=== PATIENT | male | born 1940 | race Caucasian/White ===

== ENCOUNTER 2019-01-06 09:38 | Inpatient (IN) ==
[2019-01-06] MEDS ORDERED: ONDANSETRON INJ 2 MG/ML 2 ML VIAL IV STA (09:51)
[2019-01-06] MEDS ORDERED: ACETAMINOPHEN 1,000 MG/100 ML VIAL IV STA (09:51)
[2019-01-06] MEDS ORDERED: SODIUM CHLORIDE 0.9% 1000ML 1,000 ML IV SCH (10:00)
[2019-01-06 10:03] LABS: Basophils # (auto) 0.04 K/uL (0-0.2); Basophils % (auto) 0.4 %; Eosinophils # (auto) 0.05 K/uL (0-0.5); Eosinophils % (auto) 0.5 %; Hematocrit (blood only) 32.7 % (42-52); Hemoglobin 10.8 g/dL (14.0-18.0); Immature Granulocytes # (auto) 0.04 K/uL (0.00-0.02); Immature Granulocytes % (auto) 0.4 %; Lymphocytes # (auto) 0.82 K/uL (1.2-3.4); Lymphocytes % (auto) 7.6 %; Mean Corpuscular Hemoglobin 32.7 pg (25-34); Mean Corpuscular Volume 99.1 fL (80-100); Mean Platelet Volume 11.1 fL (7.4-10.4); Monocytes # (auto) 0.41 K/uL (0.11-0.59); Monocytes % (auto) 3.8 %; Neutrophils # (auto) 9.41 K/uL (1.4-6.5); Neutrophils % (auto) 87.3 %; Platelet Count 697 K/uL (130-400); RDW Coefficient of Variation 27.9 % (11.5-14.5); RDW Standard Deviation 94.7 fL (36.4-46.3); White Blood Count 10.77 K/uL (4.8-10.8)
[2019-01-06 10:09] LABS: Alanine Aminotransferase 39 U/L (12-78); Albumin Level 4.1 gm/dl (3.4-5.0); Aspartate Aminotransferase 40 U/L (15-37); BUN Creatinine Ratio 26.5 (10-20); Blood Urea Nitrogen 38 mg/dl (7-18); Calcium 9.5 mg/dl (8.5-10.1); Carbon Dioxide 23 mmol/L (21-32); Chloride 106 mmol/L (98-107); Creatinine Clr Calc Pharmacy 38.8 ml/min; Est GFR (African American) 53.7; Est GFR (Non-African American) 46.3; Glucose 151 mg/dl (70-99); Lipase 157 U/L (73-393); Magnesium 2.2 mg/dl (1.8-2.4); Potassium 4.7 mmol/L (3.5-5.1); Sodium 139 mmol/L (136-145)
[2019-01-06 10:14] LABS: Albumin Globulin Ratio 1.1 (0.9-2); Alkaline Phosphatase 51 U/L (45-117); Bilirubin,Total 0.8 mg/dl (0.2-1); Globulin 3.7 gm/dl (2.5-4.0); Total Protein 7.8 gm/dl (6.4-8.2); Troponin I < 0.015 ng/ml (0-0.045)
--- NOTE | 2019-01-06 10:16 | Emergency Department Note ---
Entered by Wendi Mcguire acting as a scribe for History of Present Illness General Chief complaint: Vomiting Stated complaint: weakness/vomit Time Seen by Provider: 01/06/19 09:44 Source: patient History of Present Illness Onset (ago): day(s) 1 Location: abdomen Pain Consistency: + other (multiple episodes) Quality: + other (nausea and vomiting ) Associated symptoms: + weakness and + other (+abdominal pain (subsided); +bloated; +loose stool; +hot and cold flashes; -urinary symptoms; -blood in vomit); no fever/chills The patient is an 78 year old male, with past medical history of colitis, who presents to the Emergency Room with complaints of multiple episodes of vomiting beginning yesterday--approximately at 1800. The patient reports he started experiencing abdominal pain prior to eating dinner [facility]. The pa lu states he still ended up having dinner at [employer], but the patient notes he started experiencing episodes of vomiting upon returning home. The patient notes that last night he was up every hour either to urinate or vomit. The patient states his abdominal pain has subsided currently, but the patient reports his stomach feels bloated still. He also notes that he has been experiencing loose stool with his bowel movements. The patient denies issues with urination, and he denies blood in his vomit. The patient reports that he started feeling symptoms before he ate at [employer]. The patient denies being around anyone who has been sick recently. The patient also reports to being weak currently, as he states he is not able to walk long distances. The patient denies a fever, but he notes he has had episodes of hot flashes and cold flashes throughout the night. He also notes he recently started taking Lisinopril for high blood pressure. Home Medications Home Medications Medication Instructions Recorded Confirmed Type aspirin [Aspir-81] 81 mg PO HS 12/21/17 01/06/19 History hydroxyurea 500 mg PO BID 12/21/17 01/06/19 History multivitamin 1 tab PO 1200 12/21/17 01/06/19 History psyllium husk [Metamucil] 1 dose PO 1200 12/21/17 01/06/19 History anagrelide 1 mg PO BID 11/16/18 01/06/19 History Lactobac comb [id number] 1 cap PO Q2D 01/06/19 01/06/19 History [Probiotic and Acidophilus] lisinopril 10 mg PO DAILY 01/06/19 01/06/19 History lutein 10 mg PO DAILY 01/06/19 01/06/19 History Allergies Allergy/AdvReac Type Severity Reaction Status Date / Time naproxen Allergy Intermediate ITCHY ALL Verified 01/06/19 10:19 OVER Past Med/Surg History Medical History (Updated 01/06/19 @ 12:19 by Danyel Freitas PA-C) Closed head injury (Inactive) Colitis Contusion of left little finger (Inactive) Essential thrombocythemia (Chronic) Face lacerations (Inactive) Fall (Inactive) Hypertension Melanoma (Chronic) Small bowel obstruction (Inactive) Surgical History History of tonsillectomy (Resolved) Family History Other Family history non-contributory Social History Preferred Language: Cymro Communication Ability: Effective Sales Representative Publications Required: No Beliefs That Will Affect Care: None marital status: Current Living Situation: Spouse current occupational status: retired Other Information That Helps Us Care for You: No Feels Safe at Home: Yes Safety Concerns: Feels Safe At This Time Smoking Status: Former smoker Tobacco Type: pipe ; Smoking End Date: January 2018 ; Second Hand Exposure: No ; Hx Alcohol Use: No Hx Substance Use: No Review of Systems See HPI for pertinent positives & negatives. and A total of 10 systems reviewed and were otherwise negative Physical Exam Vital Signs Vital Signs - 24 hr 01/06/19 09:34 01/06/19 09:38 01/06/19 09:40 Temperature 36.5 C Temperature Source Oral Pulse Rate 101 H 97 H 101 H Pulse Rate from SpO2 Sensor Respiratory Rate 32 H 20 29 H Respiratory Effort / Characteristics Non-Labored Spontaneous Respiratory Depth Normal Respiratory Pattern Regular Blood Pressure 165/76 H 165/76 H Blood Pressure Mean 126 105 Pulse Oximetry 90 Oxygen Delivery Method Room Air Sepsis Recent Fever Within 48 Hours No Sepsis Action Taken by Nursing No Action Required 01/06/19 09:42 01/06/19 10:00 01/06/19 10:30 Temperature Temperature Source Pulse Rate 103 H 97 H 98 H Pulse Rate from SpO2 Sensor 102 H 97 H 99 H Respiratory Rate 32 H 34 H 28 H Respiratory Effort / Characteristics Respiratory Depth Respiratory Pattern Blood Pressure 170/80 H 157/79 H Blood Pressure Mean 103 104 Pulse Oximetry 90 93 94 Oxygen Delivery Method Sepsis Recent Fever Within 48 Hours Sepsis Action Taken by Nursing 01/06/19 10:41 01/06/19 11:00 01/06/19 11:30 Temperature Temperature Source Pulse Rate 94 H 99 H 94 H Pulse Rate from SpO2 Sensor 95 H 98 H 96 H Respiratory Rate 25 H 20 28 H Respiratory Effort / Characteristics Respiratory Depth Respiratory Pattern Blood Pressure 154/81 H 162/86 H 154/65 H Blood Pressure Mean 109 108 86 Pulse Oximetry 92 93 96 Oxygen Delivery Method Sepsis Recent Fever Within 48 Hours Sepsis Action Taken by Nursing GENERAL: Patient is in no acute distress. HEENT: No acute trauma, normocephalic atraumatic, mucous membranes dry, no nasal congestion, no scleral icterus. NECK: No stridor, no adenopathy, no meningismus, trachea is midline. LUNGS: Clear to auscultation bilaterally, no wheeze, no rhonchi, breath sounds equal. HEART: Without murmurs gallops or rubs, regular rate and rhythm. ABDOMEN: Soft, nontender, bowel sounds positive, no hernias, no peritonitis. There is some abdomen distension and tympany with percussion. EXTREMITIES: No cyanosis or edema, full range of motion of all the joints without pain or difficulty, no signs for acute trauma. NEUROLOGIC: Oriented x 3, no acute motor or sensory deficits, no focal weakness. SKIN: No rash, no jaundice, no diaphoresis. Course Course 0947: Past medical records reviewed. The patient was evaluated in room B11B. A complete history and physical exam was performed. 1116: I reevaluated and updated the patient on his case. 1124: I reviewed the patient's case with Dr. Timmons-Niya Santos. Dr. Timmons will evaluate the patient for further management. Consultations Consultation #1: I reviewed the patient's case with Dr. Timmons-Niya Santos. Dr. Timmons will evaluate the patient for further management. Time: 11:24 Administered Medications Hydralazine HCl (Hydralazine Hcl) 5 mg IV Q8H PRN PRN Reason: Blood Pressure - High Stop: 02/05/19 12:45 Last Admin: 01/06/19 16:08 Dose: 5 mg Documented by: [id number] Lactated Ringer's (Lr) 1,000 mls @ 100 mls/hr IV .Q10H ROSETTE Stop: 01/06/19 22:59 Last Admin: 01/06/19 13:40 Dose: 100 mls/hr Documented by: [id number] Discontinued Medications Sodium Chloride (Nss 1000ml) 1,000 mls @ 999 mls/hr IV .Q1H1M ROSETTE Stop: 01/06/19 11:00 Last Infusion: 01/06/19 11:10 Dose: 0 mls/hr Documented by: [id number] Admin: 01/06/19 10:11 Dose: 999 mls/hr Documented by: [id number] Acetaminophen (Ofirmev) 1,000 mg in 100 mls @ 400 mls/hr IV NOW STA Stop: 01/06/19 10:05 Last Infusion: 01/06/19 11:10 Dose: 0 mls/hr Documented by: [id number] Admin: 01/06/19 10:11 Dose: 400 mls/hr Documented by: [id number] Sodium Chloride (Nss 1000ml) 500 mls @ 999 mls/hr IV .Q31M ONE Stop: 01/06/19 11:40 Last Admin: 01/06/19 13:26 Dose: Not Given Documented by: [id number] Ondansetron HCl (Zofran) 4 mg IV NOW STA Stop: 01/06/19 09:52 Last Admin: 01/06/19 10:11 Dose: 4 mg Documented by: [id number] Medical Decision Making Differential Diagnosis Differential diagnoses include dehydration, acute kidney injury, electrolyte imbalance, bowel obstruction, diverticulitis, viral or food borne illness, pneumonia, UTI, cardiac ischemia, amongst others that were considered. Medical Records Attestation: I reviewed the patient's medical records. Home Medications Current Medication List: was personally reviewed by me Laboratory Data Attestation: I reviewed the patient's lab results. Result diagrams: 01/06/19 09:45 01/06/19 09:45 Lab Results 01/06/19 01/06/19 01/06/19 Range/Units 09:45 09:45 11:11 WBC 10.77 (4.8-10.8) K/uL RBC 3.30 L (4.7-6.1) M/uL Hgb 10.8 L (14.0-18.0) g/dL Hct 32.7 L (42-52) % MCV 99.1 (80-100) fL MCH 32.7 (25-34) pg MCHC 33.0 (32-36) g/dL RDW Std Deviation 94.7 H (36.4-46.3) fL RDW Coeff of Echo 27.9 H (11.5-14.5) % Plt Count 697 H (130-400) K/uL MPV 11.1 H (7.4-10.4) fL Immature Gran % (Auto) 0.4 % Neut % (Auto) 87.3 % Lymph % (Auto) 7.6 % Walsh % (Auto) 3.8 % Eos % (Auto) 0.5 % Baso % (Auto) 0.4 % Immature Gran # (Auto) 0.04 H (0.00-0.02) K/uL Neut # (Auto) 9.41 H (1.4-6.5) K/uL Lymph # (Auto) 0.82 L (1.2-3.4) K/uL Walsh # (Auto) 0.41 (0.11-0.59) K/uL Eos # (Auto) 0.05 (0-0.5) K/uL Baso # (Auto) 0.04 (0-0.2) K/uL Ovalocytes 1+ Sodium 139 (136-145) mmol/L Potassium 4.7 (3.5-5.1) mmol/L Chloride 106 (98-107) mmol/L Carbon Dioxide 23 (21-32) mmol/L Anion Gap 9.0 (3-11) BUN 38 H (7-18) mg/dl Creatinine 1.42 H (0.6-1.4) mg/dl Est Cr Clr Drug Dosing 38.8 ml/min Est GFR ( Amer) 53.7 Est GFR (Non-Af Amer) 46.3 BUN/Creatinine Ratio 26.5 H (10-20) Glucose 151 H (70-99) mg/dl Calcium 9.5 (8.5-10.1) mg/dl Magnesium 2.2 (1.8-2.4) mg/dl Total Bilirubin 0.8 (0.2-1) mg/dl AST 40 H (15-37) U/L ALT 39 (12-78) U/L Alkaline Phosphatase 51 (45-117) U/L Troponin I < 0.015 (0-0.045) ng/ml Total Protein 7.8 (6.4-8.2) gm/dl Albumin 4.1 (3.4-5.0) gm/dl Globulin 3.7 (2.5-4.0) gm/dl Albumin/Globulin Ratio 1.1 (0.9-2) Lipase 157 (73-393) U/L Urine Color Dark Yellow Urine Appearance Clear (Clear) Urine pH 5.0 (4.5-7.5) Ur Specific [place] 1.024 (1.000-1.030) Urine Protein 1+ H (Negative) Urine Glucose (UA) Negative (Negative) Urine Ketones Negative (Negative) Urine Blood Negative (Negative) Urine Nitrite Negative (Negative) Urine Bilirubin Negative (Negative) Urine Urobilinogen Negative (Negative) Ur Leukocyte Esterase Negative (Negative) Urine WBC (Auto) 1-5 (0-5) /hpf Urine RBC (Auto) 5-10 H (0-4) /hpf U Hyaline Cast (Auto) 5-10 H (0-5) /lpf U Epithel Cells (Auto) 10-20 H (0-5) /lpf Urine Bacteria (Auto) Negative (Negative) Granular Casts 1-5 H (0) /lpf Urine Mucus Present A (None Prsent) Imaging Data Radiologist's Impression: Radiology results as stated below per my review and the radiologist's interpretation: CT abd pelvis wo con CT DOSE: 317.15 mGy.cm HISTORY: vomiting, bloated, pain, poss obstruc TECHNIQUE: Multiaxial CT images of the abdomen and pelvis were performed without contrast. A dose lowering technique was utilized adhering to the principles of ALARA. COMPARISON STUDY: 01/02/2018 FINDINGS: Lung bases are remarkable for nonspecific interstitial changes bilaterally. This is progressive from the prior study.. Liver spleen and pancreas appear unremarkable. Kidneys demonstrate several small parapelvic cysts unchanged from the prior study. Some progressive infiltrative change of the perinephric fat bilaterally. Bowel pattern suggests multiple fluid and air-filled loops of mid to distal small bowel. This extends to the terminal ileum. No well-defined obstructing lesion is not seen. There again is moderate fecal material throughout the colon. This potentially s uggest either partial small bowel obstruction versus reactive ileus. IMPRESSION: 1. Several distended loops of small bowel in the mid and distal aspect of the abdomen generally similar in configuration as compared to the prior study of 2018. 2. A Well-defined obstructing lesion is not appreciated, with this pattern extending to the region of the ileocecal valve. 3. Mild to moderate fecal material throughout the colon which would indicate the possibility of a generalized ileus, with the possibility of a small bowel obstructive pattern perhaps less likely. 4. slight increase in perinephric infiltrative change bilaterally raising the possibility of pyelonephritis. Urinalysis suggested for correlation. 5. Bibasilar parenchymal infiltrative changes of the lungs. The above report was generated using voice recognition software. It may contain grammatical, syntax or spelling errors. Electronically signed by: Ramirez Stoll M.D. 01/06/2019 10:36 AM XR chest 1V portable CLINICAL HISTORY: weakness, sob dyspnea COMPARISON STUDY: None FINDINGS: Atelectasis versus minimal basilar infiltrate on the left. Right base shows slight interstitial prominence. Lungs otherwise are generally clear. Mild emphysematous changes present. IMPRESSION: Mild left and to a lesser extent right basilar parenchymal infiltrate. Emphysematous change. Study is otherwise negative. The above report was generated using voice recognition software. It may contain grammatical, syntax or spelling errors. Electronically signed by: Ramirez Stoll M.D. 01/06/2019 10:38 AM ECG Data Attestation: I personally reviewed and interpreted this ECG as follows: Indication: + abdominal pain, + tachycardia and + weakness Rate (beats per minute): 102 Rhythm: + sinus tachycardia ECG ST segments: no ST elevation ECG Findings: + Other (potential old septal infarct; baseline artifact; QTC 484); no PVCs Blood Pressure Blood Pressure Findings: Elevated blood pressure Blood Pressure Disposition: further management by hospitalist [facility] Narrative There is no leukocytosis. The patient is anemic but this appears baseline looking back at recent testing. Platelet count slightly high at 697. There was some renal insufficiency/dehydration with a slight elevation to the creatinine. No concerning liver enzyme elevation. No evidence for pancreatitis. EKG showed a sinus tachycardia, no acute ischemia. Cardiac enzyme testing x1 was not consistent with acute cardiac injury. Chest film showed some atelectasis at both lung bases, no CHF. Abdominal and pelvis CT showed what may be a partial bowel obstruction versus ileus. Urinalysis did not show evidence for infection. The patient presents with weakness, vomiting and abdominal distention. He does feel dehydrated. The patient received IV saline, 1.5 L. He received IV Zofran for nausea, he was given IV Tylenol for pain. The patient does feel somewhat better. Given his work-up findings, given the concern for ileus versus partial small bowel obstruction, I do think a hospital stay is warranted. I did speak to the patient and case management. The on-call hospitalist was consulted. Impression & Plan Vomiting, Acute dehydration, Abdominal distension, Ileus Discharge Plan Visit Data *Final* Discharge Date/Time: 01/06/19 12:29 Chief Complaint: Vomiting Stated Complaint: weakness/vomit ED Provider: Danyel Johnston Discharge Problem: Vomiting, Acute dehydration, Abdominal distension, Ileus Patient Disposition: Admitted As Inpatient Discharge Instructions Interventions: ED Discharge Assessment Last Done: 01/06/19 12:29 Discharge Problem: Vomiting Qualifiers: Vomiting type: unspecified Vomiting Intractability: unspecified Nausea presence: unspecified Qualified Code(s): R11.10 - Vomiting, unspecified The scribe's documentation has been prepared under my direction and personally reviewed by me in its entirety. I confirm that the note above accurately reflects all work, treatment, procedures, and medical decision making performed by me.
[2019-01-06 10:24] LABS: Ovalocytes 1+
--- NOTE | 2019-01-06 10:37 | CT Scan Report ---
CT abd pelvis wo con CT DOSE: 317.15 mGy.cm HISTORY: vomiting, bloated, pain, poss obstruc TECHNIQUE: Multiaxial CT images of the abdomen and pelvis were performed without contrast. A dose lo wering technique was utilized adhering to the principles of ALARA. COMPARISON STUDY: 01/02/2018 FINDINGS: Lung bases are remarkable for nonspecific interstitial changes bilaterally. This is progres sive from the prior study.. Liver spleen and pancreas appear unremarkable. Kidneys demonstrate several small parapelvic cysts unchanged from the prior study. Some progressive infiltrative change of the perinephric fat bilaterally. Bowel pattern suggests multiple fluid and air-filled loops of mid to distal small bowel. This extends to the terminal ileum. No well-defined obstructing lesion is not seen. There again is moderate fecal material throughout the colon. This potentially suggest either partial small bowel obstruction versus reactive ileus. IMPRESSION: 1. Several distended loops of small bowel in the mid and distal aspect of the abdomen generally simil ar in configuration as compared to the prior study of 2018. 2. A Well-defined obstructing lesion is not appreciated, with this pattern extending to the region of the ileocecal valve. 3. Mild to moderate fecal material throughout the colon which would indicate the possibility of a gen eralized ileus, with the possibility of a small bowel obstructive pattern perhaps less likely. 4. slight increase in perinephric infiltrative change bilaterally raising the possibility of pyelonep hritis. Urinalysis suggested for correlation. 5. Bibasilar parenchymal infiltrative changes of the lungs. The above report was generated using voice recognition software. It may contain grammatical, syntax or spelling errors. Electronically signed by: Ramirez Stoll M.D. 01/06/2019 10:36 AM
--- NOTE | 2019-01-06 10:40 | XRay Report ---
XR chest 1V portable CLINICAL HISTORY: weakness, sob dyspnea COMPARISON STUDY: None FINDINGS: Atelectasis versus minimal basilar infiltrate on the left. Right base shows slight intersti tial prominence. Lungs otherwise are generally clear. Mild emphysematous changes present. IMPRESSION: Mild left and to a lesser extent right basilar parenchymal infiltrate. Emphysematous rigoberto nge. Study is otherwise negative. The above report was generated using voice recognition software. It may contain grammatical, syntax or spelling errors. Electronically signed by: Ramirez Stoll M.D. 01/06/2019 10:38 AM
[2019-01-06] MEDS ORDERED: SODIUM CHLORIDE 0.9% 1000ML 500 ML IV ONE (11:10)
[2019-01-06 11:20] LABS: Appearance Urine Clear (Clear); Bacteria Urine Automated Negative (Negative); Bilirubin Urine Negative (Negative); Blood Urine Negative (Negative); Color Urine Dark Yellow; Glucose Urine UA Negative (Negative); Ketones Urine Negative (Negative); Leukocyte Esterase Urine Negative (Negative); Nitrite Urine Negative (Negative); Protein Urine 1+ (Negative); Specific Gravity Urine 1.024 (1.000-1.030); Urobilinogen Urine Negative (Negative)
[2019-01-06 11:28] LABS: Mucus Urine Present (None Prsent)
[2019-01-06] MEDS ORDERED: ONDANSETRON INJ 2 MG/ML 2 ML VIAL IV PRN (11:30)
--- NOTE | 2019-01-06 12:18 | History & Physical Report ---
Date of Service January 06, 2019 Assessment & Plan (1) Ileus: Patient had previous small bowel obstruction approximate 1 year ago when he was transferred to [facility] there included NG tube which resolved the obstruction without surgical intervention Patient reports that he had some abdominal pain yesterday prior to eating dinner. He states that this was unrelated to any new or recent foods No recent illness We will admit the patient under observation status Continue n.p.o. status for the next 24 hours No indication for NG tube at this time. However, if patient has recurrent vomiting consider decompression with NG tube Monitor on [facility] (2) Acute dehydration: creatinine elevated 1.42 ( cr 01/2018 0.92) BUN is elevated-possible due to nausea /vomiting /diarrhea ( reports of 3 episodes of loose bowel movement last night -none this morning ) stool assay for C. difficile ordered hold lisinopril avoid NSAID's /Contrast study We will hydrate for the next 24 hours with lactated Ringer's Monitor ins and outs Repeat labs in the morning Follow expectantly (3) Essential thrombocythemia: Follows with Dr. Emiliano Sandoval from [facility] oncology and hematology on hydroxyurea and anagrelide-kept on hold for NPO/bowel illeus Serial labs No prior history of thrombotic disease Continue to monitor (4) Hypertension: Patient recently started on lisinopril kept on hold for LUCILA For now, will use hydralazine 10 mg IV every 8 hours as needed SBP greater than 160 (5) Abnormal chest x-ray: Chest x-ray shows parenchymal changes at the bases bilaterally No history of aspiration and patient denies aspiration with vomiting last night Repeat chest x-ray tomorrow No fever. WBC 10.77 Oxygenating well on room air No sputum production or significant cough. Doubt pneumonia but will follow. (6) DVT prophylaxis: No prior history of DVT or pulmonary embolus No chemical prophylaxis at this time in the event that the small bowel obstruction worsens and patient needs intervention We will order SCDs and JAME hose Ambulate as tolerated Please refer to Dr. Timmons's addendum for further recommendations. History of Present Illness Primary Care Provider: Ritesh Reyes MD Attending: Dr. 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 The patient presents today with abdominal pain and nausea. He reports that he had belly pain yesterday afternoon and then went to [facility] and had dinner. He thought the pain would resolve but overnight it worsened. And multiple episodes of vomiting overnight which had no blood in the vomit. He reports having sea hernandez at the restaurant but is adamant that pain occurred prior to eating. He reports he had no fever, chills, sweats, rigors but did have some hot flashes overnight. He does have abdominal distention which is unusual for him. Yesterday he had a usual bowel movement described as formed. The patient presented the emergency room today with concerns for recurrent bowel obstruction. WBC 10.77. Patient is afebrile. He is planning a cruise to [place] the first week of January and wanted to make sure that this was cleared up by then. The patient denies any prior abdominal surgery. He has no history of malignancy. He denies any history of atrial fibrillation or atrial flutter but does report that on occasion he has had a irregular heartbeats as described by his family doctor, Dr. Reyes. EKGs were reviewed in the [facility] system and showed no history of arrhythmia. He denies any history of thrombotic disease. No pulmonary or cardiac disease other than hypertension. Patient ambulates well with no history of falls or imbalance. Patient denies any history of aspiration. He has no cough associated with ingestion of food or thin liquids. He denies any aspiration while vomiting last evening. The patient has no other acute complaints. Allergies Allergy/AdvReac Type Severity Reaction Status Date / Time naproxen Allergy Intermediate ITCHY ALL Verified 01/06/19 10:19 OVER Home Medications Home Medications Medication Instructions Recorded Confirmed Type aspirin [Aspir-81] 81 mg PO HS 12/21/17 01/06/19 History hydroxyurea 500 mg PO BID 12/21/17 01/06/19 History multivitamin 1 tab PO 1200 12/21/17 01/06/19 History psyllium husk [Metamucil] 1 dose PO 1200 12/21/17 01/06/19 History anagrelide 1 mg PO BID 11/16/18 01/06/19 History Lactobac comb [id number] 1 cap PO Q2D 01/06/19 01/06/19 History [Probiotic and Acidophilus] lisinopril 10 mg PO DAILY 01/06/19 01/06/19 History lutein 10 mg PO DAILY 01/06/19 01/06/19 History Past Med/Surg History Medical History (Updated 01/06/19 @ 12:19 by Danyel Freitas PA-C) Closed head injury (Inactive) Colitis Contusion of left little finger (Inactive) Essential thrombocythemia (Chronic) Face lacerations (Inactive) Fall (Inactive) Hypertension Melanoma (Chronic) Small bowel obstruction (Inactive) Surgical History History of tonsillectomy (Resolved) Family History Other Family history non-contributory Social History Preferred Language: Upper Sorbian Communication Ability: Effective Still Operator Brandy Required: No Beliefs That Will Affect Care: None marital status: Current Living Situation: Spouse current occupational status: retired Other Information That Helps Us Care for You: No Feels Safe at Home: Yes Safety Concerns: Feels Safe At This Time Smoking Status: Former smoker Tobacco Type: pipe ; Smoking End Date: January 2018 ; Second Hand Exposure: No ; Hx Alcohol Use: No Hx Substance Use: No Review of Systems Review of Systems: All systems reviewed & are unremarkable except as noted in HPI & below Physical Exam Physical Exam: GENERAL : No acute distress. Pleasant. Jovial EYES: No icterus, gaze conjugate. Pupils equal round and reactive to light NOSE: No evidence of epistaxis. MOUTH: No lesions or candidiasis. Mucosa moist. NECK: Supple. No appreciation of carotid bruits LUNGS: CTA B/L, no wheezes, rales or rhonchi. Good inspirational effort HEART: Regular, rate in the 90s ABDOMEN: Soft, NT, BS Present. No guarding or rebound tenderness. Abdomen is distended but not rigid. EXTREMITIES: No LE edema, pedal pulses intact. NEURO: A&OX3. Pupils equal round and reactive to light. Deep tendon reflexes 2/4 to the bicep, brachioradialis, patellar tendons. Toes downgoing bilaterally. Bilateral extremities are equal in strength upper and lower. No pronator drift. Cerebellar function is intact with rapid alternating movements and [id number]. No facial droop. No deviation of the tongue. Results & Data Vital Signs (Past 12 Hours) Vital Signs Temp Pulse Resp BP Pulse Ox 01/06/19 11:00 99 H 20 162/86 H 93 01/06/19 10:41 94 H 25 H 154/81 H 92 01/06/19 10:30 98 H 28 H 94 01/06/19 10:00 97 H 34 H 157/79 H 93 01/06/19 09:42 103 H 32 H 170/80 H 90 01/06/19 09:40 101 H 29 H 01/06/19 09:38 36.5 C 97 H 20 165/76 H 90 01/06/19 09:34 101 H 32 H 165/76 H Laboratory Results 01/06/19 09:45 01/06/19 09:[address] abd pelvis wo con CT DOSE: 317.15 mGy.cm HISTORY: vomiting, bloated, pain, poss obstruc TECHNIQUE: Multiaxial CT images of the abdomen and pelvis were performed without contrast. A dose lowering technique was utilized adhering to the principles of ALARA. COMPARISON STUDY: 01/02/2018 FINDINGS: Lung bases are remarkable for nonspecific interstitial changes bilaterally. This is progressive from the prior study.. Liver spleen and pancreas appear unremarkable. Kidneys demonstrate several small parapelvic cysts unchanged from the prior s tudy. Some progressive infiltrative change of the perinephric fat bilaterally. Bowel pattern suggests multiple fluid and air-filled loops of mid to distal small bowel. This extends to the terminal ileum. No well-defined obstructing lesion is not seen. There again is moderate fecal material throughout the colon. This potentially suggest either partial small bowel obstruction versus reactive ileus. IMPRESSION: 1. Several distended loops of small bowel in the mid and distal aspect of the abdomen generally similar in configuration as compared to the prior study of 2018. 2. A Well-defined obstructing lesion is not appreciated, with this pattern extending to the region of the ileocecal valve. 3. Mild to moderate fecal material throughout the colon which would indicate the possibility of a generalized ileus, with the possibility of a small bowel obstructive pattern perhaps less likely. 4. slight increase in perinephric infiltrative change bilaterally raising the possibility of pyelonephritis. Urinalysis suggested for correlation. 5. Bibasilar parenchymal infiltrative changes of the lungs. Electronically signed by: Ramirez Stoll M.D. 01/06/2019 10:36 AM XR chest 1V portable CLINICAL HISTORY: weakness, sob dyspnea COMPARISON STUDY: None FINDINGS: Atelectasis versus minimal basilar infiltrate on the left. Right base shows slight interstitial prominence. Lungs otherwise are generally clear. Mild emphysematous changes present. IMPRESSION: Mild left and to a lesser extent right basilar parenchymal infiltrate. Emphysematous change. Study is otherwise negative. Electronically signed by: Ramirez Stoll M.D. 01/06/2019 10:38 AM Code Status & VTE Plan Code Status resuscitation VTE Prophylaxis Plan VTE Prophylaxis will be ordered: Yes Supervising Physician Co-Signing Physician Notes Attending addendum: Patient seen and examined, care coordinated Danyel Freitas PA-C This is a 78-year-old male with past medical history of essential thrombocytosis/hypertension, prior history of small bowel obstruction Patient came to ER with complaint of intractable abdominal pain since yesterday, worse after having dinner in a restaurant, multiple loose bowel movement overnight, nausea and vomiting CT abdomen pelvis: several distended loops of small bowel in the mid and distal aspect of the abdomen similar to prior configuration in 2018 Physical exam: GENERAL: No sign of distress, HEENT: Sclera nonicteric, pink-purple bilateral equal reactive to light extraocular muscle intact Normal oral mucosa, neck: No JVD, no thyromegaly, trachea midline Lungs: Clear to auscultate, no wheeze or rales Cardiovascular: Regular S1 and S2, no murmur or gallop, no JVD, no lower extremity edema Abdomen: Soft, Distended,Positive tenderness, no rebound, Diminished bowel sound Extremities: No rash or deformity, normal joint, Neuro: No focal neurological deficit, no dysarthria, no facial droop Psych: Alert awake oriented x3: Euthymic Skin: No rash LYMPH NODES: No cervical lymphadenopathy Assessment and plan: Abdominal pain, nausea vomiting/diarrhea:CT abdomen pelvis finding of ileus Patient reports of multiple loose bowel movement overnight, none this morning, Feels nauseous, no vomiting - Had similar presentation in December 2017, due to significant thrombocytosis ; platelet count was >[address] [facility] (patient would require plasmapheresis prior to anticipated surgery) -Patient was treated at [facility] conservatively, with NG suction decompression Did not require any surgical procedure -After discharge, had readmission at [facility] on January 2018 With abdominal pain, nausea vomiting, CT abdomen pelvis: Showed improvement of high-grade small bowel obstruction Was evaluated by surgical team Patient was treated conservatively admitted with abdominal pain /distention /CT finding as above NPO including ice chips and sips NG is not ordered as no active vomiting noted Xray of abdomen in AM consider Surgery consult of persisted Illeus vs progression to SBP noted Please refer to further documentation by Danyel Freitas PA-C for discussion of other chronic issues Elisabeth Timmons MD
[2019-01-06] MEDS ORDERED: HydrALAZINE HCL 20 MG/ML VIAL IV PRN (12:46)
[2019-01-06] MEDS ORDERED: PROMETHAZINE HCL 6.25 MG in SODIUM CHLORIDE 0.9% 50 ML IV PRN (12:46)
[2019-01-06] MEDS: LACTATED RINGER'S 1,000 ML IV SCH ×2 (13:40→23:07)
[2019-01-06] MEDS ORDERED: ACETAMINOPHEN 1,000 MG/100 ML VIAL IV PRN (16:37)
[2019-01-06] MEDS ORDERED: PIPERACILL/TAZOBAC CONSULT ACTIVE PRN (16:39)
[2019-01-06] MEDS ORDERED: PIPERACILLIN/TAZOBACTAM 2.25 GM in DEXTROSE 5% 100 ML IV SCH (16:45)
[2019-01-06] MEDS ORDERED: PIPERACILLIN/TAZOBACTAM 3.375 GM in DEXTROSE 5% 100 ML IV ONE (17:00)
[2019-01-06] MEDS ORDERED: HydrALAZINE HCL 20 MG/ML VIAL IV ONE (17:12)
--- NOTE | 2019-01-06 17:16 | Hospitalist Progress Note ---
Date of Service January 06, 2019 ATTENDING ADDENDUM: FEVER Updated by nursing on the floor, as patient started to spike temperature 37.6 Ordered for blood culture, stat lactic acid procalcitonin level Empiric antibiotic with IV Zosyn HYPERTENSIVE URGENCY: SBP 180 No report of pain or discomfort Home antihypertensives: Lisinopril kept on hold secondary to acute renal failure Ordered for IV hydralazine dose increased to 10 mg as needed Continue to monitor Elisabeth Timmons MD Results & Data Vital Signs (Past 12 Hours) Vital Signs Temp Pulse Pulse Resp BP BP Pulse Ox 01/06/19 17:02 176/76 H 01/06/19 16:02 37.6 C H 93 H 17 180/83 H 91 01/06/19 14:02 01/06/19 13:20 37.3 C 95 H 16 160/77 H 93 01/06/19 12:00 93 H 29 H 149/84 H 94 01/06/19 11:30 94 H 28 H 154/65 H 96 01/06/19 11:00 99 H 20 162/86 H 93 01/06/19 10:41 94 H 25 H 154/81 H 92 01/06/19 10:30 98 H 28 H 94 01/06/19 10:00 97 H 34 H 157/79 H 93 01/06/19 09:42 103 H 32 H 170/80 H 90 01/06/19 09:40 101 H 29 H 01/06/19 09:38 36.5 C 97 H 20 165/76 H 90 01/06/19 09:34 101 H 32 H 165/76 H Pulse Ox 01/06/19 17:02 01/06/19 16:02 01/06/19 14:02 93 01/06/19 13:20 01/06/19 12:00 01/06/19 11:30 01/06/19 11:00 01/06/19 10:41 01/06/19 10:30 01/06/19 10:00 01/06/19 09:42 01/06/19 09:40 01/06/19 09:38 01/06/19 09:34
--- NOTE | 2019-01-06 17:43 | Hospitalist Progress Note ---
Date of Service January 06, 2019 Subjective Attending addendum: Stat lactic acid elevated 2.6 Temperature spike noted earlier concern for Possible bowel ischemia in the setting of persistent ileus Increased IV fluids to 125 mL/h Continue IV Zosyn Patient is transferred to telemetry General surgery consulted Elisabeth Timmons MD Results & Data Vital Signs (Past 12 Hours) Vital Signs Temp Pulse Pulse Resp BP BP Pulse Ox 01/06/19 17:02 176/76 H 01/06/19 16:02 37.6 C H 93 H 17 180/83 H 91 01/06/19 14:02 01/06/19 13:20 37.3 C 95 H 16 160/77 H 93 01/06/19 12:00 93 H 29 H 149/84 H 94 01/06/19 11:30 94 H 28 H 154/65 H 96 01/06/19 11:00 99 H 20 162/86 H 93 01/06/19 10:41 94 H 25 H 154/81 H 92 01/06/19 10:30 98 H 28 H 94 01/06/19 10:00 97 H 34 H 157/79 H 93 01/06/19 09:42 103 H 32 H 170/80 H 90 01/06/19 09:40 101 H 29 H 01/06/19 09:38 36.5 C 97 H 20 165/76 H 90 01/06/19 09:34 101 H 32 H 165/76 H Pulse Ox 01/06/19 17:02 01/06/19 16:02 01/06/19 14:02 93 01/06/19 13:20 01/06/19 12:00 01/06/19 11:30 01/06/19 11:00 01/06/19 10:41 01/06/19 10:30 01/06/19 10:00 01/06/19 09:42 01/06/19 09:40 01/06/19 09:38 01/06/19 09:34
[2019-01-06] MEDS ORDERED: DiphenhydrAMINE HCL 50 MG/ML VIAL IV STA (19:47)
[2019-01-06] MEDS ORDERED: DiphenhydrAMINE HCL 50 MG/ML VIAL IV PRN (19:54)
[2019-01-06] MEDS ORDERED: DiphenhydrAMINE 2%/ZINC 0.1% CREAM 28GM TUBE EXT PRN ×2 (20:18→20:45)
--- NOTE | 2019-01-06 21:00 | Hospitalist Progress Note ---
Date of Service January 06, 2019 Subjective Attending addendum: Patient revisited at 8 PM in room 212 Abdomen remains distended, patient reports not able to pass gas since admission, Bowel sounds not audible Ordered for NG tube placement,-large amount of bilious gastric suction> 500 mL came out right away Continue NG tube with low intermittent suction Continue IV fluids, Levine catheter placed to assess for urine output Surgery consulted, case discussed with on-call surgery Dr. Gonzalez Commence continue current conservative management with IV fluids NG suction for decompression Patient will be seen by surgery team tomorrow morning Called patient , given update over phone Elisabeth Timmons MD Results & Data Vital Signs (Past 12 Hours) Vital Signs Temp Pulse Pulse Resp BP BP Pulse Ox 01/06/19 18:34 149/77 H 01/06/19 17:51 37.4 C 01/06/19 17:42 157/77 H 01/06/19 17:02 176/76 H 01/06/19 16:02 37.6 C H 93 H 17 180/83 H 91 01/06/19 14:02 01/06/19 13:20 37.3 C 95 H 16 160/77 H 93 01/06/19 12:00 93 H 29 H 149/84 H 94 01/06/19 11:30 94 H 28 H 154/65 H 96 01/06/19 11:00 99 H 20 162/86 H 93 01/06/19 10:41 94 H 25 H 154/81 H 92 01/06/19 10:30 98 H 28 H 94 01/06/19 10:00 97 H 34 H 157/79 H 93 01/06/19 09:42 103 H 32 H 170/80 H 90 01/06/19 09:40 101 H 29 H 01/06/19 09:38 36.5 C 97 H 20 165/76 H 90 01/06/19 09:34 101 H 32 H 165/76 H Pulse Ox 01/06/19 18:34 01/06/19 17:51 01/06/19 17:42 01/06/19 17:02 01/06/19 16:02 01/06/19 14:02 93 01/06/19 13:20 01/06/19 12:00 01/06/19 11:30 01/06/19 11:00 01/06/19 10:41 01/06/19 10:30 01/06/19 10:00 01/06/19 09:42 01/06/19 09:40 01/06/19 09:38 01/06/19 09:34
[2019-01-06] MEDS: metroNIDAZOLE 500 MG/100 ML BAG IV SCH (21:16)
--- NOTE | 2019-01-06 21:19 | XRay Report ---
XR chest 1V portable CLINICAL HISTORY: NG tube placement tube position COMPARISON STUDY: 01/06/2019 FINDINGS: Nasogastric tube placed in the gastric fundus. Basilar infiltrative change persists. IMPRESSION: Nasogastric tube placed in the gastric fundus. The above report was generated using voice recognition software. It may contain grammatical, syntax or spelling errors. Electronically signed by: Ramirez Stoll M.D. 01/06/2019 9:18 PM
--- NOTE | 2019-01-06 21:20 | XRay Report ---
XR KUB/Abdomen 1 view CLINICAL HISTORY: NG tube placement tube position COMPARISON STUDY: No previous studies for comparison. FINDINGS: Nasogastric tube within the gastric fundus. Moderate distention of several proximal loops o f small bowel are present. IMPRESSION: Nasogastric tube placed in the gastric fundus. The above report was generated using voice recognition software. It may contain grammatical, syntax or spelling errors. Electronically signed by: Ramirez Stoll M.D. 01/06/2019 9:19 PM
[2019-01-06] MEDS ORDERED: PIPERACILLIN/TAZOBACTAM 3.375 GM in DEXTROSE 5% 100 ML IV SCH (22:00)
[2019-01-06] MEDS: CIPROFLOXACIN 400 MG/200 ML BAG IV SCH (22:12)
[2019-01-06] MEDS: HydrALAZINE HCL 20 MG/ML VIAL IV PRN (23:59)
[2019-01-07 00:59] LABS: Calcium 8.6 mg/dl (8.5-10.1); Creatinine Clr Calc Pharmacy 33.4 ml/min; Est GFR (African American) 44.8; Est GFR (Non-African American) 38.6
[2019-01-07] MEDS ORDERED: SODIUM CHLORIDE 0.9% 500 ML IV ONE (01:50)
[2019-01-07] MEDS ORDERED: HydrALAZINE HCL 20 MG/ML VIAL IV STA (01:57)
[2019-01-07] MEDS ORDERED: HYDROmorphone INJ 0.5 MG/0.5 ML SYR IV PRN (01:59)
[2019-01-07] MEDS ORDERED: PROMETHAZINE HCL 12.5 MG in SODIUM CHLORIDE 0.9% 50 ML IV PRN (01:59)
[2019-01-07] MEDS: LACTATED RINGER'S 1,000 ML IV SCH ×4 (03:01→23:28)
[2019-01-07] MEDS: metroNIDAZOLE 500 MG/100 ML BAG IV SCH ×3 (04:20→19:17)
[2019-01-07] MEDS ORDERED: METOPROLOL TARTRATE 1 MG/ML VIAL IV STA (05:03)
[2019-01-07 05:48] LABS: Hematocrit (blood only) 27.4 % (42-52); Hemoglobin 9.2 g/dL (14.0-18.0); Mean Corpuscular Hgb Conc 33.6 g/dL (32-36); Mean Corpuscular Volume 98.2 fL (80-100); Mean Platelet Volume 10.8 fL (7.4-10.4); Platelet Count 568 K/uL (130-400); RDW Coefficient of Variation 27.8 % (11.5-14.5); RDW Standard Deviation 94.1 fL (36.4-46.3); Red Blood Count 2.79 M/uL (4.7-6.1); White Blood Count 12.79 K/uL (4.8-10.8)
[2019-01-07 06:20] LABS: Anisocytosis Present; Basophils # (auto) 0.01 K/uL (0-0.2); Basophils % (auto) 0.1 %; Dohle Bodies 1+; Eosinophils # (auto) 0.01 K/uL (0-0.5); Eosinophils % (auto) 0.1 %; Immature Granulocytes # (auto) 0.05 K/uL (0.00-0.02); Immature Granulocytes % (auto) 0.4 %; Lymphocytes # (auto) 0.85 K/uL (1.2-3.4); Lymphocytes % (auto) 6.6 %; Neutrophils # (auto) 10.97 K/uL (1.4-6.5); Neutrophils % (auto) 85.8 %; Ovalocytes 1+
[2019-01-07 06:21] LABS: BUN Creatinine Ratio 30.1 (10-20); Calcium 8.8 mg/dl (8.5-10.1); Creatinine Clr Calc Pharmacy 40.5 ml/min; Est GFR (African American) 56.6; Est GFR (Non-African American) 48.8; Magnesium 2.3 mg/dl (1.8-2.4)
[2019-01-07] MEDS: CIPROFLOXACIN 400 MG/200 ML BAG IV SCH ×2 (08:33→19:17)
--- NOTE | 2019-01-07 08:35 | CT Scan Report ---
CT abd pelvis wo con CLINICAL HISTORY: 78 years-old Male presenting with small bowel obstruction. TECHNIQUE: Multidetector CT of the abdomen and pelvis was performed without the use of intravenous co ntrast. IV contrast: None. One or more dose lowering techniques were used consistent with the princip les of ALA (as low as reasonably achievable), including automatic exposure control, mA or kV adjust ment to individual patient size, and/or use of iterative reconstruction. COMPARISON: 01/06/2019. CT DOSE (mGy.cm): The estimated cumulative dose is 303.01 mGy.cm. FINDINGS: [employer] Director topogram: Stacked appearance of distended small bowel loops. Lung bases: Multichamber enlargement of the heart. Coronary artery calcification. Trace pericardial a nd trace bilateral pleural effusions. Extensive bibasilar dependent consolidation, possibly atelectas is. Mild pulmonary vascular prominence. Liver: Normal morphology. Normal density. Scattered punctate parenchymal calcification suggest a hist ory of granulomatous disease. Biliary: No gross biliary ductal dilatation allowing for noncontrast technique. Gallbladder is disten ded with gallbladder wall thickening and trace pericholecystic infiltrative change. Gallbladder tensi on may be present. Pancreas: Normal noncontrast appearance. Spleen: Normal noncontrast appearance. Adrenal glands: Normal noncontrast appearance. Kidneys and ureters: Normal. No hydronephrosis. Bladder: Extensive bilateral perinephric fat infiltration, which is stable to worsened from prior. Mu ltiple bilateral parapelvic and parenchymal cysts suggested. No convincing evidence of hydronephrosis or nephrolithiasis. Ureters nondistended. Pelvic organs: Decompressed with a Levine catheter. Bowel: The terminal ileum is decompressed. There is small bowel distention to the level of the centra l abdomen (series 3 image 271). At this site there is a focal downstream transition point. The small bowel remains distended diffusely with smooth of stream tapering. No significant small bowel wall thi ckening. Trace perienteric fluid and mesenteric edema. Peritoneal cavity: Trace fluid. No free intraperitoneal gas. Lymph nodes: No gross lymphadenopathy allowing for noncontrast technique. Vasculature: Atherosclerosis of the normal caliber abdominal aorta. Abdominal wall: Gynecomastia. Musculoskeletal: Degenerative changes of the spine. IMPRESSION: 1. Findings highly suspicious for small bowel obstruction in the distal ileum with focal downstream transition point. This is most likely due to adhesions. 2. Interval increase in perinephric infiltrative changes. This could be due to venolymphatic congest ion or pyelonephritis. Correlate with urinalysis. 3. Distended gallbladder with wall thickening and trace pericholecystic infiltrative change. Attenti on may also be present. This raises concern for cholecystitis. If there are right upper quadrant symp toms or clinical ambiguity, consider HIDA scan as this could represent acute or chronic cholecystitis . 4. Extensive bibasilar consolidation most likely extensive atelectasis. Electronically signed by: Chong Tavarez M.D. 01/07/2019 8:33 AM
[2019-01-07] MEDS ORDERED: HydrALAZINE HCL 20 MG/ML VIAL IV ONE (09:15)
--- NOTE | 2019-01-07 12:32 | Hospitalist Progress Note ---
Date of Service January 07, 2019 Assessment & Plan (1) Ileus: Patient had previous small bowel obstruction approximate 1 year ago when he was transferred to [facility] there included NG tube which resolved the obstruction without surgical intervention Patient reports that he had some abdominal pain yesterday prior to eating dinner. He states that this was unrelated to any new or recent foods No recent illness Continue n.p.o. status, NG tube placed Surgery consulted, cont. to monitor at this time Pt had a large BM this AM, pain and nausea much improved Leukocytosis White blood cell count mildly elevated at 12.8K, despite IV hydration overnight -Patient remains afebrile -Patient is clinically improving, had bowel movement this morning, pain much improved -Expect WBC to decrease, will monitor There was concern for bowel ischemia yesterday, given persistent ileus, lactic acid elevated at 2.6, temperature spike 37.6 -At that time patient was started on IV antibiotics, for now we will continue -Continue IV fluids -Lactic acid this a.m., down to 1.6 -Procalcitonin remains elevated (2) Acute dehydration: creatinine elevated 1.42 ( cr 01/2018 0.92) - now only mildly improved to 1.36 BUN is elevated-possible due to nausea /vomiting /diarrhea ( reports of 3 episodes of loose bowel movement last night -none this morning ) stool assay for C. difficile ordered hold lisinopril avoid NSAID's /Contrast study We will hydrate for the next 24 hours with lactated Ringer's Monitor ins and outs Continue to monitor renal function (3) Essential thrombocythemia: Follows with Dr. Emiliano Sandoval from [facility] oncology and hematology on hydroxyurea and anagrelide-kept on hold for NPO/bowel illeus Serial labs No prior history of thrombotic disease Continue to monitor (4) Hypertension: Patient recently started on lisinopril kept on hold for LUCILA For now, will use hydralazine 10 mg IV every 8 hours as needed SBP greater than 160 (5) Abnormal chest x-ray: (6) DVT prophylaxis: SCDs Subjective Pt feels well this AM. NG tube placed, pt says that his abdomen does not hurt as much anymore. He is not passing any gas, or having BM. However, he says that he feels like he could go. Pt denies any fever, chills, chest pain, shortness of breath, nausea. Levine placed - red urine noted in the bag Update: soon after my exam, I was notified that pt had a large BM. Review of Systems Review of Systems: All systems reviewed & are unremarkable except as noted in HPI & below Constitutional: no fever, no chills and no fatigue Respiratory: no cough, no dyspnea and no pain on inspiration Cardiovascular: no chest pain, no radiating jaw, neck or arm pain, no dyspnea on exertion, no palpitations and no edema Gastrointestinal: + abdominal pain (much improved from yesterday) and + constipation Physical Exam Physical Exam: GENERAL: Elderly male lying in bed in no acute distress, NG tube placed HEENT: Normocephalic, atraumatic, PERRL, EOMI, sclera nonicteric Normal oral mucosa, neck: No JVD, no thyromegaly, trachea midline Lungs: Clear to auscultate, no wheezing or crackles Cardiovascular: Regular S1 and S2, no murmur or gallop, no JVD, no lower extremity edema Abdomen: Soft, mildly distended, some tenderness to palpation (improved), + bowel sound Extremities: No rash or deformity, normal joint, Neuro: No focal neurological deficit, no dysarthria, no facial droop Psych: Alert awake oriented x3: Euthymic Skin: No rash LYMPH NODES: No cervical lymphadenopathy Results & Data Vital Signs (Past 12 Hours) Vital Signs Temp Pulse Pulse Resp BP BP BP 01/07/19 10:50 36.5 C 95 H 18 157/80 H 01/07/19 10:31 97 H 01/07/19 09:01 176/110 H 01/07/19 07:01 36.5 C 97 H 18 183/100 H 01/07/19 05:44 96 H 188/90 H 01/07/19 05:17 107 H 189/94 H 01/07/19 04:26 36.6 C 105 H 18 184/89 H 01/07/19 03:00 36.7 C 106 H 18 185/85 H 01/07/19 00:58 187/86 H Pulse Ox 01/07/19 10:50 91 01/07/19 10:31 01/07/19 09:01 01/07/19 07:01 94 01/07/19 05:44 01/07/19 05:17 01/07/19 04:26 92 01/07/19 03:00 93 01/07/19 00:58 Laboratory Results 01/07/19 01/07/19 01/07/19 Range/Units 05:18 05:17 05:17 WBC 12.79 H (4.8-10.8) K/uL RBC 2.79 L (4.7-6.1) M/uL Hgb 9.2 L (14.0-18.0) g/dL Hct 27.4 L (42-52) % MCV 98.2 (80-100) fL MCH 33.0 (25-34) pg MCHC 33.6 (32-36) g/dL RDW Std Deviation 94.1 H (36.4-46.3) fL RDW Coeff of Echo 27.8 H (11.5-14.5) % Plt Count 568 H (130-400) K/uL MPV 10.8 H (7.4-10.4) fL Immature Gran % (Auto) 0.4 % Neut % (Auto) 85.8 % Lymph % (Auto) 6.6 % [place] % (Auto) 7.0 % Eos % (Auto) 0.1 % Baso % (Auto) 0.1 % Immature Gran # (Auto) 0.05 H (0.00-0.02) K/uL Neut # (Auto) 10.97 H (1.4-6.5) K/uL Lymph # (Auto) 0.85 L (1.2-3.4) K/uL [place] # (Auto) 0.90 H (0.11-0.59) K/uL Eos # (Auto) 0.01 (0-0.5) K/uL Baso # (Auto) 0.01 (0-0.2) K/uL Hypersegmented Neuts 1+ Dohle Bodies 1+ Anisocytosis Present Ovalocytes 1+ Sodium 141 (136-145) mmol/L Potassium 4.0 (3.5-5.1) mmol/L Chloride 109 H (98-107) mmol/L Carbon Dioxide 24 (21-32) mmol/L Anion Gap 9.0 (3-11) BUN 41 H (7-18) mg/dl Creatinine 1.36 (0.6-1.4) mg/dl Est Cr Clr Drug Dosing 40.5 ml/min Est GFR ( Amer) 56.6 Est GFR (Non-Af Amer) 48.8 BUN/Creatinine Ratio 30.1 H (10-20) Glucose 134 H (70-99) mg/dl Lactate 1.6 (0.4-2.0) mmol/L Calcium 8.8 (8.5-10.1) mg/dl Magnesium 2.3 (1.8-2.4) mg/dl Procalcitonin (0-0.5) ng/ml 01/07/19 01/07/19 01/07/19 Range/Units 00:16 00:16 00:16 WBC (4.8-10.8) K/uL RBC (4.7-6.1) M/uL Hgb (14.0-18.0) g/dL Hct (42-52) % MCV (80-100) fL MCH (25-34) pg MCHC (32-36) g/dL RDW Std Deviation (36.4-46.3) fL RDW Coeff of Echo (11.5-14.5) % Plt Count (130-400) K/uL MPV (7.4-10.4) fL Immature Gran % (Auto) % Neut % (Auto) % Lymph % (Auto) % [place] % (Auto) % Eos % (Auto) % Baso % (Auto) % Immature Gran # (Auto) (0.00-0.02) K/uL Neut # (Auto) (1.4-6.5) K/uL Lymph # (Auto) (1.2-3.4) K/uL [place] # (Auto) (0.11-0.59) K/uL Eos # (Auto) (0-0.5) K/uL Baso # (Auto) (0-0.2) K/uL Hypersegmented Neuts Dohle Bodies Anisocytosis Ovalocytes Sodium 139 (136-145) mmol/L Potassium (3.5-5.1) mmol/L Chloride 106 (98-107) mmol/L Carbon Dioxide 25 (21-32) mmol/L Anion Gap 8.0 (3-11) BUN 45 H (7-18) mg/dl Creatinine 1.65 H (0.6-1.4) mg/dl Est Cr Clr Drug Dosing 33.4 ml/min Est GFR ( Amer) 44.8 Est GFR (Non-Af Amer) 38.6 BUN/Creatinine Ratio 27.0 H (10-20) Glucose 154 H (70-99) mg/dl Lactate 2.4 H* (0.4-2.0) mmol/L Calcium 8.6 (8.5-10.1) mg/dl Magnesium (1.8-2.4) mg/dl Procalcitonin 6.31 H (0-0.5) ng/ml 01/06/19 01/06/19 01/06/19 Range/Units 20:53 16:58 16:58 WBC (4.8-10.8) K/uL RBC (4.7-6.1) M/uL Hgb (14.0-18.0) g/dL Hct (42-52) % MCV (80-100) fL MCH (25-34) pg MCHC (32-36) g/dL RDW Std Deviation (36.4-46.3) fL RDW Coeff of Echo (11.5-14.5) % Plt Count (130-400) K/uL MPV (7.4-10.4) fL Immature Gran % (Auto) % Neut % (Auto) % Lymph % (Auto) % [place] % (Auto) % Eos % (Auto) % Baso % (Auto) % Immature Gran # (Auto) (0.00-0.02) K/uL Neut # (Auto) (1.4-6.5) K/uL Lymph # (Auto) (1.2-3.4) K/uL [place] # (Auto) (0.11-0.59) K/uL Eos # (Auto) (0-0.5) K/uL Baso # (Auto) (0-0.2) K/uL Hypersegmented Neuts Dohle Bodies Anisocytosis Ovalocytes Sodium (136-145) mmol/L Potassium (3.5-5.1) mmol/L Chloride (98-107) mmol/L Carbon Dioxide (21-32) mmol/L Anion Gap (3-11) BUN (7-18) mg/dl Creatinine (0.6-1.4) mg/dl Est Cr Clr Drug Dosing ml/min Est GFR ( Amer) Est GFR (Non-Af Amer) BUN/Creatinine Ratio (10-20) Glucose (70-99) mg/dl Lactate 2.2 H* 2.6 H* (0.4-2.0) mmol/L Calcium (8.5-10.1) mg/dl Magnesium (1.8-2.4) mg/dl Procalcitonin 4.99 H (0-0.5) ng/ml Medications Administered Current Inpatient Medications Diphenhydramine HCl (Benadryl) 25 mg IV Q6H PRN PRN Reason: Itching Stop: 02/05/19 19:53 Hydralazine HCl (Hydralazine Hcl) 10 mg IV Q8H PRN PRN Reason: SBP> 160 Stop: 02/05/19 12:45 Last Admin: 01/06/19 23:59 Dose: 10 mg Documented by: Hydromorphone HCl (Dilaudid) 0.25 mg IV Q3H PRN PRN Reason: Pain Stop: 01/21/19 01:58 Promethazine HCl 6.25 mg/ (Sodium Chloride) 50.25 mls @ 201 mls/hr IV Q6H PRN PRN Reason: Nausea And Vomiting Stop: 02/05/19 12:45 Acetaminophen (Ofirmev) 1,000 mg in 100 mls @ 400 mls/hr IV Q8H PRN PRN Reason: pain/fever Stop: 01/09/19 16:36 Last Infusion: 01/06/19 17:42 Dose: Infused Documented by: Ciprofloxacin (Cipro) 400 mg in 200 mls @ 100 mls/hr IV Q12H ROSETTE; Protocol Stop: 01/16/19 19:59 Last Infusion: 01/07/19 10:37 Dose: Infused Documented by: Metronidazole (Flagyl) 500 mg in 100 mls @ 100 mls/hr IV Q8H ROSETTE; Protocol Stop: 01/16/19 19:59 Last Admin: 01/07/19 12:16 Dose: 100 mls/hr Documented by: Lactated Ringer's (Lr) 1,000 mls @ 100 mls/hr IV .Q10H ROSETTE Stop: 02/06/19 02:59 Last Admin: 01/07/19 10:50 Dose: 100 mls/hr Documented by: Promethazine HCl 12.5 mg/ (Sodium Chloride) 50.5 mls @ 202 mls/hr IV Q6H PRN PRN Reason: Nausea And Vomiting Stop: 02/06/19 01:58 Zinc Acetate/Diphenhydramine (Benadryl Extra Strength) 1 appln EXT Q6H PRN PRN Reason: Itching Stop: 02/05/19 20:17 Last Admin: 01/07/19 10:13 Dose: 1 appln Documented by:
--- NOTE | 2019-01-07 14:49 | Surgery Consultation ---
Date of Consultation January 07, 2019 Assessment & Plan (1) Abdominal distension: This patient has evidence of a small bowel obstruction. It was similar to a year ago that resolved spontaneously. He has not had a bowel movement but is still mildly distended but his pain and nausea have resolved. I would continue to leave the NG tube in for now. Will continue to follow. There is no evidence of peritonitis. There is no evidence for immediate surgical intervention at this time. History of Present Illness Reason for Consultation: Small bowel obstruction Requesting Physician: Yung Garvin MD Attending Physician: Yung Garvin MD History of Present Illness He has been asked by Dr. Garvin to see this 78-year-old male who presented to the emergency room with abdominal pain with nausea and vomiting. The patient states that he went out to dinner on Monday night and had a "bellyache." He was able to eat however through Monday night into Monday and then through Monday and Monday morning he had escalation of the severity of the discomfort. It became more sharp. It was throughout his abdomen with no particular area predominating. This was associated with nausea and had a few episodes of vomiting. He had no fever or chills with this. He had an episode similar to this about a year ago that resolved spontaneously after NG tube placement. He was transferred to [place] at that time. He has never had previous abdominal surgery. He underwent a CT scan of the abdomen and pelvis that showed evidence of a possible ileus but a repeat CT scan of the abdomen pelvis suggested a small bowel obstruction associated with the distal small bowel. At the present time he is feeling much better. His pain is resolved. He has had 1 formed bowel movement. He no longer has nausea. Allergies Allergy/AdvReac Type Severity Reaction Status Date / Time naproxen Allergy Intermediate ITCHY ALL Verified 01/06/19 10:19 OVER piperacillin [From Zosyn] Allergy Mild Hives Verified 01/06/19 19:51 tazobactam [From Zosyn] Allergy Mild Hives Verified 01/06/19 19:51 Home Medications Home Medications Medication Instructions Recorded Confirmed Type aspirin [Aspir-81] 81 mg PO HS 12/21/17 01/06/19 History hydroxyurea 500 mg PO BID 12/21/17 01/06/19 History multivitamin 1 tab PO 1200 12/21/17 01/06/19 History psyllium husk [Metamucil] 1 dose PO 1200 12/21/17 01/06/19 History anagrelide 1 mg PO BID 11/16/18 01/06/19 History Lactobac comb 1-YLF-[id number] 1 cap PO Q2D 01/06/19 01/06/19 History [Probiotic and Acidophilus] lisinopril 10 mg PO DAILY 01/06/19 01/06/19 History lutein 10 mg PO DAILY 01/06/19 01/06/19 History Patient History Medical History (Updated 01/07/19 @ 00:01 by Jon Viramontes) Closed head injury (Inactive) Colitis Contusion of left little finger (Inactive) Essential thrombocythemia (Chronic) Face lacerations (Inactive) Fall (Inactive) Hypertension Melanoma (Chronic) Small bowel obstruction (Inactive) Surgical History History of tonsillectomy (Resolved) Family History Other Family history non-contributory Social History Preferred Language: [place]ian Communication Ability: Effective Patient Access Associate Required: No Beliefs That Will Affect Care: None marital status: Current Living Situation: Spouse current occupational status: retired Other Information That Helps Us Care for You: No Feels Safe at Home: Yes Safety Concerns: Feels Safe At This Time Smoking Status: Former smoker Tobacco Type: pipe ; Smoking End Date: January 2018 ; Second Hand Exposure: No ; Hx Alcohol Use: No Hx Substance Use: No Physical Exam Constitutional: no acute distress Neck: trachea midline Respiratory: normal respiratory effort, lungs clear to auscultation Cardiovascular: Rate/Rhythm: regular rate and regular rhythm Gastrointestinal (Abdomen): normal bowel sounds, soft, nontender, no hepatosplenomegaly Inspection/Auscultation: + abdomen distended Percussion/Palpation: abdomen soft; abdomen nontender Results & Data Vital Signs (Past 12 Hours) Vital Signs Temp Pulse Pulse Resp BP BP BP 01/07/19 10:50 36.5 C 95 H 18 157/80 H 01/07/19 10:31 97 H 01/07/19 09:01 176/110 H 11/25/19 07:01 36.5 C 97 H 18 183/100 H 01/07/19 05:44 96 H 188/90 H 01/07/19 05:17 107 H 189/94 H 01/07/19 04:26 36.6 C 105 H 18 184/89 H 01/07/19 03:00 36.7 C 106 H 18 185/85 H Pulse Ox 01/07/19 10:50 91 01/07/19 10:31 01/07/19 09:01 01/07/19 07:01 94 01/07/19 05:44 01/07/19 05:17 01/07/19 04:26 92 01/07/19 03:00 93 Laboratory Results 01/07/19 01/07/19 01/07/19 Range/Units 05:18 05:17 05:17 WBC 12.79 H (4.8-10.8) K/uL RBC 2.79 L (4.7-6.1) M/uL Hgb 9.2 L (14.0-18.0) g/dL Hct 27.4 L (42-52) % MCV 98.2 (80-100) fL MCH 33.0 (25-34) pg MCHC 33.6 (32-36) g/dL RDW Std Deviation 94.1 H (36.4-46.3) fL RDW Coeff of Echo 27.8 H (11.5-14.5) % Plt Count 568 H (130-400) K/uL MPV 10.8 H (7.4-10.4) fL Immature Gran % (Auto) 0.4 % Neut % (Auto) 85.8 % Lymph % (Auto) 6.6 % [place] % (Auto) 7.0 % Eos % (Auto) 0.1 % Baso % (Auto) 0.1 % Immature Gran # (Auto) 0.05 H (0.00-0.02) K/uL Neut # (Auto) 10.97 H (1.4-6.5) K/uL Lymph # (Auto) 0.85 L (1.2-3.4) K/uL [place] # (Auto) 0.90 H (0.11-0.59) K/uL Eos # (Auto) 0.01 (0-0.5) K/uL Baso # (Auto) 0.01 (0-0.2) K/uL Hypersegmented Neuts 1+ Dohle Bodies 1+ Anisocytosis Present Ovalocytes 1+ Sodium 141 (136-145) mmol/L Potassium 4.0 (3.5-5.1) mmol/L Chloride 109 H (98-107) mmol/L Carbon Dioxide 24 (21-32) mmol/L Anion Gap 9.0 (3-11) BUN 41 H (7-18) mg/dl Creatinine 1.36 (0.6-1.4) mg/dl Est Cr Clr Drug Dosing 40.5 ml/min Est GFR ( Amer) 56.6 Est GFR (Non-Af Amer) 48.8 BUN/Creatinine Ratio 30.1 H (10-20) Glucose 134 H (70-99) mg/dl Lactate 1.6 (0.4-2.0) mmol/L Calcium 8.8 (8.5-10.1) mg/dl Magnesium 2.3 (1.8-2.4) mg/dl Procalcitonin (0-0.5) ng/ml 01/07/19 01/07/19 01/07/19 Range/Units 00:16 00:16 00:16 WBC (4.8-10.8) K/uL RBC (4.7-6.1) M/uL Hgb (14.0-18.0) g/dL Hct (42-52) % MCV (80-100) fL MCH (25-34) pg MCHC (32-36) g/dL RDW Std Deviation (36.4-46.3) fL RDW Coeff of Echo (11.5-14.5) % Plt Count (130-400) K/uL MPV (7.4-10.4) fL Immature Gran % (Auto) % Neut % (Auto) % Lymph % (Auto) % [place] % (Auto) % Eos % (Auto) % Baso % (Auto) % Immature Gran # (Auto) (0.00-0.02) K/uL Neut # (Auto) (1.4-6.5) K/uL Lymph # (Auto) (1.2-3.4) K/uL [place] # (Auto) (0.11-0.59) K/uL Eos # (Auto) (0-0.5) K/uL Baso # (Auto) (0-0.2) K/uL Hypersegmented Neuts Dohle Bodies Anisocytosis Ovalocytes Sodium 139 (136-145) mmol/L Potassium (3.5-5.1) mmol/L Chloride 106 (98-107) mmol/L Carbon Dioxide 25 (21-32) mmol/L Anion Gap 8.0 (3-11) BUN 45 H (7-18) mg/dl Creatinine 1.65 H (0.6-1.4) mg/dl Est Cr Clr Drug Dosing 33.4 ml/min Est GFR ( Amer) 44.8 Est GFR (Non-Af Amer) 38.6 BUN/Creatinine Ratio 27.0 H (10-20) Glucose 154 H (70-99) mg/dl Lactate 2.4 H* (0.4-2.0) mmol/L Calcium 8.6 (8.5-10.1) mg/dl Magnesium (1.8-2.4) mg/dl Procalcitonin 6.31 H (0-0.5) ng/ml 01/06/19 01/06/19 01/06/19 Range/Units 20:53 16:58 16:58 WBC (4.8-10.8) K/uL RBC (4.7-6.1) M/uL Hgb (14.0-18.0) g/dL Hct (42-52) % MCV (80-100) fL MCH (25-34) pg MCHC (32-36) g/dL RDW Std Deviation (36.4-46.3) fL RDW Coeff of Echo (11.5-14.5) % Plt Count (130-400) K/uL MPV (7.4-10.4) fL Immature Gran % (Auto) % Neut % (Auto) % Lymph % (Auto) % [place] % (Auto) % Eos % (Auto) % Baso % (Auto) % Immature Gran # (Auto) (0.00-0.02) K/uL Neut # (Auto) (1.4-6.5) K/uL Lymph # (Auto) (1.2-3.4) K/uL [place] # (Auto) (0.11-0.59) K/uL Eos # (Auto) (0-0.5) K/uL Baso # (Auto) (0-0.2) K/uL Hypersegmented Neuts Dohle Bodies Anisocytosis Ovalocytes Sodium (136-145) mmol/L Potassium (3.5-5.1) mmol/L Chloride (98-107) mmol/L Carbon Dioxide (21-32) mmol/L Anion Gap (3-11) BUN (7-18) mg/dl Creatinine (0.6-1.4) mg/dl Est Cr Clr Drug Dosing ml/min Est GFR ( Amer) Est GFR (Non-Af Amer) BUN/Creatinine Ratio (10-20) Glucose (70-99) mg/dl Lactate 2.2 H* 2.6 H* (0.4-2.0) mmol/L Calcium (8.5-10.1) mg/dl Magnesium (1.8-2.4) mg/dl Procalcitonin 4.99 H (0-0.5) ng/ml Diagnostic Findings CT abd pelvis wo con CLINICAL HISTORY: 78 years-old Male presenting with small bowel obstruction. TECHNIQUE: Multidetector CT of the abdomen and pelvis was performed without the use of intravenous contrast. IV contrast: None. One or more dose lowering techniques were used consistent with the principles of ALARA (as low as reasonably achievable), including automatic exposure control, mA or kV adjustment to individual patient size, and/or use of iterative reconstruction. COMPARISON: 01/06/2019. CT DOSE (mGy.cm): The estimated cumulative dose is 303.01 mGy.cm. FINDINGS: Weekend Anchor topogram: Stacked appearance of distended small bowel loops. Lung bases: Multichamber enlargement of the heart. Coronary artery calcification. Trace pericardial and trace bilateral pleural effusions. Extensive bibasilar dependent consolidation, possibly atelectasis. Mild pulmonary vascular prominence. Liver: Normal morphology. Normal density. Scattered punctate parenchymal calcification suggest a history of granulomatous disease. Biliary: No gross biliary ductal dilatation allowing for noncontrast technique. Gallbladder is distended with gallbladder wall thickening and trace pericholecystic infiltrative change. Gallbladder tension may be present. Pancreas: Normal noncontrast appearance. Spleen: Normal noncontrast appearance. Adrenal glands: Normal noncontrast appearance. Kidneys and ureters: Normal. No hydronephrosis. Bladder: Extensive bilateral perinephric fat infiltration, which is stable to worsened from prior. Multiple bilateral parapelvic and parenchymal cysts suggested. No convincing evidence of hydronephrosis or nephrolithiasis. Ureters nondistended. Pelvic organs: Decompressed with a Levine catheter. Bowel: The terminal ileum is decompressed. There is small bowel distention to the level of the central abdomen (series 3 image 271). At this site there is a focal downstream transition point. The small bowel remains distended diffusely with smooth of stream tapering. No significant small bowel wall thickening. Trace perienteric fluid and mesenteric edema. Peritoneal cavity: Trace fluid. No free intraperitoneal gas. Lymph nodes: No gross lymphadenopathy allowing for noncontrast technique. Vasculature: Atherosclerosis of the normal caliber abdominal aorta. Abdominal wall: Gynecomastia. Musculoskeletal: Degenerative changes of the spine. IMPRESSION: 1. Findings highly suspicious for small bowel obstruction in the distal ileum with focal downstream transition point. This is most likely due to adhesions. 2. Interval increase in perinephric infiltrative changes. This could be due to venolymphatic congestion or pyelonephritis. Correlate with urinalysis. 3. Distended gallbladder with wall thickening and trace pericholecystic infiltrative change. Attention may also be present. This raises concern for cholecystitis. If there are right upper quadrant symptoms or clinical ambiguity, consider HIDA scan as this could represent acute or chronic cholecystitis. 4. Extensive bibasilar consolidation most likely extensive atelectasis.
[2019-01-07 18:16] LABS: Hematocrit (blood only) 27.9 % (42-52); Hemoglobin 9.2 g/dL (14.0-18.0); Mean Corpuscular Hemoglobin 31.9 pg (25-34); Mean Corpuscular Volume 96.9 fL (80-100); Mean Platelet Volume 10.7 fL (7.4-10.4); Platelet Count 635 K/uL (130-400); RDW Coefficient of Variation 28.2 % (11.5-14.5); RDW Standard Deviation 92.1 fL (36.4-46.3); Red Blood Count 2.88 M/uL (4.7-6.1); White Blood Count 11.65 K/uL (4.8-10.8)
[2019-01-07 18:42] LABS: BUN Creatinine Ratio 28.6 (10-20); Calcium 8.4 mg/dl (8.5-10.1); Creatinine Clr Calc Pharmacy 41.7 ml/min; Est GFR (African American) 58.6; Est GFR (Non-African American) 50.6; Magnesium 2.3 mg/dl (1.8-2.4); Potassium 4.1 mmol/L (3.5-5.1)
[2019-01-07] MEDS: HydrALAZINE HCL 20 MG/ML VIAL IV PRN (19:15)
[2019-01-08] MEDS: HydrALAZINE HCL 20 MG/ML VIAL IV PRN ×2 (02:03→19:56)
[2019-01-08] MEDS: metroNIDAZOLE 500 MG/100 ML BAG IV SCH ×3 (04:41→19:57)
[2019-01-08 06:20] LABS: Hematocrit (blood only) 25.7 % (42-52); Hemoglobin 8.7 g/dL (14.0-18.0); Mean Corpuscular Hgb Conc 33.9 g/dL (32-36); Mean Corpuscular Volume 97.3 fL (80-100); Mean Platelet Volume 10.4 fL (7.4-10.4); Nucleated RBC # (auto) 0.03 K/uL (0-0); Nucleated RBC % (auto) 0.3 %; Platelet Count 612 K/uL (130-400); RDW Coefficient of Variation 28.6 % (11.5-14.5); RDW Standard Deviation 94.3 fL (36.4-46.3); Red Blood Count 2.64 M/uL (4.7-6.1)
[2019-01-08 06:42] LABS: Anisocytosis Present; Basophils # (auto) 0.02 K/uL (0-0.2); Basophils % (auto) 0.2 %; Eosinophils # (auto) 0.02 K/uL (0-0.5); Eosinophils % (auto) 0.2 %; Giant Platelets 1+; Immature Granulocytes # (auto) 0.11 K/uL (0.00-0.02); Immature Granulocytes % (auto) 0.9 %; Lymphocytes # (auto) 1.06 K/uL (1.2-3.4); Lymphocytes % (auto) 8.5 %; Monocytes # (auto) 1.13 K/uL (0.11-0.59); Neutrophils # (auto) 10.16 K/uL (1.4-6.5); Neutrophils % (auto) 81.2 %; Poikilocytosis Present
[2019-01-08 06:55] LABS: BUN Creatinine Ratio 31.5 (10-20); Calcium 8.1 mg/dl (8.5-10.1); Creatinine Clr Calc Pharmacy 46.3 ml/min; Est GFR (African American) 66.5; Est GFR (Non-African American) 57.3
[2019-01-08] MEDS: CIPROFLOXACIN 400 MG/200 ML BAG IV SCH ×2 (09:53→21:14)
[2019-01-08] MEDS: LACTATED RINGER'S 1,000 ML IV SCH (09:54)
[2019-01-08 13:10] LABS: Gastric Occult Blood Negative (Negative)
[2019-01-08 13:11] LABS: pH Gastric Fluid 1
--- NOTE | 2019-01-08 16:22 | Surgery Progress Note ---
Date of Service January 08, 2019 Assessment & Plan (1) Abdominal distension: Less distended today Passing flatus Hopefully evidence of small bowel obstruction is spontaneously resolving Would continue with NG for now along with conservative management. No evidence of peritonitis Subjective Denies pain Has passed flatus today No bowel movement today but had one yesterday Denies nausea Physical Exam Gastrointestinal (Abdomen): Inspection/Auscultation: + abdomen distended (But much less so today) Percussion/Palpation: abdomen soft; abdomen nontender Results & Data Vital Signs (Past 12 Hours) Vital Signs Temp Pulse Resp BP BP Pulse Ox 01/08/19 15:41 36.4 C L 103 H 18 178/90 H 91 01/08/19 11:12 36.8 C 110 H 18 165/80 H 170/83 H 93 01/08/19 07:43 36.9 C 112 H 18 169/81 H 90 Laboratory Results 01/08/19 01/08/19 01/08/19 Range/Units 12:35 06:09 06:09 WBC 12.50 H (4.8-10.8) K/uL RBC 2.64 L (4.7-6.1) M/uL Hgb 8.7 L (14.0-18.0) g/dL Hct 25.7 L (42-52) % MCV 97.3 (80-100) fL MCH 33.0 (25-34) pg MCHC 33.9 (32-36) g/dL RDW Std Deviation 94.3 H (36.4-46.3) fL RDW Coeff of Echo 28.6 H (11.5-14.5) % Plt Count 612 H (130-400) K/uL MPV 10.4 (7.4-10.4) fL Immature Gran % (Auto) 0.9 % Neut % (Auto) 81.2 % Lymph % (Auto) 8.5 % [place] % (Auto) 9.0 % Eos % (Auto) 0.2 % Baso % (Auto) 0.2 % Immature Gran # (Auto) 0.11 H (0.00-0.02) K/uL Neut # (Auto) 10.16 H (1.4-6.5) K/uL Lymph # (Auto) 1.06 L (1.2-3.4) K/uL [place] # (Auto) 1.13 H (0.11-0.59) K/uL Eos # (Auto) 0.02 (0-0.5) K/uL Baso # (Auto) 0.02 (0-0.2) K/uL Absolute Nucleated RBC 0.03 H (0-0) K/uL Nucleated RBC % (auto) 0.3 % Giant Platelets 1+ Poikilocytosis Present Anisocytosis Present Sodium 143 (136-145) mmol/L Potassium 4.0 (3.5-5.1) mmol/L Chloride 112 H (98-107) mmol/L Carbon Dioxide 24 (21-32) mmol/L Anion Gap 7.0 (3-11) BUN 38 H (7-18) mg/dl Creatinine 1.19 (0.6-1.4) mg/dl Est Cr Clr Drug Dosing 46.3 ml/min Est GFR ( Amer) 66.5 Est GFR (Non-Af Amer) 57.3 BUN/Creatinine Ratio 31.5 H (10-20) Glucose 123 H (70-99) mg/dl Calcium 8.1 L (8.5-10.1) mg/dl Magnesium (1.8-2.4) mg/dl Specimen Hemolysis Gastric Fluid pH 1 Gastric Occult Blood Negative (Negative) 01/07/19 01/07/19 Range/Units 18:04 18:04 WBC 11.65 H (4.8-10.8) K/uL RBC 2.88 L (4.7-6.1) M/uL Hgb 9.2 L (14.0-18.0) g/dL Hct 27.9 L (42-52) % MCV 96.9 (80-100) fL MCH 31.9 (25-34) pg MCHC 33.0 (32-36) g/dL RDW Std Deviation 92.1 H (36.4-46.3) fL RDW Coeff of Echo 28.2 H (11.5-14.5) % Plt Count 635 H (130-400) K/uL MPV 10.7 H (7.4-10.4) fL Immature Gran % (Auto) % Neut % (Auto) % Lymph % (Auto) % [place] % (Auto) % Eos % (Auto) % Baso % (Auto) % Immature Gran # (Auto) (0.00-0.02) K/uL Neut # (Auto) (1.4-6.5) K/uL Lymph # (Auto) (1.2-3.4) K/uL [place] # (Auto) (0.11-0.59) K/uL Eos # (Auto) (0-0.5) K/uL Baso # (Auto) (0-0.2) K/uL Absolute Nucleated RBC (0-0) K/uL Nucleated RBC % (auto) % Giant Platelets Poikilocytosis Anisocytosis Sodium 140 (136-145) mmol/L Potassium 4.1 (3.5-5.1) mmol/L Chloride 110 H (98-107) mmol/L Carbon Dioxide 23 (21-32) mmol/L Anion Gap 7.0 (3-11) BUN 38 H (7-18) mg/dl Creatinine 1.32 (0.6-1.4) mg/dl Est Cr Clr Drug Dosing 41.7 ml/min Est GFR ( Amer) 58.6 Est GFR (Non-Af Amer) 50.6 BUN/Creatinine Ratio 28.6 H (10-20) Glucose 120 H (70-99) mg/dl Calcium 8.4 L (8.5-10.1) mg/dl Magnesium 2.3 (1.8-2.4) mg/dl Specimen Hemolysis Gastric Fluid pH Gastric Occult Blood (Negative)
--- NOTE | 2019-01-08 23:44 | Hospitalist Progress Note ---
Date of Service January 08, 2019 Assessment & Plan (1) Ileus: Patient had previous small bowel obstruction approximate 1 year ago when he was transferred to [facility] there included NG tube which resolved the obstruction without surgical intervention Patient reports that he had some abdominal pain yesterday prior to eating dinner. He states that this was unrelated to any new or recent foods No recent illness Continue n.p.o. status, NG tube placed Surgery consulted, cont. to monitor at this time Pt had a large BM yesterday AM, pain and nausea much improved Leukocytosis White blood cell count continues to be mildly elevated at 12.5K -Patient remains afebrile -Patient is clinically improving, had bowel movement yesterday morning, pain and nausea much improved -Expect WBC to decrease, will monitor There was concern for bowel ischemia on admission, given persistent ileus, lactic acid elevated at 2.6, temperature spike 37.6 -At that time patient was started on IV antibiotics, for now we will continue -Continue IV fluids -Lactic acid down to 1.6 -Procalcitonin remains elevated (2) Acute dehydration: creatinine elevated 1.42 ( cr 01/2018 0.92) - now improved to 1.2 BUN is elevated-possible due to nausea /vomiting /diarrhea ( reports of 3 episodes of loose bowel movement prior to admission) stool assay for C. difficile ordered hold lisinopril avoid NSAID's /Contrast study We will hydrate with lactated Ringer's Monitor ins and outs Continue to monitor renal function (3) Essential thrombocythemia: Follows with Dr. Emiliano Sandoval from [facility] oncology and hematology on hydroxyurea and anagrelide-kept on hold for NPO/bowel illeus Serial labs No prior history of thrombotic disease Continue to monitor (4) Hypertension: Patient recently started on lisinopril kept on hold for LUCILA For now, will use hydralazine 10 mg IV every 8 hours as needed SBP greater than 160 (5) Abnormal chest x-ray: (6) DVT prophylaxis: SCDs Subjective Patient is lying in bed, comfortable, NG tube placed, Levine catheter placed. Patient denies any fevers, chills, chest pain, shortness of breath. He also says that his abdominal pain resolved and he has no nausea. Patient had bowel movement yesterday. But since then did not pass any flatus or any more BMs. He feels as he would want to try to go again. Abdomen soft and nontender to palpation. Urine drained by Levine, much clearer. We will remove Levine. NG tube output dark brown, tested Hemoccult negative. Review of Systems Review of Systems: All systems reviewed & are unremarkable except as noted in HPI & below Constitutional: no fever and no chills Respiratory: no cough, no dyspnea and no pain on inspiration Cardiovascular: no chest pain, no dyspnea on exertion, no palpitations and no edema Gastrointestinal: no abdominal pain, no nausea and no vomiting Physical Exam Physical Exam: GENERAL: Elderly male lying in bed in no acute distress, NG tube placed HEENT: Normocephalic, atraumatic, PERRL, EOMI, sclera nonicteric Normal oral mucosa, neck: No JVD, no thyromegaly, trachea midline Lungs: Clear to auscultate, no wheezing or crackles Cardiovascular: Regular S1 and S2, no murmur or gallop, no JVD, no lower extremity edema Abdomen: Soft, mildly distended, only mild tenderness to palpation (improved), + bowel sound Extremities: No rash or deformity, normal joint, Neuro: No focal neurological deficit, no dysarthria, no facial droop Psych: Alert awake oriented x3: Euthymic Skin: No rash : Levine drains yellow urine LYMPH NODES: No cervical lymphadenopathy Results & Data Vital Signs (Past 12 Hours) Vital Signs Temp Pulse Resp BP BP Pulse Ox 01/08/19 21:27 152/62 H 01/08/19 19:01 36.5 C 102 H 20 191/91 H 92 01/08/19 15:41 36.4 C L 103 H 18 178/90 H 91
[2019-01-09] MEDS: LACTATED RINGER'S 1,000 ML IV SCH ×2 (01:35→14:20)
[2019-01-09] MEDS: metroNIDAZOLE 500 MG/100 ML BAG IV SCH ×3 (04:37→20:40)
[2019-01-09] MEDS: HydrALAZINE HCL 20 MG/ML VIAL IV PRN (04:43)
--- NOTE | 2019-01-09 06:39 | Surgery Progress Note ---
Date of Service January 09, 2019 Assessment & Plan (1) Abdominal distension: Evidence of small bowel obstruction now seems to be resolving Patient is having bowel movements Will DC NG tube and start sips of clear liquids No evidence of peritonitis or evidence for need for surgical intervention at this time Subjective Denies abdominal pain Has not had nausea or vomiting Had a bowel movement yesterday and another one this morning Passing flatus with bowel movements Physical Exam Gastrointestinal (Abdomen): Inspection/Auscultation: + abdomen distended (Much less distended) and normal bowel sounds Percussion/Palpation: abdomen soft (Much softer than yesterday); abdomen nontender Results & Data Vital Signs (Past 12 Hours) Vital Signs Temp Pulse Pulse Resp BP BP Pulse Ox 01/09/19 03:00 36.7 C 95 H 18 182/89 H 188/95 H 94 01/08/19 23:45 107 H 01/08/19 23:35 37.2 C 105 H 20 157/69 H 94 01/08/19 21:27 152/62 H 01/08/19 19:01 36.5 C 102 H 20 191/91 H 92 Laboratory Results 01/08/19 01/08/19 01/08/19 Range/Units 12:35 06:09 06:09 Immature Gran % (Auto) 0.9 % Neut % (Auto) 81.2 % Lymph % (Auto) 8.5 % [place] % (Auto) 9.0 % Eos % (Auto) 0.2 % Baso % (Auto) 0.2 % Immature Gran # (Auto) 0.11 H (0.00-0.02) K/uL Neut # (Auto) 10.16 H (1.4-6.5) K/uL Lymph # (Auto) 1.06 L (1.2-3.4) K/uL [place] # (Auto) 1.13 H (0.11-0.59) K/uL Eos # (Auto) 0.02 (0-0.5) K/uL Baso # (Auto) 0.02 (0-0.2) K/uL Giant Platelets 1+ Poikilocytosis Present Anisocytosis Present Sodium 143 (136-145) mmol/L Potassium 4.0 (3.5-5.1) mmol/L Chloride 112 H (98-107) mmol/L Carbon Dioxide 24 (21-32) mmol/L Anion Gap 7.0 (3-11) BUN 38 H (7-18) mg/dl Creatinine 1.19 (0.6-1.4) mg/dl Est Cr Clr Drug Dosing 46.3 ml/min Est GFR ( Amer) 66.5 Est GFR (Non-Af Amer) 57.3 BUN/Creatinine Ratio 31.5 H (10-20) Glucose 123 H (70-99) mg/dl Calcium 8.1 L (8.5-10.1) mg/dl Gastric Fluid pH 1 Gastric Occult Blood Negative (Negative)
[2019-01-09 06:59] LABS: Basophils # (auto) 0.02 K/uL (0-0.2); Basophils % (auto) 0.1 %; Eosinophils # (auto) 0.05 K/uL (0-0.5); Eosinophils % (auto) 0.4 %; Hematocrit (blood only) 24.9 % (42-52); Hemoglobin 8.2 g/dL (14.0-18.0); Immature Granulocytes # (auto) 0.27 K/uL (0.00-0.02); Lymphocytes # (auto) 1.27 K/uL (1.2-3.4); Lymphocytes % (auto) 9.3 %; Mean Corpuscular Hemoglobin 32.7 pg (25-34); Mean Corpuscular Hgb Conc 32.9 g/dL (32-36); Mean Corpuscular Volume 99.2 fL (80-100); Mean Platelet Volume 10.3 fL (7.4-10.4); Monocytes # (auto) 1.21 K/uL (0.11-0.59); Monocytes % (auto) 8.9 %; Neutrophils # (auto) 10.79 K/uL (1.4-6.5); Neutrophils % (auto) 79.3 %; Nucleated RBC # (auto) 0.17 K/uL (0-0); Nucleated RBC % (auto) 1.2 %; Platelet Count 656 K/uL (130-400); RDW Coefficient of Variation 28.3 % (11.5-14.5); RDW Standard Deviation 95.7 fL (36.4-46.3); Red Blood Count 2.51 M/uL (4.7-6.1); White Blood Count 13.61 K/uL (4.8-10.8)
[2019-01-09 07:21] LABS: Anisocytosis Present; Ovalocytes 1+; Polychromasia 1+
[2019-01-09 07:39] LABS: Calcium 8.5 mg/dl (8.5-10.1); Creatinine Clr Calc Pharmacy 48.7 ml/min; Est GFR (African American) 70.8; Est GFR (Non-African American) 61.1; Magnesium 2.3 mg/dl (1.8-2.4); Potassium 3.7 mmol/L (3.5-5.1)
[2019-01-09] MEDS ORDERED: AMLODIPINE BESYLATE 5 MG TAB PO STA (08:56)
--- NOTE | 2019-01-09 08:59 | Hospitalist Progress Note ---
Date of Service January 09, 2019 Assessment & Plan (1) Ileus: History of small bowel obstruction approximate 1 year ago when he was transferred to [place] [facility] there included NG tube which resolved the obstruction without surgical intervention NG Tube removed this AM Tolerated clear liquid breakfast Will monitor po intake for the day and advance diet as tolerated. Surgery on board Will monitor BM. Reports 2 BM this AM Leukocytosis White blood cell count continues to go up Remains afebrile Clinically improving Still tachycardic Blood cultures still negative Will continue to monitor Continue cipro and flagyl for now Will check procalcitonin today to assess trend (2) Acute dehydration: creatinine elevated 1.42 on admission( cr 01/2018 0.92) Now improved to 1.13 BUN is elevated-possible due to nausea /vomiting /diarrhea ( reports of 3 episodes of loose bowel movement prior to admission) stool assay for C. difficile ordered Lisinopril still on hold Avoid nephrotoxins/NSAIDS/Contrast I/O yesterday was 2340/1151 (3) LUCILA (acute kidney injury): (4) Essential thrombocythemia: Follows with Dr. Emiliano Sandoval from [facility] oncology and hematology On hydroxyurea and anagrelide-kept on hold for NPO/bowel illeus Will resume po home meds now patient is tolerating po Serial labs No prior history of thrombotic disease Continue to monitor DVT ppx - hep sq (5) Hypertension: BP is poorly controlled Patient recently started on lisinopril kept on hold for LUCILA Will start amlodipine today Check EKG for tachycardia Will reassess later and monitor. Will likely need more than one antihypertensive agent (6) Abnormal chest x-ray: (7) DVT prophylaxis: Hep sq Subjective Patient seen and examined. Had NGT removed this morning. Denied any nausea or vomiting. Reports abdominal pain has resolved. Reports only bloated feeling. Tolerated clear liquid breakfast this morning. Had 2 bowel movement this morning. Passing flatus Review of Systems Review of Systems: All systems reviewed and unremarkable except for mentioned above. Constitutional: no fever, no chills, no sweats and no body aches Eyes: no problem reported Respiratory: no problem reported Cardiovascular: no problem reported Gastrointestinal: + bloating; no nausea, no vomiting, no dysphagia, no constipation and no diarrhea/loose stools Physical Exam Physical Exam: General: Well nourished, well hydrated ,No acute distress and not ill appearing Eyes: PERRL, conjunctivae normal, Mild pallor, anicteric sclerae, EOM intact bilaterally ENMT: External ear and nose normal, oropharynx normal Neck: Normal visual inspection, no tracheal deviation, no swelling noted Respiratory: Normal respiratory effort, no respiratory distress, lungs clear to auscultation, no crackles and no wheezes Cardiovascular: Pulse is 105, regular. Heart Sounds: normal S1 and normal S2; no murmurs. Vessels: normal peripheral pulses Extremities: no pedal edema Gastrointestinal (Abdomen): Abdomen is distended, soft, non-tender to palpation, no guarding, no palpable hepatosplenomegaly, normal bowel sounds Musculoskeletal: No cyanosis or clubbing, all extremities motor strength 5/5 Genitourinary: No CVA tenderness Skin: No rash noted on gross inspection, No ulcers noted, Hyperpigmented papule on right side of head (chronic) Neurologic: Alert and oriented x 3, No focal weakness, sensation grossly intact Psychiatric: Alert and oriented x 3, euthymic affect, no depressed affect Lymphatic: No cervical lymphadenopathy Results & Data Vital Signs (Past 12 Hours) Vital Signs Temp Pulse Pulse Resp BP BP Pulse Ox 01/09/19 07:55 36.3 C L 141 H 20 182/100 H 92 01/09/19 06:37 172/92 H 01/09/19 03:00 36.7 C 95 H 18 182/89 H 188/95 H 94 01/08/19 23:45 107 H 01/08/19 23:35 37.2 C 105 H 20 157/69 H 94 01/08/19 21:27 152/62 H Laboratory Results Laboratory Results - last 24 hr 01/08/19 01/09/19 01/09/19 12:35 06:45 06:45 WBC 13.61 H RBC 2.51 L Hgb 8.2 L Hct 24.9 L MCV 99.2 MCH 32.7 MCHC 32.9 RDW Std Deviation 95.7 H RDW Coeff of Echo 28.3 H Plt Count 656 H MPV 10.3 Immature Gran % (Auto) 2.0 Neut % (Auto) 79.3 Lymph % (Auto) 9.3 [place] % (Auto) 8.9 Eos % (Auto) 0.4 Baso % (Auto) 0.1 Immature Gran # (Auto) 0.27 H Neut # (Auto) 10.79 H Lymph # (Auto) 1.27 [place] # (Auto) 1.21 H Eos # (Auto) 0.05 Baso # (Auto) 0.02 Absolute Nucleated RBC 0.17 H Nucleated RBC % (auto) 1.2 Polychromasia 1+ Anisocytosis Present Ovalocytes 1+ Sodium 144 Potassium 3.7 Chloride 113 H Carbon Dioxide 25 Anion Gap 6.0 BUN 34 H Creatinine 1.13 Est Cr Clr Drug Dosing 48.7 Est GFR ( Amer) 70.8 Est GFR (Non-Af Amer) 61.1 BUN/Creatinine Ratio 30.0 H Glucose 118 H Calcium 8.5 Magnesium 2.3 Gastric Fluid pH 1 Gastric Occult Blood Negative
[2019-01-09] MEDS: CIPROFLOXACIN 400 MG/200 ML BAG IV SCH ×2 (09:42→20:39)
[2019-01-09] MEDS: HEPARIN SOD 5,000 UNIT/0.5 ML VIAL SQ SCH ×2 (14:22→20:46)
[2019-01-09] MEDS: carvediloL 6.25 MG TAB PO SCH (20:45)
[2019-01-10] MEDS: LACTATED RINGER'S 1,000 ML IV SCH ×2 (01:41→11:37)
[2019-01-10] MEDS: metroNIDAZOLE 500 MG/100 ML BAG IV SCH ×2 (03:18→12:42)
[2019-01-10] MEDS: HEPARIN SOD 5,000 UNIT/0.5 ML VIAL SQ SCH ×3 (05:19→21:29)
[2019-01-10 07:56] LABS: BUN Creatinine Ratio 27.5 (10-20); Calcium 8.3 mg/dl (8.5-10.1); Est GFR (African American) 80.1; Est GFR (Non-African American) 69.1; Potassium 3.8 mmol/L (3.5-5.1)
--- NOTE | 2019-01-10 09:03 | Surgery Progress Note ---
Date of Service January 10, 2019 Assessment & Plan (1) Ileus: improved, advancing diet consider outpatient GI eval for colonoscopy vs SBFT for recurrent obstructions, no prior surgery Subjective no nausea, "lots of gas" Physical Exam Gastrointestinal (Abdomen): Inspection/Auscultation: + abdomen distended (minimal) Percussion/Palpation: abdomen soft; abdomen nontender Results & Data Vital Signs (Past 12 Hours) Vital Signs Temp Pulse Pulse Resp BP Pulse Ox 01/10/19 08:00 80 01/10/19 07:11 36.6 C 91 H 20 174/92 H 92 01/10/19 04:30 36.8 C 90 19 173/86 H 91 01/10/19 00:33 83 01/09/19 23:08 36.6 C 92 H 19 166/80 H 91 PG Care Time/CCT Total # of Minutes Spent Total Time Spent with Patient: Total time spent is greater than 50% in coordination of care (as documented) at patient's floor/unit and/or counseling patient:
[2019-01-10] MEDS: CIPROFLOXACIN 400 MG/200 ML BAG IV SCH (09:47)
[2019-01-10] MEDS: AMLODIPINE BESYLATE 5 MG TAB PO SCH (09:50)
[2019-01-10] MEDS: carvediloL 6.25 MG TAB PO SCH ×2 (09:51→20:17)
--- NOTE | 2019-01-10 14:24 | Hospitalist Progress Note ---
Date of Service January 10, 2019 Assessment & Plan (1) Ileus: History of small bowel obstruction approximate 1 year ago when he was transferred to [place] [facility] there included NG tube which resolved the obstruction without surgical intervention NG Tube removed yesterday Tolerated clear liquid diet yesterday well Advanced diet to regular, easy to chew this AM. Tolerated well Will monitor Surg recommends outpt GI eval for colonoscopy vs endoscopic studies for recurrent bowel obstruction without any prior surg Leukocytosis. Over the past 3 days, WBC has been fluctuating from 11-13 Remains afebrile Clinically improving Tachycardia much improved Blood cultures still negative Procalcitonin reduced significantly from 6.31 to 1.6 Will discontinue antibiotics for now (2) LUCILA (acute kidney injury): (3) Acute dehydration: Creatinine elevated 1.42 on admission( cr 01/2018 0.92) Now improved to 1.02 Lisinopril still on hold Avoid nephrotoxins/NSAIDS/Contrast I/O yesterday was 3265/1375 IV fluids discontinued. Tolerating po well. (4) Essential thrombocythemia: Follows with Dr. Emiliano Sandoval from [facility] oncology and hematology Resume po anagrelide and hydroxyurea home meds Serial labs No prior history of thrombotic disease Continue to monitor DVT ppx - hep sq (5) Hypertension: BP has been poorly controlled Patient recently started on lisinopril outpatient but this was kept on hold for LUCILA Started on amlodipine and carvedilol yesterday Continue to monitor (6) DVT prophylaxis: Hep sq Subjective Patient reports that he tolerated his food well yesterday. Denied any nausea, vomiting, abdominal pain. Had 2 bowel movement yesterday Passing flatus. No new complaints Review of Systems Review of Systems: All systems reviewed and unremarkable except for mentioned above. Physical Exam Physical Exam: General: Well hydrated, No acute distress Eyes: PERRL, conjunctivae normal, Mild pallor, anicteric sclerae, EOM intact bilaterally ENMT: External ear and nose normal, oropharynx normal Neck: Normal visual inspection, no tracheal deviation, no swelling noted Respiratory: Normal respiratory effort, no respiratory distress, lungs clear to auscultation, no crackles and no wheezes Cardiovascular: Pulse is 105, regular. Heart Sounds: normal S1 and normal S2; no murmurs. Vessels: normal peripheral pulses Extremities: no pedal edema Gastrointestinal (Abdomen): Abdomen is distended, soft, non-tender to palpation, no guarding, no palpable hepatosplenomegaly, normal bowel sounds Musculoskeletal: No cyanosis or clubbing Neurologic: Alert and oriented x 3, No focal weakness, sensation grossly intact Psychiatric: Alert and oriented x 3, euthymic affect, no depressed affect Results & Data Vital Signs (Past 12 Hours) Vital Signs Temp Pulse Pulse Resp BP Pulse Ox 01/10/19 11:35 36.6 C 96 H 18 138/83 91 01/10/19 08:00 80 01/10/19 07:11 36.6 C 91 H 20 174/92 H 92 01/10/19 04:30 36.8 C 90 19 173/86 H 91 Laboratory Results Procalcitonin - 4.99-->6.31-->1.6
[2019-01-10 15:05] VITALS: O2SAT 90
[2019-01-11] MEDS: HEPARIN SOD 5,000 UNIT/0.5 ML VIAL SQ SCH ×2 (05:40→13:12)
[2019-01-11 06:56] LABS: Hematocrit (blood only) 24.9 % (42-52); Hemoglobin 8.3 g/dL (14.0-18.0); Mean Corpuscular Hemoglobin 32.5 pg (25-34); Mean Corpuscular Hgb Conc 33.3 g/dL (32-36); Mean Corpuscular Volume 97.6 fL (80-100); Mean Platelet Volume 10.4 fL (7.4-10.4); Nucleated RBC # (auto) 0.15 K/uL (0-0); Nucleated RBC % (auto) 1.1 %; Platelet Count 607 K/uL (130-400); RDW Coefficient of Variation 27.8 % (11.5-14.5); RDW Standard Deviation 92.6 fL (36.4-46.3); Red Blood Count 2.55 M/uL (4.7-6.1)
[2019-01-11 06:58] VITALS: TEMP 97.9
[2019-01-11 07:32] LABS: BUN Creatinine Ratio 24.4 (10-20); Calcium 8.1 mg/dl (8.5-10.1); Creatinine Clr Calc Pharmacy 56.2 ml/min; Est GFR (African American) 84.1; Est GFR (Non-African American) 72.5; Potassium 3.8 mmol/L (3.5-5.1)
[2019-01-11 07:37] LABS: Anisocytosis Present; Basophils # (auto) 0.07 K/uL (0-0.2); Basophils % (auto) 0.5 %; Eosinophils # (auto) 0.24 K/uL (0-0.5); Eosinophils % (auto) 1.7 %; Giant Platelets 1+; Immature Granulocytes # (auto) 0.77 K/uL (0.00-0.02); Immature Granulocytes % (auto) 5.6 %; Lymphocytes # (auto) 1.71 K/uL (1.2-3.4); Lymphocytes % (auto) 12.4 %; Monocytes # (auto) 1.29 K/uL (0.11-0.59); Monocytes % (auto) 9.3 %; Neutrophils # (auto) 9.72 K/uL (1.4-6.5); Neutrophils % (auto) 70.5 %; Ovalocytes 1+; Polychromasia 1+
[2019-01-11] MEDS: carvediloL 6.25 MG TAB PO SCH (08:32)
[2019-01-11] MEDS: AMLODIPINE BESYLATE 5 MG TAB PO SCH (08:32)
[2019-01-11] MEDS ORDERED: HYDROXYUREA 500 MG CAP PO SCH (09:00)
--- NOTE | 2019-01-11 09:59 | Surgery Progress Note ---
Date of Service January 11, 2019 Assessment & Plan (1) Ileus: tolerating diet OK for d/c from our standpoint should have outpatient GI w/u Subjective had regular breakfast, no BM yesterday but no nausea Physical Exam Gastrointestinal (Abdomen): Inspection/Auscultation: abdomen not distended Percussion/Palpation: abdomen soft; abdomen nontender Results & Data Vital Signs (Past 12 Hours) Vital Signs Temp Pulse Resp BP BP Pulse Ox 01/11/19 06:57 36.6 C 87 18 177/73 H 90 01/10/19 22:55 37.4 C 83 18 154/73 H 90 PG Care Time/CCT Total # of Minutes Spent Total Time Spent with Patient: Total time spent is greater than 50% in coordination of care (as documented) at patient's floor/unit and/or counseling patient:
[2019-01-11 12:23] VITALS: BP 148/87; PULSE 86
[2019-01-11] MEDS ORDERED: ACETAMINOPHEN 325 MG TAB PO ONE (13:00)
--- NOTE | 2019-01-11 17:43 | Discharge Summary ---
Date of Service January 11, 2019 Admission HPI Per Admitting Provider Attending: Dr. 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 The patient presents today with abdominal pain and nausea. He reports that he had belly pain yesterday afternoon and then went to [facility] and had dinner. He thought the pain would resolve but overnight it worsened. And multiple episodes of vomiting overnight which had no blood in the vomit. He reports having sea hernandez at the restaurant but is adamant that pain occurred prior to eating. He reports he had no fever, chills, sweats, rigors but did have some hot flashes overnight. He does have abdominal distention which is unusual for him. Yesterday he had a usual bowel movement described as formed. The patient presented the emergency room today with concerns for recurrent bowel obstruction. WBC 10.77. Patient is afebrile. He is planning a cruise to [place] the first week of January and wanted to make sure that this was cleared up by then. The patient denies any prior abdominal surgery. He has no history of malignancy. He denies any history of atrial fibrillation or atrial flutter but does report that on occasion he has had a irregular heartbeats as described by his family doctor, Dr. Reyes. EKGs were reviewed in the [facility] system and showed no history of arrhythmia. He denies any history of thrombotic disease. No pulmonary or cardiac disease other than hypertension. Patient ambulates well with no history of falls or imbalance. Patient denies any history of aspiration. He has no cough associated with ingestion of food or thin liquids. He denies any aspiration while vomiting last evening. The patient has no other acute complaints. Admission Exam Per Admitting Provider GENERAL : No acute distress. Pleasant. Jovial EYES: No icterus, gaze conjugate. Pupils equal round and reactive to light NOSE: No evidence of epistaxis. MOUTH: No lesions or candidiasis. Mucosa moist. NECK: Supple. No appreciation of carotid bruits LUNGS: CTA B/L, no wheezes, rales or rhonchi. Good inspirational effort HEART: Regular, rate in the 90s ABDOMEN: Soft, NT, BS Present. No guarding or rebound tenderness. Abdomen is distended but not rigid. EXTREMITIES: No LE edema, pedal pulses intact. NEURO: A&OX3. Pupils equal round and reactive to light. Deep tendon reflexes 2/4 to the bicep, brachioradialis, patellar tendons. Toes downgoing bilatera lly. Bilateral extremities are equal in strength upper and lower. No pronator drift. Cerebellar function is intact with rapid alternating movements and [id number]. No facial droop. No deviation of the tongue Principal Diagnosis Small bowel obstruction Acute kidney injury Hypertension Discharge Exam General: Well hydrated, No acute distress Eyes: PERRL, conjunctivae normal, Mild pallor, anicteric sclerae, EOM intact bilaterally ENMT: External ear and nose normal, oropharynx normal Neck: Normal visual inspection, no tracheal deviation, no swelling noted Respiratory: Normal respiratory effort, no respiratory distress, lungs clear to auscultation, no crackles and no wheezes Cardiovascular: Pulse is regular, S1 S2. no pedal edema Gastrointestinal (Abdomen): Abdomen is distended, soft, non-tender to palpation, no guarding, no palpable hepatosplenomegaly, normal bowel sounds Musculoskeletal: No cyanosis or clubbing Neurologic: Alert and oriented x 3, No focal weakness, sensation grossly intact Psychiatric: Alert and oriented x 3, euthymic affect, no depressed affect Discharge Data Allergies Allergy/AdvReac Type Severity Reaction Status Date / Time naproxen Allergy Intermediate ITCHY ALL Verified 01/06/19 10:19 OVER piperacillin [From Zosyn] Allergy Mild Hives Verified 01/06/19 19:51 tazobactam [From Zosyn] Allergy Mild Hives Verified 01/06/19 19:51 Consultations 01/06/19 11:26 ED Decision to Admit Stat 01/06/19 19:33 Consult General Surgery Routine Ordered Studies 01/06/19 09:51 CT abd pelvis wo con Stat 1. Several distended loops of small bowel in the mid and distal aspect of the abdomen generally similar in configuration as compared to the prior study of 2018. 2. A Well-defined obstructing lesion is not appreciated, with this pattern extending to the region of the ileocecal valve. 3. Mild to moderate fecal material throughout the colon which would indicate the possibility of a generalized ileus, with the possibility of a small bowel obstructive pattern perhaps less likely. 4. slight increase in perinephric infiltrative change bilaterally raising the possibility of pyelonephritis. Urinalysis suggested for correlation. 5. Bibasilar parenchymal infiltrative changes of the lungs. 01/07/19 08:00 CT abd pelvis wo con Routine 1. Findings highly suspicious for small bowel obstruction in the distal ileum with focal downstream transition point. This is most likely due to adhesions. 2. Interval increase in perinephric infiltrative changes. This could be due to venolymphatic congestion or pyelonephritis. Correlate with urinalysis. 3. Distended gallbladder with wall thickening and trace pericholecystic infiltrative change. Attention may also be present. This raises concern for cholecystitis. If there are right upper quadrant symptoms or clinical ambiguity, consider HIDA scan as this could represent acute or chronic cholecystitis. 4. Extensive bibasilar consolidation most likely extensive atelectasis. Hospital Course (1) Ileus: History of small bowel obstruction approximate 1 year ago when he was transferred to [facility] there included NG tube which resolved the obstruction without surgical intervention Patient was evaluated by surgery this admission Required NG Tube placement SBO resolved. Nausea, vomiting, abdominal pain and distention resolved. No surgical intervention Resume and advanced diet with good tolerance Had mild Leukocytosis. Over the past few days, WBC has been fluctuating from 11- 13 Remained afebrile Tachycardia present on admission resolved Blood cultures were negative Required antibiotics initially Procalcitonin reduced significantly from 6.31 to 1.6 Antibiotics were discontinued Patient needs GI follow up outpatient for further evaluation. May need endoscopic evaluation for recurrent SBO without any history of previous abdominal surgeries. (2) LUCILA (acute kidney injury): (3) Acute dehydration: Creatinine elevated 1.42 on admission( cr 01/2018 0.92) LUCILA resolved Lisinopril still on hold. Discharged without it Avoid nephrotoxins/NSAIDS/Contrast (4) Essential thrombocythemia: Follows with Dr. Emiliano Sandoval from [facility] oncology and hematology Resume po anagrelide and hydroxyurea home meds No prior history of thrombotic disease Continue to monitor (5) Hypertension: BP was significantly high running upto 180s/90s Patient reported he was recently started on lisinopril outpatient but this was kept on hold for LUCILA Started on amlodipine and carvedilol 2 days ago with significant improvement Discharged on amlodipine 10mg daily and carvedilol 6.25mg bid to help with sinus tachycardia as well Continue to monitor. He stated was getting him a BP machine. Advised to keep a BP log for his PCP Total Time Total Time Spent Total Time Spent (In Minutes): 30 Total Time Includes: Examination of the Patient, Discharge Planning and Medication Reconciliation Discharge Plan Discharge Items Patient Disposition: Home - Self-Care Reason For Visit: ABD PAIN,VOMITING Discharge Diagnosis: Small bowel obstruction Acute kidney injury Hypertension Condition on Discharge: Good Activity: Resume your previous activity Non-emergency contact: Primary Care Provider Call non-emergency contact if: you have any medication questions and your symptoms worsen Follow-up/Referrals: Ritesh Reyes MD [Primary Care Provider] - Diet: Heart Healthy Diet Texture: Dental soft (bite-sized) Addtl Attending Provider Instructions: Mr Sanchez. You came to the hospital for abdominal pain, nausea and vomiting. You were evaluated and found to have small bowel obstruction and acute kidney injury. Your bowel obstruction was managed conservatively with NG tube. You did not require any surgery. Your acute kidney injury was managed with iv fluids and this resolved. Your bowel obstruction resolved. During your stay, your blood pressure was noted to persistently elevated. You reported you were recently started on lisinopril by your Primary Doctor. This was discontinued during your admission due to the kidney injury. You were started on amlodipine and carvedilol to control your blood pressure and heart rate. Do not resume your lisinopril for now. Continue taking the amlodipine and carvedilol until you follow up with your primary doctor. You will need to follow up with [facility] for further evaluation since you have had 2 episodes of small bowel obstruction. Please follow up with your Primary Doctor. It was a pleasure taking care of you. Pending Studies at Discharge: No Stand-Alone Forms: [email or web address], Smoking Cessation Medications and DC Order Prescriptions: New amlodipine [Norvasc] 5 mg Tablet 10 mg PO QAM 30 Days Qty: 60 RF: 0 carvedilol 6.25 mg tablet 6.25 mg PO BID 30 Days Qty: 60 RF: 0 Continued multivitamin Tablet 1 tab PO 1200 RF: 0 hydroxyurea 500 mg Capsule 500 mg PO BID RF: 0 aspirin [Aspir-81] 81 mg Tablet,Delayed Release (Dr/Ec) 81 mg PO HS RF: 0 psyllium husk [Metamucil] 0.4 gram Capsule 1 dose PO 1200 RF: 0 lutein 10 mg Tablet 10 mg PO DAILY RF: 0 Probiotic and Acidophilus 300-250 million cell-mg Capsule 1 cap PO Q2D RF: 0 anagrelide 1 mg Capsule 1 mg PO BID RF: 0 Discontinued lisinopril 10 mg tablet 10 mg PO DAILY RF: 0 Discharge Orders: Discharge Order (Routine); Ordered 01/11/19 Ordered By: Shona Knutson Admission Data Admit Date/Time: 01/06/19 11:34 Attending Provider: Shona Knutson I. Admit Provider: Elisabeth Timmons Primary Care Provider: Ritesh Reyes Other Providers: Yung Garvin ; Elisabeth Timmons ; Ramirez Magana ; Shirin Stewart ; Leo Knowles ; Darcy Jeffries ; John Mackey ; Manolo Ansari ; An Alexander ; Aydin Knight ; Genoveva White ; Dillon Hill Jr ; Delmi Flores ; Kendy Mendoza Other Interventions: Discharge Summary Assessment (RN) Last Done: 01/11/19 14:29 DC Date/Time DO NOT enter until pt leaves facility: 01/11/19 15:00
== END 2019-01-11 15:00 | disposition home or self-care (01) | DRG 389 ==
LOC: ED 09:38 → SUATTDRO 11:34 → 3N 11:34 → 2E 19:31 → 3W 01-10 11:58

== ENCOUNTER 2021-05-15 13:22 | Inpatient (IN) ==
--- NOTE | 2021-05-15 13:46 | Emergency Department Note ---
Impression & Plan Anemia, Essential thrombocythemia, Acute dehydration, LUCILA (acute kidney injury), Transaminitis ED Provider Note NAME: ALIRIO TINSLEY AGE: 80 SEX: M : 1940 ARRIVES VIA: Walk-In INFORMANT: Patient, ED PROVIDER(S): Jose Tinsley MD Chief Complaint: Weakness, tiredness, outpatient referral for possible LUCILA HPI: Patient presents at the behest of his primary care physician as the patient had blood work completed this morning which showed that he was likely dehydrated. The patient does have some chronic CKD and has had elevated platelets as well as anemia ongoing for which she does receive anagrelide as well as EPO shots. Patient does believe that this may be secondary to radiation as the patient had worked in a lab in the past. Patient denies any fevers chills chest pains or shortness of breath. The patient has had some associated weakness and fatigue. Patient denies any dysuria or hematuria but he was told that he had some blood in the urine per a recent urinalysis. The patient does not take any blood thinners. The patient denies any bloody bowel movements or dark tarry stools. Patient denies any fevers or chills. The patient has any cough or nausea vomiting. ROS: See HPI for pertinent positives and negatives. A total of 10 systems were reviewed and otherwise negative. Past medical history: See below Surgical history: See below Social history: See below Physical Exam: GENERAL: NAD, wearing glasses, wearing a mask, non-toxic. EYE EXAM: Normal conjunctiva. PERRL, no anisocoria and EOM's grossly intact w/o pain. NECK: Supple, no nuchal rigidity, no adenopathy, non-tender. No signs of meningismus. LUNGS: Clear to auscultation. Normal chest wall mechanics. HEART: NSR, no MRG. ABDOMEN: Abdomen soft, non-tender, normo-active bowel sounds, no masses, no rebound or guarding. BACK: No CVA TTP. SKIN: No rashes and no bruising. Skin tenting noted UPPER EXTREMITIES: Upper extremities are grossly normal. LOWER EXTREMITIES: Grossly normal, no edema. NEURO EXAM: A&O x3, cranial nerves II-XII grossly intact, normal speech, moves all 4 extremities on command w/o issue. Differential diagnoses: Infection, dehydration, metabolic abnormality, hypo/hyperglycemia, electrolyte disturbance, anemia, hypoxia, cardiac sources, intracerebral event, toxicologic, neurologic, as well as other pathologies. Course: Patient was seen and evaluated the bedside. Full history physical exam was performed. EKG interpreted by me Normal sinus rhythm, rate 87, normal intervals, left axis deviation. Imaging Studies: See Below Cardiac monitoring: An order was placed for continuous cardiac monitoring. The monitor shows a rate of 88 with sinus rhythm. MDM: Patient was seen due to concern for weakness and outpatients LUCILA. Patient baseline creatinine from 1.1-1.4 and today was 2.5. Repeat blood work was obtained. He was ordered IV fluids. patient today had a white count of 14 with a hemoglobin of 6. Patient does have slightly low bicarb and elevated creatinine. Patient was ordered 1 L of IV fluids. Patient does have mild transaminitis with elevated AST 120 but this has been elevated in the past. Bilirubin of 2. Troponin is detectable but not elevated. Urinalysis does show leuks and whites but no nitrites or bacteria. Patient was consented for 2 units PRBCs. Patient later on during the stay had complained of right upper quadrant pain which is reproducible on exam. CT abdomen pelvis was ordered chest x-ray showed cardiomegaly. CT showed distended gallbladder with equivocal wall thickening. Chronic nonspecific perinephric stranding anemic to the pancreatic tail. Lipase is nonelevated. No bowel obstruction or bowel thickening. May be some mild pulmonary edema seen on the patient's chest film. The patient had already received the IV fluids secondary to the dehydration. The patient clinically looked dry and the patient was stating that he had not been eating or drinking as much and had dark or discolored urine. I did add a BNP. The patient does not complain of any chest pains or shortness of breath. I did speak with the on-call general surgeon Dr. Ansari who thinks that this may be more of a GI issue given the patient's transaminitis so right upper quadrant ultrasound was ordered. I subsequently did speak with the on-call gastroente rologist Dr. Jeffries states that the patient did have a recent EUS with a normal CBD the patient had had elevated liver enzymes at that time. MRCP ordered. He also suggested considering a bowel regimen as this may also be contributing to his right upper quadrant discomfort. He also stated that if the patient does have an element of heart failure this may also increase his liver enzymes. Patient had already been ordered Mefoxin and blood cultures. I did Siuta the on-call hospitalist Paulina Rosenthal PA-C and the patient was admitted by Dr. Bond. Additional imaging and BNP were pending at the time of admission. Critical Care: I have personally spent 47 minutes of critical care time in direct management of this patient. This includes bedside care, interpretation of diagnostic studies, and testing, discussion with consultants, patient, and family members, and other require inpatient management activities. This 47 minutes is in excess of all separately billable procedures. Past Med/Surg History Medical History Anemia CKD (chronic kidney disease), stage III Creatine baseline around 1.4 per records Essential thrombocythemia Platelet count around 1.6 million at time of dx in 2010 Hypertension Iron overload Recent- following with heme/onc- per 12/17/20 note- pt was on Jadenu- d/c'ed secondary to elevated LFTs CONNIE-2 gene mutation F/U 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 On Hydroxyurea Melanoma On anticoagulant therapy on anagrelide Small bowel obstruction 2018 Treated conservatively Surgical History H/O endoscopy (~11/2020) EUS History of adenoidectomy History of bilateral cataract extraction History of colonoscopy 2019 History of esophagogastroduodenoscopy (EGD) 2019 History of Mohs micrographic surgery for skin cancer x2 removed off face History of tonsillectomy Family History Other Family history unobtainable due to orphan status Social History Smoking Status: Former smoker Tobacco Type: Cigarettes Second Hand Exposure: No; Hx Alcohol Use: No Hx Substance Use: No Preferred Language: Kazakh Communication Ability: Effective [employer] Teacher Required: No Beliefs That Will Affect Care: None marital status: Current Living Situation: Spouse current occupational status: retired Feels Safe at Home: Yes Assistive Devices: Glasses Allergies Allergies Allergy/AdvReac Type Severity Reaction Status Date / Time naproxen Allergy Intermediate ITCHY ALL Verified 05/15/21 15:03 OVER piperacillin [From Zosyn] Allergy Mild Hives Verified 05/15/21 15:03 tazobactam [From Zosyn] Allergy Mild Hives Verified 05/15/21 15:03 Home Meds Home Medications Medication Instructions Recorded Confirmed multivitamin 1 tab PO QDL 12/21/17 05/15/21 anagrelide 1 mg capsule 1 mg PO QPM 11/16/18 05/15/21 amlodipine 10 mg tablet 5 mg PO QAM 02/25/19 05/15/21 vit C,Z-Vo-dtrrks-lutein-zeaxan 60 1 cap PO BID 02/25/19 05/15/21 mg-13.5 mg-15 mg-2 mg-6 mg capsule (Ocuvite Lutein and Zeaxanthin) aspirin 81 mg tablet,delayed 81 mg PO QDL 09/15/20 05/15/21 release (Aspirin Low Dose) carvedilol 12.5 mg tablet 12.5 mg PO BID 09/15/20 05/15/21 hydroxyzine HCl 10 mg tablet 10 mg PO DAILY PRN 09/15/20 05/15/21 hydroxyurea 500 mg capsule 500 mg PO QDL 09/30/20 05/15/21 epoetin mohamud 2,000 unit/mL 0 unit SUBCUT WK 05/15/21 05/15/21 injection solution Results & Data (ED) Vital Signs Vital Signs - 24 hr 05/15/21 13:26 05/15/21 14:12 05/15/21 14:20 Temperature 36.6 C Temperature Source Oral Pulse Rate 90 86 88 Pulse Rate from SpO2 Sensor 88 Pulse Rhythm Respiratory Rate 17 25 H 22 Respiratory Depth Normal Blood Pressure 126/64 Blood Pressure Mean 84 Blood Pressure Position Pulse Oximetry 98 96 Oxygen Delivery Method Room Air Sepsis Recent Fever Within 48 Hours No Sepsis New/Unexplained Change in Mental Status N/A Sepsis Action Taken by Nursing No Action Required 05/15/21 14:30 05/15/21 14:40 05/15/21 14:50 Temperature Temperature Source Pulse Rate 86 86 86 Pulse Rate from SpO2 Sensor 85 86 87 Pulse Rhythm Respiratory Rate 23 21 21 Respiratory Depth Blood Pressure Blood Pressure Mean Blood Pressure Position Pulse Oximetry 94 94 93 Oxygen Delivery Method Sepsis Recent Fever Within 48 Hours Sepsis New/Unexplained Change in Mental Status Sepsis Action Taken by Nursing 05/15/21 15:00 04/02/22 15:10 05/15/21 15:20 Temperature Temperature Source Pulse Rate 88 92 H 90 Pulse Rate from SpO2 Sensor 87 92 H 90 Pulse Rhythm Respiratory Rate 19 17 18 Respiratory Depth Blood Pressure Blood Pressure Mean Blood Pressure Position Pulse Oximetry 93 93 93 Oxygen Delivery Method Sepsis Recent Fever Within 48 Hours Sepsis New/Unexplained Change in Mental Status Sepsis Action Taken by Nursing 05/15/21 15:56 05/15/21 16:00 05/15/21 16:30 Temperature Temperature Source Pulse Rate 98 H 91 H 90 Pulse Rate from SpO2 Sensor 98 H 91 H 90 Pulse Rhythm Respiratory Rate 22 23 21 Respiratory Depth Blood Pressure 159/77 H 169/81 H 158/74 H Blood Pressure Mean 104 110 102 Blood Pressure Position Pulse Oximetry 95 97 93 Oxygen Delivery Method Sepsis Recent Fever Within 48 Hours Sepsis New/Unexplained Change in Mental Status Sepsis Action Taken by Nursing 05/15/21 16:42 05/15/21 16:43 05/15/21 16:50 Temperature 36.8 C Temperature Source Oral Pulse Rate 93 H 93 H Pulse Rate from SpO2 Sensor Pulse Rhythm Respiratory Rate 18 19 Respiratory Depth Blood Pressure 159/75 H 159/75 H Blood Pressure Mean 103 103 Blood Pressure Position Semi-fowlers Pulse Oximetry 94 Oxygen Delivery Method Sepsis Recent Fever Within 48 Hours Sepsis New/Unexplained Change in Mental Status Sepsis Action Taken by Nursing 05/15/21 16:54 05/15/21 16:58 05/15/21 17:00 Temperature 36.4 C Temperature Source Oral Pulse Rate 92 H 92 H Pulse Rate from SpO2 Sensor Pulse Rhythm Regular Respiratory Rate 23 16 Respiratory Depth Blood Pressure 161/75 H 164/74 H 164/74 H Blood Pressure Mean 103 104 104 Blood Pressure Position Semi-fowlers Pulse Oximetry 94 Oxygen Delivery Method Sepsis Recent Fever Within 48 Hours Sepsis New/Unexplained Change in Mental Status Sepsis Action Taken by Nursing 05/15/21 17:10 05/15/21 17:15 Temperature Temperature Source Pulse Rate 95 H 97 H Pulse Rate from SpO2 Sensor 96 H 97 H Pulse Rhythm Respiratory Rate 25 H 20 Respiratory Depth Blood Pressure 160/82 H Blood Pressure Mean 108 Blood Pressure Position Pulse Oximetry 93 93 Oxygen Delivery Method Sepsis Recent Fever Within 48 Hours Sepsis New/Unexplained Change in Mental Status Sepsis Action Taken by [facility] Medications Current Medication List: was personally reviewed by me Laboratory Data Attestation: I reviewed the patient's lab results. Result diagrams: 05/15/21 13:59 05/15/21 13:59 Lab Results 05/15/21 05/15/21 05/15/21 Range/Units 13:59 13:59 13:59 WBC 14.06 H (4.8-10.8) K/uL RBC 1.90 L (4.7-6.1) M/uL Hgb 6.0 L* (14.0-18.0) g/dL Hct 17.8 L* (42-52) % MCV 93.7 (80-100) fL MCH 31.6 (25-34) pg MCHC 33.7 (32-36) g/dL RDW Std Deviation 65.8 H (36.4-46.3) fL RDW Coeff of Echo 19.9 H (11.5-14.5) % Plt Count 820 H (130-400) K/uL MPV 10.3 (7.4-10.4) fL Immature Gran % (Auto) 1.4 % Neut % (Auto) 66.0 % Lymph % (Auto) 11.7 % [place] % (Auto) 20.1 % Eos % (Auto) 0.6 % Baso % (Auto) 0.2 % Neut # (Auto) 9.28 H (1.4-6.5) K/uL Lymph # (Auto) 1.65 (1.2-3.4) K/uL [place] # (Auto) 2.83 H (0.11-0.59) K/uL Eos # (Auto) 0.08 (0-0.5) K/uL Baso # (Auto) 0.03 (0-0.2) K/uL Immature Gran # (Auto) 0.19 H (0.00-0.02) K/uL Absolute Nucleated RBC 0.05 H (0-0) K/uL Nucleated RBC % (auto) 0.3 % Polychromasia 1+ Anisocytosis Present Sodium 136 (136-145) mmol/L Potassium 4.8 (3.5-5.1) mmol/L Chloride 107 (98-107) mmol/L Carbon Dioxide 19 L (21-32) mmol/L Anion Gap 10 (3-11) BUN 69 H (6-23) mg/dl Creatinine 2.76 H (0.6-1.4) mg/dl Est Cr Clr Drug Dosing 19.3 ml/min Est GFR ( Amer) 23.7 ml/min Est GFR (Non-Af Amer) 20.4 ml/min BUN/Creatinine Ratio 25.0 H (10-20) Glucose 123 H (70-99(Fasting)) mg/dl Calcium 8.5 (8.5-10.1) mg/dl Magnesium 2.4 (1.7-2.4) mg/dl Total Bilirubin 2.0 H (0.2-1.0) mg/dl AST 120 H (13-39) U/L ALT 41 (7-52) U/L Alkaline Phosphatase 37 (34-104) U/L Troponin I 0.03 (0-0.04) ng/ml Total Protein 6.7 (6.0-8.3) gm/dl Albumin 4.2 (3.4-5.0) gm/dl Globulin 2.5 (2.5-4.0) gm/dl Albumin/Globulin Ratio 1.7 (0.9-2) Lipase (11-82) U/L TSH 3.822 (0.300-4.500) uIu/ml Urine Color Urine Appearance (Clear) Urine pH (4.5-7.5) Ur Specific [place] (1.000-1.030) Urine Protein (Negative) Urine Glucose (UA) (Negative) Urine Ketones (Negative) Urine Blood (Negative) Urine Nitrite (Negative) Urine Bilirubin (Negative) Urine Urobilinogen (Negative) Ur Leukocyte Esterase (Negative) Urine WBC (Auto) (0-5) /hpf Urine RBC (Auto) (0-4) /hpf U Hyaline Cast (Auto) (0-5) /lpf U Epithel Cells (Auto) (0-5) /lpf Urine Bacteria (Auto) (Negative) Blood Type Antibody Screen Crossmatch 05/15/21 05/15/21 05/15/21 Range/Units 13:59 15:08 Unknown WBC (4.8-10.8) K/uL RBC (4.7-6.1) M/uL Hgb (14.0-18.0) g/dL Hct (42-52) % MCV (80-100) fL MCH (25-34) pg MCHC (32-36) g/dL RDW Std Deviation (36.4-46.3) fL RDW Coeff of Echo (11.5-14.5) % Plt Count (130-400) K/uL MPV (7.4-10.4) fL Immature Gran % (Auto) % Neut % (Auto) % Lymph % (Auto) % [place] % (Auto) % Eos % (Auto) % Baso % (Auto) % Neut # (Auto) (1.4-6.5) K/uL Lymph # (Auto) (1.2-3.4) K/uL [place] # (Auto) (0.11-0.59) K/uL Eos # (Auto) (0-0.5) K/uL Baso # (Auto) (0-0.2) K/uL Immature Gran # (Auto) (0.00-0.02) K/uL Absolute Nucleated RBC (0-0) K/uL Nucleated RBC % (auto) % Polychromasia Anisocytosis Sodium (136-145) mmol/L Potassium (3.5-5.1) mmol/L Chloride (98-107) mmol/L Carbon Dioxide (21-32) mmol/L Anion Gap (3-11) BUN (6-23) mg/dl Creatinine (0.6-1.4) mg/dl Est Cr Clr Drug Dosing ml/min Est GFR ( Amer) ml/min Est GFR (Non-Af Amer) ml/min BUN/Creatinine Ratio (10-20) Glucose (70-99(Fasting)) mg/dl Calcium (8.5-10.1) mg/dl Magnesium (1.7-2.4) mg/dl Total Bilirubin (0.2-1.0) mg/dl AST (13-39) U/L ALT (7-52) U/L Alkaline Phosphatase (34-104) U/L Troponin I (0-0.04) ng/ml Total Protein (6.0-8.3) gm/dl Albumin (3.4-5.0) gm/dl Globulin (2.5-4.0) gm/dl Albumin/Globulin Ratio (0.9-2) Lipase 35 (11-82) U/L TSH (0.300-4.500) uIu/ml Urine Color Dark Yellow Urine Appearance Cloudy A (Clear) Urine pH 5.0 (4.5-7.5) Ur Specific [place] 1.014 (1.000-1.030) Urine Protein 2+ H (Negative) Urine Glucose (UA) Negative (Negative) Urine Ketones Negative (Negative) Urine Blood 3+ H (Negative) Urine Nitrite Negative (Negative) Urine Bilirubin Negative (Negative) Urine Urobilinogen Negative (Negative) Ur Leukocyte Esterase Trace H (Negative) Urine WBC (Auto) 5-10 H (0-5) /hpf Urine RBC (Auto) >30 H (0-4) /hpf U Hyaline Cast (Auto) 1-5 (0-5) /lpf U Epithel Cells (Auto) 20-30 H (0-5) /lpf Urine Bacteria (Auto) Negative (Negative) Blood Type A Negative Antibody Screen NEGATIVE Crossmatch See Detail Administered Medications Discontinued Medications Acetaminophen (Acetaminophen 325 Mg Tab) 650 mg PO NOW STA Stop: 05/15/21 17:06 Last Admin: 05/15/21 17:15 Dose: 650 mg Documented by: [id number] Sodium Chloride (Nss 1000ml) 1,000 mls @ 999 mls/hr IV .Q1H1M ROSETTE Stop: 05/15/21 15:15 Last Infusion: 05/15/21 15:52 Dose: 0 mls/hr Documented by: [id number] Admin: 05/15/21 14:10 Dose: 999 mls/hr Documented by: [id number] Cefoxitin Sodium (Mefoxin) 2,000 mg in 60 mls @ 100 mls/hr IV NOW STA Stop: 05/15/21 16:44 Last Admin: 05/15/21 17:12 Dose: Not Given Documented by: [id number] Imaging Data Radiologist's Impression: Chest X-Ray 05/15/21 14:03 XR chest 1V portable HISTORY: 80 years-old Male weakness acute weakness COMPARISON: Chest radiograph 09/15/2020 TECHNIQUE: Portable AP view of the chest FINDINGS: The cardiac silhouette is enlarged. Calcified right paratracheal lymph nodes. Right IJ central venous catheter distal tip is noted within the region of the SVC brachiocephalic confluence. No pneumothorax, pleural effusion or overt pulmonary edema. Minimal bibasilar atelectasis. Bones appear grossly intact. Minimal right shoulder rotator cuff calcific tendinosis. IMPRESSION: Cardiomegaly without acute process. ACT 112: Negative or not required by law. The above report was generated using voice recognition software. It may contain grammatical, syntax or spelling errors. Electronically signed by: Palmer Treviño M.D. 05/15/2021 2:35 PM Abdomen/Pelvis CT 05/15/21 15:[address] WITHOUT CONTRAST CT DOSE: 323.84 mGy.cm HISTORY: Acute right upper quadrant abdominal pain RUQ pain TECHNIQUE: Multiaxial CT images of the abdomen and pelvis were performed without contrast. A dose lowering technique was utilized adhering to the principles of ALARA. COMPARISON STUDY: Chest radiograph 05/15/2021 FINDINGS: Cardiomegaly with trace pericardial effusion. Decreased attenuation of the cardiac blood pool suggestive of anemia. Arterial and papillary muscle calcifications of the left ventricle. Trace pleural effusions. Intralobular septal thickening with mild bibasilar atelectasis. No pneumatosis or pneumoperitoneum. The spleen measures within the upper limits of normal in size with scattered calcified granulomata. There is trace interstitial and peripancreatic edema involving the pancreatic tail. No pancreatic ductal dilation. Unremarkable adrenal glands. Distended gallbladder with equivocal wall thickening. No cholelithiasis or biliary ductal dilation identified. Unremarkable liver. Nonspecific perinephric stranding is noted bilaterally with renal sinus cysts. Exophytic 2.1 cm cortical cyst left kidney on image 183. No ureteral calculi or hydronephrosis. Mild prostamegaly. Urinary bladder wall thickening with partial distention. Pelvic basin phleboliths. Atherosclerosis of the aorta without aneurysm. There is no lymphadenopathy. Stool-filled loops of small bowel are noted within the abdomen and pelvis. No bowel obstruction or bowel wall thickening. Mild fecal retention. The appendix appears noninflamed on image 266. Unremarkable soft tissues. No acute fracture or destructive bone lesion. S1 vertebral body hemangioma. IMPRESSION: 1. Distended gallbladder with equivocal wall thickening. Correlate with right upper quadrant abdominal ultrasound if there is clinical concern for acute cholecystitis. 2. Chronic nonspecific perinephric stranding may account for the edema adjacent to the pancreatic tail. Correlate with lipase to exclude pancreatitis. 3. No bowel obstruction or bowel wall thickening. 4. Cardiomegaly with suggestion of mild pulmonary edema and trace pleural effusions. 5. Additional findings as above. ACT 112: Negative or not required by law. The above report was generated using voice recognition software. It may contain grammatical, syntax or spelling errors. Electronically signed by: Palmer Treviño M.D. 05/15/2021 4:04 PM Discharge Plan Visit Data Chief Complaint: Dehydration Stated Complaint: Dehydration, DR REF ED Provider: Jose Tinsley Discharge Problem: Anemia, Essential thrombocythemia, Acute dehydration, LUCILA (acute kidney injury), Transaminitis Patient Disposition: Admitted As Inpatient Forms Stand Alone Forms: [facility] Prescriptions Prescriptions: No Action multivitamin Tablet 1 tab PO QDL RF: 0 anagrelide 1 mg Capsule 1 mg PO QPM RF: 0 amlodipine 10 mg Tablet 5 mg PO QAM RF: 0 Ocuvite Lutein and Zeaxanthin 60 mg-13.5 mg- 15 mg-2 mg-6 mg Capsule 1 cap PO BID RF: 0 carvedilol 12.5 mg tablet 12.5 mg PO BID RF: 0 hydroxyzine HCl 10 mg tablet 10 mg PO DAILY PRN (Reason: Itching) RF: 0 aspirin [Aspirin Low Dose] 81 mg Tablet,Delayed Release (Dr/Ec) 81 mg PO QDL RF: 0 hydroxyurea 500 mg Capsule 500 mg PO QDL RF: 0 epoetin mohamud 2,000 unit/mL Solution 0 unit subcut WK RF: 0 Referrals Referrals: Ritesh Reyes MD [Primary Care Provider] -
[2021-05-15] MEDS ORDERED: SODIUM CHLORIDE 0.9% 1000ML 1,000 ML IV SCH (14:15)
[2021-05-15 14:26] LABS: Hematocrit (blood only) 17.8 % (42-52); Mean Corpuscular Hemoglobin 31.6 pg (25-34); Mean Corpuscular Hgb Conc 33.7 g/dL (32-36); Mean Corpuscular Volume 93.7 fL (80-100); Mean Platelet Volume 10.3 fL (7.4-10.4); Nucleated RBC # (auto) 0.05 K/uL (0-0); Nucleated RBC % (auto) 0.3 %; Platelet Count 820 K/uL (130-400); RDW Coefficient of Variation 19.9 % (11.5-14.5); RDW Standard Deviation 65.8 fL (36.4-46.3); White Blood Count 14.06 K/uL (4.8-10.8)
[2021-05-15] MEDS ORDERED: SODIUM CHLORIDE 0.9% 250 ML IV PRN ×4 (14:32→21:18)
--- NOTE | 2021-05-15 14:36 | XRay Report ---
XR chest 1V portable HISTORY: 80 years-old Male weakness acute weakness COMPARISON: Chest radiograph 09/15/2020 TECHNIQUE: Portable AP view of the chest FINDINGS: The cardiac silhouette is enlarged. Calcified right paratracheal lymph nodes. Right IJ central venous catheter distal tip is noted within the region of the SVC brachiocephalic confluence. No pneumothora x, pleural effusion or overt pulmonary edema. Minimal bibasilar atelectasis. Bones appear grossly int act. Minimal right shoulder rotator cuff calcific tendinosis. IMPRESSION: Cardiomegaly without acute process. ACT 112: Negative or not required by law. The above report was generated using voice recognition software. It may contain grammatical, syntax o r spelling errors. Electronically signed by: Palmer Treviño M.D. 05/15/2021 2:35 PM
[2021-05-15 14:53] LABS: Troponin I 0.03 ng/ml (0-0.04)
[2021-05-15 15:02] LABS: Potassium 4.8 mmol/L (3.5-5.1)
[2021-05-15 15:03] LABS: Albumin Globulin Ratio 1.7 (0.9-2); Albumin Level 4.2 gm/dl (3.4-5.0); Calcium 8.5 mg/dl (8.5-10.1); Creatinine Clr Calc Pharmacy 19.3 ml/min; Est GFR (African American) 23.7 ml/min; Est GFR (Non-African American) 20.4 ml/min; Globulin 2.5 gm/dl (2.5-4.0); Magnesium 2.4 mg/dl (1.7-2.4); Total Protein 6.7 gm/dl (6.0-8.3)
[2021-05-15 15:05] LABS: Anisocytosis Present; Basophils # (auto) 0.03 K/uL (0-0.2); Basophils % (auto) 0.2 %; Eosinophils # (auto) 0.08 K/uL (0-0.5); Eosinophils % (auto) 0.6 %; Immature Granulocytes # (auto) 0.19 K/uL (0.00-0.02); Immature Granulocytes % (auto) 1.4 %; Lymphocytes # (auto) 1.65 K/uL (1.2-3.4); Lymphocytes % (auto) 11.7 %; Monocytes # (auto) 2.83 K/uL (0.11-0.59); Monocytes % (auto) 20.1 %; Neutrophils # (auto) 9.28 K/uL (1.4-6.5); Polychromasia 1+
--- NOTE | 2021-05-15 16:07 | CT Scan Report ---
ABDOMEN AND PELVIS CT WITHOUT CONTRAST CT DOSE: 323.84 mGy.cm HISTORY: Acute right upper quadrant abdominal pain RUQ pain TECHNIQUE: Multiaxial CT images of the abdomen and pelvis were performed without contrast. A dose lo wering technique was utilized adhering to the principles of ALARA. COMPARISON STUDY: Chest radiograph 05/15/2021 FINDINGS: Cardiomegaly with trace pericardial effusion. Decreased attenuation of the cardiac blood pool suggest aline of anemia. Arterial and papillary muscle calcifications of the left ventricle. Trace pleural effu sions. Intralobular septal thickening with mild bibasilar atelectasis. No pneumatosis or pneumoperito neum. The spleen measures within the upper limits of normal in size with scattered calcified granulomata. T here is trace interstitial and peripancreatic edema involving the pancreatic tail. No pancreatic duct al dilation. Unremarkable adrenal glands. Distended gallbladder with equivocal wall thickening. No ch olelithiasis or biliary ductal dilation identified. Unremarkable liver. Nonspecific perinephric stranding is noted bilaterally with renal sinus cysts. Exophytic 2.1 cm corti heber cyst left kidney on image 183. No ureteral calculi or hydronephrosis. Mild prostamegaly. Urinary bladder wall thickening with partial distention. Pelvic basin phleboliths. Atherosclerosis of the aor ta without aneurysm. There is no lymphadenopathy. Stool-filled loops of small bowel are noted within the abdomen and pelvis. No bowel obstruction or billy wel wall thickening. Mild fecal retention. The appendix appears noninflamed on image 266. Unremarkabl e soft tissues. No acute fracture or destructive bone lesion. S1 vertebral body hemangioma. IMPRESSION: 1. Distended gallbladder with equivocal wall thickening. Correlate with right upper quadrant abdomina l ultrasound if there is clinical concern for acute cholecystitis. 2. Chronic nonspecific perinephric stranding may account for the edema adjacent to the pancreatic vivek l. Correlate with lipase to exclude pancreatitis. 3. No bowel obstruction or bowel wall thickening. 4. Cardiomegaly with suggestion of mild pulmonary edema and trace pleural effusions. 5. Additional findings as above. ACT 112: Negative or not required by law. The above report was generated using voice recognition software. It may contain grammatical, syntax o r spelling errors. Electronically signed by: Palmer Treviño M.D. 05/15/2021 4:04 PM
[2021-05-15] MEDS ORDERED: cefOXitin 2,000 MG/60 ML BAG IV STA (16:09)
[2021-05-15 16:11] LABS: Appearance Urine Cloudy (Clear); Bacteria Urine Automated Negative (Negative); Bilirubin Urine Negative (Negative); Blood Urine 3+ (Negative); Color Urine Dark Yellow; Epithelial Cell Urine Auto 20-30 /lpf (0-5); Glucose Urine UA Negative (Negative); Ketones Urine Negative (Negative); Leukocyte Esterase Urine Trace (Negative); Nitrite Urine Negative (Negative); Protein Urine 2+ (Negative); RBC Urine Automated >30 /hpf (0-4); Specific Gravity Urine 1.014 (1.000-1.030); Urobilinogen Urine Negative (Negative)
--- NOTE | 2021-05-15 16:28 | History & Physical Report ---
Date of Service May 15, 2021 Assessment & Plan (1) Anemia: Plan: - Admit to tele - hemoglobin noted to be 6.0 on admission, baseline of 7.5-8, transfusing 1 units , trend H&H, will order benadryl and tylenol now for premedication - Pt notes hx of hematuria, was following with urology and hematology as outpatient, monitor - Will check stool to r.u GI bleed with elevated BUN concerning for GI bleed, however CT of the abd shows large amount of stool retention which is unlikely with GIB. Will order miralax and colace scheduled (2) Elevated AST (SGOT): Plan: - Concern for possible gallbladder involvement with URQ pain, appears jaundiced, will order MRCP - Start IV Zosyn, discussion regarding history of hives listed on allergy list, patient cannot recall this happening in the past, agreeable to taking Benadryl prior to abx infusion, monitor - Consult GI and general surgery for possible gallbladder involvement- appreciate recs - Will start bowel regimen with CT showing large amount of stool in the colon and fecalization within the small intestine (3) LUCILA (acute kidney injury): Plan: - Cr. 2.8 today, baseline 1.4-1.5 - Will monitor, renally reduce medications and avoid nephrotoxins (4) CKD (chronic kidney disease), stage III: (5) Essential thrombocythemia: Plan: -Noted, chronic, baseline thrombocyte level of 720-830 as per outpatient record review (6) Hypertension: Plan: -Continue on amlodipine, carvedilol -Hemodynamically stable with BP of 160/82, slightly tachycardic with heart rate in the 90s DVT ppx: - teds, scds, hold on chemical anticoagulation in the setting of possible GI bleed CODE: Full code-discussed with the patient at bedside Dispo: From home, likely to remain in the hospital x 1-2 days History of Present Illness Primary Care Provider: Ritesh Reyes MD This is an 80-year-old male with PMHx of HTN, CKD stage III, essential thrombocytopenia, and anemia secondary to CKD, gross hematuria, who presents with acute onset of weakness and fatigue. He was seen as an outpatient by PCP office today for increased weakness and concerns of urine appearing cloudy within the past week. He was then further informed that he had blood in his urine. Due to being dehydrated and having an elevated creatinine he was sent to the ER. He was also informed his blood count was low compared to his baseline. He received an outpatient transfusion at [facility] approximately 2 weeks ago. Overall the patient does not have any complaints of abdominal issues, reports he has been moving his bowels without any changes, no blood, and eating and drinking normally. He did not notice any abdominal pain until when moving in bed he noticed some right upper quadrant pain when positioned on his right side per nursing. Pt denies any shortness of breath, chest pain, lightheadedness or dizziness. When asked about his complexion he feels like his skin is the same color it always is. Outpatient chemistry panel was conducted which indicated new LUCILA with a creatinine of 2.8, compared to his baseline of 1.4-1.5 therefore was sent to the ER. Will follow culture from the today. Here in the ER he was noted to have a WBC count of 14, and hemoglobin of 6.0. His baseline hemoglobin from outpatient record review is 7.5-8.0 at baseline. His platelet count is 820 which appears to be at his baseline. After obtaining LFTs, and noting AST elevation at 120, for right upper quadrant gallbladder involvement he was cultured and started on cefoxitin IV. General surgery has been called as well as GI by the ER. PRBC has been ordered. Allergies Allergy/AdvReac Type Severity Reaction Status Date / Time naproxen Allergy Intermediate ITCHY ALL Verified 05/15/21 15:03 OVER piperacillin [From Zosyn] Allergy Mild Hives Verified 05/15/21 15:03 tazobactam [From Zosyn] Allergy Mild Hives Verified 05/15/21 15:03 Home Medications Medication Instructions Recorded Confirmed Type multivitamin 1 tab PO QDL 12/21/17 05/15/21 History anagrelide 1 mg capsule 1 mg PO QPM 11/16/18 05/15/21 History amlodipine 10 mg tablet 5 mg PO QAM 02/25/19 05/15/21 History vit C,N-Gt-kxzfgo-lutein-zeaxan 60 1 cap PO BID 02/25/19 05/15/21 History mg-13.5 mg-15 mg-2 mg-6 mg capsule (Ocuvite Lutein and Zeaxanthin) aspirin 81 mg tablet,delayed 81 mg PO QDL 09/15/20 05/15/21 History release (Aspirin Low Dose) carvedilol 12.5 mg tablet 12.5 mg PO BID 09/15/20 05/15/21 History hydroxyzine HCl 10 mg tablet 10 mg PO DAILY PRN 09/15/20 05/15/21 History hydroxyurea 500 mg capsule 500 mg PO QDL 09/30/20 05/15/21 History epoetin mohamud 2,000 unit/mL 0 unit SUBCUT WK 05/15/21 05/15/21 History injection solution Past Med/Surg History Medical History Anemia CKD (chronic kidney disease), stage III Creatine baseline around 1.4 per records Essential thrombocythemia Platelet count around 1.6 million at time of dx in 2010 Hypertension Iron overload Recent- following with heme/onc- per 12/17/20 note- pt was on Jadenu- d/c'ed secondary to elevated LFTs CONNIE-2 gene mutation F/U 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 On Hydroxyurea Melanoma On anticoagulant therapy on anagrelide Small bowel obstruction 2018 Treated conservatively Surgical History H/O endoscopy (~11/2020) EUS History of adenoidectomy History of bilateral cataract extraction History of colonoscopy 2019 History of esophagogastroduodenoscopy (EGD) 2019 History of Mohs micrographic surgery for skin cancer x2 removed off face History of tonsillectomy Family History Other Family history unobtainable due to orphan status Social History Smoking Status: Former smoker Tobacco Type: Cigarettes Second Hand Exposure: No; Hx Alcohol Use: No Hx Substance Use: No Preferred Language: Wolof Communication Ability: Effective Investment [employer]ing Associate Required: No Beliefs That Will Affect Care: None marital status: Current Living Situation: Spouse current occupational status: retired Feels Safe at Home: Yes Assistive Devices: Glasses Review of Systems Review of Systems: Constitutional: No fever, sweats or chills, + generalized weakness and fatigue Eyes: No diplopia, no worsening or blurred vision ENT: normal hearing, no trouble swallowing Respiratory: No cough, sputum, dyspnea at rest or on exertion Cardiovascular: No chest pain, tightness or palpitations Abdomen: No pain, nausea, vomiting, diarrhea or constipation Musculoskeletal: No joint pain, calf pain, swelling Neurologic: No weakness, numbness/tingling, or balance problems Psychiatric: No anxiety or depression Skin: No rash or itch Physical Exam Physical Exam: General: awake, alert, no apparent distress, + appears jaundiced, actively getting blood transfusion Head: Normocephalic, atraumatic ENT: PERRL, EOMI, + icteric conjunctiva, no pharyngeal exudate, mucous membranes moist Chest: Clear to auscultation, on room air, no adventitious breath sounds Cardiac: Regular rhythm, tachycardic with heart rate in the 90s, no murmur, no JVD, normal peripheral pulses, good capillary refill Abdominal: NABS x 4 quadrants, soft, nondistended, nontender to palpation, no rebound or guarding Extremities: Normal inspection, no peripheral edema or erythema, calfs nontender to palpation Psych: Normal mood and affect Neuro: AAO x 3, strength intact bilaterally and rated 5/5, no motor deficits, speech is clear, no peripheral sensory deficits Results & Data Results & Data ([facility]) Vital Signs (Past 12 Hours) Vital Signs Temp Pulse Resp BP Pulse Ox 05/15/21 15:20 90 18 93 05/15/21 15:10 92 H 17 93 05/15/21 15:00 88 19 93 05/15/21 14:50 86 21 93 05/15/21 14:40 86 21 94 05/15/21 14:30 86 23 94 05/15/21 14:20 88 22 96 05/15/21 14:12 86 25 H 05/15/21 13:26 36.6 C 90 17 126/64 98 Laboratory Results 05/15/21 16:55 Aerobic Blood Culture - Pending Blood Anaerobic Blood Culture - Pending 05/15/21 16:50 Aerobic Blood Culture - Pending Blood Anaerobic Blood Culture - Pending 05/15/21 05/15/21 05/15/21 Unknown 15:08 13:59 WBC RBC Hgb Hct MCV MCH MCHC RDW Std Deviation RDW Coeff of Echo Plt Count MPV Immature Gran % (Auto) Neut % (Auto) Lymph % (Auto) [place] % (Auto) Eos % (Auto) Baso % (Auto) Neut # (Auto) Lymph # (Auto) [place] # (Auto) Eos # (Auto) Baso # (Auto) Immature Gran # (Auto) Absolute Nucleated RBC Nucleated RBC % (auto) Polychromasia Anisocytosis Sodium Potassium Chloride Carbon Dioxide Anion Gap BUN Creatinine Est Cr Clr Drug Dosing Est GFR ( Amer) Est GFR (Non-Af Amer) BUN/Creatinine Ratio Glucose Calcium Magnesium Total Bilirubin AST ALT Alkaline Phosphatase Troponin I Total Protein Albumin Globulin Albumin/Globulin Ratio TSH 3.822 Urine Color Dark Yellow Urine Appearance Cloudy A Urine pH 5.0 Ur Specific [place] 1.014 Urine Protein 2+ H Urine Glucose (UA) Negative Urine Ketones Negative Urine Blood 3+ H Urine Nitrite Negative Urine Bilirubin Negative Urine Urobilinogen Negative Ur Leukocyte Esterase Trace H Urine WBC (Auto) 5-10 H Urine RBC (Auto) >30 H U Hyaline Cast (Auto) 1-5 U Epithel Cells (Auto) 20-30 H Urine Bacteria (Auto) Negative Blood Type A Negative Antibody Screen NEGATIVE Crossmatch See Detail 05/15/21 05/15/21 13:59 13:59 WBC 14.06 H RBC 1.90 L Hgb 6.0 L* Hct 17.8 L* MCV 93.7 MCH 31.6 MCHC 33.7 RDW Std Deviation 65.8 H RDW Coeff of Echo 19.9 H Plt Count 820 H MPV 10.3 Immature Gran % (Auto) 1.4 Neut % (Auto) 66.0 Lymph % (Auto) 11.7 [place] % (Auto) 20.1 Eos % (Auto) 0.6 Baso % (Auto) 0.2 Neut # (Auto) 9.28 H Lymph # (Auto) 1.65 [place] # (Auto) 2.83 H Eos # (Auto) 0.08 Baso # (Auto) 0.03 Immature Gran # (Auto) 0.19 H Absolute Nucleated RBC 0.05 H Nucleated RBC % (auto) 0.3 Polychromasia 1+ Anisocytosis Present Sodium 136 Potassium 4.8 Chloride 107 Carbon Dioxide 19 L Anion Gap 10 BUN 69 H Creatinine 2.76 H Est Cr Clr Drug Dosing 19.3 Est GFR ( Amer) 23.7 Est GFR (Non-Af Amer) 20.4 BUN/Creatinine Ratio 25.0 H Glucose 123 H Calcium 8.5 Magnesium 2.4 Total Bilirubin 2.0 H AST 120 H ALT 41 Alkaline Phosphatase 37 Troponin I 0.03 Total Protein 6.7 Albumin 4.2 Globulin 2.5 Albumin/Globulin Ratio 1.7 TSH Urine Color Urine Appearance Urine pH Ur Specific [place] Urine Protein Urine Glucose (UA) Urine Ketones Urine Blood Urine Nitrite Urine Bilirubin Urine Urobilinogen Ur Leukocyte Esterase Urine WBC (Auto) Urine RBC (Auto) U Hyaline Cast (Auto) U Epithel Cells (Auto) Urine Bacteria (Auto) Blood Type Antibody Screen Crossmatch Diagnostic Findings Chest X-Ray 05/15/21 14:03 XR chest 1V portable HISTORY: 80 years-old Male weakness acute weakness COMPARISON: Chest radiograph 09/15/2020 TECHNIQUE: Portable AP view of the chest FINDINGS: The cardiac silhouette is enlarged. Calcified right paratracheal lymph nodes. Right IJ central venous catheter distal tip is noted within the region of the SVC brachiocephalic confluence. No pneumothorax, pleural effusion or overt pulmonary edema. Minimal bibasilar atelectasis. Bones appear grossly intact. Minimal right shoulder rotator cuff calcific tendinosis. IMPRESSION: Cardiomegaly without acute process. ACT 112: Negative or not required by law. The above report was generated using voice recognition software. It may contain grammatical, syntax or spelling errors. Electronically signed by: Palmer Treviño M.D. 05/15/2021 2:35 PM Abdomen/Pelvis CT 05/15/21 15:[address] WITHOUT CONTRAST CT DOSE: 323.84 mGy.cm HISTORY: Acute right upper quadrant abdominal pain RUQ pain TECHNIQUE: Multiaxial CT images of the abdomen and pelvis were performed without contrast. A dose lowering technique was utilized adhering to the principles of ALARA. COMPARISON STUDY: Chest radiograph 05/15/2021 FINDINGS: Cardiomegaly with trace pericardial effusion. Decreased attenuation of the cardiac blood pool suggestive of anemia. Arterial and papillary muscle calcifications of the left ventricle. Trace pleural effusions. Intralobular septal thickening with mild bibasilar atelectasis. No pneumatosis or pneumoperitoneum. The spleen measures within the upper limits of normal in size with scattered calcified granulomata. There is trace interstitial and peripancreatic edema involving the pancreatic tail. No pancreatic ductal dilation. Unremarkable adrenal glands. Distended gallbladder with equivocal wall thickening. No cholelithiasis or biliary ductal dilation identified. Unremarkable liver. Nonspecific perinephric stranding is noted bilaterally with renal sinus cysts. Exophytic 2.1 cm cortical cyst left kidney on image 183. No ureteral calculi or hydronephrosis. Mild prostamegaly. Urinary bladder wall thickening with partial distention. Pelvic basin phleboliths. Atherosclerosis of the aorta without aneurysm. There is no lymphadenopathy. Stool-filled loops of small bowel are noted within the abdomen and pelvis. No bowel obstruction or bowel wall thickening. Mild fecal retention. The appendix appears noninflamed on image 266. Unremarkable soft tissues. No acute fracture or destructive bone lesion. S1 vertebral body hemangioma. IMPRESSION: 1. Distended gallbladder with equivocal wall thickening. Correlate with right upper quadrant abdominal ultrasound if there is clinical concern for acute cholecystitis. 2. Chronic nonspecific perinephric stranding may account for the edema adjacent to the pancreatic tail. Correlate with lipase to exclude pancreatitis. 3. No bowel obstruction or bowel wall thickening. 4. Cardiomegaly with suggestion of mild pulmonary edema and trace pleural effusions. 5. Additional findings as above. ACT 112: Negative or not required by law. The above report was generated using voice recognition software. It may contain grammatical, syntax or spelling errors. Electronically signed by: Palmer Treviño M.D. 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 - Normal stomach. - Normal duodenal bulb and second portion of the duodenum. - No specimens collected. Colonoscopy 02/2019: - The perianal and digital rectal examinations were normal. - The terminal ileum appeared normal. - Non-bleeding internal hemorrhoids were found during retroflexion. The hemorrhoids were small. PE: NAD, well developed HEENT: Conjunctival icterus Cardiac: possible systolic murmur, normal S1/S2 Lungs: CTA, no wheezing or crackles Abd: ND, soft, NT Skin: jaundice MSK: trace pitting edema of the b/l LE Psych: Normal affect, AAOx3 A/P: Chronic Anemia with acute drop in hgb: -bl hgb: 7-8 -per pt he gets blood transfusion monthly: last transfusion 2 weeks ago -VSS -will transfuse 1 unit -will get FOBT -GI already on board Jaundice with elevated T bili and AST -pt does have chronic elevation of AST -CT abd showed distended gallbladder with wall thickening ---GI and Surgery consulted ---GI recommended MRCP -due to UTI with possible cholecystitis will start the pt on zosyn (pt denied any allergic reaction to abx) for now -trend LFTs LUCILA with UTI: -pt has hx of CKD III with bl cr of 1.5 -will continue the pt on zosyn -UCx pending -trend BMP Agree with A/P by Marybeth Rosenthal PA-C
[2021-05-15] MEDS ORDERED: PIPERACILL/TAZOBAC CONSULT ACTIVE PRN (17:05)
[2021-05-15] MEDS ORDERED: PIPERACILLIN/TAZOBACTAM 4.5 GM in DEXTROSE 5% 100 ML IV ONE (17:05)
[2021-05-15] MEDS ORDERED: PIPERACILLIN/TAZOBACTAM 3.375 GM in DEXTROSE 5% 100 ML IV SCH (17:05)
[2021-05-15] MEDS ORDERED: ACETAMINOPHEN 325 MG TAB PO STA (17:05)
[2021-05-15] MEDS ORDERED: diphenhydrAMINE Capsule 25 MG CAP PO ONE (17:13)
[2021-05-15] MEDS ORDERED: PIPERACILLIN/TAZOBACTAM 4.5 GM/120 ML BAG IV ONE (17:45)
--- NOTE | 2021-05-15 18:28 | Ultrasound Report ---
US gallbladder HISTORY: 80 years-old Male RUQ pain acute right upper quadrant abdominal pain COMPARISON: MRCP of same day, CT abdomen and pelvis of same day TECHNIQUE: Multiple real-time sonographic images of the abdominal right upper quadrant were obtained assessing grayscale appearance and color flow FINDINGS: The liver measures up to 14.67 m in length. No hepatic mass identified. The visualized pancreas appea rs normal. Distended gallbladder with the gallbladder wall measuring within the upper limits of thierry l at 3 mm. No shadowing cholelithiasis or pericholecystic fluid. Normal common bile duct, 5 mm. The imaged right kidney is unremarkable without hydronephrosis. Renal sinus cyst of the right kidney measure up to 1.5 cm. IMPRESSION: 1. Distended gallbladder with the wall measuring within the upper limits of normal. No shadowing chol elithiasis or pericholecystic fluid to suggest acute cholecystitis. 2. No biliary ductal dilation. ACT 112: Negative or not required by law. The above report was generated using voice recognition software. It may contain grammatical, syntax o r spelling errors. Electronically signed by: Palmer Treviño M.D. 05/15/2021 6:26 PM
--- NOTE | 2021-05-15 18:44 | Magnetic Resonance Report ---
MR MRCP HISTORY: 80 years-old Male vincent acute nausea with fatigue and gallbladder distention COMPARISON: Right upper quadrant abdominal ultrasound and CT abdomen and pelvis studies of same day TECHNIQUE: MRCP without the use of IV contrast was obtained according to institutional protocol. FINDINGS: Trace pleural and pericardial effusions with cardiomegaly. Mild bibasilar atelectasis. 4 mm T2 hyperi ntense focus of the spleen is too small to characterize, likely benign. The study is motion degraded. Mild edema adjacent to the pancreatic tail redemonstrated. Pancreatic atrophy without ductal dilatio n. Normal adrenal glands. Unremarkable liver. Distended gallbladder without definite gallbladder wall thickening, cholelithiasis or pericholecystic infiltration. The common bile duct is normal measuring 5 mm. No choledocholithiasis. Bilateral perinephric stranding. Renal sinus cysts. 2.1 cm exophytic cyst of the left kidney. Unremar kable abdominal aorta. No bowel obstruction or bowel wall thickening. Unremarkable soft tissues. IMPRESSION: 1. Distended gallbladder without cholelithiasis or evidence of acute cholecystitis. 2. No biliary ductal dilation or choledocholithiasis. 3. Mild edema adjacent to the pancreatic tail redemonstrated. Correlate with lipase level. 4. Additional findings as above. ACT 112: Negative or not required by law. The above report was generated using voice recognition software. It may contain grammatical, syntax o r spelling errors. Electronically signed by: Palmer Treviño M.D. 05/15/2021 6:42 PM
[2021-05-15] MEDS ORDERED: bisacodyL 10 MG SUPP PR PRN (20:11)
[2021-05-15] MEDS ORDERED: ACETAMINOPHEN 325 MG TAB PO PRN (20:11)
[2021-05-15] MEDS ORDERED: ONDANSETRON INJ 2 MG/ML 2 ML VIAL IV PRN (20:11)
[2021-05-15] MEDS ORDERED: hydrOXYzine HCl 10 MG TAB PO PRN (20:11)
[2021-05-15] MEDS ORDERED: POLYETHYLENE (MIRALAX) 17 GM PACK PO SCH (21:00)
[2021-05-15] MEDS ORDERED: [UNRECOGNIZED DRUG - OTHER] PO SCH (21:00)
[2021-05-15] MEDS ORDERED: VIT C E ZN COPPR LUTEIN ZEAXAN PO SCH (21:00)
[2021-05-15] MEDS: carvediloL 12.5 MG TAB PO SCH (21:16)
[2021-05-15] MEDS: DOCUSATE SODIUM 100 MG CAP PO SCH (21:17)
[2021-05-15] MEDS: POLYETHYLENE (MIRALAX) 17 GM PACK PO SCH (21:17)
[2021-05-16] MEDS: PIPERACILLIN/TAZOBACTAM 3.375 GM in DEXTROSE 5% 100 ML IV SCH ×2 (01:47→15:38)
[2021-05-16 06:19] LABS: Hematocrit (blood only) 20.9 % (42-52); Hemoglobin 7.2 g/dL (14.0-18.0); Mean Corpuscular Hemoglobin 30.9 pg (25-34); Mean Corpuscular Hgb Conc 34.4 g/dL (32-36); Mean Corpuscular Volume 89.7 fL (80-100); Mean Platelet Volume 10.3 fL (7.4-10.4); Platelet Count 535 K/uL (130-400); RDW Coefficient of Variation 18.3 % (11.5-14.5); RDW Standard Deviation 56.4 fL (36.4-46.3); Red Blood Count 2.33 M/uL (4.7-6.1); White Blood Count 9.08 K/uL (4.8-10.8)
[2021-05-16 06:20] LABS: Albumin Globulin Ratio 1.7 (0.9-2); Albumin Level 3.5 gm/dl (3.4-5.0); BUN Creatinine Ratio 24.5 (10-20); Bilirubin Direct 0.3 mg/dl (0-0.2); Bilirubin,Total 1.6 mg/dl (0.2-1.0); Calcium 7.7 mg/dl (8.5-10.1); Creatinine Clr Calc Pharmacy 18.4 ml/min; Est GFR (African American) 22.3 ml/min; Est GFR (Non-African American) 19.3 ml/min; Globulin 2.1 gm/dl (2.5-4.0); Magnesium 2.3 mg/dl (1.7-2.4); Phosphorus 5.3 mg/dl (2.5-4.9); Potassium 4.4 mmol/L (3.5-5.1); Total Protein 5.6 gm/dl (6.0-8.3)
[2021-05-16] MEDS: carvediloL 12.5 MG TAB PO SCH ×2 (08:32→21:05)
[2021-05-16] MEDS: HYDROXYUREA 500 MG CAP PO SCH (08:33)
[2021-05-16] MEDS: MULTIVITAMIN TAB PO SCH (08:33)
[2021-05-16] MEDS: POLYETHYLENE (MIRALAX) 17 GM PACK PO SCH (08:34)
[2021-05-16] MEDS: DOCUSATE SODIUM 100 MG CAP PO SCH ×2 (08:34→21:05)
[2021-05-16] MEDS: amLODIPine BESYLATE 5 MG TAB PO SCH (08:34)
--- NOTE | 2021-05-16 08:59 | Gastroenterology Progress Note ---
Date of Service May 16, 2021 Assessment & Plan Admission and Anticipated Discharge Date Admission Date: May 15, 2021 Subjective note started in error, please see GI consult from today. Physical Exam Skin: no rashes, warm and dry Results & Data ([facility]) Vital Signs (Past 12 Hours) Vital Signs Temp Pulse Pulse Resp BP BP Pulse Ox 05/16/21 07:39 36.8 C 77 18 163/71 H 92 05/16/21 03:04 36.9 C 71 18 133/71 91 05/16/21 01:42 36.5 C 73 20 130/72 93 05/16/21 00:50 36.4 C L 78 18 144/76 H 93 05/15/21 23:50 36.7 C 76 18 132/71 92 05/15/21 23:20 36.7 C 75 18 132/71 94 05/15/21 23:05 36.5 C 79 16 138/73 92 05/15/21 23:04 36.5 C 78 18 133/61 92 05/15/21 22:43 37.0 C 78 18 121/68 93 05/15/21 22:20 78 Laboratory Results Laboratory Results - last 24 hr 05/15/21 05/15/21 05/15/21 13:59 13:59 13:59 WBC 14.06 H RBC 1.90 L Hgb 6.0 L* Hct 17.8 L* MCV 93.7 MCH 31.6 MCHC 33.7 RDW Std Deviation 65.8 H RDW Coeff of Echo 19.9 H Plt Count 820 H MPV 10.3 Immature Gran % (Auto) 1.4 Neut % (Auto) 66.0 Lymph % (Auto) 11.7 [place] % (Auto) 20.1 Eos % (Auto) 0.6 Baso % (Auto) 0.2 Neut # (Auto) 9.28 H Lymph # (Auto) 1.65 [place] # (Auto) 2.83 H Eos # (Auto) 0.08 Baso # (Auto) 0.03 Immature Gran # (Auto) 0.19 H Absolute Nucleated RBC 0.05 H Nucleated RBC % (auto) 0.3 Polychromasia 1+ Anisocytosis Present Sodium 136 Potassium 4.8 Chloride 107 Carbon Dioxide 19 L Anion Gap 10 BUN 69 H Creatinine 2.76 H Est Cr Clr Drug Dosing 19.3 Est GFR ( Amer) 23.7 Est GFR (Non-Af Amer) 20.4 BUN/Creatinine Ratio 25.0 H Glucose 123 H Calcium 8.5 Phosphorus Magnesium 2.4 Total Bilirubin 2.0 H Direct Bilirubin AST 120 H ALT 41 Alkaline Phosphatase 37 Troponin I 0.03 B-Natriuretic Peptide Total Protein 6.7 Albumin 4.2 Globulin 2.5 Albumin/Globulin Ratio 1.7 Lipase TSH 3.822 Urine Color Urine Appearance Urine pH Ur Specific [place] Urine Protein Urine Glucose (UA) Urine Ketones Urine Blood Urine Nitrite Urine Bilirubin Urine Urobilinogen Ur Leukocyte Esterase Urine WBC (Auto) Urine RBC (Auto) U Hyaline Cast (Auto) U Epithel Cells (Auto) Urine Bacteria (Auto) SARS-CoV-2, RNA, NAAT Blood Type Antibody Screen Crossmatch 05/15/21 05/15/21 05/15/21 13:59 15:08 20:27 WBC RBC Hgb Hct MCV MCH MCHC RDW Std Deviation RDW Coeff of Echo Plt Count MPV Immature Gran % (Auto) Neut % (Auto) Lymph % (Auto) [place] % (Auto) Eos % (Auto) Baso % (Auto) Neut # (Auto) Lymph # (Auto) [place] # (Auto) Eos # (Auto) Baso # (Auto) Immature Gran # (Auto) Absolute Nucleated RBC Nucleated RBC % (auto) Polychromasia Anisocytosis Sodium Potassium Chloride Carbon Dioxide Anion Gap BUN Creatinine Est Cr Clr Drug Dosing Est GFR ( Amer) Est GFR (Non-Af Amer) BUN/Creatinine Ratio Glucose Calcium Phosphorus Magnesium Total Bilirubin Direct Bilirubin AST ALT Alkaline Phosphatase Troponin I B-Natriuretic Peptide 575 H Total Protein Albumin Globulin Albumin/Globulin Ratio Lipase 35 TSH Urine Color Urine Appearance Urine pH Ur Specific [place] Urine Protein Urine Glucose (UA) Urine Ketones Urine Blood Urine Nitrite Urine Bilirubin Urine Urobilinogen Ur Leukocyte Esterase Urine WBC (Auto) Urine RBC (Auto) U Hyaline Cast (Auto) U Epithel Cells (Auto) Urine Bacteria (Auto) SARS-CoV-2, RNA, NAAT Blood Type A Negative Antibody Screen NEGATIVE Crossmatch See Detail 05/15/21 05/15/21 05/15/21 20:27 Unknown Unknown WBC RBC Hgb 6.9 L* Hct MCV MCH MCHC RDW Std Deviation RDW Coeff of Echo Plt Count MPV Immature Gran % (Auto) Neut % (Auto) Lymph % (Auto) [place] % (Auto) Eos % (Auto) Baso % (Auto) Neut # (Auto) Lymph # (Auto) [place] # (Auto) Eos # (Auto) Baso # (Auto) Immature Gran # (Auto) Absolute Nucleated RBC Nucleated RBC % (auto) Polychromasia Anisocytosis Sodium Potassium Chloride Carbon Dioxide Anion Gap BUN Creatinine Est Cr Clr Drug Dosing Est GFR ( Amer) Est GFR (Non-Af Amer) BUN/Creatinine Ratio Glucose Calcium Phosphorus Magnesium Total Bilirubin Direct Bilirubin AST ALT Alkaline Phosphatase Troponin I B-Natriuretic Peptide Total Protein Albumin Globulin Albumin/Globulin Ratio Lipase TSH Urine Color Dark Yellow Urine Appearance Cloudy A Urine pH 5.0 Ur Specific [place] 1.014 Urine Protein 2+ H Urine Glucose (UA) Negative Urine Ketones Negative Urine Blood 3+ H Urine Nitrite Negative Urine Bilirubin Negative Urine Urobilinogen Negative Ur Leukocyte Esterase Trace H Urine WBC (Auto) 5-10 H Urine RBC (Auto) >30 H U Hyaline Cast (Auto) 1-5 U Epithel Cells (Auto) 20-30 H Urine Bacteria (Auto) Negative SARS-CoV-2, RNA, NAAT NEGATIVE Blood Type Antibody Screen Crossmatch 05/16/21 05/16/21 05:24 05:24 WBC 9.08 RBC 2.33 L Hgb 7.2 L Hct 20.9 L* MCV 89.7 MCH 30.9 MCHC 34.4 RDW Std Deviation 56.4 H RDW Coeff of Echo 18.3 H Plt Count 535 H MPV 10.3 Immature Gran % (Auto) Neut % (Auto) Lymph % (Auto) [place] % (Auto) Eos % (Auto) Baso % (Auto) Neut # (Auto) Lymph # (Auto) [place] # (Auto) Eos # (Auto) Baso # (Auto) Immature Gran # (Auto) Absolute Nucleated RBC Nucleated RBC % (auto) Polychromasia Anisocytosis Sodium 139 Potassium 4.4 Chloride 112 H Carbon Dioxide 18 L Anion Gap 9 BUN 71 H Creatinine 2.90 H Est Cr Clr Drug Dosing 18.4 Est GFR ( Amer) 22.3 Est GFR (Non-Af Amer) 19.3 BUN/Creatinine Ratio 24.5 H Glucose 103 H Calcium 7.7 L Phosphorus 5.3 H Magnesium 2.3 Total Bilirubin 1.6 H Direct Bilirubin 0.3 H AST 61 H ALT 31 Alkaline Phosphatase 33 L Troponin I B-Natriuretic Peptide Total Protein 5.6 L Albumin 3.5 Globulin 2.1 L Albumin/Globulin Ratio 1.7 Lipase TSH Urine Color Urine Appearance Urine pH Ur Specific [place] Urine Protein Urine Glucose (UA) Urine Ketones Urine Blood Urine Nitrite Urine Bilirubin Urine Urobilinogen Ur Leukocyte Esterase Urine WBC (Auto) Urine RBC (Auto) U Hyaline Cast (Auto) U Epithel Cells (Auto) Urine Bacteria (Auto) SARS-CoV-2, RNA, NAAT Blood Type Antibody Screen Crossmatch
--- NOTE | 2021-05-16 09:33 | Gastrointestinal Consultation ---
Date of Consultation May 16, 2021 Assessment & Plan (1) Anemia: (2) Transaminitis: The patient did have a slight elevation of his transaminases, these are much better than they had been on prior admissions and it does not appear that he has a biliary process based on his prior imaging studies. Perhaps the patient's elevation is related to hemolysis and would suggest a work-up for this and perhaps a hematology referral (3) Constipation: The patient CT does show evidence of constipation which could certainly cause his intermittent discomfort. Would recommend further treatment with MiraLAX twice daily in addition to Colace 200 mg/day. History of Present Illness Reason for Consultation: Elevated transaminases Attending Physician: Jose D Brooke MD History of Present Illness 80-year-old male with PMHx of HTN, CKD stage III, essential thrombocytopenia, and anemia secondary to CKD, gross hematuria, who presents with acute onset of weakness and fatigue. He was seen as an outpatient by PCP office today for increased weakness and concerns of urine appearing cloudy within the past week. He was then further informed that he had blood in his urine. Due to being dehydrated and having an elevated creatinine he was sent to the ER. He was also informed his blood count was low compared to his baseline. The patient does have a history of transfusion dependent anemia managed by Dr. Sandoval of hematology. He denies having dark stool, melena, hematemesis or bright red blood per rectum. The patient did have an upper endoscopy with endoscopic ultrasound performed by one of my partners several months ago due to a question of elevated liver enzymes. At that time his AST and ALT were significantly more elevated than on evaluation today. At that time he was noted to have a normal- appearing common bile duct and perhaps a small amount of sludge within his gallbladder. The patient does note having intermittent discomfort in the abdomen sometimes on the right side sometimes on the left side. This is associated with irregular bowel habits predominantly described as constipation. Allergies Allergy/AdvReac Type Severity Reaction Status Date / Time naproxen Allergy Intermediate ITCHY ALL Verified 05/15/21 15:03 OVER piperacillin [From Zosyn] Allergy Mild Hives Verified 05/15/21 15:03 tazobactam [From Zosyn] Allergy Mild Hives Verified 05/15/21 15:03 Home Medications Medication Instructions Recorded Confirmed Type multivitamin 1 tab PO QDL 12/21/17 05/15/21 History anagrelide 1 mg capsule 1 mg PO QPM 11/16/18 05/15/21 History amlodipine 10 mg tablet 5 mg PO QAM 02/25/19 05/15/21 History vit C,F-Kg-nmqxiq-lutein-zeaxan 60 1 cap PO BID 02/25/19 05/15/21 History mg-13.5 mg-15 mg-2 mg-6 mg capsule (Ocuvite Lutein and Zeaxanthin) aspirin 81 mg tablet,delayed 81 mg PO QDL 09/15/20 05/15/21 History release (Aspirin Low Dose) carvedilol 12.5 mg tablet 12.5 mg PO BID 09/15/20 05/15/21 History hydroxyzine HCl 10 mg tablet 10 mg PO DAILY PRN 09/15/20 05/15/21 History hydroxyurea 500 mg capsule 500 mg PO QDL 09/30/20 05/15/21 History epoetin mohamud 2,000 unit/mL 0 unit SUBCUT WK 05/15/21 05/15/21 History injection solution Patient History Medical History Anemia CKD (chronic kidney disease), stage III Creatine baseline around 1.4 per records Essential thrombocythemia Platelet count around 1.6 million at time of dx in 2010 Hypertension Iron overload Recent- following with heme/onc- per 12/17/20 note- pt was on Jadenu- d/c'ed secondary to elevated LFTs CONNIE-2 gene mutation F/U DR S[facility]AL[facility] On Hydroxyurea Melanoma On anticoagulant therapy on anagrelide Small bowel obstruction 2018 Treated conservatively Surgical History H/O endoscopy (~11/2020) EUS History of adenoidectomy History of bilateral cataract extraction History of colonoscopy 2019 History of esophagogastroduodenoscopy (EGD) 2019 History of Mohs micrographic surgery for skin cancer x2 removed off face History of tonsillectomy Family History Other Family history unobtainable due to orphan status Social History Smoking Status: Former smoker Tobacco Type: Cigarettes Smoking End Date: 2019; Second Hand Exposure: No; Hx Alcohol Use: No Hx Substance Use: No Preferred Language: Vietnamese Communication Ability: Effective Binding Dyer Required: No Beliefs That Will Affect Care: None marital status: Current Living Situation: Spouse Current Living Situation Comment: in a home with current occupational status: retired Other Information That Helps Us Care for You: No Feels Safe at Home: Yes Safety Concerns: Feels Safe At This Time Assistive Devices: None Review of Systems Constitutional: + malaise; no sweats and no weight loss Eyes: no diplopia Ear, Nose, Mouth, Throat: no ear trauma Respiratory: no cough, no change in sputum and no hemoptysis Cardiovascular: no chest pain with activity and no dyspnea at rest Gastrointestinal: no abdominal pain, no bloating, no early satiety, no nausea, no vomiting, no hematemesis, no cramping and no change in stools Genitourinary: no urinary frequency Musculoskeletal: no radicular pain Integumentary: no rash Neurologic: no falls and no paralysis Psychiatric: no hopelessness and no change in appetite Endocrine: no polydipsia Hematologic / Lymphatic: no coagulopathy and no unexplained weight loss Physical Exam Constitutional: WD/WN, vitals as above Eyes: PERRL, conjunctivae normal, anicteric sclerae Neck: normal visual inspection; no neck crepitus Respiratory: no retractions, no dullness to percussion and no cough Cardiovascular: Heart Sounds: + murmur Gastrointestinal (Abdomen): Percussion/Palpation: + abdomen tender and abdomen soft; no guarding and abdomen not rigid Skin: + pallor Results & Data ([facility]) Vital Signs (Past 12 Hours) Vital Signs Temp Pulse Pulse Resp BP BP Pulse Ox 05/16/21 07:39 36.8 C 77 18 163/71 H 92 05/16/21 03:04 36.9 C 71 18 133/71 91 05/16/21 01:42 36.5 C 73 20 130/72 93 05/16/21 00:50 36.4 C L 78 18 144/76 H 93 05/15/21 23:50 36.7 C 76 18 132/71 92 05/15/21 23:20 36.7 C 75 18 132/71 94 05/15/21 23:05 36.5 C 79 16 138/73 92 05/15/21 23:04 36.5 C 78 18 133/61 92 05/15/21 22:43 37.0 C 78 18 121/68 93 05/15/21 22:20 78 Laboratory Results Laboratory Results - last 24 hr 05/15/21 05/15/21 05/15/21 13:59 13:59 13:59 WBC 14.06 H RBC 1.90 L Hgb 6.0 L* Hct 17.8 L* MCV 93.7 MCH 31.6 MCHC 33.7 RDW Std Deviation 65.8 H RDW Coeff of Echo 19.9 H Plt Count 820 H MPV 10.3 Immature Gran % (Auto) 1.4 Neut % (Auto) 66.0 Lymph % (Auto) 11.7 [place] % (Auto) 20.1 Eos % (Auto) 0.6 Baso % (Auto) 0.2 Neut # (Auto) 9.28 H Lymph # (Auto) 1.65 [place] # (Auto) 2.83 H Eos # (Auto) 0.08 Baso # (Auto) 0.03 Immature Gran # (Auto) 0.19 H Absolute Nucleated RBC 0.05 H Nucleated RBC % (auto) 0.3 Polychromasia 1+ Anisocytosis Present Sodium 136 Potassium 4.8 Chloride 107 Carbon Dioxide 19 L Anion Gap 10 BUN 69 H Creatinine 2.76 H Est Cr Clr Drug Dosing 19.3 Est GFR ( Amer) 23.7 Est GFR (Non-Af Amer) 20.4 BUN/Creatinine Ratio 25.0 H Glucose 123 H Calcium 8.5 Phosphorus Magnesium 2.4 Total Bilirubin 2.0 H Direct Bilirubin AST 120 H ALT 41 Alkaline Phosphatase 37 Troponin I 0.03 B-Natriuretic Peptide Total Protein 6.7 Albumin 4.2 Globulin 2.5 Albumin/Globulin Ratio 1.7 Lipase TSH 3.822 Urine Color Urine Appearance Urine pH Ur Specific [place] Urine Protein Urine Glucose (UA) Urine Ketones Urine Blood Urine Nitrite Urine Bilirubin Urine Urobilinogen Ur Leukocyte Esterase Urine WBC (Auto) Urine RBC (Auto) U Hyaline Cast (Auto) U Epithel Cells (Auto) Urine Bacteria (Auto) SARS-CoV-2, RNA, NAAT Blood Type Antibody Screen Crossmatch 05/15/21 05/15/21 05/15/21 13:59 15:08 20:27 WBC RBC Hgb Hct MCV MCH MCHC RDW Std Deviation RDW Coeff of Echo Plt Count MPV Immature Gran % (Auto) Neut % (Auto) Lymph % (Auto) [place] % (Auto) Eos % (Auto) Baso % (Auto) Neut # (Auto) Lymph # (Auto) [place] # (Auto) Eos # (Auto) Baso # (Auto) Immature Gran # (Auto) Absolute Nucleated RBC Nucleated RBC % (auto) Polychromasia Anisocytosis Sodium Potassium Chloride Carbon Dioxide Anion Gap BUN Creatinine Est Cr Clr Drug Dosing Est GFR ( Amer) Est GFR (Non-Af Amer) BUN/Creatinine Ratio Glucose Calcium Phosphorus Magnesium Total Bilirubin Direct Bilirubin AST ALT Alkaline Phosphatase Troponin I B-Natriuretic Peptide 575 H Total Protein Albumin Globulin Albumin/Globulin Ratio Lipase 35 TSH Urine Color Urine Appearance Urine pH Ur Specific [place] Urine Protein Urine Glucose (UA) Urine Ketones Urine Blood Urine Nitrite Urine Bilirubin Urine Urobilinogen Ur Leukocyte Esterase Urine WBC (Auto) Urine RBC (Auto) U Hyaline Cast (Auto) U Epithel Cells (Auto) Urine Bacteria (Auto) SARS-CoV-2, RNA, NAAT Blood Type A Negative Antibody Screen NEGATIVE Crossmatch See Detail 05/15/21 05/15/21 05/15/21 20:27 Unknown Unknown WBC RBC Hgb 6.9 L* Hct MCV MCH MCHC RDW Std Deviation RDW Coeff of Echo Plt Count MPV Immature Gran % (Auto) Neut % (Auto) Lymph % (Auto) [place] % (Auto) Eos % (Auto) Baso % (Auto) Neut # (Auto) Lymph # (Auto) [place] # (Auto) Eos # (Auto) Baso # (Auto) Immature Gran # (Auto) Absolute Nucleated RBC Nucleated RBC % (auto) Polychromasia Anisocytosis Sodium Potassium Chloride Carbon Dioxide Anion Gap BUN Creatinine Est Cr Clr Drug Dosing Est GFR ( Amer) Est GFR (Non-Af Amer) BUN/Creatinine Ratio Glucose Calcium Phosphorus Magnesium Total Bilirubin Direct Bilirubin AST ALT Alkaline Phosphatase Troponin I B-Natriuretic Peptide Total Protein Albumin Globulin Albumin/Globulin Ratio Lipase TSH Urine Color Dark Yellow Urine Appearance Cloudy A Urine pH 5.0 Ur Specific [place] 1.014 Urine Protein 2+ H Urine Glucose (UA) Negative Urine Ketones Negative Urine Blood 3+ H Urine Nitrite Negative Urine Bilirubin Negative Urine Urobilinogen Negative Ur Leukocyte Esterase Trace H Urine WBC (Auto) 5-10 H Urine RBC (Auto) >30 H U Hyaline Cast (Auto) 1-5 U Epithel Cells (Auto) 20-30 H Urine Bacteria (Auto) Negative SARS-CoV-2, RNA, NAAT NEGATIVE Blood Type Antibody Screen Crossmatch 05/16/21 05/16/21 05:24 05:24 WBC 9.08 RBC 2.33 L Hgb 7.2 L Hct 20.9 L* MCV 89.7 MCH 30.9 MCHC 34.4 RDW Std Deviation 56.4 H RDW Coeff of Echo 18.3 H Plt Count 535 H MPV 10.3 Immature Gran % (Auto) Neut % (Auto) Lymph % (Auto) [place] % (Auto) Eos % (Auto) Baso % (Auto) Neut # (Auto) Lymph # (Auto) [place] # (Auto) Eos # (Auto) Baso # (Auto) Immature Gran # (Auto) Absolute Nucleated RBC Nucleated RBC % (auto) Polychromasia Anisocytosis Sodium 139 Potassium 4.4 Chloride 112 H Carbon Dioxide 18 L Anion Gap 9 BUN 71 H Creatinine 2.90 H Est Cr Clr Drug Dosing 18.4 Est GFR ( Amer) 22.3 Est GFR (Non-Af Amer) 19.3 BUN/Creatinine Ratio 24.5 H Glucose 103 H Calcium 7.7 L Phosphorus 5.3 H Magnesium 2.3 Total Bilirubin 1.6 H Direct Bilirubin 0.3 H AST 61 H ALT 31 Alkaline Phosphatase 33 L Troponin I B-Natriuretic Peptide Total Protein 5.6 L Albumin 3.5 Globulin 2.1 L Albumin/Globulin Ratio 1.7 Lipase TSH Urine Color Urine Appearance Urine pH Ur Specific [place] Urine Protein Urine Glucose (UA) Urine Ketones Urine Blood Urine Nitrite Urine Bilirubin Urine Urobilinogen Ur Leukocyte Esterase Urine WBC (Auto) Urine RBC (Auto) U Hyaline Cast (Auto) U Epithel Cells (Auto) Urine Bacteria (Auto) SARS-CoV-2, RNA, NAAT Blood Type Antibody Screen Crossmatch Diagnostic Findings MR MRCP HISTORY: 80 years-old Male vincent acute nausea with fatigue and gallbladder distention COMPARISON: Right upper quadrant abdominal ultrasound and CT abdomen and pelvis studies of same day TECHNIQUE: MRCP without the use of IV contrast was obtained according to institutional protocol. FINDINGS: Trace pleural and pericardial effusions with cardiomegaly. Mild bibasilar atelectasis. 4 mm T2 hyperintense focus of the spleen is too small to characterize, likely benign. The study is motion degraded. Mild edema adjacent to the pancreatic tail redemonstrated. Pancreatic atrophy without ductal dilation. Normal adrenal glands. Unremarkable liver. Distended gallbladder without definite gallbladder wall thickening, cholelithiasis or pericholecystic infiltration. The common bile duct is normal measuring 5 mm. No choledocholithiasis. Bilateral perinephric stranding. Renal sinus cysts. 2.1 cm exophytic cyst of the left kidney. Unremarkable abdominal aorta. No bowel obstruction or bowel wall thickening. Unremarkable soft tissues. IMPRESSION: 1. Distended gallbladder without cholelithiasis or evidence of acute cholecystitis. 2. No biliary ductal dilation or choledocholithiasis. 3. Mild edema adjacent to the pancreatic tail redemonstrated. Correlate with lipase level. 4. Additional findings as above. ABDOMEN AND PELVIS CT WITHOUT CONTRAST CT DOSE: 323.84 mGy.cm HISTORY: Acute right upper quadrant abdominal pain RUQ pain TECHNIQUE: Multiaxial CT images of the abdomen and pelvis were performed without contrast. A dose lowering technique was utilized adhering to the principles of ALARA. COMPARISON STUDY: Chest radiograph 05/15/2021 FINDINGS: Cardiomegaly with trace pericardial effusion. Decreased attenuation of the cardiac blood pool suggestive of anemia. Arterial and papillary muscle calcifications of the left ventricle. Trace pleural effusions. Intralobular septal thickening with mild bibasilar atelectasis. No pneumatosis or pneumoper itoneum. The spleen measures within the upper limits of normal in size with scattered calcified granulomata. There is trace interstitial and peripancreatic edema involving the pancreatic tail. No pancreatic ductal dilation. Unremarkable adrenal glands. Distended gallbladder with equivocal wall thickening. No cholelithiasis or biliary ductal dilation identified. Unremarkable liver. Nonspecific perinephric stranding is noted bilaterally with renal sinus cysts. Exophytic 2.1 cm cortical cyst left kidney on image 183. No ureteral calculi or hydronephrosis. Mild prostamegaly. Urinary bladder wall thickening with partial distention. Pelvic basin phleboliths. Atherosclerosis of the aorta without aneurysm. There is no lymphadenopathy. Stool-filled loops of small bowel are noted within the abdomen and pelvis. No bowel obstruction or bowel wall thickening. Mild fecal retention. The appendix appears noninflamed on image 266. Unremarkable soft tissues. No acute fracture or destructive bone lesion. S1 vertebral body hemangioma. IMPRESSION: 1. Distended gallbladder with equivocal wall thickening. Correlate with right upper quadrant abdominal ultrasound if there is clinical concern for acute cholecystitis. 2. Chronic nonspecific perinephric stranding may account for the edema adjacent to the pancreatic tail. Correlate with lipase to exclude pancreatitis. 3. No bowel obstruction or bowel wall thickening. 4. Cardiomegaly with suggestion of mild pulmonary edema and trace pleural effusions. 5. Additional findings as above. (1) Anemia Anemia type: unspecified type Qualified Code(s): D64.9 - Anemia, unspecified
--- NOTE | 2021-05-16 09:58 | Electrocardiogram Report ---
Test Reason : Blood Pressure : / mmHG Vent. Rate : 087 BPM Atrial Rate : 087 BPM P-R Int : 182 ms QRS Dur : 108 ms QT Int : 408 ms P-R-T Axes : 067 -41 052 degrees QTc Int : 490 ms Normal sinus rhythm Possible Left atrial enlargement Left axis deviation Left ventricular hypertrophy with QRS widening Prolonged QT Abnormal ECG When compared with ECG of 15-SEP-2020 15:18, Criteria for Septal infarct are no longer Present QT has lengthened Confirmed by Surya Forte ([id number]) on 05/16/2021 9:58:27 AM Referred By: REFERRED SELF Confirmed By:Surya Forte
--- NOTE | 2021-05-16 09:59 | Hospitalist Progress Note ---
Date of Service May 16, 2021 Assessment & Plan (1) Anemia: Plan: Possibly anemia of chronic disease versus hematological etiology. Obtain haptoglobin LDH and a regular anemia work-up. Monitor transfuse as needed. No indication for endoscopy currently. Discussed with gastroenterology (2) Elevated AST (SGOT): Plan: No clear evidence of acute cholecystitis. HIDA scan for the morning. General surgery following IV Zosyn Bowel regimen with CT showing large amount of stool in the colon and fecalization within the small intestine (3) LUCILA (acute kidney injury): Plan: - Cr. 2.8 today, baseline 1.4-1.5 - Will monitor, renally reduce medications and avoid nephrotoxinsnephrology evaluation Obtain urine studies (4) CKD (chronic kidney disease), stage III: (5) Essential thrombocythemia: Plan: -Noted, chronic, baseline thrombocyte level of 720-830 as per outpatient record review (6) Hypertension: Plan: -Continue on amlodipine, carvedilol DVT ppx: - teds, scds, hold on chemical anticoagulation in the setting of possible GI bleed CODE: Full code-discussed with the patient at bedside Dispo: From home, likely to remain in the hospital x 1-2 days Admission and Anticipated Discharge Date Admission Date: May 15, 2021 Subjective Patient presented to the hospital after hematuria noted to be anemic by the patient's primary physician sent for further work-up. Noted to have worsening CKD as well. Patient transfused 1 PRBC Patient denying active complaints. Denies any melena hematochezia. Denies any nausea vomiting denies any abdominal pain. Review of Systems Review of Systems: All systems reviewed and negative other than as described above in the history and physical Physical Exam Physical Exam: Constitutional:WD/WN, vitals as above Neck: trachea midline, no thyromegaly Respiratory: normal respiratory effort, lungs clear to auscultationAuscultation:no rhonchi and no wheezes Cardiovascular:RRR, no murmur, no edemaHeart Sounds:no murmur Gastrointestinal (Abdomen):normal bowel sounds, soft, nontender, no hepatosplenomegaly Musculoskeletal:no cyanosis or clubbing, extremities motor strength 5/5 Skin: no rashes, warm and dry Neurologic: AA+Ox3, euthymic affect Results & Data Results & Data ([facility]) Vital Signs (Past 12 Hours) Vital Signs Temp Pulse Pulse Resp BP BP Pulse Ox 05/16/21 07:39 36.8 C 77 18 163/71 H 92 05/16/21 03:04 36.9 C 71 18 133/71 91 05/16/21 01:42 36.5 C 73 20 130/72 93 05/16/21 00:50 36.4 C L 78 18 144/76 H 93 05/15/21 23:50 36.7 C 76 18 132/71 92 05/15/21 23:20 36.7 C 75 18 132/71 94 05/15/21 23:05 36.5 C 79 16 138/73 92 05/15/21 23:04 36.5 C 78 18 133/61 92 05/15/21 22:43 37.0 C 78 18 121/68 93 05/15/21 22:20 78 Laboratory Results Laboratory Results WBC 9.08 K/uL (4.8-10.8) 05/16/21 05:24 RBC 2.33 M/uL (4.7-6.1) L 05/16/21 05:24 Hgb 7.2 g/dL (14.0-18.0) L 05/16/21 05:24 Hct 20.9 % (42-52) L* 05/16/21 05:24 MCV 89.7 fL (80-100) 05/16/21 05:24 MCH 30.9 pg (25-34) 05/16/21 05:24 MCHC 34.4 g/dL (32-36) 05/16/21 05:24 RDW Std Deviation 56.4 fL (36.4-46.3) H 05/16/21 05:24 RDW Coeff of Echo 18.3 % (11.5-14.5) H 05/16/21 05:24 Plt Count 535 K/uL (130-400) H 05/16/21 05:24 MPV 10.3 fL (7.4-10.4) 05/16/21 05:24 Immature Gran % (Auto) 1.4 % 05/15/21 13:59 Neut % (Auto) 66.0 % 05/15/21 13:59 Lymph % (Auto) 11.7 % 05/15/21 13:59 Crenshaw % (Auto) 20.1 % 05/15/21 13:59 Eos % (Auto) 0.6 % 05/15/21 13:59 Baso % (Auto) 0.2 % 05/15/21 13:59 Neut # (Auto) 9.28 K/uL (1.4-6.5) H 05/15/21 13:59 Lymph # (Auto) 1.65 K/uL (1.2-3.4) 05/15/21 13:59 Crenshaw # (Auto) 2.83 K/uL (0.11-0.59) H 05/15/21 13:59 Eos # (Auto) 0.08 K/uL (0-0.5) 05/15/21 13:59 Baso # (Auto) 0.03 K/uL (0-0.2) 05/15/21 13:59 Immature Gran # (Auto) 0.19 K/uL (0.00-0.02) H 05/15/21 13:59 Absolute Nucleated RBC 0.05 K/uL (0-0) H 05/15/21 13:59 Nucleated RBC % (auto) 0.3 % 05/15/21 13:59 Polychromasia 1+ 05/15/21 13:59 Anisocytosis Present 05/15/21 13:59 Sodium 139 mmol/L (136-145) 05/16/21 05:24 Potassium 4.4 mmol/L (3.5-5.1) 05/16/21 05:24 Chloride 112 mmol/L (98-107) H 05/16/21 05:24 Carbon Dioxide 18 mmol/L (21-32) L 05/16/21 05:24 Anion Gap 9 (3-11) 05/16/21 05:24 BUN 71 mg/dl (6-23) H 05/16/21 05:24 Creatinine 2.90 mg/dl (0.6-1.4) H 05/16/21 05:24 Est Cr Clr Drug Dosing 18.4 ml/min 05/16/21 05:24 Est GFR ( Amer) 22.3 ml/min 05/16/21 05:24 Est GFR (Non-Af Amer) 19.3 ml/min 05/16/21 05:24 BUN/Creatinine Ratio 24.5 (10-20) H 05/16/21 05:24 Glucose 103 mg/dl (70-99(Fasting)) H 05/16/21 05:24 Calcium 7.7 mg/dl (8.5-10.1) L 05/16/21 05:24 Phosphorus 5.3 mg/dl (2.5-4.9) H 05/16/21 05:24 Magnesium 2.3 mg/dl (1.7-2.4) 05/16/21 05:24 Total Bilirubin 1.6 mg/dl (0.2-1.0) H 05/16/21 05:24 Direct Bilirubin 0.3 mg/dl (0-0.2) H 05/16/21 05:24 AST 61 U/L (13-39) H 05/16/21 05:24 ALT 31 U/L (7-52) 05/16/21 05:24 Alkaline Phosphatase 33 U/L (34-104) L 05/16/21 05:24 Troponin I 0.03 ng/ml (0-0.04) 05/15/21 13:59 B-Natriuretic Peptide 575 pg/ml (0-100) H 05/15/21 20:27 Total Protein 5.6 gm/dl (6.0-8.3) L 05/16/21 05:24 Albumin 3.5 gm/dl (3.4-5.0) 05/16/21 05:24 Globulin 2.1 gm/dl (2.5-4.0) L 05/16/21 05:24 Albumin/Globulin Ratio 1.7 (0.9-2) 05/16/21 05:24 Lipase 35 U/L (11-82) 05/15/21 13:59 TSH 3.822 uIu/ml (0.300-4.500) 05/15/21 13:59 Urine Color Dark Yellow 05/15/21 Unknown Urine Appearance Cloudy (Clear) A 05/15/21 Unknown Urine pH 5.0 (4.5-7.5) 05/15/21 Unknown Ur Specific Pe Ell 1.014 (1.000-1.030) 05/15/21 Unknown Urine Protein 2+ (Negative) H 05/15/21 Unknown Urine Glucose (UA) Negative (Negative) 05/15/21 Unknown Urine Ketones Negative (Negative) 05/15/21 Unknown Urine Blood 3+ (Negative) H 05/15/21 Unknown Urine Nitrite Negative (Negative) 05/15/21 Unknown Urine Bilirubin Negative (Negative) 05/15/21 Unknown Urine Urobilinogen Negative (Negative) 05/15/21 Unknown Ur Leukocyte Esterase Trace (Negative) H 05/15/21 Unknown Urine WBC (Auto) 5-10 /hpf (0-5) H 05/15/21 Unknown Urine RBC (Auto) >30 /hpf (0-4) H 05/15/21 Unknown U Hyaline Cast (Auto) 1-5 /lpf (0-5) 05/15/21 Unknown U Epithel Cells (Auto) 20-30 /lpf (0-5) H 05/15/21 Unknown Urine Bacteria (Auto) Negative (Negative) 05/15/21 Unknown SARS-CoV-2, RNA, NAAT NEGATIVE (NEGATIVE) 05/15/21 Unknown Blood Type A Negative 05/15/21 15:08 Antibody Screen NEGATIVE 05/15/21 15:08 Crossmatch See Detail 05/15/21 15:08 Impressions Chest X-Ray 05/15/21 14:03 XR chest 1V portable HISTORY: 80 years-old Male weakness acute weakness COMPARISON: Chest radiograph 09/15/2020 TECHNIQUE: Portable AP view of the chest FINDINGS: The cardiac silhouette is enlarged. Calcified right paratracheal lymph nodes. Right IJ central venous catheter distal tip is noted within the region of the SVC brachiocephalic confluence. No pneumothorax, pleural effusion or overt pulmonary edema. Minimal bibasilar atelectasis. Bones appear grossly intact. Minimal right shoulder rotator cuff calcific tendinosis. IMPRESSION: Cardiomegaly without acute process. ACT 112: Negative or not required by law. The above report was generated using voice recognition software. It may contain grammatical, syntax or spelling errors. Electronically signed by: Palmer Treviño M.D. 05/15/2021 2:35 PM Abdomen/Pelvis CT 05/15/21 15:[address] WITHOUT CONTRAST CT DOSE: 323.84 mGy.cm HISTORY: Acute right upper quadrant abdominal pain RUQ pain TECHNIQUE: Multiaxial CT images of the abdomen and pelvis were performed without contrast. A dose lowering technique was utilized adhering to the principles of ALARA. COMPARISON STUDY: Chest radiograph 05/15/2021 FINDINGS: Cardiomegaly with trace pericardial effusion. Decreased attenuation of the cardiac blood pool suggestive of anemia. Arterial and papillary muscle calcifications of the left ventricle. Trace pleural effusions. Intralobular septal thickening with mild bibasilar atelectasis. No pneumatosis or pneumoperitoneum. The spleen measures within the upper limits of normal in size with scattered calcified granulomata. There is trace interstitial and peripancreatic edema involving the pancreatic tail. No pancreatic ductal dilation. Unremarkable adrenal glands. Distended gallbladder with equivocal wall thickening. No cholelithiasis or biliary ductal dilation identified. Unremarkable liver. Nonspecific perinephric stranding is noted bilaterally with renal sinus cysts. Exophytic 2.1 cm cortical cyst left kidney on image 183. No ureteral calculi or hydronephrosis. Mild prostamegaly. Urinary bladder wall thickening with partial distention. Pelvic basin phleboliths. Atherosclerosis of the aorta without aneurysm. There is no lymphadenopathy. Stool-filled loops of small bowel are noted within the abdomen and pelvis. No bowel obstruction or bowel wall thickening. Mild fecal retention. The appendix appears noninflamed on image 266. Unremarkable soft tissues. No acute fracture or destructive bone lesion. S1 vertebral body hemangioma. IMPRESSION: 1. Distended gallbladder with equivocal wall thickening. Correlate with right upper quadrant abdominal ultrasound if there is clinical concern for acute cholecystitis. 2. Chronic nonspecific perinephric stranding may account for the edema adjacent to the pancreatic tail. Correlate with lipase to exclude pancreatitis. 3. No bowel obstruction or bowel wall thickening. 4. Cardiomegaly with suggestion of mild pulmonary edema and trace pleural effusions. 5. Additional findings as above. ACT 112: Negative or not required by law. The above report was generated using voice recognition software. It may contain grammatical, syntax or spelling errors. Electronically signed by: Palmer Treviño M.D. 05/15/2021 4:04 PM Gallbladder Ultrasound 05/15/21 16:11 US gallbladder HISTORY: 80 years-old Male RUQ pain acute right upper quadrant abdominal pain COMPARISON: MRCP of same day, CT abdomen and pelvis of same day TECHNIQUE: Multiple real-time sonographic images of the abdominal right upper quadrant were obtained assessing grayscale appearance and color flow FINDINGS: The liver measures up to 14.67 m in length. No hepatic mass identified. The visualized pancreas appears normal. Distended gallbladder with the gallbladder wall measuring within the upper limits of normal at 3 mm. No shadowing cholelithiasis or pericholecystic fluid. Normal common bile duct, 5 mm. The imaged right kidney is unremarkable without hydronephrosis. Renal sinus cyst of the right kidney measure up to 1.5 cm. IMPRESSION: 1. Distended gallbladder with the wall measuring within the upper limits of normal. No shadowing cholelithiasis or pericholecystic fluid to suggest acute cholecystitis. 2. No biliary ductal dilation. ACT 112: Negative or not required by law. The above report was generated using voice recognition software. It may contain grammatical, syntax or spelling errors. Electronically signed by: Palmer Treviño M.D. 05/15/2021 6:26 PM Cholangiopancreatography MRI 05/15/21 16:33 MR MRCP HISTORY: 80 years-old Male vincent acute nausea with fatigue and gallbladder distention COMPARISON: Right upper quadrant abdominal ultrasound and CT abdomen and pelvis studies of same day TECHNIQUE: MRCP without the use of IV contrast was obtained according to institutional protocol. FINDINGS: Trace pleural and pericardial effusions with cardiomegaly. Mild bibasilar atelectasis. 4 mm T2 hyperintense focus of the spleen is too small to characterize, likely benign. The study is motion degraded. Mild edema adjacent to the pancreatic tail redemonstrated. Pancreatic atrophy without ductal dilation. Normal adrenal glands. Unremarkable liver. Distended gallbladder without definite gallbladder wall thickening, cholelithiasis or pericholecystic infiltration. The common bile duct is normal measuring 5 mm. No choledocholithiasis. Bilateral perinephric stranding. Renal sinus cysts. 2.1 cm exophytic cyst of the left kidney. Unremarkable abdominal aorta. No bowel obstruction or bowel wall thickening. Unremarkable soft tissues. IMPRESSION: 1. Distended gallbladder without cholelithiasis or evidence of acute cholecystitis. 2. No biliary ductal dilation or choledocholithiasis. 3. Mild edema adjacent to the pancreatic tail redemonstrated. Correlate with lipase level. 4. Additional findings as above. ACT 112: Negative or not required by law. The above report was generated using voice recognition software. It may contain grammatical, syntax or spelling errors. Electronically signed by: Palmer Treviño M.D. 05/15/2021 6:42 PM (1) Anemia Anemia type: unspecified type Qualified Code(s): D64.9 - Anemia, unspecified
--- NOTE | 2021-05-16 10:17 | Surgery Consultation ---
Date of Consultation May 16, 2021 Assessment & Plan (1) Transaminitis: doubt pain related to gallbladder but HIDA scan will rule acalculous cholecystitis or biliary dyskinesia not acute calculous cholecystitis without stones elevated transaminases likely hemolytic per GI note OK to give diet today HIDA tomorrow History of Present Illness Attending Physician: Jose D Brooke MD History of Present Illness This is a 80-year-old male with PMHx of HTN, CKD stage III, essential thrombocytopenia, and anemia secondary to CKD, gross hematuria, who presents with acute onset of weakness and fatigue and intermittent right sided abdominal pain. 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 Sandoval of hematology. He also had an endoscopic ultrasound performed by due to a question of elevated liver enzymes that showed a normal-appearing common bile duct and perhaps a small amount of sludge within his gallbladder. He has had intermittent RUQ pain. A CT scan shows possible cholecystitis without stones and MRCP is clean. Allergies Allergy/AdvReac Type Severity Reaction Status Date / Time naproxen Allergy Intermediate ITCHY ALL Verified 05/15/21 15:03 OVER piperacillin [From Zosyn] Allergy Mild Hives Verified 05/15/21 15:03 tazobactam [From Zosyn] Allergy Mild Hives Verified 05/15/21 15:03 Home Medications Medication Instructions Recorded Confirmed Type multivitamin 1 tab PO QDL 12/21/17 05/15/21 History anagrelide 1 mg capsule 1 mg PO QPM 11/16/18 05/15/21 History amlodipine 10 mg tablet 5 mg PO QAM 02/25/19 05/15/21 History vit C,J-Vb-orfbab-lutein-zeaxan 60 1 cap PO BID 02/25/19 05/15/21 History mg-13.5 mg-15 mg-2 mg-6 mg capsule (Ocuvite Lutein and Zeaxanthin) aspirin 81 mg tablet,delayed 81 mg PO QDL 09/15/20 05/15/21 History release (Aspirin Low Dose) carvedilol 12.5 mg tablet 12.5 mg PO BID 09/15/20 05/15/21 History hydroxyzine HCl 10 mg tablet 10 mg PO DAILY PRN 09/15/20 05/15/21 History hydroxyurea 500 mg capsule 500 mg PO QDL 09/30/20 05/15/21 History epoetin mohamud 2,000 unit/mL 0 unit SUBCUT WK 05/15/21 05/15/21 History injection solution Patient History Medical History Anemia CKD (chronic kidney disease), stage III Creatine baseline around 1.4 per records Essential thrombocythemia Platelet count around 1.6 million at time of dx in 2010 Hypertension Iron overload Recent- following with heme/onc- per 12/17/20 note- pt was on Jadenu- d/c'ed secondary to elevated LFTs CONNIE-2 gene mutation F/U 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 On Hydroxyurea Melanoma On anticoagulant therapy on anagrelide Small bowel obstruction 2018 Treated conservatively Surgical History H/O endoscopy (~11/2020) EUS History of adenoidectomy History of bilateral cataract extraction History of colonoscopy 2019 History of esophagogastroduodenoscopy (EGD) 2019 History of Mohs micrographic surgery for skin cancer x2 removed off face History of tonsillectomy Family History Other Family history unobtainable due to orphan status Social History Smoking Status: Former smoker Tobacco Type: Cigarettes Smoking End Date: 2019; Second Hand Exposure: No; Hx Alcohol Use: No Hx Substance Use: No Preferred Language: Amharic Communication Ability: Effective Manager Of Marketing Required: No Beliefs That Will Affect Care: None marital status: Current Living Situation: Spouse Current Living Situation Comment: in a home with current occupational status: retired Other Information That Helps Us Care for You: No Feels Safe at Home: Yes Safety Concerns: Feels Safe At This Time Assistive Devices: None Review of Systems Constitutional: + fatigue and + weakness; no fever and no chills Eyes: no problem reported Ear, Nose, Mouth, Throat: no problem reported Respiratory: no cough and no dyspnea Cardiovascular: no chest pain Gastrointestinal: + abdominal pain (not currently); no nausea, no vomiting, no coffee ground emesis and no blood in stools Genitourinary: no dysuria Musculoskeletal: no problem reported Integumentary: no problem reported Neurologic: + generalized weakness; no localized weakness Psychiatric: no behavioral changes Endocrine: + fatigue; no polydipsia and no polyphagia Hematologic / Lymphatic: + easy bleeding and + easy bruising Physical Exam Constitutional: well developed and well nourished Eyes: PERRL, conjunctivae normal, anicteric sclerae ENMT: external ear and nose normal, oropharynx normal Neck: trachea midline Respiratory: normal respiratory effort, lungs clear to auscultation Cardiovascular: RRR, no murmur, no edema Gastrointestinal (Abdomen): Inspection/Auscultation: abdomen normal to inspection and normal bowel sounds; abdomen not distended Percuss ion/Palpation: abdomen soft; abdomen nontender, no guarding and abdomen not rigid Musculoskeletal: Head/Neck/Chest: normocephalic and head atraumatic Skin: no rashes, warm and dry Psychiatric: Orientation: alert and oriented x 3 Results & Data ([facility]) Vital Signs (Past 12 Hours) Vital Signs Temp Pulse Pulse Resp BP BP Pulse Ox 05/16/21 07:39 36.8 C 77 18 163/71 H 92 05/16/21 03:04 36.9 C 71 18 133/71 91 05/16/21 01:42 36.5 C 73 20 130/72 93 05/16/21 00:50 36.4 C L 78 18 144/76 H 93 05/15/21 23:50 36.7 C 76 18 132/71 92 05/15/21 23:20 36.7 C 75 18 132/71 94 05/15/21 23:05 36.5 C 79 16 138/73 92 05/15/21 23:04 36.5 C 78 18 133/61 92 05/15/21 22:43 37.0 C 78 18 121/68 93 05/15/21 22:20 78 Diagnostic Findings MR MRCP HISTORY: 80 years-old Male vincent acute nausea with fatigue and gallbladder distention COMPARISON: Right upper quadrant abdominal ultrasound and CT abdomen and pelvis studies of same day TECHNIQUE: MRCP without the use of IV contrast was obtained according to institutional protocol. FINDINGS: Trace pleural and pericardial effusions with cardiomegaly. Mild bibasilar atelectasis. 4 mm T2 hyperintense focus of the spleen is too small to characterize, likely benign. The study is motion degraded. Mild edema adjacent to the pancreatic tail redemonstrated. Pancreatic atrophy without ductal dilation. Normal adrenal glands. Unremarkable liver. Distended gallbladder without definite gallbladder wall thickening, cholelithiasis or pericholecystic infiltration. The common bile duct is normal measuring 5 mm. No choledocholithiasis. Bilateral perinephric stranding. Renal sinus cysts. 2.1 cm exophytic cyst of the left kidney. Unremarkable abdominal aorta. No bowel obstruction or bowel wall thickening. Unremarkable soft tissues. IMPRESSION: 1. Distended gallbladder without cholelithiasis or evidence of acute cholecystitis. 2. No biliary ductal dilation or choledocholithiasis. 3. Mild edema adjacent to the pancreatic tail redemonstrated. Correlate with lipase level. 4. Additional findings as above. US gallbladder HISTORY: 80 years-old Male RUQ pain acute right upper quadrant abdominal pain COMPARISON: MRCP of same day, CT abdomen and pelvis of same day TECHNIQUE: Multiple real-time sonographic images of the abdominal right upper quadrant were obtained assessing grayscale appearance and color flow FINDINGS: The liver measures up to 14.67 m in length. No hepatic mass identified. The visualized pancreas appears normal. Distended gallbladder with the gallbladder wall measuring within the upper limits of normal at 3 mm. No shadowing cholelithiasis or pericholecystic fluid. Normal common bile duct, 5 mm. The imaged right kidney is unremarkable without hydronephrosis. Renal sinus cyst of the right kidney measure up to 1.5 cm. IMPRESSION: 1. Distended gallbladder with the wall measuring within the upper limits of normal. No shadowing cholelithiasis or pericholecystic fluid to suggest acute cholecystitis. 2. No biliary ductal dilation.
[2021-05-16 10:39] LABS: Reticulocyte % 1.3 % (0.5-2.0); Reticulocytes # 0.03 10^6/uL (0.02-0.10)
[2021-05-16 10:57] LABS: Iron 101 mcg/dl (35-175); Total Iron Binding Cap Calc 198 mcg/dl (250-450); Transferrin (FE) Percent Satur 51 % (20-50); Unsaturated Iron Binding Cap 97 mcg/dl (155-355)
[2021-05-16] MEDS ORDERED: ASPIRIN 81 MG ECTAB PO SCH (11:30)
--- NOTE | 2021-05-16 12:08 | Nephrology Consultation ---
Date of Consultation May 16, 2021 Assessment & Plan (1) LUCILA (acute kidney injury): Patient with acute kidney injury likely due to ischemic ATN in setting of anemia. He has CKD stage III with baseline creatinine of 1.5. Creatinine is up to 2.9 today. He also has metabolic acidosis with bicarb of 18. CT abdomen showed cardiomegaly with pulmonary edema but no hydronephrosis. Patient has received blood transfusion and hemoglobin is fairly stable. His urine is no longer tea colored. No indication for dialysis -We will continue to monitor renal function with daily BMP -Continue to transfuse to keep hemoglobin above 7 -Avoid nephrotoxins (2) CKD (chronic kidney disease), stage III: Patient has CKD stage III with baseline creatinine of 1.5 as of December 2020. This degree of CKD is mild and most likely not the cause of his anemia. (3) Anemia: Anemia is likely due to hemolysis given history of frequent transfusions and clinical presentation including anemia, high LDH and Tea colored urine. Recommend hematology evaluation. 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 Patient's last blood transfusion outpatient was 2 weeks ago. He then developed itching on 05/14/2021 and became extremely weak which prompted the work-up. He was sent to the emergency room due to abnormal labs. He denies shortness of breath or leg swelling. He has received 2 units of blood transfusion. He reports tea colored urine since but his urine has cleared up this mor jose guadalupe. He denied NSAID use. Labs are showing very high LDH and total bilirubin. Haptoglobin is pending. Urinalysis shows over 30 RBCs per high-power field he has adequate iron stores. Allergies Allergy/AdvReac Type Severity Reaction Status Date / Time naproxen Allergy Intermediate ITCHY ALL Verified 05/15/21 15:03 OVER piperacillin [From Zosyn] Allergy Mild Hives Verified 05/15/21 15:03 tazobactam [From Zosyn] Allergy Mild Hives Verified 05/15/21 15:03 Home Medications Medication Instructions Recorded Confirmed Type multivitamin 1 tab PO QDL 12/21/17 05/15/21 History anagrelide 1 mg capsule 1 mg PO QPM 11/16/18 05/15/21 History amlodipine 10 mg tablet 5 mg PO QAM 02/25/19 05/15/21 History vit C,R-Hl-htuorr-lutein-zeaxan 60 1 cap PO BID 02/25/19 05/15/21 History mg-13.5 mg-15 mg-2 mg-6 mg capsule (Ocuvite Lutein and Zeaxanthin) aspirin 81 mg tablet,delayed 81 mg PO QDL 09/15/20 05/15/21 History release (Aspirin Low Dose) carvedilol 12.5 mg tablet 12.5 mg PO BID 09/15/20 05/15/21 History hydroxyzine HCl 10 mg tablet 10 mg PO DAILY PRN 09/15/20 05/15/21 History hydroxyurea 500 mg capsule 500 mg PO QDL 09/30/20 05/15/21 History epoetin mohamud 2,000 unit/mL 0 unit SUBCUT WK 05/15/21 05/15/21 History injection solution Patient History Medical History Anemia CKD (chronic kidney disease), stage III Creatine baseline around 1.4 per records Essential thrombocythemia Platelet count around 1.6 million at time of dx in 2010 Hypertension Iron overload Recent- following with heme/onc- per 12/17/20 note- pt was on Jadenu- d/c'ed secondary to elevated LFTs CONNIE-2 gene mutation F/U 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 On Hydroxyurea Melanoma On anticoagulant therapy on anagrelide Small bowel obstruction 2018 Treated conservatively Surgical History H/O endoscopy (~11/2020) EUS History of adenoidectomy History of bilateral cataract extraction History of colonoscopy 2019 History of esophagogastroduodenoscopy (EGD) 2019 History of Mohs micrographic surgery for skin cancer x2 removed off face History of tonsillectomy Family History Other Family history unobtainable due to orphan status Social History Smoking Status: Former smoker Tobacco Type: Cigarettes Smoking End Date: 2019; Second Hand Exposure: No; Hx Alcohol Use: No Hx Substance Use: No Preferred Language: Micronesian Communication Ability: Effective Licensed Insurance Sales Agent Required: No Beliefs That Will Affect Care: None marital status: Current Living Situation: Spouse Current Living Situation Comment: in a home with current occupational status: retired Other Information That Helps Us Care for You: No Feels Safe at Home: Yes Safety Concerns: Feels Safe At This Time Assistive Devices: None Review of Systems Review of Systems: All other systems were reviewed and negative except as noted in HPI Physical Exam Physical Exam: General exam: Appears comfortable, no acute distress HEENT: Pupils are equal and reactive to light Neck: No JVD, neck is supple trachea is midline Respiratory system: Clear breath sounds bilaterally. Gastrointestinal: Abdomen is soft, non distended, non tender, bowel sounds are present CVS: Regular rate and rhythm. No murmurs, rubs or gallops Musculoskeletal: No joint or muscle tenderness Extremities: Non tender, no edema, peripheral pulses are present Neuro: Oriented, no tremors, no focal neurological deficits Skin: No rashes Results & Data ([facility]) Vital Signs (Past 12 Hours) Vital Signs Temp Pulse Pulse Resp BP BP Pulse Ox 05/16/21 07:39 36.8 C 77 18 163/71 H 92 05/16/21 03:04 36.9 C 71 18 133/71 91 05/16/21 01:42 36.5 C 73 20 130/72 93 05/16/21 00:50 36.4 C L 78 18 144/76 H 93 Laboratory Results 05/16/21 05:24 05/15/21 05/15/21 05/16/21 13:59 13:59 05:24 WBC 14.06 H 9.08 RBC 1.90 L 2.33 L MCV 93.7 89.7 MCH 31.6 30.9 MCHC 33.7 34.4 RDW Std Deviation 65.8 H 56.4 H RDW Coeff of Echo 19.9 H 18.3 H Plt Count 820 H 535 H MPV 10.3 10.3 Phosphorus Albumin 4.2 05/16/21 05:24 WBC RBC MCV MCH MCHC RDW Std Deviation RDW Coeff of Echo Plt Count MPV Phosphorus 5.3 H Albumin 3.5 (1) Anemia Anemia type: unspecified type Qualified Code(s): D64.9 - Anemia, unspecified
[2021-05-16] MEDS: ANAGRELIDE 1 MG PO SCH (17:32)
[2021-05-16] MEDS ORDERED: ACETAMINOPHEN 500 MG TAB PO ONE (22:00)
[2021-05-17] MEDS: PIPERACILLIN/TAZOBACTAM 3.375 GM in DEXTROSE 5% 100 ML IV SCH ×2 (02:40→14:01)
[2021-05-17 06:43] LABS: Hematocrit (blood only) 21.4 % (42-52); Hemoglobin 7.4 g/dL (14.0-18.0); Mean Corpuscular Hgb Conc 34.6 g/dL (32-36); Mean Corpuscular Volume 89.5 fL (80-100); Mean Platelet Volume 10.3 fL (7.4-10.4); Nucleated RBC # (auto) 0.03 K/uL (0-0); Nucleated RBC % (auto) 0.3 %; Platelet Count 491 K/uL (130-400); RDW Coefficient of Variation 18.7 % (11.5-14.5); RDW Standard Deviation 58.7 fL (36.4-46.3); Red Blood Count 2.39 M/uL (4.7-6.1); White Blood Count 8.64 K/uL (4.8-10.8)
[2021-05-17 07:07] LABS: Albumin Globulin Ratio 1.5 (0.9-2); Albumin Level 3.5 gm/dl (3.4-5.0); BUN Creatinine Ratio 21.5 (10-20); Bilirubin,Total 1.1 mg/dl (0.2-1.0); Creatinine Clr Calc Pharmacy 16.8 ml/min; Est GFR (Non-African American) 17.3 ml/min; Globulin 2.3 gm/dl (2.5-4.0); Potassium 4.5 mmol/L (3.5-5.1); Total Protein 5.8 gm/dl (6.0-8.3)
--- NOTE | 2021-05-17 08:29 | Nephrology Progress Note ---
Date of Service May 17, 2021 Assessment & Plan Admission and Anticipated Discharge Date Admission Date: May 15, 2021 Subjective Assessment & Plan (1) LUCILA (acute kidney injury): Patient with acute kidney injury likely due to ischemic ATN in setting of Infection/anemia. He has CKD stage III with baseline creatinine of 1.5. Creatinine is up to 3+ today. CT abdomen showed cardiomegaly with ? Mild pulmonary edema but no hydronephrosis. Patient has received blood transfusion and hemoglobin is fairly stable. His urine is no longer tea colored. No indication for dialysis -We will continue to monitor renal function with daily BMP -Continue to transfuse to keep hemoglobin above 7 -Avoid nephrotoxins appears fairly euvolemic So no need of Iv fluids or diuretics. No Dialysis today but cannot rule out as creat still rising (2) CKD (chronic kidney disease), stage III: Patient has CKD stage III with baseline creatinine of 1.5 as of December 2020. Anemia is likely due to hemolysis/Bone marrow issues given history of frequent transfusions and clinical presentation including anemia, high LDH and Tea colored urine. Recommend hematology evaluation. S--Denies nay new issues. No SOB.Making urine ?? amount Review of Systems Review of Systems: All other systems were reviewed and negative except as noted in HPI Physical Exam Physical Exam: General exam: Appears comfortable, no acute distress HEENT: Pupils are equal and reactive to light Neck: No JVD, neck is supple trachea is midline Respiratory system: Clear breath sounds bilaterally. Gastrointestinal: Abdomen is soft, non distended, non tender, bowel sounds are present CVS: Regular rate and rhythm. No murmurs, rubs or gallops Musculoskeletal: No joint or muscle tenderness Extremities: Non tender, no edema, peripheral pulses are present Neuro: Oriented, no tremors, no focal neurological deficits Skin: No rashes Results & Data ([facility]) Vital Signs (Past 12 Hours) Vital Signs Temp Pulse Pulse Pulse Resp BP Pulse Ox 05/17/21 07:05 37.0 C 78 12 138/72 92 05/17/21 03:10 36.5 C 77 18 155/72 H 93 05/16/21 23:51 89 05/16/21 23:17 36.7 C 88 16 150/75 H 92
--- NOTE | 2021-05-17 09:57 | Gastroenterology Progress Note ---
Date of Service May 17, 2021 Assessment & Plan (1) Constipation: (2) Transaminitis: (3) Anemia: Plan: Pt is a 80 yo male followed for: 1. Anemia. Hx of hematuria; ? hemolysis. Blood ct stable now. No imani S/S of GI bleeding, FOBT negative. - Monitor H/H and transfuse prn - F/U hemolysis workup 2. Transaminitis. MRCP negative, less likely biliary source. LFTs normalizing - Trend LFTs - HIDA today per Surgery 3. Constipation, resolved - Continue Miralax 17g daily GI to sign off; pls recall prn Admission and Anticipated Discharge Date Admission Date: May 15, 2021 Supervising Physician Co-Signing Physician Notes I have personally seen and examined the patient with LORNE Leong. Her note reflects my exam and findings. I agree with her impression and plan. MRCP did not show any worrisome GI pathology. Tai Jason M.D. Subjective Pt denies abd pain, n/v. Is moving bowels well wo straining. Denies any rectal bleeding or dark tarry stools Review of Systems Review of Systems: All systems reviewed & are unremarkable except as noted in HPI & below Physical Exam Constitutional: WD/WN, vitals as above well groomed, cooperative and comfortable Eyes: PERRL, conjunctivae normal, anicteric sclerae ENMT: external ear and nose normal, oropharynx normal Respiratory: normal respiratory effort, lungs clear to auscultation Cardiovascular: RRR, no murmur, no edema Gastrointestinal (Abdomen): normal bowel sounds, soft, nontender, no hepatosplenomegaly Skin: no rashes, warm and dry no jaundice Psychiatric: A+Ox3, euthymic affect Lymphatic: no lymphedema Results & Data ([facility]) Vital Signs (Past 12 Hours) Vital Signs Temp Pulse Pulse Pulse Resp BP Pulse Ox 05/17/21 07:05 37.0 C 78 12 138/72 92 05/17/21 03:10 36.5 C 77 18 155/72 H 93 05/16/21 23:51 89 05/16/21 23:17 36.7 C 88 16 150/75 H 92 (1) Anemia Anemia type: unspecified type Qualified Code(s): D64.9 - Anemia, unspecified
[2021-05-17] MEDS ORDERED: SODIUM CHLORIDE 0.9% IV SCH (10:30)
[2021-05-17] MEDS ORDERED: SINCALIDE IV SCH (10:30)
[2021-05-17] MEDS: ANAGRELIDE 1 MG PO SCH ×3 (11:52→17:52)
[2021-05-17] MEDS: DOCUSATE SODIUM 100 MG CAP PO SCH ×2 (11:57→20:20)
[2021-05-17] MEDS: amLODIPine BESYLATE 5 MG TAB PO SCH (11:57)
[2021-05-17] MEDS: HYDROXYUREA 500 MG CAP PO SCH (11:57)
[2021-05-17] MEDS: carvediloL 12.5 MG TAB PO SCH ×2 (11:57→20:20)
[2021-05-17] MEDS: MULTIVITAMIN TAB PO SCH (11:57)
[2021-05-17] MEDS: POLYETHYLENE (MIRALAX) 17 GM PACK PO SCH (11:58)
--- NOTE | 2021-05-17 13:18 | Hospitalist Progress Note ---
Date of Service May 17, 2021 Assessment & Plan (1) Anemia: Plan: History of essential thrombocythemia with JAK2 mutation, MPL mutation, myelofibrosis, history of iron overload with monthly transfusions. On hydroxyurea and anagrelide also has been on deferasirox discontinued with history of elevated liver enzymes. Consulted patient's primary oncologist No indication for endoscopy currently. Discussed with gastroenterology (2) Elevated AST (SGOT): Plan: No clear evidence of acute cholecystitis. HIDA scan for the morning. General surgery following IV Zosyncultures have been negativeif no finding from a surgical standpoint. Can discontinue. Possibly secondary to history of deferasirox Bowel regimen with CT showing large amount of stool in the colon and fecalization within the small intestine (3) LUCILA (acute kidney injury): Plan: -Elevated today, baseline 1.4-1.5 - Will monitor, renally reduce medications and avoid nephrotoxinsnephrology evaluation (4) CKD (chronic kidney disease), stage III: (5) Essential thrombocythemia: Plan: -Noted, chronic, baseline thrombocyte level of 720-830 as per outpatient record review Is on hydroxyurea at home (6) Hypertension: Plan: -On carvedilol and amlodipine. Increase amlodipine. DVT ppx: -Hold for significant anemia. Patient is ambulatory. CODE: Full code-discussed with the patient at bedside Dispo: From home, likely to remain in the hospital x 1-2 days Admission and Anticipated Discharge Date Admission Date: May 15, 2021 Subjective Sent for abnormal creatinine hemoglobin. Complained also of lightheadedness with ambulation. No active complaints currently. States he has not noted further hematuria today No melena hematochezia. History of essential thrombocythemia on hydroxyurea. States he is on monthly blood transfusions. Dr. Sandoval is his oncologist. Await consult. Hemoglobin is currently stable. Denies active chest pain shortness of breath nausea vomiting Review of Systems Review of Systems: All systems reviewed and negative other than as described above in the history and physical Physical Exam Physical Exam: Constitutional:WD/WN, vitals as above Neck: trachea midline, no thyromegaly Respiratory: normal respiratory effort, lungs clear to auscultationAuscultation:no rhonchi and no wheezes Cardiovascular:RRR, no murmur, no edemaHeart Sounds:no murmur Gastrointestinal (Abdomen):normal bowel sounds, soft, nontender, no hepatosplenomegaly Musculoskeletal:no cyanosis or clubbing, extremities motor strength 5/5 Skin: no rashes, warm and dry Neurologic: AA+Ox3, euthymic affect Results & Data Results & Data ([facility]) Vital Signs (Past 12 Hours) Vital Signs Temp Pulse Pulse Resp BP Pulse Ox 05/17/21 12:00 36.9 C 87 14 176/80 H 95 05/17/21 07:05 37.0 C 78 12 138/72 92 05/17/21 03:10 36.5 C 77 18 155/72 H 93 (1) Anemia Anemia type: unspecified type Qualified Code(s): D64.9 - Anemia, unspecified
[2021-05-17] MEDS ORDERED: amLODIPine BESYLATE 5 MG TAB PO ONE (13:45)
--- NOTE | 2021-05-17 15:43 | Nuclear Medicine Report ---
NM hepatobiliary EF CLINICAL HISTORY: possible acalculous cholecystitis; RUQ pain TECHNIQUE: Following the intravenous injection of 5.1 mCi of Tc-99m labeled Technetium 99m mebrofeni n, multiple images of the upper abdomen were obtained in the anterior projection with uptake measurem ents of the gallbladder obtained. Once the gallbladder and small bowel were visualized, the patient w as intravenously infused over 30 minutes with 1.5 micrograms of Sincalide (CCK), and imaging and upta kes were again obtained. Comparison: None available at the time of this dictation. FINDINGS: Sequential images demonstrate normal uptake in the liver, common bile duct, gallbladder, an d small bowel. No defects in uptake are identified. Subsequent imaging after the administration of si ncalide demonstrates minimal gallbladder emptying. The calculated gallbladder ejection fraction based on uptake measurements is 9%. IMPRESSION: Normal uptake of contrast by the gallbladder without significant excretion following administration o f sincalide. Findings are compatible with chronic cholecystitis. ACT 112: Negative or not required by law. Electronically signed by: Miguel Cartwright M.D. 05/17/2021 3:41 PM
[2021-05-18 07:02] LABS: Hematocrit (blood only) 22.9 % (42-52); Hemoglobin 7.6 g/dL (14.0-18.0); Mean Corpuscular Hemoglobin 30.3 pg (25-34); Mean Corpuscular Hgb Conc 33.2 g/dL (32-36); Mean Corpuscular Volume 91.2 fL (80-100); Mean Platelet Volume 10.6 fL (7.4-10.4); Nucleated RBC # (auto) 0.02 K/uL (0-0); Nucleated RBC % (auto) 0.2 %; Platelet Count 548 K/uL (130-400); RDW Coefficient of Variation 18.3 % (11.5-14.5); RDW Standard Deviation 59.2 fL (36.4-46.3); Red Blood Count 2.51 M/uL (4.7-6.1); White Blood Count 9.72 K/uL (4.8-10.8)
[2021-05-18 07:31] LABS: Albumin Globulin Ratio 1.8 (0.9-2); Albumin Level 3.7 gm/dl (3.4-5.0); BUN Creatinine Ratio 21.1 (10-20); Bilirubin,Total 0.9 mg/dl (0.2-1.0); Creatinine Clr Calc Pharmacy 18.7 ml/min; Est GFR (African American) 22.8 ml/min; Est GFR (Non-African American) 19.7 ml/min; Globulin 2.1 gm/dl (2.5-4.0); Potassium 4.5 mmol/L (3.5-5.1); Total Protein 5.8 gm/dl (6.0-8.3)
[2021-05-18] MEDS: carvediloL 12.5 MG TAB PO SCH ×2 (07:49→20:57)
[2021-05-18] MEDS: amLODIPine BESYLATE 5 MG TAB PO SCH (07:50)
[2021-05-18] MEDS: POLYETHYLENE (MIRALAX) 17 GM PACK PO SCH (07:51)
[2021-05-18] MEDS: DOCUSATE SODIUM 100 MG CAP PO SCH ×2 (07:51→20:34)
--- NOTE | 2021-05-18 10:05 | Nephrology Progress Note ---
Date of Service May 18, 2021 Assessment & Plan Admission and Anticipated Discharge Date Admission Date: May 15, 2021 Subjective Assessment & Plan (1) LUCILA (acute kidney injury): Patient with acute kidney injury likely due to ischemic ATN in setting of Infection/anemia. He has CKD stage III with baseline creatinine of 1.5. Creatinine is up to 3+ today. CT abdomen showed cardiomegaly with ? Mild pulmonary edema but no hydronephrosis. Patient has received blood transfusion and hemoglobin is fairly stable. We will continue to monitor renal function with daily BMP -Continue to transfuse to keep hemoglobin above 7 -Avoid nephrotoxins appears fairly euvolemic So no need of Iv fluids or diuretics. No Dialysis today and hopefully wont need it as creat did come down today (2) CKD (chronic kidney disease), stage III: Patient has CKD stage III with baseline creatinine of 1.5 as of December 2020. Anemia is likely due to hemolysis/Bone marrow issues given history of frequent transfusions and clinical presentation including anemia, high LDH and Tea colored urine. S--Denies nay new issues. No SOB.Making urine ?? amount. Labs better Review of Systems Review of Systems: All other systems were reviewed and negative except as noted in HPI Physical Exam Physical Exam: General exam: Appears comfortable, no acute distress HEENT: Pupils are equal and reactive to light Neck: No JVD, neck is supple trachea is midline Respiratory system: Clear breath sounds bilaterally. Gastrointestinal: Abdomen is soft, non distended, non tender, bowel sounds are present CVS: Regular rate and rhythm. No murmurs, rubs or gallops Musculoskeletal: No joint or muscle tenderness Extremities: Non tender, no edema, peripheral pulses are present Neuro: Oriented, no tremors, no focal neurological deficits Skin: No rashes Results & Data ([facility]) Vital Signs (Past 12 Hours) Vital Signs Temp Pulse Pulse Resp BP Pulse Ox 05/18/21 06:44 36.9 C 88 18 173/73 H 93 05/18/21 03:47 36.7 C 90 18 152/80 H 94 05/17/21 23:31 94 H 05/17/21 22:56 36.8 C 89 18 150/81 H 92
--- NOTE | 2021-05-18 11:20 | Surgery Progress Note ---
Date of Service May 18, 2021 Assessment & Plan (1) Transaminitis: Plan: HIDA scan showing no signs of acute cholecystitis, gallbladder obstruction or biliary obstructions. HIDA showing chronic cholecystitis. LFTS and T.bili wnl no leukocytosis abdominal pain resolved and no pain postprandial with diet advancement after HIDA Plan: Given patients comorbidities, resolution of abdominal pain, benign exam, no leukocytosis, and HIDA scan showing no evidence of acute cholecystitis, no plans for cholecystectomy at this time. Our services signing off, please call with questions/concerns. Discussed with Dr. Valles who agrees with above. Admission and Anticipated Discharge Date Admission Date: May 15, 2021 Subjective Patient feeling good today denies of any abdominal pain Tolerated diet without postprandial abdominal pain No nausea no vomiting Physical Exam Constitutional: WD/WN, vitals as above Neck: normal visual inspection and trachea midline Respiratory: normal respiratory effort; no respiratory distress, no labored breathing and no retractions Gastrointestinal (Abdomen): Inspection/Auscultation: abdomen normal to inspection; abdomen not distended Percussion/Palpation: abdomen soft; abdomen nontender, no guarding and abdomen not rigid Skin: no rashes, warm and dry Psychiatric: A+Ox3, euthymic affect Results & Data ([facility]) Vital Signs (Past 12 Hours) Vital Signs Temp Pulse Pulse Resp BP Pulse Ox 05/18/21 11:14 37.0 C 74 18 176/74 H 94 05/18/21 06:44 36.9 C 88 18 173/73 H 93 05/18/21 03:47 36.7 C 90 18 152/80 H 94 05/17/21 23:31 94 H Laboratory Results 05/18/21 05/18/21 05/16/21 Range/Units 06:40 06:40 10:20 WBC 9.72 (4.8-10.8) K/uL RBC 2.51 L (4.7-6.1) M/uL Hgb 7.6 L (14.0-18.0) g/dL Hct 22.9 L (42-52) % MCV 91.2 (80-100) fL MCH 30.3 (25-34) pg MCHC 33.2 (32-36) g/dL RDW Std Deviation 59.2 H (36.4-46.3) fL RDW Coeff of Echo 18.3 H (11.5-14.5) % Plt Count 548 H (130-400) K/uL MPV 10.6 H (7.4-10.4) fL Absolute Nucleated RBC 0.02 H (0-0) K/uL Nucleated RBC % (auto) 0.2 % Haptoglobin <8 L (43-212) mg/dL Sodium 141 (136-145) mmol/L Potassium 4.5 (3.5-5.1) mmol/L Chloride 116 H (98-107) mmol/L Carbon Dioxide 18 L (21-32) mmol/L Anion Gap 7 (3-11) BUN 60 H (6-23) mg/dl Creatinine 2.85 H D (0.6-1.4) mg/dl Est Cr Clr Drug Dosing 18.7 ml/min Est GFR ( Amer) 22.8 ml/min Est GFR (Non-Af Amer) 19.7 ml/min BUN/Creatinine Ratio 21.1 H (10-20) Glucose 97 (70-99(Fasting)) mg/dl Calcium 8.0 L (8.5-10.1) mg/dl Total Bilirubin 0.9 (0.2-1.0) mg/dl AST 31 (13-39) U/L ALT 25 (7-52) U/L Alkaline Phosphatase 39 (34-104) U/L Total Protein 5.8 L (6.0-8.3) gm/dl Albumin 3.7 (3.4-5.0) gm/dl Globulin 2.1 L (2.5-4.0) gm/dl Albumin/Globulin Ratio 1.8 (0.9-2) Diagnostic Findings NM hepatobiliary EF CLINICAL HISTORY: possible acalculous cholecystitis; RUQ pain TECHNIQUE: Following the intravenous injection of 5.1 mCi of Tc-99m labeled Technetium 99m mebrofenin, multiple images of the upper abdomen were obtained in the anterior projection with uptake measurements of the gallbladder obtained. Once the gallbladder and small bowel were visualized, the patient was intravenously infused over 30 minutes with 1.5 micrograms of Sincalide (CCK), and imaging and uptakes were again obtained. Comparison: None available at the time of this dictation. FINDINGS: Sequential images demonstrate normal uptake in the liver, common bile duct, gallbladder, and small bowel. No defects in uptake are identified. Subsequent imaging after the administration of sincalide demonstrates minimal gallbladder emptying. The calculated gallbladder ejection fraction based on uptake measurements is 9%. IMPRESSION: Normal uptake of contrast by the gallbladder without significant excretion following administration of sincalide. Findings are compatible with chronic cholecystitis.
[2021-05-18] MEDS: MULTIVITAMIN TAB PO SCH (12:07)
[2021-05-18] MEDS: HYDROXYUREA 500 MG CAP PO SCH (12:07)
--- NOTE | 2021-05-18 15:25 | Hospitalist Progress Note ---
Date of Service May 18, 2021 Assessment & Plan (1) Anemia: Plan: History of essential thrombocythemia with JAK2 mutation, MPL mutation, myelofibrosis, history of iron overload, started on Deferasirox Dec 2020 but this caused elevated LFTs so was stopped as a result. He continues on anagralide and hydroxyurea and baby aspirin. Hb on admission was 6 and he was lightheaded. Possibly as a result of the hypovolemia, he developed LUCILA and ad some worsening abdominal discomfort. He received 2 units of blood on 05/15 and H/H is stable. He reports feeling well today and is ready to go home. Plt level is 550. Per Dr. Jaime posadas to cont EPO--will inject today. (2) Elevated AST (SGOT): Plan: No clear evidence of acute cholecystitis. HIDA scan reveals chronic cholecystis. General surgery with no plans for surgery. IV Zosyn discontinued with negative cultures Etiology Possibly secondary to history of deferasirox, resolved to baseline. (3) LUCILA (acute kidney injury): Plan: -Elevated today to 2.8 but improved from 3.2 yesterday. Nephrology following, baseline 1.4-1.5 - Will monitor, renally reduce medications and avoid nephrotoxinsnephrology evaluation -Currently euvolemic. No need for IVF or diuretics at this time. -Encouraged PO hydration. -Trend BMP in am. (4) CKD (chronic kidney disease), stage III: Plan: as above. (5) Essential thrombocythemia: Plan: chronic, stable. Cont hydroxyurea per home regimen. (6) Hypertension: Plan: Uncontrolled, cont coreg and amlodipine which was increased to 10mg. Gave hydralazine IV tonight. BP lashonda again to 180. ACEI/ARB contraindicated in LUCILA. Diuretic contraindicated in LUCILA. Will give trial of nitropaste and continue to monitor closely overnight. DVT ppx: -Hold for significant anemia. Patient is ambulatory. CODE: Full code Dispo: From home, likely to remain in the hospital x 1-2 days until creatinine is at baseline Constance Parada DO [facility] Hospitalist Admission and Anticipated Discharge Date Admission Date: May 15, 2021 Subjective 80 yo M presented with anemia, admitted for abdominal pain which is now resolved. Workup reveals chronic cholecystitis. No planned surgery at this time. LUCILA with improved creatinine after some volume resuscitation with 2 units of blood. Discussed plan and results with and patient Checked with Dr. Sandoval regarding his EPO due today, and he is fine with giving this. Review of Systems Review of Systems: All systems were reviewed and negative except as indicated above. Physical Exam Physical Exam: CONSTITUTIONAL: WNWD, vitals as above, generally well- appearing, NAD EYES: normal conjunctivae, no scleral icterus ENT: external ear and nose normal,MMM NECK: trachea midline, RESPIRATORY: clear to auscultation bilaterally, no crackles, rales or wheezes, normal respiratory effort CARDIOVASCULAR: regular rate and rhythm, S1 and 2 heard without murmurs, gallops or rubs, no JVD, no peripheral edema CHEST: inspection of chest was normal GASTROINTESTINAL: soft, nontender, ND, no guarding MUSCULOSKELETAL: strength 5/5 throughout, head is normocephalic and atraumatic, SKIN: warm and dry, NEUROLOGIC: CN 2-12 grossly intact, no sensory deficit, normal cognition, normal speech, no tremor PSYCHIATRIC: alert cooperative and oriented to person, place and time. Results & Data Results & Data ([facility]) Vital Signs (Past 12 Hours) Vital Signs Temp Pulse Pulse Resp BP Pulse Ox 05/18/21 11:14 37.0 C 74 18 176/74 H 94 05/18/21 07:00 89 05/18/21 06:44 36.9 C 88 18 173/73 H 93 05/18/21 03:47 36.7 C 90 18 152/80 H 94 Laboratory Results Short CBC 05/15/21 05/16/21 05/17/21 Range/Units 13:59 05:24 06:26 WBC (4.8-10.8) K/uL Hgb (14.0-18.0) g/dL Hct (42-52) % Plt Count (130-400) K/uL Creatinine 2.76 H 2.90 H 3.17 H (0.6-1.4) mg/dl 05/18/21 05/18/21 Range/Units 06:40 06:40 WBC 9.72 (4.8-10.8) K/uL Hgb 7.6 L (14.0-18.0) g/dL Hct 22.9 L (42-52) % Plt Count 548 H (130-400) K/uL Creatinine 2.85 H D (0.6-1.4) mg/dl BMP 05/18/21 06:40 Sodium 141 Potassium 4.5 Chloride 116 H Carbon Dioxide 18 L BUN 60 H Creatinine 2.85 H D Glucose 97 Calcium 8.0 L Liver Function 05/18/21 Range/Units 06:40 Total Bilirubin 0.9 (0.2-1.0) mg/dl AST 31 (13-39) U/L ALT 25 (7-52) U/L Alkaline Phosphatase 39 (34-104) U/L Albumin 3.7 (3.4-5.0) gm/dl Medications Administered Current Inpatient Medications Acetaminophen (Acetaminophen 325 Mg Tab) 650 mg PO Q4H PRN PRN Reason: Moderate Pain Stop: 06/14/21 20:10 Last Admin: 05/15/21 22:51 Dose: 650 mg Documented by: Amlodipine Besylate (Amlodipine Besylate 5 Mg Tab) 10 mg PO QAM [facility] Stop: 06/17/21 08:59 Last Admin: 05/18/21 07:50 Dose: 10 mg Documented by: Bisacodyl (Bisacodyl 10 Mg Supp) 10 mg AK DAILY PRN PRN Reason: Constipation Stop: 06/14/21 20:10 Carvedilol (Carvedilol 12.5 Mg Tab) 12.5 mg PO BID [facility] Stop: 06/14/21 20:59 Last Admin: 05/18/21 07:49 Dose: 12.5 mg Documented by: Docusate Sodium (Docusate Sodium 100 Mg Cap) 100 mg PO BID [facility] Stop: 06/14/21 20:59 Last Admin: 05/18/21 07:51 Dose: Not Given Documented by: Heparin Sodium (Beef Lung) (Heparin 10 Unit/Ml 5 Ml Flush) 5 ml FLUSH PRN PRN PRN Reason: Flush Stop: 06/14/21 20:40 Last Admin: 05/18/21 06:47 Dose: 5 ml Documented by: Hydroxyurea (Hydroxyurea 500 Mg Cap) 500 mg PO QDL [facility] Stop: 06/15/21 11:29 Last Admin: 05/18/21 12:07 Dose: 500 mg Documented by: Hydroxyzine HCl (Hydroxyzine Hcl 10 Mg Tab) 10 mg PO DAILY PRN PRN Reason: Itching Stop: 06/14/21 20:10 Sodium Chloride (Nss) 250 mls @ 15 mls/hr IV .[id number] PRN PRN Reason: For Transfusion Stop: 06/14/21 20:10 Multivitamins (Multivitamin Tab) 1 tab PO QDL [facility] Stop: 06/15/21 11:29 Last Admin: 05/18/21 12:07 Dose: 1 tab Documented by: Anagrelide 1 Mg Capsule - Non- Formulary Patient's Own Med 1 ea PO DAILY@1800 [facility] Stop: 06/15/21 17:59 Last Admin: 05/17/21 17:52 Dose: 1 cap Documented by: Anagrelide 1 Mg Capsule - Non- Formulary Patient's Own Med 1 ea PO MoWeFr@0900 [facility] Stop: 06/16/21 08:59 Last Admin: 05/17/21 12:01 Dose: 1 cap Documented by: Ondansetron HCl (Ondansetron Inj 2 Mg/Ml 2 Ml Vial) 4 mg IV Q4H PRN PRN Reason: Nausea And Vomiting Stop: 06/14/21 20:10 Polyethylene Glycol (Polyethylene (Miralax) 17 Gm Pack) 17 gm PO DAILY [facility] Stop: 06/14/21 20:10 Last Admin: 05/18/21 07:51 Dose: Not Given Documented by: (1) Anemia Anemia type: unspecified type Qualified Code(s): D64.9 - Anemia, unspecified
[2021-05-18] MEDS ORDERED: hydrALAZINE HCL 20 MG/ML VIAL IV STA (16:20)
[2021-05-18] MEDS: ANAGRELIDE 1 MG PO SCH (17:22)
[2021-05-18] MEDS ORDERED: EPOETIN ALFA 10,000 UNITS/ML VIAL SQ SCH (19:00)
[2021-05-18] MEDS: NITROGLYCERIN 2% OINTMENT 30GM TUBE EXT SCH ×2 (19:27→23:47)
[2021-05-19] MEDS: NITROGLYCERIN 2% OINTMENT 30GM TUBE EXT SCH ×2 (06:02→12:42)
[2021-05-19 06:07] LABS: Hematocrit (blood only) 22.3 % (42-52); Hemoglobin 7.5 g/dL (14.0-18.0); Mean Corpuscular Hemoglobin 30.6 pg (25-34); Mean Corpuscular Hgb Conc 33.6 g/dL (32-36); Mean Platelet Volume 10.4 fL (7.4-10.4); Platelet Count 520 K/uL (130-400); RDW Coefficient of Variation 18.3 % (11.5-14.5); RDW Standard Deviation 59.1 fL (36.4-46.3); Red Blood Count 2.45 M/uL (4.7-6.1); White Blood Count 8.82 K/uL (4.8-10.8)
[2021-05-19 06:25] LABS: BUN Creatinine Ratio 21.6 (10-20); Creatinine Clr Calc Pharmacy 21.3 ml/min; Est GFR (African American) 26.7 ml/min; Potassium 4.6 mmol/L (3.5-5.1)
[2021-05-19] MEDS: amLODIPine BESYLATE 5 MG TAB PO SCH (08:33)
[2021-05-19] MEDS: DOCUSATE SODIUM 100 MG CAP PO SCH (08:34)
[2021-05-19] MEDS: carvediloL 12.5 MG TAB PO SCH (08:34)
[2021-05-19] MEDS: ANAGRELIDE 1 MG PO SCH (08:34)
[2021-05-19] MEDS: POLYETHYLENE (MIRALAX) 17 GM PACK PO SCH (08:38)
--- NOTE | 2021-05-19 10:29 | Nephrology Progress Note ---
Date of Service May 19, 2021 Assessment & Plan Admission and Anticipated Discharge Date Admission Date: May 15, 2021 Subjective Subjective Assessment & Plan (1) LUCILA (acute kidney injury): Patient with acute kidney injury likely due to ischemic ATN in setting of Infection/anemia. He has CKD stage III with baseline creatinine of 1.5. Creatinine is up to 3+ today. CT abdomen showed cardiomegaly with ? Mild pulmonary edema but no hydronephrosis. Patient has received blood transfusion and hemoglobin is fairly stable. We will continue to monitor renal function with daily BMP -Continue to transfuse to keep hemoglobin above 7 -Avoid nephrotoxins appears fairly euvolemic So no need of Iv fluids or diuretics. No Dialysis today and hopefully wont need it as creat did come down today from yesterday. Creat still not down to baseline but expected to get better in coming days nephrology f/u within 1 week after discharge. S--Denies nay new issues. No SOB.Making urine ?? amount. Labs better Review of Systems Review of Systems: All other systems were reviewed and negative except as noted in HPI Physical Exam Physical Exam: General exam: Appears comfortable, no acute distress HEENT: Pupils are equal and reactive to light Neck: No JVD, neck is supple trachea is midline Respiratory system: Clear breath sounds bilaterally. Gastrointestinal: Abdomen is soft, non distended, non tender, bowel sounds are present CVS: Regular rate and rhythm. No murmurs, rubs or gallops Musculoskeletal: No joint or muscle tenderness Extremities: Non tender, no edema, peripheral pulses are present Neuro: Oriented, no tremors, no focal neurological deficits Skin: No rashes Results & Data ([facility]) Vital Signs (Past 12 Hours) Vital Signs Temp Pulse Pulse Resp BP Pulse Ox 05/19/21 07:52 36.5 C 95 H 20 170/68 H 93 05/19/21 07:32 86 05/19/21 04:17 36.5 C 82 18 162/78 H 95 05/19/21 01:13 88 05/18/21 23:06 36.4 C 86 18 155/70 H 92
[2021-05-19] MEDS: MULTIVITAMIN TAB PO SCH (11:42)
[2021-05-19] MEDS: HYDROXYUREA 500 MG CAP PO SCH (11:42)
--- NOTE | 2021-05-19 12:48 | Discharge Summary ---
Date of Service May 19, 2021 Admission HPI Per Admitting Provider This is an 80-year-old male with PMHx of HTN, CKD stage III, essential thrombocytopenia, and anemia secondary to CKD, gross hematuria, who presents with acute onset of weakness and fatigue. He was seen as an outpatient by PCP office today for increased weakness and concerns of urine appearing cloudy within the past week. He was then further informed that he had blood in his urine. Due to being dehydrated and having an elevated creatinine he was sent to the ER. He was also informed his blood count was low compared to his baseline. He received an outpatient transfusion at [facility] approximately 2 weeks ago. Overall the patient does not have any complaints of abdominal issues, reports he has been moving his bowels without any changes, no blood, and eating and drinking normally. He did not notice any abdominal pain until when moving in bed he noticed some right upper quadrant pain when positioned on his right side per nursing. Pt denies any shortness of breath, chest pain, lightheadedness or dizziness. When asked about his complexion he feels like his skin is the same color it always is. Outpatient chemistry panel was conducted which indicated new LUCILA with a creatinine of 2.8, compared to his baseline of 1.4-1.5 therefore was sent to the ER. Will follow culture from the today. Here in the ER he was noted to have a WBC count of 14, and hemoglobin of 6.0. His baseline hemoglobin from outpatient record review is 7.5-8.0 at baseline. His platelet count is 820 which appears to be at his baseline. After obtaining LFTs, and noting AST elevation at 120, for right upper quadrant gallbladder involvement he was cultured and started on cefoxitin IV. General surgery has been called as well as GI by the ER. PRBC has been ordered. Admission Exam Per Admitting Provider General: awake, alert, no apparent distress, + appears jaundiced, actively getting blood transfusion Head: Normocephalic, atraumatic ENT: PERRL, EOMI, + icteric conjunctiva, no pharyngeal exudate, mucous membranes moist Chest: Clear to auscultation, on room air, no adventitious breath sounds Cardiac: Regular rhythm, tachycardic with heart rate in the 90s, no murmur, no JVD, normal peripheral pulses, good capillary refill Abdominal: NABS x 4 quadrants, soft, nondistended, nontender to palpation, no rebound or guarding Extremities: Normal inspection, no peripheral edema or erythema, calfs nontender to palpation Psych: Normal mood and affect Neuro: AAO x 3, strength intact bilaterally and rated 5/5, no motor deficits, speech is clear, no peripheral sensory deficits Principal Diagnosis Anemia Chronic cholecystitis LUCILA over CKD III Discharge Exam GENERAL: Alert and oriented x3. NAD, on RA. HEENT: No pallor, no icterus. Pupils equal, round and reactive to light. Oral mucosa moist. NECK: No JVD, no neck masses. HEART: S1 and S2 heard. Regular rate and rhythm. No murmur, no gallop. RESPIRATORY SYSTEM: Normal AP diameter. No accessory muscle use. No wheezing, no crackles. ABDOMEN: Soft, bowel sounds present, nontender, no distention. CENTRAL NERVOUS SYSTEM: No facial droop. Speech is clear. Obeys simple commands. Moves extremities. EXTREMITIES: No edema, no erythema seen. Rt chest port noted, no S/S of infeciton. Discharge Data Allergies Allergy/AdvReac Type Severity Reaction Status Date / Time naproxen Allergy Intermediate ITCHY ALL Verified 05/15/21 15:03 OVER piperacillin [From Zosyn] Allergy Mild Hives Verified 05/15/21 15:03 tazobactam [From Zosyn] Allergy Mild Hives Verified 05/15/21 15:03 Consultations 05/15/21 16:50 Consult Gastroenterology Routine 05/15/21 17:03 ED Decision to Admit Stat 05/15/21 20:11 Consult General Surgery Routine 05/16/21 10:17 Consult Nephrology Routine Ordered Studies 05/15/21 15:05 CT abd pelvis wo con Stat 05/15/21 16:11 US gallbladder Stat 05/15/21 16:33 MR MRCP Stat Hospital Course (1) Anemia: 80 yo M was managed for the following: (1) Anemia: Plan: History of essential thrombocythemia with JAK2 mutation, MPL mutation, myelofibrosis, history of iron overload, started on Deferasirox Dec 2020 but this caused elevated LFTs so was stopped as a result. He continues on anagralide and hydroxyurea and baby aspirin. Hb on admission was 6 and he was lightheaded. Possibly as a result of the hypovolemia, he developed LUCILA and ad some worsening abdominal discomfort. s/p 2 Units PRBC, Hb has been stable since then around 7.5. S/p EPO injection 4/5. Reports feeling well, no dizziness/headache/weakness/palpitations; wants to go home. Pt to f/u with Hematology and PCP in a week time upon DC, and get CBC done in a week time, pt aware. (2) Elevated AST (SGOT): Plan: No clear evidence of acute cholecystitis. HIDA scan reveals chronic cholecystis. General surgery with no plans for surgery. IV Zosyn discontinued with negative cultures Etiology Possibly secondary to history of deferasirox, resolved to baseline. (3) LUCILA (acute kidney injury)/CKD III Plan: -Elevated today to 2.8 but improved from 3.2 yesterday. Nephrology following, baseline 1.4-1.5 - Will monitor, renally reduce medications and avoid nephrotoxinsnephrology evaluation -Currently euvolemic. No need for IVF or diuretics at this time. -Encouraged PO hydration. -d/w Nephrology, ok w/ DC, BMP in a week time, f/u w/ nephro in 1 week. Pt made aware. (5) Essential thrombocythemia: Plan: chronic, stable. Cont hydroxyurea per home regimen. (6) Hypertension: Plan: Uncontrolled, cont coreg and amlodipine which was increased to 10mg. Gave hydralazine IV tonight. BP lashonda again to 180. ACEI/ARB contraindicated in LUCILA. Diuretic contraindicated in LUCILA. Will give trial of nitropaste and con tinue to monitor closely overnight. DVT ppx: -Hold for significant anemia. Patient is ambulatory. CODE: Full code Patient being discharged home with following instruction at the point of discharge: Follow-up with your PCP within a week time. Follow-up with your hematology doctor as an outpatient. Follow-up with your kidney doctor in 1 to 2 weeks time. Get your blood work CBC and CMP done in a week time upon discharge. Have the results forwarded to your PCP. Take medications as prescribed. Total Time Total Time Spent Total Time Spent (In Minutes): 35 Discharge Plan Discharge Items Patient Disposition: Home - Self-Care Reason For Visit: ANEMIA Discharge Diagnosis: Anemia Chronic cholecystitis LUCILA over CKD III Activity: Resume your previous activity Non-emergency contact: Primary Care Provider Call non-emergency contact if: you have any medication questions, your symptoms worsen and your temperature is above 101 Follow-up/Referrals: Ritesh Reyes MD [Primary Care Provider] - Diet: Heart Healthy Addtl Attending Provider Instructions: Follow-up with your PCP within a week time. Follow-up with your hematology doctor as an outpatient. Follow-up with your kidney doctor in 1 to 2 weeks time. Get your blood work CBC and CMP done in a week time upon discharge. Have the results forwarded to your PCP. Take medications as prescribed. Pending Studies at Discharge: Yes (Admitting blood culture final results.) Stand-Alone Forms: My [facility] [place], Smoking Cessation Medications and DC Order Prescriptions: New amlodipine [Norvasc] 5 mg Tablet 10 mg PO QAM Qty: 60 RF: 0 Continued multivitamin Tablet 1 tab PO QDL RF: 0 anagrelide 1 mg Capsule 1 mg PO QPM RF: 0 Ocuvite Lutein and Zeaxanthin 60 mg-13.5 mg- 15 mg-2 mg-6 mg Capsule 1 cap PO BID RF: 0 carvedilol 12.5 mg tablet 12.5 mg PO BID RF: 0 hydroxyzine HCl 10 mg tablet 10 mg PO DAILY PRN (Reason: Itching) RF: 0 aspirin [Aspirin Low Dose] 81 mg Tablet,Delayed Release (Dr/Ec) 81 mg PO QDL RF: 0 hydroxyurea 500 mg Capsule 500 mg PO QDL RF: 0 epoetin mohamud 2,000 unit/mL Solution 0 unit subcut WK RF: 0 Discontinued amlodipine 10 mg Tablet 5 mg PO QAM RF: 0 Discharge Orders: Discharge Order (Routine); Ordered 05/19/21 Ordered By: Eulogio Mercedes Admission Data Admit Date/Time: 05/15/21 16:50 Attending Provider: Eulogio Mercedes Admit Provider: Jeffery Monreal Primary Care Provider: Ritesh Reyes Other Providers: Earnestine Jeffries ; Jeffery Monreal ; Manolo Ansari ; Tania Bee
[2021-05-19] MEDS ORDERED: HEPARIN 100 UNIT/ML 5ML FLUSH ONE (13:05)
== END 2021-05-19 15:10 | disposition home or self-care (01) | DRG 683 ==
LOC: ED 13:22 → SUATTDRO 16:50 → 2N 16:50
DX: Z88.1 Allergy status to other antibiotic agents; Z79.01 Long term (current) use of anticoagulants; K59.00 Constipation, unspecified; R74.01 Elevation of levels of liver transaminase levels; Z79.82 Long term (current) use of aspirin; Z88.7 Allergy status to serum and vaccine; R17 Unspecified jaundice; Z15.89 Genetic susceptibility to other disease; D47.3 Essential (hemorrhagic) thrombocythemia; I12.9 Hypertensive chronic kidney disease with stage 1 through stage 4 chronic kidney disease, or unspecified chronic kidney disease; N18.30 Chronic kidney disease, stage 3 unspecified; Z87.891 Personal history of nicotine dependence; D59.9 Acquired hemolytic anemia, unspecified; E87.2 Acidosis; K81.1 Chronic cholecystitis; E86.0 Dehydration; N17.0 Acute kidney failure with tubular necrosis

== ENCOUNTER 2022-10-20 14:43 | Inpatient (IN) ==
--- NOTE | 2022-10-20 15:17 | Emergency Department Note ---
Impression & Plan SBO (small bowel obstruction), Incarcerated hernia ED Provider Note NAME: ALIRIO OVERTON AGE: 82 SEX: M : 1940 ARRIVES VIA: Walk-In INFORMANT: Patient, ED PROVIDER(S): Glen Sandoval MD CHIEF COMPLAINT: Abdominal pain, constipation HPI: This is an 82-year-old male with history of CKD, colitis, previous SBO, presenting for abdominal pain and distention. For the past 1 day patient noted nausea and vomiting. He has noticed diarrhea yesterday with constipation today. He states he has to have a bowel move but cannot. States he feels exactly like his previous SBO. He has mild 6/10 pain. Currently not nauseous. ROS: See above HPI for pertinent positives & negatives. A total of 10 systems reviewed and were otherwise negative. PAST MEDICAL HISTORY: See Below PAST SURGICAL HISTORY: See Below FAMILY HISTORY: See Below SOCIAL HISTORY: See Below HOME MEDICATIONS: See Below ALLERGIES: See Below VITALS: See Below PHYSICAL EXAMINATION: General: resting comfortably in no acute distress Head: Normocephalic and atraumatic Eyes: Normal inspection, extraocular muscles intact, no conjunctival pallor Ear, nose, throat: Normal external exam Neck: Normal range of motion Respiratory: Patient is in no respiratory distress, lungs clear to auscultation bilaterally Cardiovascular: RRR without murmur appreciated GI: Distended, minimally tender without mass Extremities: pulses intact with good cap refills, no LE pitting edema or calf tenderness Neuro: The patient awake and alert, appropriately conversive,no focal decifits Skin: Warm, dry, and intact. MEDICAL DECISION MAKING: This is a 82-year-old male presenting for abdominal pain/distention. Concern for SBO, pancreatitis, appendicitis, diverticulitis. Ordered basic blood work, CT scan, fluid resuscitation and nausea medicine. Patient's lab work largely unrevealing, slight anemia otherwise no significant electrolyte disturbances. Creatinine 1.53, similar to baseline. Slight transaminitis. No UTI on urinalysis. Patient CT does reveal a small obstruction secondary to a inguinal hernia with concern for possible incarceration. Immediately consulted surgery, Dr. Sin assessed patient at bedside after the patient to the OR. Patient admitted under Dr. Sin's service with medical consult. Medicine team made aware. EKG ordered a at the request of Dr. Sin. Triage Nursing notes reviewed. Prior medical records reviewed Vital Signs: reviewed and remarkable for no significant abnormalities Differential diagnosis: SBO, fractures, appendicitis, diverticulitis ER treatment provided: See below Diagnostics interpreted by me: ECG: Reviewed by me showing normal sinus rhythm, ventricular 96, IN 196, QRS 104, QTc 462, left axis deviation, no ST segment elevation consistent with STEMI. Cardiac Monitoring: An order was placed for continuous cardiac monitoring. The monitor shows a rate of normal sinus rhythm with 93 rhythm. Laboratory studies: As stated above and show below. Imaging studies: See below. Consultation(s): General surgery, Dr. Sin Past Med/Surg History Medical History Anemia CKD (chronic kidney disease), stage III Creatine baseline around 1.4 per records Essential thrombocythemia Platelet count around 1.6 million at time of dx in 2010 Hypertension Iron overload Recent- following with heme/onc- per 12/17/20 note- pt was on Jadenu- d/c'ed secondary to elevated LFTs CONNIE-2 gene mutation F/U 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 On Hydroxyurea Melanoma On anticoagulant therapy on anagrelide Small bowel obstruction 2018 Treated conservatively Surgical History H/O endoscopy (~11/2020) EUS History of adenoidectomy History of bilateral cataract extraction History of colonoscopy 2019 History of esophagogastroduodenoscopy (EGD) 2019 History of Mohs micrographic surgery for skin cancer x2 removed off face History of tonsillectomy Family History Other Family history unobtainable due to orphan status Social History Smoking Status: Former smoker Tobacco Type: Cigarettes Second Hand Exposure: No; Do You Dip or Chew Tobacco: No; Hx Alcohol Use: No Hx Substance Use: No Preferred Language: Chinese Communication Ability: Effective Machine Scallop Cutter Required: No Beliefs That Will Affect Care: None marital status: Current Living Situation: Spouse Current Living Situation Comment: in a home with current occupational status: retired Other Information That Helps Us Care for You: No Feels Safe at Home: Yes Safety Concerns: Feels Safe At This Time Assistive Devices: Glasses Allergies Allergies Allergy/AdvReac Type Severity Reaction Status Date / Time naproxen Allergy Intermediate ITCHY ALL Verified 10/20/22 18:21 OVER piperacillin [From Zosyn] Allergy Mild Hives Verified 10/20/22 18:21 tazobactam [From Zosyn] Allergy Mild Hives Verified 10/20/22 18:21 Home Meds Home Medications Medication Instructions Recorded Confirmed multivitamin 1 tab PO QDL 12/21/17 10/20/22 anagrelide 1 mg capsule 1 mg PO QPM 11/16/18 10/20/22 vit C,I-Yf-jqfqjd-lutein-zeaxan 60 1 cap PO BID 02/25/19 10/20/22 mg-13.5 mg-15 mg-2 mg-6 mg capsule (Ocuvite Lutein and Zeaxanthin) aspirin 81 mg tablet,delayed 81 mg PO QDL 09/15/20 10/20/22 release (Aashish Low Dose Aspirin) carvedilol 12.5 mg tablet 12.5 mg PO BID 09/15/20 10/20/22 hydroxyzine HCl 10 mg tablet 10 mg PO DAILY PRN Itching 09/15/20 10/20/22 hydroxyurea 500 mg capsule 500 mg PO QDL 09/30/20 10/20/22 tamsulosin 0.4 mg capsule 0.4 mg PO HS 01/12/22 10/20/22 Previous Rx's Medication Instructions Recorded amlodipine 5 mg tablet (Norvasc) 10 mg PO QAM #60 tabs 05/19/21 Results & Data (ED) Vital Signs Vital Signs - 24 hr 10/20/22 14:53 10/20/22 15:45 10/20/22 15:45 Temperature 36.4 C L Temperature Source Temporal Artery Scan Pulse Rate 97 H 88 68 Pulse Rate [Apical] Pulse Rate from SpO2 Sensor Pulse Rhythm Regular Pulse Rhythm [Apical] Pulse Strength [Apical] Respiratory Rate 20 18 Respiratory Effort / Characteristics Non-Labored Spontaneous Respiratory Depth Normal Blood Pressure 119/75 Blood Pressure [Left Arm] Blood Pressure Mean 89 Blood Pressure Mean [Left Arm] Blood Pressure Position [Left Arm] Pulse Oximetry 98 96 Oxygen Delivery Method Room Air Sepsis Recent Fever Within 48 Hours No Sepsis New/Unexplained Change in Mental Status No Sepsis Action Taken by Nursing No Action Required 10/20/22 15:44 10/20/22 15:50 10/20/22 16:00 Temperature Temperature Source Pulse Rate 82 87 77 Pulse Rate [Apical] Pulse Rate from SpO2 Sensor 82 87 80 Pulse Rhythm Pulse Rhythm [Apical] Pulse Strength [Apical] Respiratory Rate 19 12 19 Respiratory Effort / Characteristics Respiratory Depth Blood Pressure 176/79 H Blood Pressure [Left Arm] Blood Pressure Mean 111 Blood Pressure Mean [Left Arm] Blood Pressure Position [Left Arm] Pulse Oximetry 96 96 96 Oxygen Delivery Method Sepsis Recent Fever Within 48 Hours Sepsis New/Unexplained Change in Mental Status Sepsis Action Taken by Nursing 10/20/22 18:40 10/20/22 19:00 Temperature 37.5 C Temperature Source Oral Pulse Rate Pulse Rate [Apical] 98 H 111 H Pulse Rate from SpO2 Sensor Pulse Rhythm Pulse Rhythm [Apical] Regular Pulse Strength [Apical] Normal Respiratory Rate 20 18 Respiratory Effort / Characteristics Non-Labored Spontaneous Respiratory Depth Normal Blood Pressure Blood Pressure [Left Arm] 162/77 H 158/95 H Blood Pressure Mean Blood Pressure Mean [Left Arm] 105 116 Blood Pressure Position [Left Arm] Lying Pulse Oximetry 93 92 Oxygen Delivery Method Room Air Room Air Sepsis Recent Fever Within 48 Hours Sepsis New/Unexplained Change in Mental Status Sepsis Action Taken by Nursing Laboratory Data 10/20/22 15:27 10/20/22 15:27 Lab Results 10/20/22 10/20/22 10/20/22 Range/Units 15:27 15:27 15:27 WBC 7.76 (4.8-10.8) K/ul RBC 3.05 L (4.70-6.10) M/uL Hgb 9.3 L (14.0-18.0) g/dl Hct 26.9 L (42.0-52.0) % MCV 88.2 (80.0-100.0) fL MCH 30.5 (25.0-34.0) pg MCHC 34.6 (32.0-36.0) g/dL RDW Std Deviation 50.3 H (36.4-46.3) fL RDW Coeff of Echo 19.2 H (11.5-14.5) % Plt Count 379 (130-400) K/uL MPV 10.6 (9.4-12.4) fL Immature Gran % (Auto) 4.5 % Neut % (Auto) 63.1 % Lymph % (Auto) 14.0 % Caroline % (Auto) 15.2 % Eos % (Auto) 2.2 % Baso % (Auto) 1.0 % Neut # (Auto) 4.89 (1.40-6.50) K/uL Lymph # (Auto) 1.09 L (1.20-3.40) K/uL Caroline # (Auto) 1.18 H (0.11-0.59) K/uL Eos # (Auto) 0.17 (0.00-0.50) K/uL Baso # (Auto) 0.08 (0.00-0.20) K/uL Immature Gran # (Auto) 0.35 H (0.01-0.20) K/uL Absolute Nucleated RBC 0.02 (0.00-0.12) K/uL Nucleated RBC % (auto) 0.3 % Sodium 141 (136-145) mmol/L Potassium 4.8 (3.5-5.1) mmol/L Chloride 107 (98-107) mmol/L Carbon Dioxide 27 (21-32) mmol/L Anion Gap 7 (3-11) BUN 41 H (6-23) mg/dl Creatinine 1.53 H (0.6-1.4) mg/dl Est Cr Clr Drug Dosing 33.6 ml/min Est GFR ( Amer) 47.7 ml/min Est GFR (Non-Af Amer) 41.1 ml/min BUN/Creatinine Ratio 26.8 H (10-20) Glucose 114 H (70-99(Fasting)) mg/dl Lactate 1.3 (0.4-2.0) mmol/L Calcium 9.4 (8.6-10.3) mg/dl Magnesium 2.2 (1.7-2.4) mg/dl Total Bilirubin 0.8 (0.2-1.0) mg/dl AST 57 H (13-39) U/L ALT 65 H (7-52) U/L Alkaline Phosphatase 49 (34-104) U/L Total Protein 7.2 (6.0-8.3) gm/dl Albumin 4.6 (3.4-5.0) gm/dl Globulin 2.6 (2.5-4.0) gm/dl Albumin/Globulin Ratio 1.8 (0.9-2) Lipase 18 (11-82) U/L Urine Color Urine Appearance (Clear) Urine pH (4.5-7.5) Ur Specific [place] (1.000-1.030) Urine Protein (Negative) Urine Glucose (UA) (Negative) Urine Ketones (Negative) Urine Blood (Negative) Urine Nitrite (Negative) Urine Bilirubin (Negative) Urine Urobilinogen (Negative) Ur Leukocyte Esterase (Negative) Urine WBC (Auto) (0-5) /hpf Urine RBC (Auto) (0-4) /hpf U Hyaline Cast (Auto) (0-5) /lpf U Epithel Cells (Auto) (0-5) /lpf Urine Bacteria (Auto) (Negative) 10/20/22 Range/Units 16:37 WBC (4.8-10.8) K/ul RBC (4.70-6.10) M/uL Hgb (14.0-18.0) g/dl Hct (42.0-52.0) % MCV (80.0-100.0) fL MCH (25.0-34.0) pg MCHC (32.0-36.0) g/dL RDW Std Deviation (36.4-46.3) fL RDW Coeff of Echo (11.5-14.5) % Plt Count (130-400) K/uL MPV (9.4-12.4) fL Immature Gran % (Auto) % Neut % (Auto) % Lymph % (Auto) % Caroline % (Auto) % Eos % (Auto) % Baso % (Auto) % Neut # (Auto) (1.40-6.50) K/uL Lymph # (Auto) (1.20-3.40) K/uL Caroline # (Auto) (0.11-0.59) K/uL Eos # (Auto) (0.00-0.50) K/uL Baso # (Auto) (0.00-0.20) K/uL Immature Gran # (Auto) (0.01-0.20) K/uL Absolute Nucleated RBC (0.00-0.12) K/uL Nucleated RBC % (auto) % Sodium (136-145) mmol/L Potassium (3.5-5.1) mmol/L Chloride (98-107) mmol/L Carbon Dioxide (21-32) mmol/L Anion Gap (3-11) BUN (6-23) mg/dl Creatinine (0.6-1.4) mg/dl Est Cr Clr Drug Dosing ml/min Est GFR ( Amer) ml/min Est GFR (Non-Af Amer) ml/min BUN/Creatinine Ratio (10-20) Glucose (70-99(Fasting)) mg/dl Lactate (0.4-2.0) mmol/L Calcium (8.6-10.3) mg/dl Magnesium (1.7-2.4) mg/dl Total Bilirubin (0.2-1.0) mg/dl AST (13-39) U/L ALT (7-52) U/L Alkaline Phosphatase (34-104) U/L Total Protein (6.0-8.3) gm/dl Albumin (3.4-5.0) gm/dl Globulin (2.5-4.0) gm/dl Albumin/Globulin Ratio (0.9-2) Lipase (11-82) U/L Urine Color Yellow Urine Appearance Clear (Clear) Urine pH 8.0 H (4.5-7.5) Ur Specific [place] 1.015 (1.000-1.030) Urine Protein Trace H (Negative) Urine Glucose (UA) Negative (Negative) Urine Ketones Negative (Negative) Urine Blood Negative (Negative) Urine Nitrite Negative (Negative) Urine Bilirubin Negative (Negative) Urine Urobilinogen Negative (Negative) Ur Leukocyte Esterase Negative (Negative) Urine WBC (Auto) 1-5 (0-5) /hpf Urine RBC (Auto) 5-10 H (0-4) /hpf U Hyaline Cast (Auto) 1-5 (0-5) /lpf U Epithel Cells (Auto) 0-5 (0-5) /lpf Urine Bacteria (Auto) Negative (Negative) Administered Medications Carvedilol (Carvedilol 12.5 Mg Tab) 12.5 mg PO BID ROSETTE Stop: 11/19/22 21:29 Last Admin: 10/20/22 22:20 Dose: 12.5 mg Documented By: MARIETTA Clindamycin Phosphate (Cleocin/D5w) 900 mg in 50 mls @ 100 mls/hr IV PREOP ROSETTE Stop: 10/20/22 23:00 Last Admin: 10/20/22 22:10 Dose: Not Given Documented By: MARIETTA Ciprofloxacin (Cipro / D5w) 400 mg in 200 mls @ 100 mls/hr IV Q12H [facility] Stop: 10/27/22 21:59 Last Admin: 10/20/22 22:20 Dose: 100 mls/hr Documented By: MARIETTA Sodium Chloride (Nss) 500 mls @ 50 mls/hr IV .Q10H [facility] Stop: 10/21/22 06:00 Last Admin: 10/20/22 21:32 Dose: 50 mls/hr Documented By: MARIETTA Magnesium Hydroxide (Magnesium Hydroxide Susp 30 Ml Udc) 30 ml PO BID ROSETTE Stop: 11/19/22 21:20 Last Admin: 10/20/22 22:20 Dose: 30 ml Documented By: MARIETTA Senna/Docusate Sodium (Docusate Sodium/Senna 50/8.6mg Tab) 1 tab PO BID ROSETTE Stop: 11/19/22 21:20 Last Admin: 10/20/22 22:20 Dose: 1 tab Documented By: MARIETTA Discontinued Medications Bupivacaine HCl (Bupivacaine 0.5 % 5 Mg/1 Ml Mpf 30ml Vial) Confirm Administered Dose 30 ml .ROUTE .STK-MED ONE Stop: 10/20/22 19:05 Last Admin: 10/20/22 20:06 Dose: 15 ml Documented By: DARRIAN Bupivacaine HCl/Epinephrine Bitart (Bupivacaine/Epinephrine 0.5% Mpf 1:200,000 30 Ml Vial) Confirm Administered Dose 30 ml .ROUTE .STK-MED ONE Stop: 10/20/22 18:35 Last Admin: 10/20/22 22:09 Dose: Not Given Documented By: MARIETTA Cefazolin Sodium (Cefazolin 330 Mg/Ml 1 Gm Vial) Confirm Administered Dose 990 mg .ROUTE .STK-MED ONE Stop: 10/20/22 18:35 Last Admin: 10/20/22 19:15 Dose: 990 mg Documented By: [id number] Sodium Chloride (Nss) 1,000 mls @ 999 mls/hr IV .Q1H1M STA Stop: 10/20/22 16:18 Last Infusion: 10/20/22 16:49 Dose: 0 mls/hr Documented By: Admin: 10/20/22 15:33 Dose: 999 mls/hr Documented By: SEVERINO Acetaminophen (Ofirmev) 1,000 mg in 100 mls @ 400 mls/hr IV ONE ONE Stop: 10/20/22 20:28 Last Admin: 10/20/22 22:19 Dose: 400 mls/hr Documented By: MARIETTA Ioversol (Optiray 320 100ml) 89 ml IV ONCE ONE Stop: 10/20/22 16:28 Last Admin: 10/20/22 16:27 Dose: 89 ml Documented By: BRII Ondansetron HCl (Ondansetron Inj 2 Mg/Ml 2 Ml Vial) 4 mg IV NOW STA Stop: 10/20/22 15:19 Last Admin: 10/20/22 15:33 Dose: 4 mg Documented By: SEVERINO Imaging Data Radiologist's Impression: Abdomen/Pelvis CT 10/20/22 15:35 CT abd pelvis IV con only CLINICAL HISTORY: abd pain, distention, hx of obstruction TECHNIQUE: Helical axial images of the abdomen and pelvis were obtained and displayed. Automated dose lowering techniques and/or adjustment according to patient size were utilized for this exam. This exam was performed with intravenous contrast. CT DOSE: 1117.00 mGy.cm COMPARISON: Comparison is made to CT abdomen pelvis 05/15/2021 FINDINGS: Lower chest: Bibasilar atelectasis versus scarring is seen. Liver: Unremarkable. No focal lesions are seen. Gallbladder and biliary tree: No calcified gallstones. Normal caliber wall. No intra- or extrahepatic biliary ductal dilation. Pancreas: Unremarkable, no focal lesions. Spleen: Calcifications are noted in the spleen compatible with prior granulomato us disease. Spleen is enlarged measuring 13.6 cm in craniocaudal dimension. Adrenals: Unremarkable. Kidneys and ureters: Renal cysts are seen. Bladder: Unremarkable. Reproductive organs: Prostatic calcifications are seen which may represent prior hemorrhage or granulomatous disease. Bowel: Multiple loops of small bowel are noted to be dilated with a transition point as it enters the left inguinal hernia. Subsequent loops of ileum are prominent but not definitely dilated. Lymph nodes Retroperitoneal: Subcentimeter lymph nodes are noted. Pelvic: Unremarkable. Mesenteric: Unremarkable. Peritoneum: Normal. Vessels: Atherosclerotic calcifications are seen. Abdominal wall: A left inguinal hernia contains a loop of small bowel with small amount of free fluid. Bones: Degenerative changes in the visualized spine. IMPRESSION: 1. Small bowel obstruction with a transition point in a left inguinal hernia concerning for incarcerated loop of bowel. No evidence of bowel ischemia is seen. 2. Additional findings as above. ACT 112: Negative or not required by law. Electronically signed by: Miguel Cartwright M.D. 10/20/2022 5:07 PM Discharge Plan Visit Data Chief Complaint: Abdominal Pain Stated Complaint: ABD PAIN, VOMITING ED Provider: Glen Sandoval Discharge Problem: SBO (small bowel obstruction), Incarcerated hernia Patient Disposition: Admitted As Inpatient Discharge Instructions Interventions: ED Discharge Assessment Last Done: 10/20/22 18:42
[2022-10-20] MEDS ORDERED: SODIUM CHLORIDE 0.9% 1,000 ML IV STA (15:18)
[2022-10-20] MEDS ORDERED: ONDANSETRON INJ 2 MG/ML 2 ML VIAL IV STA (15:18)
[2022-10-20 15:48] LABS: Basophils # (auto) 0.08 K/uL (0.00-0.20); Eosinophils # (auto) 0.17 K/uL (0.00-0.50); Eosinophils % (auto) 2.2 %; Hematocrit (blood only) 26.9 % (42.0-52.0); Hemoglobin 9.3 g/dl (14.0-18.0); Immature Granulocytes # (auto) 0.35 K/uL (0.01-0.20); Immature Granulocytes % (auto) 4.5 %; Lymphocytes # (auto) 1.09 K/uL (1.20-3.40); Mean Corpuscular Hemoglobin 30.5 pg (25.0-34.0); Mean Corpuscular Hgb Conc 34.6 g/dL (32.0-36.0); Mean Corpuscular Volume 88.2 fL (80.0-100.0); Mean Platelet Volume 10.6 fL (9.4-12.4); Monocytes # (auto) 1.18 K/uL (0.11-0.59); Monocytes % (auto) 15.2 %; Neutrophils # (auto) 4.89 K/uL (1.40-6.50); Neutrophils % (auto) 63.1 %; Nucleated RBC # (auto) 0.02 K/uL (0.00-0.12); Nucleated RBC % (auto) 0.3 %; Platelet Count 379 K/uL (130-400); RDW Coefficient of Variation 19.2 % (11.5-14.5); RDW Standard Deviation 50.3 fL (36.4-46.3); Red Blood Count 3.05 M/uL (4.70-6.10); White Blood Count 7.76 K/ul (4.8-10.8)
[2022-10-20 15:59] LABS: Albumin Globulin Ratio 1.8 (0.9-2); Albumin Level 4.6 gm/dl (3.4-5.0); BUN Creatinine Ratio 26.8 (10-20); Bilirubin,Total 0.8 mg/dl (0.2-1.0); Calcium 9.4 mg/dl (8.6-10.3); Creatinine Clr Calc Pharmacy 33.6 ml/min; Est GFR (African American) 47.7 ml/min; Est GFR (Non-African American) 41.1 ml/min; Globulin 2.6 gm/dl (2.5-4.0); Potassium 4.8 mmol/L (3.5-5.1); Total Protein 7.2 gm/dl (6.0-8.3)
[2022-10-20] MEDS ORDERED: OPTIRAY 320 100ml IV ONE (16:27)
[2022-10-20 16:30] LABS: Influenza A virus by PCR Negative (Neg); Influenza B virus by PCR Negative (Neg); RSV by PCR Negative (Neg); SARS CoV2 RNA(COVID-19) Ceph NEGATIVE (Negative)
[2022-10-20 16:54] LABS: Appearance Urine Clear (Clear); Bacteria Urine Automated Negative (Negative); Bilirubin Urine Negative (Negative); Blood Urine Negative (Negative); Color Urine Yellow; Epithelial Cell Urine Auto 0-5 /lpf (0-5); Glucose Urine UA Negative (Negative); Ketones Urine Negative (Negative); Leukocyte Esterase Urine Negative (Negative); Nitrite Urine Negative (Negative); Specific Gravity Urine 1.015 (1.000-1.030); Urobilinogen Urine Negative (Negative)
[2022-10-20 16:59] LABS: Protein Urine Trace (Negative)
--- NOTE | 2022-10-20 17:08 | CT Scan Report ---
CT abd pelvis IV con only CLINICAL HISTORY: abd pain, distention, hx of obstruction TECHNIQUE: Helical axial images of the abdomen and pelvis were obtained and displayed. Automated dose lowering techniques and/or adjustment according to patient size were utilized for this exam. This e xam was performed with intravenous contrast. CT DOSE: 1117.00 mGy.cm COMPARISON: Comparison is made to CT abdomen pelvis 05/15/2021 FINDINGS: Lower chest: Bibasilar atelectasis versus scarring is seen. Liver: Unremarkable. No focal lesions are seen. Gallbladder and biliary tree: No calcified gallstones. Normal caliber wall. No intra- or extrahepatic biliary ductal dilation. Pancreas: Unremarkable, no focal lesions. Spleen: Calcifications are noted in the spleen compatible with prior granulomatous disease. Spleen is enlarged measuring 13.6 cm in craniocaudal dimension. Adrenals: Unremarkable. Kidneys and ureters: Renal cysts are seen. Bladder: Unremarkable. Reproductive organs: Prostatic calcifications are seen which may represent prior hemorrhage or granul omatous disease. Bowel: Multiple loops of small bowel are noted to be dilated with a transition point as it enters the left inguinal hernia. Subsequent loops of ileum are prominent but not definitely dilated. Lymph nodes Retroperitoneal: Subcentimeter lymph nodes are noted. Pelvic: Unremarkable. Mesenteric: Unremarkable. Peritoneum: Normal. Vessels: Atherosclerotic calcifications are seen. Abdominal wall: A left inguinal hernia contains a loop of small bowel with small amount of free fluid . Bones: Degenerative changes in the visualized spine. IMPRESSION: 1. Small bowel obstruction with a transition point in a left inguinal hernia concerning for incarcer ated loop of bowel. No evidence of bowel ischemia is seen. 2. Additional findings as above. ACT 112: Negative or not required by law. Electronically signed by: Miguel Cartwright M.D. 10/20/2022 5:07 PM
[2022-10-20] MEDS ORDERED: ceFAZolin 330 MG/ML 1 GM VIAL ONE (18:34)
[2022-10-20] MEDS ORDERED: BUPIVACAINE/EPINEPHRINE 0.5% MPF 1:200,000 30 ML VIAL ONE (18:34)
--- NOTE | 2022-10-20 18:36 | Anesthesiology Consultation ---
Date of Service October 20, 2022 Assessment & Plan (1) Encounter for pre-operative examination: Chart Review Chart Review: Acceptable Risk for Surgery (urgent procedure) History Surgery Operation Date: 10/20/22 18:25 Proposed Procedures p Inguinal Hernia Repair - Dillon Sin MD, FACS Height/Weight Height: 5 ft 7 in Weight: 72 kg Allergies Allergy/AdvReac Type Severity Reaction Status Date / Time naproxen Allergy Intermediate ITCHY ALL Verified 10/20/22 18:21 OVER piperacillin [From Zosyn] Allergy Mild Hives Verified 10/20/22 18:21 tazobactam [From Zosyn] Allergy Mild Hives Verified 10/20/22 18:21 Medications Home Medications Medication Instructions Recorded Confirmed Last Taken multivitamin 1 tab PO QDL 12/21/17 10/20/22 10/19/22 anagrelide 1 mg capsule 1 mg PO QPM 11/16/18 10/20/22 10/19/22 vit C,C-Ya-humboh-lutein-zeaxan 60 1 cap PO BID 02/25/19 10/20/22 10/20/22 mg-13.5 mg-15 mg-2 mg-6 mg capsule (Ocuvite Lutein and Zeaxanthin) aspirin 81 mg tablet,delayed 81 mg PO QDL 09/15/20 10/20/22 10/19/22 release (Aashish Low Dose Aspirin) carvedilol 12.5 mg tablet 12.5 mg PO BID 09/15/20 10/20/22 10/20/22 hydroxyzine HCl 10 mg tablet 10 mg PO DAILY PRN Itching 09/15/20 10/20/22 10/19/22 hydroxyurea 500 mg capsule 500 mg PO QDL 09/30/20 10/20/22 10/19/22 amlodipine 5 mg tablet (Norvasc) 10 mg PO QAM #60 tabs 05/19/21 10/20/22 10/20/22 tamsulosin 0.4 mg capsule 0.4 mg PO HS 01/12/22 10/20/22 10/19/22 Past Medical History Medical History Anemia CKD (chronic kidney disease), stage III Creatine baseline around 1.4 per records Essential thrombocythemia Platelet count around 1.6 million at time of dx in 2010 Hypertension Iron overload Recent- following with heme/onc- per 12/17/20 note- pt was on Jadenu- d/c'ed secondary to elevated LFTs CONNIE-2 gene mutation F/U DR BOOKER HALLMAN On Hydroxyurea Melanoma On anticoagulant therapy on anagrelide Small bowel obstruction 2018 Treated conservatively Past Family History Family History Other Family history unobtainable due to orphan status Past Surgical History Surgical History H/O endoscopy (~11/2020) EUS History of adenoidectomy History of bilateral cataract extraction History of colonoscopy 2019 History of esophagogastroduodenoscopy (EGD) 2019 History of Mohs micrographic surgery for skin cancer x2 removed off face History of tonsillectomy Social History Smoking Status: Former smoker tobacco type: pipe Do You Dip or Chew Tobacco: No Hx Alcohol Use: No Alcohol type: beer alcohol intake frequency: a few times a week Hx Substance Use: No substance use type: does not use Physical Exam Vital Signs Last Vital Signs Temp 36.4 C L 10/20/22 14:53 Pulse 77 10/20/22 16:00 Resp 19 10/20/22 16:00 BP 176/79 H 10/20/22 16:00 Pulse Ox 96 10/20/22 16:00 O2 Del Method Room Air 10/20/22 15:45 Testing Laboratory Results 10/20/22 15:27 10/20/22 15:27 Urine Color Yellow 10/20/22 16:37 Urine Appearance Clear (Clear) 10/20/22 16:37 Urine pH 8.0 (4.5-7.5) H 10/20/22 16:37 Ur Specific [place] 1.015 (1.000-1.030) 10/20/22 16:37 Urine Protein Trace (Negative) H 10/20/22 16:37 Urine Glucose (UA) Negative (Negative) 10/20/22 16:37 Urine Ketones Negative (Negative) 10/20/22 16:37 Urine Nitrite Negative (Negative) 10/20/22 16:37 Ur Leukocyte Esterase Negative (Negative) 10/20/22 16:37 Urine WBC (Auto) 1-5 /hpf (0-5) 10/20/22 16:37 Urine RBC (Auto) 5-10 /hpf (0-4) H 10/20/22 16:37 U Hyaline Cast (Auto) 1-5 /lpf (0-5) 10/20/22 16:37 U Epithel Cells (Auto) 0-5 /lpf (0-5) 10/20/22 16:37 Urine Bacteria (Auto) Negative (Negative) 10/20/22 16:37 Electrocardiogram Date: 06/04/21 Findings: + NSR @ (67) widened QRS
[2022-10-20] MEDS ORDERED: CLINDAMYCIN/D5W 900 MG/50 ML BAG IV SCH (18:45)
--- NOTE | 2022-10-20 18:47 | History & Physical Report ---
Date of Service October 20, 2022 Assessment & Plan (1) Incarcerated inguinal hernia: Plan: Patient has incarcerated left inguinal hernia This is causing a small bowel obstruction Patient needs urgent intervention to avoid ischemia and infarction We will proceed with open left inguinal hernia repair as soon as possible History of Present Illness Primary Care Provider: Ritesh Reyes MD 82-year-old male who has had abdominal pain nausea and vomiting today presenting the emergency room with change in bowel habits He was found on CAT scan to have evidence of a small bowel obstruction from an incarcerated left inguinal hernia He has a history of chronic kidney disease and hypertension Allergies Allergy/AdvReac Type Severity Reaction Status Date / Time naproxen Allergy Intermediate ITCHY ALL Verified 10/20/22 18:21 OVER piperacillin [From Zosyn] Allergy Mild Hives Verified 10/20/22 18:21 tazobactam [From Zosyn] Allergy Mild Hives Verified 10/20/22 18:21 Home Medications Medication Instructions Recorded Confirmed Type multivitamin 1 tab PO QDL 12/21/17 10/20/22 History anagrelide 1 mg capsule 1 mg PO QPM 11/16/18 10/20/22 History vit C,C-Vv-fcehsa-lutein-zeaxan 60 1 cap PO BID 02/25/19 10/20/22 History mg-13.5 mg-15 mg-2 mg-6 mg capsule (Ocuvite Lutein and Zeaxanthin) aspirin 81 mg tablet,delayed 81 mg PO QDL 09/15/20 10/20/22 History release (Aashish Low Dose Aspirin) carvedilol 12.5 mg tablet 12.5 mg PO BID 09/15/20 10/20/22 History hydroxyzine HCl 10 mg tablet 10 mg PO DAILY PRN Itching 09/15/20 10/20/22 History hydroxyurea 500 mg capsule 500 mg PO QDL 09/30/20 10/20/22 History amlodipine 5 mg tablet (Norvasc) 10 mg PO QAM #60 tabs 05/19/21 10/20/22 Rx tamsulosin 0.4 mg capsule 0.4 mg PO HS 01/12/22 10/20/22 History Past Med/Surg History Medical History Anemia CKD (chronic kidney disease), stage III Creatine baseline around 1.4 per records Essential thrombocythemia Platelet count around 1.6 million at time of dx in 2010 Hypertension Iron overload Recent- following with heme/onc- per 12/17/20 note- pt was on Jadenu- d/c'ed secondary to elevated LFTs CONNIE-2 gene mutation F/U 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 [facility] On Hydroxyurea Melanoma On anticoagulant therapy on anagrelide Small bowel obstruction 2018 Treated conservatively Surgical History H/O endoscopy (~11/2020) EUS History of adenoidectomy History of bilateral cataract extraction History of colonoscopy 2019 History of esophagogastroduodenoscopy (EGD) 2019 History of Mohs micrographic surgery for skin cancer x2 removed off face History of tonsillectomy Family History Other Family history unobtainable due to orphan status Social History Smoking Status: Former smoker Tobacco Type: Cigarettes Second Hand Exposure: No; Do You Dip or Chew Tobacco: No; Hx Alcohol Use: No Hx Substance Use: No Preferred Language: Amharic Communication Ability: Effective Plant Operations Vice President Required: No Beliefs That Will Affect Care: None marital status: Current Living Situation: Spouse Current Living Situation Comment: in a home with current occupational status: retired Feels Safe at Home: Yes Assistive Devices: Glasses Review of Systems All systems reviewed & are unremarkable except as noted in HPI & below Physical Exam Physical Exam: Patient is awake and alert in no distress He does have a palpable fullness in the left inguinal area with minimal tenderness Constitutional: well developed and well nourished; no acute distress Eyes: + anicteric sclerae Respiratory: normal respiratory effort; no respiratory distress Cardiovascular: Rate/Rhythm: regular rhythm Gastrointestinal (Abdomen): Inspection/Auscultation: + abdomen distended No tenderness Musculoskeletal: Head/Neck/Chest: head atraumatic Skin: no rashes, warm and dry Neurologic: awake Psychiatric: Orientation: alert Results & Data Vital Signs (Past 12 Hours) Vital Signs Temp Pulse Pulse Resp BP BP Pulse Ox 10/20/22 18:40 98 H 20 162/77 H 93 10/20/22 16:00 77 19 176/79 H 96 10/20/22 15:50 87 12 96 10/20/22 15:44 82 19 96 10/20/22 15:45 68 10/20/22 15:45 88 18 96 10/20/22 14:53 36.4 C L 97 H 20 119/75 98 O2 Del Method 10/20/22 18:40 Room Air 10/20/22 16:00 10/20/22 15:50 10/20/22 15:44 10/20/22 15:45 10/20/22 15:45 Room Air 10/20/22 14:53 Diagnostic Findings I did review his CAT scan and report
[2022-10-20] MEDS ORDERED: BUPIVACAINE 0.5 % 5 MG/1 ML MPF 30ML VIAL ONE (19:04)
--- NOTE | 2022-10-20 19:07 | Consultation ---
Date of Consultation October 20, 2022 Assessment & Plan (1) Incarcerated inguinal hernia: (2) Anemia: (3) CKD (chronic kidney disease), stage III: (4) Essential thrombocythemia: (5) Hypertension: Plan This is an 82 yr old M who has a significant PMH of HTN, CKD-3, anemia of c hronic disease, essential thrombocythemia and hx of SBO who presented to ED 2/2 abdominal pain x 1 day. --CT a/p:Small bowel obstruction with a transition point in a left inguinal hernia concerning for incarcerated loop of bowel. No evidence of bowel ischemia is seen. SBO 2/2 L inguinal hernia s/p Left Inguinal Hernia Repair, Excision of lipoma of cord, POD #0 EBL 10ml pain/wound management per surgery diet, activity per general surgery HTN Continue Coreg and amlodipine postoperatively as blood pressure permits chronic, stable CKD-3 baseline cr 1.5 chronic, stable avoid nephrotoxic agents pt did receive IV contrast, recommend IVF overnight with close monitoring of renal function Anemia of renal disease follows Dr. Sandoval received 1 unit PRBC on 10/18 pt has transfusion approx every 3 weeks erythropoietin ineffective will need close monitoring of hgb Essential Thrombocythemia Jak2 mutation positive follows Dr. Sandoval had 1.[address] in 2010 continue hydroxyurea, plt stable DVT ppx: SCDs, and per surgery Dispo: per surgery DNR/DNI discussed with pt at bedside PCP: Dr. Reyes Please refer to Dr. Gaitan addendum for further physical exam, assessment and tx findings. Thank you for this consultation. We will follow the patient with you during their hospital stay. You can reach a member of the [facility] Hospitalist Team 05/09 via hospitalist role on tiger text. Supervising Physician Co-Signing Physician Notes IM ATTENDING : Patient seen and examined. History obtained from patient and records. Preceding documentation by Ms. Isabel Wise PA-C reviewed. Patient seen at bedside postop. Patient currently denies chest pain, SOB. Abdominal discomfort tolerable. Final Assessment and Recommendations as follows : Incarcerated left inguinal hernia status post surgery Patient currently comfortable Hypertension, elevated CRI, creatinine close to baseline Chronic anemia (baseline hemoglobin of 7), hemoglobin better than baseline likely secondary to hemoconcentration Essential thrombocythemia on aspirin, anagrelide, and Hydrea home regimen Transaminitis, has been a problem in the past secondary to previous Jadenu medication as per outpatient GI note 2020; patient current anagrelide and Hydrea medications as potential causative agents. BPH stable on Flomax Past tobacco abuse Agree with medical telemetry monitoring given elevated BP Facilitate home BP meds Resume home aspirin and anagrelide in a.m. for patient's thrombocythemia if no postop bleeding concerns from General Surgery standpoint Follow LFTs, recommend GI consult if with further elevation. DVT prophylaxis. SCDs as per postop orders Recommend pharmacologic anticoagulation with heparin 5000 units subcutaneous every 8 hours once bleeding risk is deemed to be minimal/negligible pending General Surgery postop eval. DNR directives as per discussion with advanced practitioner. Thank you very much for this consultation. Dr. Mercedes will follow patient's progress. Text document was generated using [employer] voice recognition software. It may contain grammatical or spelling errors. Kindly contact undersigned for clarification of any documentation item in question. History of Present Illness Requesting Physician: Post op medical management Reason for Consultation: Dr. Sin Attending Physician: Dillon Sin MD, [facility] History of Present Illness This is an 82 yr old M who has a significant PMH of HTN, CKD-3, anemia of chronic disease, essential thrombocythemia and hx of SBO who presented to ED 2/2 abdominal pain x 1 day. He also elicits nausea and vomiting. He has had a change in bowel habits with diarrhea yesterday and constipation today. Pt has prior hx of SBO. Currently pain is diffuse and rated 6/10. In ED patient underwent CT scan of abdomen pelvis which revealed small bowel obstruction with transition point in left inguinal hernia concerning for incarcerated loop of bowel. No ischemia was noted. He was seen and evaluated by general surgery who recommended urgent left inguinal hernia repair to prevent bowel infarction. Lab work further notable for elevated BUN and creatinine of 41 and 1.53, glucose 114, AST 57 and ALT 65. He has a chronic anemia with an H&H of 9.3 and 26.9. His platelet count is stable at 379. Pt was seen postoperatively. He is feeling much better and denies abd pain. He is comfortable. He denies f/c/s, chest pain, sob, n/v. Lives with significant other and ambulates w/o assist device. Denies smoking or alcohol use. He still drives. Allergies Allergy/AdvReac Type Severity Reaction Status Date / Time naproxen Allergy Intermediate ITCHY ALL Verified 10/20/22 18:21 OVER piperacillin [From Zosyn] Allergy Mild Hives Verified 10/20/22 18:21 tazobactam [From Zosyn] Allergy Mild Hives Verified 10/20/22 18:21 Home Medications Medication Instructions Recorded Confirmed Type multivitamin 1 tab PO QDL 12/21/17 10/20/22 History anagrelide 1 mg capsule 1 mg PO QPM 11/16/18 10/20/22 History vit C,W-Iv-ieccvp-lutein-zeaxan 60 1 cap PO BID 02/25/19 10/20/22 History mg-13.5 mg-15 mg-2 mg-6 mg capsule (Ocuvite Lutein and Zeaxanthin) aspirin 81 mg tablet,delayed 81 mg PO QDL 09/15/20 10/20/22 History release (Aashish Low Dose Aspirin) carvedilol 12.5 mg tablet 12.5 mg PO BID 09/15/20 10/20/22 History hydroxyzine HCl 10 mg tablet 10 mg PO DAILY PRN Itching 09/15/20 10/20/22 History hydroxyurea 500 mg capsule 500 mg PO QDL 09/30/20 10/20/22 History amlodipine 5 mg tablet (Norvasc) 10 mg PO QAM #60 tabs 05/19/21 10/20/22 Rx tamsulosin 0.4 mg capsule 0.4 mg PO HS 01/12/22 10/20/22 History Patient History Medical History Anemia CKD (chronic kidney disease), stage III Creatine baseline around 1.4 per records Essential thrombocythemia Platelet count around 1.6 million at time of dx in 2010 Hypertension Iron overload Recent- following with heme/onc- per 12/17/20 note- pt was on Jadenu- d/c'ed secondary to elevated LFTs CONNIE-2 gene mutation F/U 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 [facility] On Hydroxyurea Melanoma On anticoagulant therapy on anagrelide Small bowel obstruction 2018 Treated conservatively Surgical History H/O endoscopy (~11/2020) EUS History of adenoidectomy History of bilateral cataract extraction History of colonoscopy 2019 History of esophagogastroduodenoscopy (EGD) 2019 History of Mohs micrographic surgery for skin cancer x2 removed off face History of tonsillectomy Family History Other Family history unobtainable due to orphan status Social History Smoking Status: Former smoker Tobacco Type: Cigarettes Second Hand Exposure: No; Do You Dip or Chew Tobacco: No; Hx Alcohol Use: No Hx Substance Use: No Preferred Language: Lithuanian Communication Ability: Effective Operators Teacher Required: No Beliefs That Will Affect Care: None marital status: Current Living Situation: Spouse Current Living Situation Comment: in a home with current occupational status: retired Other Information That Helps Us Care for You: No Feels Safe at Home: Yes Safety Concerns: Feels Safe At This Time Assistive Devices: Glasses Review of Systems Review of Systems: All systems reviewed & are unremarkable except as noted in HPI & below Physical Exam Physical Exam: Constitutional: WD/WN, elderly, male vitals as above, NAD, sitting up in bed, pleasant, conversing easily Head: Normocephalic, Atraumatic, seborrheic keratoses on right temporal region Eyes: PERRL, conjunctivae normal, anicteric sclerae ENMT: external ear and nose normal, oropharynx normal Neck: trachea midline, no thyromegaly normal visual inspection Respiratory: normal respiratory effort, decreased breath sounds at bases due to decreased right upper lungs clear to auscultation, no wheeze, rales, rhonchi. Normal insp/exp effort, no accessory muscle use Cardiovascular: RRR, no murmur, no edema Vessels: no JVD or carotid bruit Chest: normal inspection of chest Abdomen: Soft, flat, +bs Musculoskeletal: no cyanosis or clubbing, active range of motion x4, bilateral SCDs Skin: no rashes, warm and dry normal turgor Neurologic: PERRL, EOMI, accommodation nl, no face palsy, no dysarthria CN's II-XI intact bilaterally and moves all extremities Psychiatric: A+Ox3, euthymic affect Lymphatic: no cervical or axillary lymphadenopathy : deferred Results & Data Vital Signs (Past 12 Hours) Vital Signs Temp Pulse Pulse Resp BP BP Pulse Ox 10/20/22 19:00 37.5 C 111 H 18 158/95 H 92 10/20/22 18:40 98 H 20 162/77 H 93 10/20/22 16:00 77 19 176/79 H 96 10/20/22 15:50 87 12 96 10/20/22 15:44 82 19 96 10/20/22 15:45 68 10/20/22 15:45 88 18 96 10/20/22 14:53 36.4 C L 97 H 20 119/75 98 O2 Del Method 10/20/22 19:00 Room Air 10/20/22 18:40 Room Air 10/20/22 16:00 10/20/22 15:50 10/20/22 15:44 10/20/22 15:45 10/20/22 15:45 Room Air 10/20/22 14:53 Laboratory Results Short CBC 10/20/22 Range/Units 15:27 WBC 7.76 (4.8-10.8) K/ul Hgb 9.3 L (14.0-18.0) g/dl Hct 26.9 L (42.0-52.0) % Plt Count 379 (130-400) K/uL BMP 10/20/22 15:27 Sodium 141 Potassium 4.8 Chloride 107 Carbon Dioxide 27 BUN 41 H Creatinine 1.53 H Glucose 114 H Calcium 9.4 Liver Function 10/20/22 Range/Units 15:27 Total Bilirubin 0.8 (0.2-1.0) mg/dl AST 57 H (13-39) U/L ALT 65 H (7-52) U/L Alkaline Phosphatase 49 (34-104) U/L Albumin 4.6 (3.4-5.0) gm/dl Urine 10/20/22 Range/Units 16:37 Urine Color Yellow Urine Appearance Clear (Clear) Urine pH 8.0 H (4.5-7.5) Ur Specific [place] 1.015 (1.000-1.030) Urine Protein Trace H (Negative) Urine Glucose (UA) Negative (Negative) Diagnostic Findings Abdomen/Pelvis CT 10/20/22 15:35 CT abd pelvis IV con only CLINICAL HISTORY: abd pain, distention, hx of obstruction TECHNIQUE: Helical axial images of the abdomen and pelvis were obtained and displayed. Automated dose lowering techniques and/or adjustment according to patient size were utilized for this exam. This exam was performed with intravenous contrast. CT DOSE: 1117.00 mGy.cm COMPARISON: Comparison is made to CT abdomen pelvis 05/15/2021 FINDINGS: Lower chest: Bibasilar atelectasis versus scarring is seen. Liver: Unremarkable. No focal lesions are seen. Gallbladder and biliary tree: No calcified gallstones. Normal caliber wall. No intra- or extrahepatic biliary ductal dilation. Pancreas: Unremarkable, no focal lesions. Spleen: Calcifications are noted in the spleen compatible with prior granulomatous disease. Spleen is enlarged measuring 13.6 cm in craniocaudal dimension. Adrenals: Unremarkable. Kidneys and ureters: Renal cysts are seen. Bladder: Unremarkable. Reproductive organs: Prostatic calcifications are seen which may represent prior hemorrhage or granulomatous disease. Bowel: Multiple loops of small bowel are noted to be dilated with a transition point as it enters the left inguinal hernia. Subsequent loops of ileum are prominent but not definitely dilated. Lymph nodes Retroperitoneal: Subcentimeter lymph nodes are noted. Pelvic: Unremarkable. Mesenteric: Unremarkable. Peritoneum: Normal. Vessels: Atherosclerotic calcifications are seen. Abdominal wall: A left inguinal hernia contains a loop of small bowel with small amount of free fluid. Bones: Degenerative changes in the visualized spine. IMPRESSION: 1. Small bowel obstruction with a transition point in a left inguinal hernia concerning for incarcerated loop of bowel. No evidence of bowel ischemia is seen. 2. Additional findings as above. ACT 112: Negative or not required by law. Electronically signed by: Miguel Cartwright M.D. 10/20/2022 5:07 PM Medications Administered Medication List Discontinued Medications Sodium Chloride (Nss) 1,000 mls @ 999 mls/hr IV .Q1H1M STA Stop: 10/20/22 16:18 Last Infusion: 10/20/22 16:49 Dose: 0 mls/hr Documented By: Admin: 10/20/22 15:33 Dose: 999 mls/hr Documented By: SEVERINO Ioversol (Optiray 320 100ml) 89 ml IV ONCE ONE Stop: 10/20/22 16:28 Last Admin: 10/20/22 16:27 Dose: 89 ml Documented By: BRII Ondansetron HCl (Ondansetron Inj 2 Mg/Ml 2 Ml Vial) 4 mg IV NOW STA Stop: 10/20/22 15:19 Last Admin: 10/20/22 15:33 Dose: 4 mg Documented By: MMG ECG Rate (beats per minute): 96 Rhythm: normal sinus (2) Anemia Anemia type: unspecified type Qualified Code(s): D64.9 - Anemia, unspecified
[2022-10-20] MEDS ORDERED: fentaNYL citrate PF 100 MCG/2 ML VIAL ONE (19:08)
[2022-10-20] MEDS ORDERED: PROPOFOL IV EMULSION 10 MG/ML 20 ML VIAL IV ONE (19:08)
[2022-10-20] MEDS ORDERED: ROCURONIUM BROMIDE 10 MG/ML 5 ML VIAL IV ONE (19:09)
[2022-10-20] MEDS ORDERED: SUCCINYLCHOLINE CHLORIDE 20 MG/ML 10 ML VIAL IV ONE (19:09)
[2022-10-20] MEDS ORDERED: ONDANSETRON INJ 2 MG/ML 2 ML VIAL ONE (19:09)
[2022-10-20] MEDS ORDERED: LIDOCAINE 2% 2 ML VIAL/AMP(20MG/ML) INFIL ONE (19:09)
[2022-10-20] MEDS ORDERED: DEXAMETHASONE SOD INJ 4 MG/ML VIAL ONE (19:09)
--- NOTE | 2022-10-20 20:13 | Post Operative Brief Note ---
PG Immediate Post Op with CF Date of Surgery October 20, 2022 Pre & Post Diagnosis Operation Date: 10/20/22 18:25 <No data on this case meets the specified criteria> Incarcerated left inguinal hernia I identified the patient and participated in the time-out.: Yes Procedure Operation Date: 10/20/22 18:25 <No data on this case meets the specified criteria> Open repair of incarcerated left inguinal hernia Surgeon Dillon Sin MD, FACS Supervisor Covering And Lining nathan montero Estimated Blood Loss 10 Findings Consistent with Post-Op Diagnosis Indirect sac with lipoma, bowel reduced with anesthesia no evidence of ischemia or infarction Specimens Specimen Description: A. lipoma of cord B. hernia sac
[2022-10-20] MEDS ORDERED: ACETAMINOPHEN 1,000 MG/100 ML VIAL IV ONE (20:14)
--- NOTE | 2022-10-20 20:29 | Operative Report ---
PG Post Operative Report Pre & Post Diagnosis Operation Date: 10/20/22 18:25 Pre-Op Diagnosis: Left inguinal hernia with incarcerated bowel Post-Op Diagnosis: Left inguinal hernia with incarcerated bowel I identified the patient and participated in the time-out.: Yes Procedure Operation Date: 10/20/22 18:25 Actual Procedures p Left Inguinal Hernia Repair, Excision of lipoma of cord(Left) - Dillon Sin MD, FACS Surgeon Dillon Sin MD, FACS Wig Stylist nathan montero Estimated Blood Loss 10 Findings Consistent with Post-Op Diagnosis Patient's bowel reduced with anesthesia, had an indirect hernia sac with lipoma, no evidence of ischemia or infarction Specimens Lipoma and hernia sac Description of Procedure Patient brought in the operating room placed operating table supine position His lower abdomen was prepped and draped in usual fashion, left side was approached skin and subcutaneous tissue were anesthetized using half percent plain Marcaine Incision made parallel to the inguinal ligament carried dissection down identifying the external bleak fibers These were incised along their length to the external ring mobilized the cord structures Patient had a large lipoma which was excised and ligated using 2-0 silk suture He had a second lipoma which was dissected free and reduced He had an indirect hernia sac which was partially excised and then closed using 0 silk suture Relaxing incision was made above through the fascia Internal ring then reinforced using interrupted 0 silk suture and 2-0 Ethibond suture External bleak fibers closed around the cord structures using 2-0 Ethibond suture Site was anesthetized using half percent plain Marcaine Subcutaneous tissue reapproximated with 2-0 plain suture Skin reapproximated using 4-0 nylon suture and Steri-Strips There is no evidence of bowel ischemia or infarction however I was concerned because of the edema of the risk of infection of mesh therefore no mesh was used My boiler assistant operator help with prepping draping repair of the hernia and closure of the wound Patient transferred recovery room in stable condition I attest to the content of the Intraoperative Record and any orders documented therein. Any exceptions are noted below.
[2022-10-20 20:48] LABS: Magnesium 2.2 mg/dl (1.7-2.4)
--- NOTE | 2022-10-20 20:55 | Anesthesiology Progress Note ---
Date of Service October 20, 2022 Anesthesia Post Procedure Vital Signs Vital Signs: Temp Pulse Pulse Resp BP BP Pulse Ox 10/20/22 20:45 88 23 138/98 95 10/20/22 20:35 86 19 144/76 H 97 10/20/22 20:26 36.5 C 87 20 131/82 97 10/20/22 19:00 37.5 C 111 H 18 158/95 H 92 10/20/22 18:40 98 H 20 162/77 H 93 10/20/22 16:00 77 19 176/79 H 96 10/20/22 15:50 87 12 96 10/20/22 15:44 82 19 96 10/20/22 15:45 68 10/20/22 15:45 88 18 96 10/20/22 14:53 36.4 C L 97 H 20 119/75 98 O2 Del Method O2 Flow Rate 10/20/22 20:45 Oxymask 3 10/20/22 20:35 Oxymask 7 10/20/22 20:26 Oxymask 7 10/20/22 19:00 Room Air 10/20/22 18:40 Room Air 10/20/22 16:00 10/20/22 15:50 10/20/22 15:44 10/20/22 15:45 10/20/22 15:45 Room Air 10/20/22 14:53 Pain Intensity Lower Abdomen: Pain Intensity: 3 Transfer of Care Handoff Completed per policy Notes Mental Status: alert / awake / arousable Patient Amnestic to Procedure: Yes Nausea / Vomiting: adequately controlled Pain: adequately controlled Airway Patency, RR, SpO2: stable & adequate BP & HR: stable & adequate Hydration State: stable & adequate Anesthetic Complications: no major complications apparent
[2022-10-20] MEDS ORDERED: ACETAMINOPHEN 325 MG TAB PO PRN (21:21)
[2022-10-20] MEDS ORDERED: SODIUM CHLORIDE 0.9% 500 ML IV SCH (21:21)
[2022-10-20] MEDS ORDERED: MoRPHine SULFATE 2 MG/ML CARP IV PRN (21:21)
[2022-10-20] MEDS ORDERED: ONDANSETRON INJ 2 MG/ML 2 ML VIAL IV PRN (21:21)
[2022-10-20] MEDS ORDERED: oxyCODONE HCL IR 5 MG TAB (IMMEDIATE RELEASE) PO PRN (21:21)
[2022-10-20] MEDS: DOCUSATE SODIUM/SENNA 50/8.6MG TAB PO SCH (22:20)
[2022-10-20] MEDS: carvediloL 12.5 MG TAB PO SCH (22:20)
[2022-10-20] MEDS: MAGNESIUM HYDROXIDE SUSP 30 ML UDC PO SCH (22:20)
[2022-10-20] MEDS: CIPROFLOXACIN / D5W 400 MG/200 ML BAG IV SCH (22:20)
[2022-10-21] MEDS ORDERED: SODIUM CHLORIDE 0.9% 1,000 ML IV SCH (06:00)
[2022-10-21] MEDS ORDERED: SODIUM CHLORIDE 0.9% 500 ML IV SCH (06:00)
[2022-10-21] MEDS ORDERED: LORATADINE 10 MG TAB PO ONE (06:02)
[2022-10-21] MEDS ORDERED: ACETAMINOPHEN 500 MG TAB PO PRN (06:02)
[2022-10-21 07:02] LABS: Basophils # (auto) 0.05 K/uL (0.00-0.20); Basophils % (auto) 0.3 %; Eosinophils # (auto) 0.03 K/uL (0.00-0.50); Eosinophils % (auto) 0.2 %; Hematocrit (blood only) 24.4 % (42.0-52.0); Hemoglobin 8.1 g/dl (14.0-18.0); Immature Granulocytes # (auto) 0.25 K/uL (0.01-0.20); Immature Granulocytes % (auto) 1.7 %; Lymphocytes # (auto) 0.78 K/uL (1.20-3.40); Lymphocytes % (auto) 5.2 %; Mean Corpuscular Hemoglobin 29.3 pg (25.0-34.0); Mean Corpuscular Hgb Conc 33.2 g/dL (32.0-36.0); Mean Corpuscular Volume 88.4 fL (80.0-100.0); Mean Platelet Volume 10.8 fL (9.4-12.4); Monocytes # (auto) 1.72 K/uL (0.11-0.59); Monocytes % (auto) 11.6 %; Neutrophils # (auto) 12.03 K/uL (1.40-6.50); Platelet Count 357 K/uL (130-400); RDW Coefficient of Variation 18.6 % (11.5-14.5); RDW Standard Deviation 50.6 fL (36.4-46.3); Red Blood Count 2.76 M/uL (4.70-6.10); White Blood Count 14.86 K/ul (4.8-10.8)
[2022-10-21 07:13] LABS: Albumin Globulin Ratio 1.7 (0.9-2); Albumin Level 3.9 gm/dl (3.4-5.0); BUN Creatinine Ratio 28.5 (10-20); Bilirubin,Total 1.3 mg/dl (0.2-1.0); Calcium 8.1 mg/dl (8.6-10.3); Creatinine Clr Calc Pharmacy 41.8 ml/min; Est GFR (African American) 62.1 ml/min; Est GFR (Non-African American) 53.6 ml/min; Globulin 2.3 gm/dl (2.5-4.0); Potassium 4.9 mmol/L (3.5-5.1); Total Protein 6.2 gm/dl (6.0-8.3)
--- NOTE | 2022-10-21 07:32 | XRay Report ---
XR chest 1V portable CLINICAL HISTORY: low o2 TECHNIQUE: Single frontal radiograph of the chest was obtained. Comparison: Comparison is made to chest radiograph 05/15/2021 FINDINGS: A port catheter is seen. Mild cardiomegaly is seen. The lungs are clear. No evidence of pleural effus ion or pneumothorax. IMPRESSION: No acute abnormalities and in particular no radiographic evidence of pneumonia. ACT 112: Negative or not required by law. Electronically signed by: Miguel Cartwright M.D. 10/21/2022 7:30 AM
--- NOTE | 2022-10-21 07:36 | Surgery Progress Note ---
Date of Service October 21, 2022 Assessment & Plan (1) Status post left inguinal hernia repair: Plan: Patient with incarcerated small bowel which reduced with anesthesia Hernia repair without mesh Continue antibiotics for now Advance diet-assess tolerance and also activity level Possible DC later today but more likely tomorrow Dr. Florse covering over the weekend Admission and Anticipated Discharge Date Admission Date: October 20, 2022 Results & Data Vital Signs (Past 12 Hours) Vital Signs Temp Pulse Pulse Pulse Resp BP Pulse Ox 10/21/22 07:05 10/21/22 06:00 88 10/21/22 02:42 37.0 C 84 18 167/76 H 94 10/21/22 00:17 94 H 10/21/22 00:00 37.2 C 87 17 145/68 H 96 10/20/22 23:00 37.1 C 82 17 152/78 H 95 10/20/22 22:57 91 H 10/20/22 22:00 37.2 C 93 H 18 160/65 H 95 10/20/22 21:33 36.6 C 90 18 150/64 H 95 10/20/22 21:05 86 17 156/63 H 94 10/20/22 20:55 36.6 C 85 21 147/66 H 93 10/20/22 20:45 88 23 138/98 95 10/20/22 20:35 86 19 144/76 H 97 10/20/22 20:26 36.5 C 87 20 131/82 97 O2 Del Method O2 Flow Rate 10/21/22 07:05 Room Air 10/21/22 06:00 10/21/22 02:42 Nasal Cannula 1 10/21/22 00:17 10/21/22 00:00 Nasal Cannula 2 10/20/22 23:00 Nasal Cannula 2 10/20/22 22:57 10/20/22 22:00 Nasal Cannula 2 10/20/22 21:33 Nasal Cannula 2 10/20/22 21:05 Nasal Cannula 2 10/20/22 20:55 Nasal Cannula 2 10/20/22 20:45 Oxymask 3 10/20/22 20:35 Oxymask 7 10/20/22 20:26 Oxymask 7 PG Care Time/CCT Total # of Minutes Spent Total Time Spent with Patient: Total time spent is greater than 50% in coordination of care (as documented) at patient's floor/unit and/or counseling patient: Coding Level of Care Code 76195 Post Operative Follow-Up Diagnoses Status post left inguinal hernia repair Z98.890; Z87.19
[2022-10-21] MEDS: carvediloL 12.5 MG TAB PO SCH ×2 (08:10→18:14)
[2022-10-21] MEDS: DOCUSATE SODIUM/SENNA 50/8.6MG TAB PO SCH ×2 (08:10→20:17)
[2022-10-21] MEDS: MAGNESIUM HYDROXIDE SUSP 30 ML UDC PO SCH ×2 (08:10→20:17)
[2022-10-21] MEDS: amLODIPine BESYLATE 5 MG TAB PO SCH (08:11)
[2022-10-21] MEDS ORDERED: VIT C E ZN COPPR LUTEIN ZEAXAN PO SCH (09:00)
[2022-10-21] MEDS ORDERED: [UNRECOGNIZED DRUG - OTHER] PO SCH (09:00)
[2022-10-21] MEDS: CIPROFLOXACIN / D5W 400 MG/200 ML BAG IV SCH ×2 (09:01→20:18)
[2022-10-21] MEDS: HEPARIN SOD 5,000 UNIT/0.5 ML VIAL SQ SCH ×2 (09:37→20:17)
[2022-10-21] MEDS: HYDROXYUREA 500 MG CAP PO SCH (12:46)
[2022-10-21] MEDS: CEROVITE ADV FORMULA TAB PO SCH (12:46)
--- NOTE | 2022-10-21 13:47 | Hospitalist Progress Note ---
Date of Service October 21, 2022 Assessment & Plan (1) Incarcerated inguinal hernia: (2) Anemia: (3) CKD (chronic kidney disease), stage III: (4) Essential thrombocythemia: (5) Hypertension: Plan 82 yr old M who has a significant PMH of HTN, CKD-3, anemia of chronic disease, essential thrombocythemia and hx of SBO who presented to ED 2/2 abdominal pain x 1 day. --CT a/p:Small bowel obstruction with a transition point in a left inguinal hernia concerning for incarcerated loop of bowel. No evidence of bowel ischemia is seen. SBO 2/2 L inguinal hernia s/p Left Inguinal Hernia Repair, Excision of lipoma of cord, POD #1 EBL 10ml pain/wound management per surgery diet, activity per general surgery HTN Continue Coreg and amlodipine postoperatively as blood pressure permits chronic, stable CKD-3 baseline cr 1.5 chronic, stable avoid nephrotoxic agents pt did receive IV contrast, recommend IVF overnight with close monitoring of renal function Anemia of renal disease follows Dr. 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 c/w anagrelide DVT ppx: SCDs, and per surgery Dispo: per surgery DNR/DNI PCP: Dr. Reyes Thank you for this consultation. We will follow the patient with you during their hospital stay. You can reach a member of the [facility] Hospitalist Team 05/09 via hospitalist role on tiger text. Admission and Anticipated Discharge Date Admission Date: October 20, 2022 Subjective Patient seen and examined at bedside as a follow-up of medical management for status post left inguinal hernia repair. Patient was lying in bed, on room air, comfortable, not in any acute distress. Patient moving around okay. Patient tolerating diet okay. Patient has been moving gas but has not moved bowel. Denies any fever or chills or headache. Denies any sore throat or cough or chest pain. Physical Exam Physical Exam: GENERAL: Alert and oriented x3. NAD, on RA. HEENT: No pallor, no icterus. Pupils equal, round and reactive to light. Oral mucosa moist. NECK: No JVD, no neck masses. HEART: S1 and S2 heard. Regular rate and rhythm. No murmur, no gallop. RESPIRATORY SYSTEM: Normal AP diameter. No accessory muscle use. No wheezing, no crackles. ABDOMEN: Soft, bowel sounds present, lower abd dressing c/d/i, no distention. CENTRAL NERVOUS SYSTEM: No facial droop. Speech is clear. Obeys simple commands. Moves extremities. EXTREMITIES: No edema, no erythema seen. Results & Data Results & Data Vital Signs (Past 12 Hours) Vital Signs Temp Pulse Pulse Pulse Resp BP Pulse Ox 10/21/22 11:21 36.3 C L 68 16 161/69 H 92 10/21/22 07:49 36.6 C 75 16 162/76 H 91 10/21/22 07:05 10/21/22 06:00 88 10/21/22 02:42 37.0 C 84 18 167/76 H 94 O2 Del Method O2 Flow Rate 10/21/22 11:21 Room Air 10/21/22 07:49 Room Air 10/21/22 07:05 Room Air 10/21/22 06:00 10/21/22 02:42 Nasal Cannula 1 (2) Anemia Anemia type: unspecified type Qualified Code(s): D64.9 - Anemia, unspecified
--- NOTE | 2022-10-21 17:50 | Electrocardiogram Report ---
Test Reason : Blood Pressure : / mmHG Vent. Rate : 096 BPM Atrial Rate : 096 BPM P-R Int : 196 ms QRS Dur : 104 ms QT Int : 366 ms P-R-T Axes : 061 -49 070 degrees QTc Int : 462 ms Normal sinus rhythm Possible Left atrial enlargement Left axis deviation Minimal voltage criteria for LVH, may be normal variant Abnormal ECG When compared with ECG of 15-MAY-2021 14:14, No significant change was found Confirmed by Shadi Martinez ([id number]) on 10/21/2022 5:49:51 PM Referred By: REFERRED SELF Confirmed By:Uri Martinez
[2022-10-21] MEDS: TAMSULOSIN HCL 0.4 MG CAP PO SCH (20:17)
[2022-10-22 07:39] LABS: Hematocrit (blood only) 21.9 % (42.0-52.0); Hemoglobin 7.3 g/dl (14.0-18.0); Mean Corpuscular Hemoglobin 29.7 pg (25.0-34.0); Mean Corpuscular Hgb Conc 33.3 g/dL (32.0-36.0); Mean Platelet Volume 10.6 fL (9.4-12.4); Nucleated RBC # (auto) 0.05 K/uL (0.00-0.12); Nucleated RBC % (auto) 0.5 %; Platelet Count 337 K/uL (130-400); RDW Coefficient of Variation 17.2 % (11.5-14.5); RDW Standard Deviation 50.1 fL (36.4-46.3); Red Blood Count 2.46 M/uL (4.70-6.10); White Blood Count 10.61 K/ul (4.8-10.8)
[2022-10-22 08:01] LABS: Albumin Level 3.5 gm/dl (3.4-5.0); BUN Creatinine Ratio 24.4 (10-20); Bilirubin Direct 0.1 mg/dl (0-0.2); Bilirubin,Total 1.2 mg/dl (0.2-1.0); Calcium 8.1 mg/dl (8.6-10.3); Creatinine Clr Calc Pharmacy 29.2 ml/min; Est GFR (African American) 40.3 ml/min; Est GFR (Non-African American) 34.7 ml/min; Magnesium 2.5 mg/dl (1.7-2.4); Phosphorus 3.3 mg/dl (2.5-4.9); Potassium 4.2 mmol/L (3.5-5.1); Total Protein 5.8 gm/dl (6.0-8.3)
[2022-10-22] MEDS: HEPARIN SOD 5,000 UNIT/0.5 ML VIAL SQ SCH ×2 (08:09→20:58)
[2022-10-22] MEDS: DOCUSATE SODIUM/SENNA 50/8.6MG TAB PO SCH ×2 (08:10→20:57)
[2022-10-22] MEDS: MAGNESIUM HYDROXIDE SUSP 30 ML UDC PO SCH ×2 (08:10→20:57)
[2022-10-22] MEDS: carvediloL 12.5 MG TAB PO SCH ×2 (08:10→20:58)
[2022-10-22] MEDS: amLODIPine BESYLATE 5 MG TAB PO SCH (08:10)
[2022-10-22] MEDS: CIPROFLOXACIN / D5W 400 MG/200 ML BAG IV SCH ×2 (09:59→20:59)
[2022-10-22] MEDS: CEROVITE ADV FORMULA TAB PO SCH (11:47)
[2022-10-22] MEDS: HYDROXYUREA 500 MG CAP PO SCH (11:47)
[2022-10-22 13:14] LABS: Hematocrit (blood only) 23.1 % (42.0-52.0); Hemoglobin 7.6 g/dl (14.0-18.0)
--- NOTE | 2022-10-22 16:14 | Surgery Progress Note ---
Date of Service October 22, 2022 Assessment & Plan (1) Status post left inguinal hernia repair: Plan: F/U S/P repair left inguinal hernia, POD 2 doing fine, O2 sat 91 % on 1 l/min o2, plan, pt wants to go home tomorrow, do lung excise. Discharge home tomorrow, Admission and Anticipated Discharge Date Admission Date: October 20, 2022 Supervising Physician Co-Signing Physician Notes IM ATTENDING : Patient seen and examined. History obtained from patient and records. Preceding documentation by Ms. Isabel Wise PA-C reviewed. Patient seen at bedside postop. Patient currently denies chest pain, SOB. Abdominal discomfort tolerable. Final Assessment and Recommendations as follows : Incarcerated left inguinal hernia status post surgery Patient currently comfortable Hypertension, elevated CRI, creatinine close to baseline Chronic anemia (baseline hemoglobin of 7), hemoglobin better than baseline likely secondary to hemoconcentration Essential thrombocythemia on aspirin, anagrelide, and Hydrea home regimen Transaminitis, has been a problem in the past secondary to previous Jadenu medication as per outpatient GI note 2020; patient current anagrelide and Hydrea medications as potential causative agents. BPH stable on Flomax Past tobacco abuse Agree with medical telemetry monitoring given elevated BP Facilitate home BP meds Resume home aspirin and anagrelide in a.m. for patient's thrombocythemia if no postop bleeding concerns from General Surgery standpoint Follow LFTs, recommend GI consult if with further elevation. DVT prophylaxis. SCDs as per postop orders Recommend pharmacologic anticoagulation with heparin 5000 units subcutaneous every 8 hours once bleeding risk is deemed to be minimal/negligible pending General Surgery postop eval. DNR directives as per discussion with advanced practitioner. Thank you very much for this consultation. Dr. Mercedes will follow patient's progress. Text document was generated using [employer] voice recognition software. It may contain grammatical or spelling errors. Kindly contact undersigned for clarification of any documentation item in question. Subjective Patient seen and examined at bedside as a follow-up of medical management for status post left inguinal hernia repair. Patient was lying in bed, on room air, comfortable, not in any acute distress. Patient moving around okay. Patient tolerating diet okay. Patient has been moving gas but has not moved bowel. Denies any fever or chills or headache. Denies any sore throat or cough or chest pain. 10/22/2022 4:[address] Flores F/U repair left inguinal hernia, POD 2, pt is doing fine, no significant incision pain, tolertaed diet, no nausea, no vomiting, no fever, O 2 sat 91 % on 1 l/min NC. pt denies SOB Physical Exam Constitutional: WD/WN, vitals as above Eyes: PERRL, conjunctivae normal, anicteric sclerae Neck: trachea midline, no thyromegaly Respiratory: normal respiratory effort, lungs clear to auscultation Cardiovascular: RRR, no murmur, no edema Gastrointestinal (Abdomen): soft, incision intcat, no redness. BS + Neurologic: patellar DTR's 2+ bilat, sensation intact Psychiatric: A+Ox3, euthymic affect Results & Data Vital Signs (Past 12 Hours) Vital Signs Temp Pulse Pulse Resp BP BP Pulse Ox 10/22/22 15:57 91 H 10/22/22 15:24 36.7 C 80 18 147/63 H 91 10/22/22 12:29 36.5 C 75 18 149/69 H 93 10/22/22 07:30 36.7 C 80 15 153/69 H 90 10/22/22 07:14 84 O2 Del Method O2 Flow Rate 10/22/22 15:57 10/22/22 15:24 Nasal Cannula 1 10/22/22 12:29 Nasal Cannula 1 10/22/22 07:30 Room Air 10/22/22 07:14 Laboratory Results Lab Results 10/20/22 10/20/22 10/20/22 Range/Units 15:27 15:27 15:27 WBC 7.76 (4.8-10.8) K/ul RBC 3.05 L (4.70-6.10) M/uL Hgb 9.3 L (14.0-18.0) g/dl Hct 26.9 L (42.0-52.0) % MCV 88.2 (80.0-100.0) fL MCH 30.5 (25.0-34.0) pg MCHC 34.6 (32.0-36.0) g/dL RDW Std Deviation 50.3 H (36.4-46.3) fL RDW Coeff of Echo 19.2 H (11.5-14.5) % Plt Count 379 (130-400) K/uL MPV 10.6 (9.4-12.4) fL Immature Gran % (Auto) 4.5 % Neut % (Auto) 63.1 % Lymph % (Auto) 14.0 % [place] % (Auto) 15.2 % Eos % (Auto) 2.2 % Baso % (Auto) 1.0 % Neut # (Auto) 4.89 (1.40-6.50) K/uL Lymph # (Auto) 1.09 L (1.20-3.40) K/uL [place] # (Auto) 1.18 H (0.11-0.59) K/uL Eos # (Auto) 0.17 (0.00-0.50) K/uL Baso # (Auto) 0.08 (0.00-0.20) K/uL Immature Gran # (Auto) 0.35 H (0.01-0.20) K/uL Absolute Nucleated RBC 0.02 (0.00-0.12) K/uL Nucleated RBC % (auto) 0.3 % Sodium 141 (136-145) mmol/L Potassium 4.8 (3.5-5.1) mmol/L Chloride 107 (98-107) mmol/L Carbon Dioxide 27 (21-32) mmol/L Anion Gap 7 (3-11) BUN 41 H (6-23) mg/dl Creatinine 1.53 H (0.6-1.4) mg/dl Est Cr Clr Drug Dosing 33.6 ml/min Est GFR ( Amer) 47.7 ml/min Est GFR (Non-Af Amer) 41.1 ml/min BUN/Creatinine Ratio 26.8 H (10-20) Glucose 114 H (70-99(Fasting)) mg/dl Lactate 1.3 (0.4-2.0) mmol/L Calcium 9.4 (8.6-10.3) mg/dl Phosphorus (2.5-4.9) mg/dl Magnesium 2.2 (1.7-2.4) mg/dl Total Bilirubin 0.8 (0.2-1.0) mg/dl Direct Bilirubin (0-0.2) mg/dl AST 57 H (13-39) U/L ALT 65 H (7-52) U/L Alkaline Phosphatase 49 (34-104) U/L Total Protein 7.2 (6.0-8.3) gm/dl Albumin 4.6 (3.4-5.0) gm/dl Globulin 2.6 (2.5-4.0) gm/dl Albumin/Globulin Ratio 1.8 (0.9-2) Lipase 18 (11-82) U/L Urine Color Urine Appearance (Clear) Urine pH (4.5-7.5) Ur Specific [place] (1.000-1.030) Urine Protein (Negative) Urine Glucose (UA) (Negative) Urine Ketones (Negative) Urine Blood (Negative) Urine Nitrite (Negative) Urine Bilirubin (Negative) Urine Urobilinogen (Negative) Ur Leukocyte Esterase (Negative) Urine WBC (Auto) (0-5) /hpf Urine RBC (Auto) (0-4) /hpf U Hyaline Cast (Auto) (0-5) /lpf U Epithel Cells (Auto) (0-5) /lpf Urine Bacteria (Auto) (Negative) SARS-CoV-2 (PCR) (Negative) Influenza Type A (PCR) (Neg) Influenza Type B (PCR) (Neg) RSV (RT-PCR) (Neg) 10/20/22 10/20/22 10/21/22 Range/Units 16:37 Unknown 06:31 WBC 14.86 H (4.8-10.8) K/ul RBC 2.76 L (4.70-6.10) M/uL Hgb 8.1 L (14.0-18.0) g/dl Hct 24.4 L (42.0-52.0) % MCV 88.4 (80.0-100.0) fL MCH 29.3 (25.0-34.0) pg MCHC 33.2 (32.0-36.0) g/dL RDW Std Deviation 50.6 H (36.4-46.3) fL RDW Coeff of Echo 18.6 H (11.5-14.5) % Plt Count 357 (130-400) K/uL MPV 10.8 (9.4-12.4) fL Immature Gran % (Auto) 1.7 % Neut % (Auto) 81.0 % Lymph % (Auto) 5.2 % [place] % (Auto) 11.6 % Eos % (Auto) 0.2 % Baso % (Auto) 0.3 % Neut # (Auto) 12.03 H (1.40-6.50) K/uL Lymph # (Auto) 0.78 L (1.20-3.40) K/uL [place] # (Auto) 1.72 H (0.11-0.59) K/uL Eos # (Auto) 0.03 (0.00-0.50) K/uL Baso # (Auto) 0.05 (0.00-0.20) K/uL Immature Gran # (Auto) 0.25 H (0.01-0.20) K/uL Absolute Nucleated RBC (0.00-0.12) K/uL Nucleated RBC % (auto) % Sodium (136-145) mmol/L Potassium (3.5-5.1) mmol/L Chloride (98-107) mmol/L Carbon Dioxide (21-32) mmol/L Anion Gap (3-11) BUN (6-23) mg/dl Creatinine (0.6-1.4) mg/dl Est Cr Clr Drug Dosing ml/min Est GFR ( Amer) ml/min Est GFR (Non-Af Amer) ml/min BUN/Creatinine Ratio (10-20) Glucose (70-99(Fasting)) mg/dl Lactate (0.4-2.0) mmol/L Calcium (8.6-10.3) mg/dl Phosphorus (2.5-4.9) mg/dl Magnesium (1.7-2.4) mg/dl Total Bilirubin (0.2-1.0) mg/dl Direct Bilirubin (0-0.2) mg/dl AST (13-39) U/L ALT (7-52) U/L Alkaline Phosphatase (34-104) U/L Total Protein (6.0-8.3) gm/dl Albumin (3.4-5.0) gm/dl Globulin (2.5-4.0) gm/dl Albumin/Globulin Ratio (0.9-2) Lipase (11-82) U/L Urine Color Yellow Urine Appearance Clear (Clear) Urine pH 8.0 H (4.5-7.5) Ur Specific [place] 1.015 (1.000-1.030) Urine Protein Trace H (Negative) Urine Glucose (UA) Negative (Negative) Urine Ketones Negative (Negative) Urine Blood Negative (Negative) Urine Nitrite Negative (Negative) Urine Bilirubin Negative (Negative) Urine Urobilinogen Negative (Negative) Ur Leukocyte Esterase Negative (Negative) Urine WBC (Auto) 1-5 (0-5) /hpf Urine RBC (Auto) 5-10 H (0-4) /hpf U Hyaline Cast (Auto) 1-5 (0-5) /lpf U Epithel Cells (Auto) 0-5 (0-5) /lpf Urine Bacteria (Auto) Negative (Negative) SARS-CoV-2 (PCR) NEGATIVE (Negative) Influenza Type A (PCR) Negative (Neg) Influenza Type B (PCR) Negative (Neg) RSV (RT-PCR) Negative (Neg) 10/21/22 10/21/22 10/22/22 Range/Units 06:31 06:31 07:21 WBC 10.61 (4.8-10.8) K/ul RBC 2.46 L (4.70-6.10) M/uL Hgb 7.3 L (14.0-18.0) g/dl Hct 21.9 L (42.0-52.0) % MCV 89.0 (80.0-100.0) fL MCH 29.7 (25.0-34.0) pg MCHC 33.3 (32.0-36.0) g/dL RDW Std Deviation 50.1 H (36.4-46.3) fL RDW Coeff of Echo 17.2 H (11.5-14.5) % Plt Count 337 (130-400) K/uL MPV 10.6 (9.4-12.4) fL Immature Gran % (Auto) % Neut % (Auto) % Lymph % (Auto) % [place] % (Auto) % Eos % (Auto) % Baso % (Auto) % Neut # (Auto) (1.40-6.50) K/uL Lymph # (Auto) (1.20-3.40) K/uL [place] # (Auto) (0.11-0.59) K/uL Eos # (Auto) (0.00-0.50) K/uL Baso # (Auto) (0.00-0.20) K/uL Immature Gran # (Auto) (0.01-0.20) K/uL Absolute Nucleated RBC 0.05 (0.00-0.12) K/uL Nucleated RBC % (auto) 0.5 % Sodium 138 (136-145) mmol/L Potassium 4.9 (3.5-5.1) mmol/L Chloride 110 H (98-107) mmol/L Carbon Dioxide 22 (21-32) mmol/L Anion Gap 6 (3-11) BUN 35 H (6-23) mg/dl Creatinine 1.23 D (0.6-1.4) mg/dl Est Cr Clr Drug Dosing 41.8 ml/min Est GFR ( Amer) 62.1 ml/min Est GFR (Non-Af Amer) 53.6 ml/min BUN/Creatinine Ratio 28.5 H (10-20) Glucose 137 H (70-99(Fasting)) mg/dl Lactate (0.4-2.0) mmol/L Calcium 8.1 L (8.6-10.3) mg/dl Phosphorus (2.5-4.9) mg/dl Magnesium 2.2 (1.7-2.4) mg/dl Total Bilirubin 1.3 H D (0.2-1.0) mg/dl Direct Bilirubin (0-0.2) mg/dl AST 69 H (13-39) U/L ALT 59 H (7-52) U/L Alkaline Phosphatase 43 (34-104) U/L Total Protein 6.2 (6.0-8.3) gm/dl Albumin 3.9 (3.4-5.0) gm/dl Globulin 2.3 L (2.5-4.0) gm/dl Albumin/Globulin Ratio 1.7 (0.9-2) Lipase (11-82) U/L Urine Color Urine Appearance (Clear) Urine pH (4.5-7.5) Ur Specific [place] (1.000-1.030) Urine Protein (Negative) Urine Glucose (UA) (Negative) Urine Ketones (Negative) Urine Blood (Negative) Urine Nitrite (Negative) Urine Bilirubin (Negative) Urine Urobilinogen (Negative) Ur Leukocyte Esterase (Negative) Urine WBC (Auto) (0-5) /hpf Urine RBC (Auto) (0-4) /hpf U Hyaline Cast (Auto) (0-5) /lpf U Epithel Cells (Auto) (0-5) /lpf Urine Bacteria (Auto) (Negative) SARS-CoV-2 (PCR) (Negative) Influenza Type A (PCR) (Neg) Influenza Type B (PCR) (Neg) RSV (RT-PCR) (Neg) 10/22/22 10/22/22 Range/Units 07:21 12:53 WBC (4.8-10.8) K/ul RBC (4.70-6.10) M/uL Hgb 7.6 L (14.0-18.0) g/dl Hct 23.1 L (42.0-52.0) % MCV (80.0-100.0) fL MCH (25.0-34.0) pg MCHC (32.0-36.0) g/dL RDW Std Deviation (36.4-46.3) fL RDW Coeff of Echo (11.5-14.5) % Plt Count (130-400) K/uL MPV (9.4-12.4) fL Immature Gran % (Auto) % Neut % (Auto) % Lymph % (Auto) % [place] % (Auto) % Eos % (Auto) % Baso % (Auto) % Neut # (Auto) (1.40-6.50) K/uL Lymph # (Auto) (1.20-3.40) K/uL [place] # (Auto) (0.11-0.59) K/uL Eos # (Auto) (0.00-0.50) K/uL Baso # (Auto) (0.00-0.20) K/uL Immature Gran # (Auto) (0.01-0.20) K/uL Absolute Nucleated RBC (0.00-0.12) K/uL Nucleated RBC % (auto) % Sodium 139 (136-145) mmol/L Potassium 4.2 (3.5-5.1) mmol/L Chloride 110 H (98-107) mmol/L Carbon Dioxide 24 (21-32) mmol/L Anion Gap 5 (3-11) BUN 43 H (6-23) mg/dl Creatinine 1.76 H D (0.6-1.4) mg/dl Est Cr Clr Drug Dosing 29.2 ml/min Est GFR ( Amer) 40.3 ml/min Est GFR (Non-Af Amer) 34.7 ml/min BUN/Creatinine Ratio 24.4 H (10-20) Glucose 113 H (70-99(Fasting)) mg/dl Lactate (0.4-2.0) mmol/L Calcium 8.1 L (8.6-10.3) mg/dl Phosphorus 3.3 (2.5-4.9) mg/dl Magnesium 2.5 H (1.7-2.4) mg/dl Total Bilirubin 1.2 H (0.2-1.0) mg/dl Direct Bilirubin 0.1 (0-0.2) mg/dl AST 85 H (13-39) U/L ALT 54 H (7-52) U/L Alkaline Phosphatase 38 (34-104) U/L Total Protein 5.8 L (6.0-8.3) gm/dl Albumin 3.5 (3.4-5.0) gm/dl Globulin (2.5-4.0) gm/dl Albumin/Globulin Ratio (0.9-2) Lipase (11-82) U/L Urine Color Urine Appearance (Clear) Urine pH (4.5-7.5) Ur Specific [place] (1.000-1.030) Urine Protein (Negative) Urine Glucose (UA) (Negative) Urine Ketones (Negative) Urine Blood (Negative) Urine Nitrite (Negative) Urine Bilirubin (Negative) Urine Urobilinogen (Negative) Ur Leukocyte Esterase (Negative) Urine WBC (Auto) (0-5) /hpf Urine RBC (Auto) (0-4) /hpf U Hyaline Cast (Auto) (0-5) /lpf U Epithel Cells (Auto) (0-5) /lpf Urine Bacteria (Auto) (Negative) SARS-CoV-2 (PCR) (Negative) Influenza Type A (PCR) (Neg) Influenza Type B (PCR) (Neg) RSV (RT-PCR) (Neg)
--- NOTE | 2022-10-22 17:09 | Hospitalist Progress Note ---
Date of Service October 22, 2022 Assessment & Plan (1) Incarcerated inguinal hernia: (2) Anemia: (3) CKD (chronic kidney disease), stage III: (4) Essential thrombocythemia: (5) Hypertension: Plan 82 yr old M who has a significant PMH of HTN, CKD-3, anemia of chronic disease, essential thrombocythemia and hx of SBO who presented to ED 2/2 abdominal pain x 1 day. --CT a/p:Small bowel obstruction with a transition point in a left inguinal hernia concerning for incarcerated loop of bowel. No evidence of bowel ischemia is seen. SBO 2/2 L inguinal hernia s/p Left Inguinal Hernia Repair, Excision of lipoma of cord, POD #2 EBL 10ml pain/wound management per surgery diet, activity per general surgery On antibiotics per surgery. HTN Continue Coreg and amlodipine postoperatively as blood pressure permits chronic, stable CKD-3 baseline cr 1.5 chronic, stable avoid nephrotoxic agents Creatinine slightly up today, we will use gentle IV fluids. BMP in AM. Unction Anemia of renal disease follows Dr. 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 c/w anagrelide DVT ppx: SCDs, and per surgery Dispo: per surgery DNR/DNI PCP: Dr. Reyes Thank you for this consultation. We will follow the patient with you during their hospital stay. You can reach a member of the [facility] Hospitalist Team 05/09 via hospitalist role on tiger text. Admission and Anticipated Discharge Date Admission Date: October 20, 2022 Subjective Patient seen and examined at bedside as a follow-up of medical management for status post left inguinal hernia repair. Patient was lying in bed, on room air, comfortable, not in any acute distress. Patient moving around okay. Patient tolerating diet okay. Patient moving bowel. Patient's at bedside, updated. Denies any fever or chills or headache. Denies any sore throat or cough or chest pain. Physical Exam Physical Exam: GENERAL: Alert and oriented x3. NAD, on RA. HEENT: No pallor, no icterus. Pupils equal, round and reactive to light. Oral mucosa moist. NECK: No JVD, no neck masses. HEART: S1 and S2 heard. Regular rate and rhythm. No murmur, no gallop. RESPIRATORY SYSTEM: Normal AP diameter. No accessory muscle use. No wheezing, no crackles. ABDOMEN: Soft, bowel sounds present, lower abd dressing c/d/i, no distention. CENTRAL NERVOUS SYSTEM: No facial droop. Speech is clear. Obeys simple commands. Moves extremities. EXTREMITIES: No edema, no erythema seen. Results & Data Results & Data Vital Signs (Past 12 Hours) Vital Signs Temp Pulse Pulse Resp BP BP Pulse Ox 10/22/22 15:57 91 H 10/22/22 15:24 36.7 C 80 18 147/63 H 91 10/22/22 12:29 36.5 C 75 18 149/69 H 93 10/22/22 07:30 36.7 C 80 15 153/69 H 90 10/22/22 07:14 84 O2 Del Method O2 Flow Rate 10/22/22 15:57 10/22/22 15:24 Nasal Cannula 1 10/22/22 12:29 Nasal Cannula 1 10/22/22 07:30 Room Air 10/22/22 07:14 (2) Anemia Anemia type: unspecified type Qualified Code(s): D64.9 - Anemia, unspecified
[2022-10-22] MEDS ORDERED: SODIUM CHLORIDE 0.45 % 1,000 ML IV SCH (17:15)
[2022-10-22] MEDS: TAMSULOSIN HCL 0.4 MG CAP PO SCH (20:58)
[2022-10-23 06:44] LABS: Hematocrit (blood only) 21.3 % (42.0-52.0); Mean Corpuscular Hgb Conc 32.9 g/dL (32.0-36.0); Mean Corpuscular Volume 88.4 fL (80.0-100.0); Mean Platelet Volume 10.6 fL (9.4-12.4); Nucleated RBC # (auto) 0.02 K/uL (0.00-0.12); Nucleated RBC % (auto) 0.2 %; Platelet Count 365 K/uL (130-400); RDW Coefficient of Variation 16.7 % (11.5-14.5); RDW Standard Deviation 49.9 fL (36.4-46.3); Red Blood Count 2.41 M/uL (4.70-6.10); White Blood Count 9.18 K/ul (4.8-10.8)
[2022-10-23 07:05] LABS: BUN Creatinine Ratio 25.2 (10-20); Calcium 7.8 mg/dl (8.6-10.3); Est GFR (African American) 50.1 ml/min; Est GFR (Non-African American) 43.2 ml/min; Magnesium 2.3 mg/dl (1.7-2.4)
[2022-10-23] MEDS: carvediloL 12.5 MG TAB PO SCH ×2 (08:52→20:08)
[2022-10-23] MEDS: amLODIPine BESYLATE 5 MG TAB PO SCH (08:52)
[2022-10-23] MEDS: HEPARIN SOD 5,000 UNIT/0.5 ML VIAL SQ SCH ×2 (08:53→20:08)
[2022-10-23] MEDS: MAGNESIUM HYDROXIDE SUSP 30 ML UDC PO SCH ×2 (08:53→20:09)
[2022-10-23] MEDS: DOCUSATE SODIUM/SENNA 50/8.6MG TAB PO SCH ×2 (09:00→20:08)
[2022-10-23] MEDS ORDERED: SODIUM CHLORIDE 0.9% 250 ML IV PRN (09:21)
[2022-10-23] MEDS ORDERED: FUROSEMIDE INJ 20 MG/2 ML VIAL IV ONE (09:23)
[2022-10-23] MEDS: CIPROFLOXACIN / D5W 400 MG/200 ML BAG IV SCH ×2 (09:50→21:56)
[2022-10-23] MEDS: HYDROXYUREA 500 MG CAP PO SCH (10:58)
[2022-10-23] MEDS: CEROVITE ADV FORMULA TAB PO SCH (10:58)
[2022-10-23] MEDS ORDERED: diphenhydrAMINE Capsule 25 MG CAP PO ONE (11:29)
--- NOTE | 2022-10-23 13:21 | Surgery Progress Note ---
Date of Service October 23, 2022 Assessment & Plan (1) Status post left inguinal hernia repair: Plan: F/U S/P repair left inguinal hernia, POD 2 doing fine, O2 sat 91 % on 1 l/min o2, plan, pt wants to go home tomorrow, do lung excise. Discharge home tomorrow, 10/23/2022 1: 26 PM F/U S/P repair left inguinal hernia, POD 3 doing fine, O2 sat 96 % on 1 l/min o2, plan, continue treatment, Discharge home tomorrow, if pt is stable. Admission and Anticipated Discharge Date Admission Date: October 20, 2022 Supervising Physician Co-Signing Physician Notes IM ATTENDING : Patient seen and examined. History obtained from patient and records. Preceding documentation by Ms. Isabel Wise PA-C reviewed. Patient seen at bedside postop. Patient currently denies chest pain, SOB. Abdominal discomfort tolerable. Final Assessment and Recommendations as follows : Incarcerated left inguinal hernia status post surgery Patient currently comfortable Hypertension, elevated CRI, creatinine close to baseline Chronic anemia (baseline hemoglobin of 7), hemoglobin better than baseline likely secondary to hemoconcentration Essential thrombocythemia on aspirin, anagrelide, and Hydrea home regimen Transaminitis, has been a problem in the past secondary to previous Jadenu medication as per outpatient GI note 2020; patient current anagrelide and Hydrea medications as potential causative agents. BPH stable on Flomax Past tobacco abuse Agree with medical telemetry monitoring given elevated BP Facilitate home BP meds Resume home aspirin and anagrelide in a.m. for patient's thrombocythemia if no postop bleeding concerns from General Surgery standpoint Follow LFTs, recommend GI consult if with further elevation. DVT prophylaxis. SCDs as per postop orders Recommend pharmacologic anticoagulation with heparin 5000 units subcutaneous every 8 hours once bleeding risk is deemed to be minimal/negligible pending General Surgery postop eval. DNR directives as per discussion with advanced practitioner. Thank you very much for this consultation. Dr. Mercedes will follow patient's progress. Text document was generated using [employer] voice recognition software. It may contain grammatical or spelling errors. Kindly contact undersigned for clarification of any documentation item in question. Subjective Patient seen and examined at bedside as a follow-up of medical management for status post left inguinal hernia repair. Patient was lying in bed, on room air, comfortable, not in any acute distress. Patient moving around okay. Patient tolerating diet okay. Patient moving bowel. Patient's at bedside, updated. Denies any fever or chills or headache. Denies any sore throat or cough or chest pain. 10/23/2022 1:[address] Flores F/u S/P open repair left inguinal hernia, POD 3 H/H 09/02.3, pt denies dizziness, no chest pain, pt is on RBC transfusion now. pt is doing fine, no incision pain. O2 sat 96 % on nasal cannula. Physical Exam Constitutional: WD/WN, vitals as above Eyes: PERRL, conjunctivae normal, anicteric sclerae Neck: trachea midline, no thyromegaly Respiratory: normal respiratory effort, lungs clear to auscultation Cardiovascular: RRR, no murmur, no edema Gastrointestinal (Abdomen): soft, NT, Nd, incision intact, no redness or mass. Neurologic: patellar DTR's 2+ bilat, sensation intact Psychiatric: A+Ox3, euthymic affect Results & Data Vital Signs (Past 12 Hours) Vital Signs Temp Pulse Pulse Resp BP BP BP 10/23/22 12:29 36.7 C 75 16 131/78 10/23/22 12:22 36.6 C 84 18 157/77 H 10/23/22 12:15 36.3 C L 81 17 131/78 10/23/22 11:49 36.7 C 84 18 137/72 10/23/22 08:07 36.7 C 95 H 18 171/75 H 10/23/22 07:19 10/23/22 07:02 86 10/23/22 03:39 37.0 C 87 20 151/71 H Pulse Ox O2 Del Method O2 Flow Rate 10/23/22 12:29 96 2 10/23/22 12:22 94 Nasal Cannula 1 10/23/22 12:15 95 2 10/23/22 11:49 95 2 10/23/22 08:07 94 Nasal Cannula 1 10/23/22 07:19 Nasal Cannula 1 10/23/22 07:02 10/23/22 03:39 94 Nasal Cannula 1 Laboratory Results Abnormal lab results 10/23/22 10/23/22 10/23/22 Range/Units 06:23 06:23 09:25 RBC 2.41 L (4.70-6.10) M/uL Hgb 7.0 L (14.0-18.0) g/dl Hct 21.3 L (42.0-52.0) % RDW Std Deviation 49.9 H (36.4-46.3) fL RDW Coeff of Echo 16.7 H (11.5-14.5) % Chloride 110 H (98-107) mmol/L BUN 37 H (6-23) mg/dl Creatinine 1.47 H (0.6-1.4) mg/dl BUN/Creatinine Ratio 25.2 H (10-20) Glucose 105 H (70-99(Fasting)) mg/dl Calcium 7.8 L (8.6-10.3) mg/dl Antibody Screen POSITIVE A Crossmatch See Detail
--- NOTE | 2022-10-23 14:38 | Hospitalist Progress Note ---
Date of Service October 23, 2022 Assessment & Plan (1) Incarcerated inguinal hernia: (2) Anemia: (3) CKD (chronic kidney disease), stage III: (4) Essential thrombocythemia: (5) Hypertension: Plan 82 yr old M who has a significant PMH of HTN, CKD-3, anemia of chronic disease, essential thrombocythemia and hx of SBO who presented to ED 2/2 abdominal pain x 1 day. --CT a/p:Small bowel obstruction with a transition point in a left inguinal hernia concerning for incarcerated loop of bowel. No evidence of bowel ischemia is seen. SBO 2/2 L inguinal hernia s/p Left Inguinal Hernia Repair, Excision of lipoma of cord, POD #3 EBL 10ml pain/wound management per surgery diet, activity per general surgery On antibiotics per surgery. HTN Continue Coreg and amlodipine postoperatively as blood pressure permits chronic, stable CKD-3 baseline cr 1.5 chronic, stable avoid nephrotoxic agents Creatinine slightly up today, we will use gentle IV fluids. BMP in AM. Unction Anemia of renal disease follows Dr. 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 c/w anagrelide DVT ppx: SCDs, and per surgery Dispo: per surgery DNR/DNI PCP: Dr. Reyes Thank you for this consultation. We will follow the patient with you during their hospital stay. You can reach a member of the [facility] Hospitalist Team 05/09 via hospitalist role on tiger text. Admission and Anticipated Discharge Date Admission Date: October 20, 2022 Subjective Patient seen and examined at bedside as a follow-up of medical management for status post left inguinal hernia repair. Patient was lying in bed, on room air, comfortable, not in any acute distress. Patient moving around okay. Patient tolerating diet okay. Patient moving bowels OK. Denies any fever or chills or headache. Denies any sore throat or cough or chest pain. Reports feeling better. Patient's hemoglobin slowly dropping, 7.0 today, patient regularly needs blood transfusion, will administer 1 unit PRBC today, patient has been informed and is agreeable. Physical Exam Physical Exam: GENERAL: Alert and oriented x3. NAD, on RA. HEENT: No pallor, no icterus. Pupils equal, round and reactive to light. Oral mucosa moist. NECK: No JVD, no neck masses. HEART: S1 and S2 heard. Regular rate and rhythm. No murmur, no gallop. RESPIRATORY SYSTEM: Normal AP diameter. No accessory muscle use. No wheezing, no crackles. ABDOMEN: Soft, bowel sounds present, lower abd dressing c/d/i, no distention. CENTRAL NERVOUS SYSTEM: No facial droop. Speech is clear. Obeys simple commands. Moves extremities. EXTREMITIES: No edema, no erythema seen. Results & Data Results & Data Vital Signs (Past 12 Hours) Vital Signs Temp Pulse Pulse Resp BP BP BP 10/23/22 12:59 36.3 C L 81 17 149/68 H 10/23/22 12:29 36.7 C 75 16 131/78 10/23/22 12:22 36.6 C 84 18 157/77 H 10/23/22 12:15 36.3 C L 81 17 131/78 10/23/22 11:49 36.7 C 84 18 137/72 10/23/22 08:07 36.7 C 95 H 18 171/75 H 10/23/22 07:19 10/23/22 07:02 86 10/23/22 03:39 37.0 C 87 20 151/71 H Pulse Ox O2 Del Method O2 Flow Rate 10/23/22 12:59 96 1 10/23/22 12:29 96 2 10/23/22 12:22 94 Nasal Cannula 1 10/23/22 12:15 95 2 10/23/22 11:49 95 2 10/23/22 08:07 94 Nasal Cannula 1 10/23/22 07:19 Nasal Cannula 1 10/23/22 07:02 10/23/22 03:39 94 Nasal Cannula 1 (2) Anemia Anemia type: unspecified type Qualified Code(s): D64.9 - Anemia, unspecified
[2022-10-23] MEDS ORDERED: HEPARIN 100 UNIT/ML 5ML FLUSH FLUSH STA (14:53)
[2022-10-23] MEDS: TAMSULOSIN HCL 0.4 MG CAP PO SCH (20:09)
--- NOTE | 2022-10-24 06:40 | Surgery Progress Note ---
Date of Service October 24, 2022 Assessment & Plan (1) S/P left inguinal hernia repair: Plan: Patient is stable from repair of his left inguinal hernia Tolerating diet Apparently up and around by himself per the nurse and very stable Discharge home today when okay with the medical team Follow-up in the office later this week for some suture removal Discharge information done Admission and Anticipated Discharge Date Admission Date: October 20, 2022 Results & Data Vital Signs (Past 12 Hours) Vital Signs Temp Pulse Resp BP Pulse Ox O2 Del Method O2 Flow Rate 10/24/22 03:02 36.6 C 77 18 157/66 H 91 Room Air 10/23/22 20:53 36.4 C L 79 18 151/73 H 96 Room Air 10/23/22 20:45 Nasal Cannula 1 PG Care Time/CCT Total # of Minutes Spent Total Time Spent with Patient: Total time spent is greater than 50% in coordination of care (as documented) at patient's floor/unit and/or counseling patient: Coding Level of Care Code 52837 Post Operative Follow-Up Diagnoses S/P left inguinal hernia repair Z98.890; Z87.19
[2022-10-24] MEDS: carvediloL 12.5 MG TAB PO SCH (08:23)
[2022-10-24] MEDS: MAGNESIUM HYDROXIDE SUSP 30 ML UDC PO SCH (08:23)
[2022-10-24] MEDS: amLODIPine BESYLATE 5 MG TAB PO SCH (08:23)
[2022-10-24] MEDS: HEPARIN SOD 5,000 UNIT/0.5 ML VIAL SQ SCH (08:23)
[2022-10-24 08:44] LABS: Hematocrit (blood only) 22.9 % (42.0-52.0); Hemoglobin 7.5 g/dl (14.0-18.0); Mean Corpuscular Hemoglobin 29.1 pg (25.0-34.0); Mean Corpuscular Hgb Conc 32.8 g/dL (32.0-36.0); Mean Corpuscular Volume 88.8 fL (80.0-100.0); Mean Platelet Volume 10.6 fL (9.4-12.4); Nucleated RBC # (auto) 0.03 K/uL (0.00-0.12); Nucleated RBC % (auto) 0.4 %; Platelet Count 361 K/uL (130-400); RDW Coefficient of Variation 16.4 % (11.5-14.5); RDW Standard Deviation 49.7 fL (36.4-46.3); Red Blood Count 2.58 M/uL (4.70-6.10); White Blood Count 8.15 K/ul (4.8-10.8)
[2022-10-24] MEDS: DOCUSATE SODIUM/SENNA 50/8.6MG TAB PO SCH (08:56)
[2022-10-24 09:01] LABS: BUN Creatinine Ratio 22.5 (10-20); Calcium 7.8 mg/dl (8.6-10.3); Creatinine Clr Calc Pharmacy 36.2 ml/min; Est GFR (African American) 52.2 ml/min; Magnesium 2.1 mg/dl (1.7-2.4); Potassium 4.1 mmol/L (3.5-5.1)
[2022-10-24] MEDS: CIPROFLOXACIN / D5W 400 MG/200 ML BAG IV SCH (09:27)
--- NOTE | 2022-10-24 11:41 | Hospitalist Progress Note ---
Date of Service October 24, 2022 Assessment & Plan (1) Incarcerated inguinal hernia: (2) Anemia: (3) CKD (chronic kidney disease), stage III: (4) Essential thrombocythemia: (5) Hypertension: Plan 82 yr old M who has a significant PMH of HTN, CKD-3, anemia of chronic disease, essential thrombocythemia and hx of SBO who presented to ED 2/2 abdominal pain x 1 day. --CT a/p:Small bowel obstruction with a transition point in a left inguinal hernia concerning for incarcerated loop of bowel. No evidence of bowel ischemia is seen. SBO 2/2 L inguinal hernia s/p Left Inguinal Hernia Repair, Excision of lipoma of cord, POD #4 EBL 10ml pain/wound management per surgery Mx per Sx. HTN Continue Coreg and amlodipine postoperatively as blood pressure permits chronic, stable CKD-3 baseline cr 1.5 chronic, stable avoid nephrotoxic agents Creatinine went up transiently, back to baseline now. Anemia of renal disease follows Dr. Sandoval received 1 unit PRBC on 10/18, and 1 unit on 10/23 pt has transfusion approx every 3 weeks erythropoietin ineffective will need close monitoring of hgb, pt to f/u w/ PCP within a week time and get labs. Essential Thrombocythemia Jak2 mutation positive follows Dr. Sandoval had 1.[address] in 2010 continue hydroxyurea, plt stable resume home aspirin when bleeding risk deemed minimal per Sx. c/w anagrelide DVT ppx: SCDs, and per surgery Dispo: per surgery DNR/DNI PCP: Dr. Reyes Dispo: pt stable hemodynamically and feels much better, medically clear for DC. Pt to f/u w/ PCP and Sx upon DC. PCP w/ in a week, Sx per Sx instruction. Thank you for this consultation. We will follow the patient with you during their hospital stay. You can reach a member of the [facility] Hospitalist Team 05/09 via hospitalist role on tiger text. Admission and Anticipated Discharge Date Admission Date: October 20, 2022 Subjective Patient seen and examined at bedside as a follow-up of medical management for status post left inguinal hernia repair. Patient was lying in bed, on room air, comfortable, not in any acute distress. Patient moving around okay. Patient tolerating diet okay. Patient moving bowels OK. Denies any fever or chills or headache. Denies any sore throat or cough or chest pain. Reports feeling better. S/p 1 unit prbc yesterday. Physical Exam Physical Exam: GENERAL: Alert and oriented x3. NAD, on RA. HEENT: No pallor, no icterus. Pupils equal, round and reactive to light. Oral mucosa moist. NECK: No JVD, no neck masses. HEART: S1 and S2 heard. Regular rate and rhythm. No murmur, no gallop. RESPIRATORY SYSTEM: Normal AP diameter. No accessory muscle use. No wheezing, no crackles. ABDOMEN: Soft, bowel sounds present, lower abd dressing c/d/i, no distention. CENTRAL NERVOUS SYSTEM: No facial droop. Speech is clear. Obeys simple commands. Moves extremities. EXTREMITIES: No edema, no erythema seen. Results & Data Results & Data Vital Signs (Past 12 Hours) Vital Signs Temp Pulse Pulse Resp BP BP Pulse Ox 10/24/22 09:40 36.3 C L 72 19 157/77 H 163/68 H 92 10/24/22 08:24 36.3 C L 72 19 163/68 H 92 10/24/22 06:56 75 10/24/22 03:02 36.6 C 77 18 157/66 H 91 O2 Del Method 10/24/22 09:40 10/24/22 08:24 Room Air 10/24/22 06:56 10/24/22 03:02 Room Air (2) Anemia Anemia type: unspecified type Qualified Code(s): D64.9 - Anemia, unspecified
[2022-10-24] MEDS: CEROVITE ADV FORMULA TAB PO SCH (11:44)
[2022-10-24] MEDS: HYDROXYUREA 500 MG CAP PO SCH (11:44)
--- NOTE | 2022-10-26 08:25 | Discharge Summary ---
Date of Service October 26, 2022 Admission HPI Per Admitting Provider 82-year-old male who has had abdominal pain nausea and vomiting today presenting the emergency room with change in bowel habits He was found on CAT scan to have evidence of a small bowel obstruction from an incarcerated left inguinal hernia He has a history of chronic kidney disease and hypertension Principal Diagnosis Incarcerated left inguinal hernia Status post open left inguinal hernia repair Discharge Exam Constitutional well developed; no acute distress Eyes + anicteric sclerae Respiratory normal respiratory effort; no respiratory distress Cardiovascular Rate/Rhythm: regular rate Gastrointestinal (Abdomen) Inspection/Auscultation: abdomen not distended Left inguinal area healing well with no evidence of hematoma Musculoskeletal Head/Neck/Chest: head atraumatic Skin no rashes, warm and dry Neurologic awake Psychiatric Orientation: alert Discharge Data Allergies Allergy/AdvReac Type Severity Reaction Status Date / Time naproxen Allergy Intermediate ITCHY ALL Verified 10/20/22 18:21 OVER piperacillin [From Zosyn] Allergy Mild Hives Verified 10/20/22 18:21 tazobactam [From Zosyn] Allergy Mild Hives Verified 10/20/22 18:21 Consultations 10/20/22 18:37 ED Decision to Admit Stat 10/20/22 21:21 Consult Hospitalist Routine Procedures Performed Operation Date: 10/20/22 18:25 Actual Procedures p Left Inguinal Hernia Repair, Excision of lipoma of cord(Left) - Dillon Sin MD, FACS Ordered Studies 10/20/22 15:35 CT abd pelvis IV con only Stat Hospital Course (1) S/P left inguinal hernia repair: Plan Patient brought in the hospital on 10/20/2022 and taken to the operating room He underwent open left inguinal hernia repair-he did not require any bowel resection Postoperatively he did well from the operation however did have some mild hypoxia requiring oxygen He did gradually progress and was felt stable for discharge on 10/24/2022 He was to be seen in the surgical clinic within 1 to 2 weeks Total Time Total Time Spent Total Time Spent (In Minutes): 20 minutes Discharge Plan Discharge Items Patient Disposition: Home - Home Health Services Reason For Visit: INCARCERATED HERNIA Discharge Diagnosis: Incarcerated left inguinal hernia Activity: As commented below Activity Comment: Light activity for 4 weeks Lifting: No more than 10 pounds Bathing Comment: May shower Exercise Comment: Wait 4 weeks Driving/Machine Use: 1 week Non-emergency contact: Primary Care Provider and Surgeon Call non-emergency contact if: you have any medication questions, your pain is not controlled, your temperature is above 101 and your wound has increased drainage Follow-up/Referrals: Ritesh Reyes MD [Primary Care Provider] - (Date & Time 10/31/2022 11:00 AM Provider Ritesh Reyes III, MD Department [facility] ) Diet: Regular Addtl Attending Provider Instructions: SPECIAL CARE INSTRUCTIONS: * Cover incisions and change daily for comfort/drainage. *Leave Steri-Strips in place Avoid constipation- * May Use Senokot S and Milk of Magnesium twice daily as directed on the package * May use ibuprofen for pain as tolerated. * Expect some swelling and bruising. Call your doctor if: * Temperature above 101 degrees * Pain not relieved by pain medicine ordered * There is increased drainage or redness from any incision * You have any unanswered questions or concerns [phone]. FOLLOW UP VISIT: If not already scheduled, please call the office for a follow-up visit. For or Monday this week some suture removal OFFICE PHONE NUMBER: Dr. Sin Office Pending Studies at Discharge: No Stand-Alone Forms: My [facility] [employer], Smoking Cessation Medications and DC Order Prescriptions: New hydrocodone-acetaminophen 5-325 mg tablet 1 tab PO Q4H PRN (Reason: pain) Qty: 20 0RF Rx Instructions: For severe pain you may take 2 tablets but not more than 6 tablets in a single day Patient had surgery by me on 10/20/2022 He will be seen in our clinic next week Continued multivitamin Tablet 1 tab PO QDL anagrelide 1 mg Capsule 1 mg PO QPM Rx Instructions: 1 CAPSULE DAILY AT SUPPER + 1 CAPSULE DAILY MON/WED/FRI WITH BREAKFAST Ocuvite Lutein and Zeaxanthin 60 mg-13.5 mg- 15 mg-2 mg-6 mg Capsule 1 cap PO BID carvedilol 12.5 mg tablet 12.5 mg PO BID hydroxyzine HCl 10 mg tablet 10 mg PO DAILY PRN (Reason: Itching) aspirin [Aashish Low Dose Aspirin] 81 mg Tablet,Delayed Release (Dr/Ec) 81 mg PO QDL Rx Instructions: PER PT "TOLD TO STOP TODAY, 05/15/21". tamsulosin 0.4 mg Capsule 0.4 mg PO HS hydroxyurea 500 mg Capsule 500 mg PO QDL amlodipine [Norvasc] 5 mg Tablet 10 mg PO QAM Qty: 60 0RF Discharge Orders: Discharge Order (Routine); Ordered 10/24/22 Ordered By: Dillon Sin Admission Data Admit Date/Time: 10/20/22 20:21 Attending Provider: Dillon Sin Admit Provider: Dillon Sin Primary Care Provider: Ritesh Reyes Other Providers: Dillon Sin ; Marybeth Rosenthal ; Karla Garduno I. ; Raul Christensen ; Marek Luna ; Nicolette Akbar ; Chela Shaffer ; Urvashi Gardner ; Benitez Gaitan ; Esequiel Riojas ; Manuelito Park ; Constance Parada ; Abebe Mejia ; Evelyne Ocasio ; Nasima Wise ; Sonya Moreno ; Jermaine Schofield ; Karen Simmons ; Phuong Smith ; Natacha Jaffe ; Shona Knutson I. ; Yung Garvin ; Jeffery Monreal ; Eulogio Mercedes ; Rosalio Shafer ; Levi Godinez ; Jose Naylor ; Ralph Jean ; Kylie Huang ; Katherine Humphrey Other Interventions: Discharge Summary Assessment (RN) Last Done: 10/24/22 09:40 Coding Level of Care Code 08031 IN/OBS DISCH 30 MIN/LESS Diagnoses S/P left inguinal hernia repair Z98.890; Z87.19
== END 2022-10-24 11:53 | disposition home or self-care (01) | DRG 352 ==
LOC: ED 14:43 → OR 18:55 → 2N 20:21

== ENCOUNTER 2023-01-17 10:36 | Inpatient (IN) ==
[2023-01-17] MEDS ORDERED: SODIUM CHLORIDE 0.9% 500 ML IV STA (11:03)
--- NOTE | 2023-01-17 11:09 | Emergency Department Note ---
Impression & Plan Symptomatic anemia, WILLIAM (dyspnea on exertion) ED Provider Note NAME: ALIRIO OVERTON AGE: 82 SEX: M : 1940 ARRIVES VIA: Walk-In INFORMANT: Patient, ED PROVIDER(S): Rod Alvarez DO CHIEF COMPLAINT: Weakness HPI: The patient is an 82-year-old male who has a history of chronic anemia who receives blood transfusions cyclically who presented to the emergency department for generalized weakness. The patient apparently has had problems with weakness especially over the last few days. The patient had laboratory studies done through the [facility] system. He was diagnosed with severe anemia. He had a significant drop. He has noticed some dark stool as well as generalized weakness. He denies having any chest pain or difficulty breathing. He denies having any fever. ROS: See above HPI for pertinent positives & negatives. A total of 10 systems reviewed and were otherwise negative. PAST MEDICAL HISTORY: See Below PAST SURGICAL HISTORY: See Below FAMILY HISTORY: See Below SOCIAL HISTORY: See Below HOME MEDICATIONS: See Below ALLERGIES: See Below VITALS: See Below PHYSICAL EXAMINATION: GENERAL: The patient is awake and alert. He does not appear to be anxious. EYES: The conjunctivae are pale. The pupils are round and reactive. EARS, NOSE, MOUTH AND THROAT: The nose is without any evidence of any deformity. NECK: The neck is nontender and supple. RESPIRATORY: Normal respiratory effort is noted there is no evidence of wheezing rhonchi or rales CARDIOVASCULAR: Regular rate and rhythm noted there no murmurs rubs or gallops normal S1 normal S2. GASTROINTESTINAL: The abdomen was soft and nondistended. Rectal exam revealed brown stool which was heme-negative. MUSCULOSKELETAL/EXTREMITIES: There is no evidence of gross deformity full range of motion is noted in the hips and shoulders. SKIN: Pedal edema was noted bilaterally. Skin was warm and dry. NEUROLOGIC: Patient is awake alert and oriented x3 MEDICAL DECISION MAKING: The patient is an 82-year-old male who presented to the emergency department for an evaluation of hemoglobin that was low. The patient has been noticing weakness as well as shortness of breath with exertion. The patient has a history of similar episodes in the past. He was seen at his outpatient providers and had an outpatient CBC. This was consistent with severe anemia. The patient was sent to the emergency department for further evaluation. He did complain of dark stools but his stool was heme-negative. The patient was treated with a small fluid bolus. I did consent the patient for blood transfusion. The patient agreed to this. I discussed his condition with the on-call [facility] hospitalist group. Triage Nursing notes reviewed. Prior medical records reviewed Vital Signs: reviewed and remarkable for no significant abnormalities Differential diagnosis: Infection, dehydration, metabolic abnormality, hypo/hyperglycemia, electrolyte disturbance, anemia, hypoxia, cardiac sources, intracerebral event, toxicologic, neurologic, as well as other pathologies. ER treatment provided: See below Diagnostics interpreted by me: ECG: EKG was obtained in the emergency department. My interpretation is normal sinus rhythm at 76 bpm. There is no ectopy. Inferior and low lateral ST depressions were noted. Poor R wave progression was noted. This was compared to a tracing from October 20, 2022. No significant changes were noted. Cardiac Monitoring: An order was placed for continuous cardiac monitoring. The monitor shows a rate of 82 bpm with sinus rhythm. Laboratory studies: As stated above and show below. Imaging studies: See below. Radiographic imaging was reviewed by myself Consultation(s): I discussed this case with Urvashi who is on-call for the [facility] hospitalist group. ED COURSE: Procedures: none Critical Care: I have personally spent greater than 40 minutes of critical care time in the direct management of this patient. This includes bedside care, interpretation of diagnostic studies, and testing, discussion with consultants, patient, and family members, and other required patient management activities. This 40 minutes is in excess of all separately billable procedures. 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 Anemia of chronic disease Iron overload Recent- following with heme/onc- per 12/17/20 note- pt was on Jadenu- d/c'ed secondary to elevated LFTs CKD (chronic kidney disease), stage III Creatine baseline around 1.4 per records CONNIE-2 gene mutation F/U DR BOOKER HALLMAN On Hydroxyurea On anticoagulant therapy on anagrelide Anemia Hypertension Essential thrombocythemia Platelet count around 1.6 million at time of dx in 2010 Small bowel obstruction 2018 Treated conservatively Melanoma Surgical History S/P left inguinal hernia repair (10/20/22) Left Inguinal Hernia Repair, Excision of lipoma of cord(Left) - Dillon Sin MD, FACS H/O endoscopy (~11/2020) EUS History of adenoidectomy History of colonoscopy 2019 History of esophagogastroduodenoscopy (EGD) 2019 History of Mohs micrographic surgery for skin cancer x2 removed off face History of bilateral cataract extraction History of tonsillectomy Family History Other Family history unobtainable due to orphan status Social History Smoking Status: Never smoker Tobacco Type: Cigarettes Second Hand Exposure: No; Do You Dip or Chew Tobacco: No; Hx Alcohol Use: No Hx Substance Use: No Preferred Language: Uzbek Communication Ability: Effective Plan Examiner Required: No Beliefs That Will Affect Care: None marital status: Current Living Situation: Spouse Current Living Situation Comment: in a home with current occupational status: retired Feels Safe at Home: Yes Assistive Devices: None Allergies Allergies Allergy/AdvReac Type Severity Reaction Status Date / Time naproxen Allergy Intermediate ITCHY ALL Verified 01/17/23 13:02 OVER piperacillin [From Zosyn] Allergy Mild Hives Verified 01/17/23 13:02 tazobactam [From Zosyn] Allergy Mild Hives Verified 01/17/23 13:02 Home Meds Home Medications Medication Instructions Recorded Confirmed multivitamin 1 tab PO QDL 12/21/17 01/17/23 anagrelide 1 mg capsule 1 mg PO QPM 11/16/18 01/17/23 vit C,W-Bz-sjkhjs-lutein-zeaxan 60 1 cap PO BID 02/25/19 01/17/23 mg-13.5 mg-15 mg-2 mg-6 mg capsule (Ocuvite Lutein and Zeaxanthin) carvedilol 12.5 mg tablet 12.5 mg PO BID 09/15/20 01/17/23 hydroxyzine HCl 10 mg tablet 10 mg PO DAILY PRN Itching 09/15/20 01/17/23 hydroxyurea 500 mg capsule 500 mg PO QDL 09/30/20 01/17/23 tamsulosin 0.4 mg capsule 0.4 mg PO HS 01/12/22 01/17/23 Previous Rx's Medication Instructions Recorded amlodipine 5 mg tablet (Norvasc) 10 mg (2 x 5 mg) PO QAM #60 tabs 05/19/21 Results & Data (ED) Vital Signs Vital Signs - 24 hr 01/17/23 10:46 01/17/23 11:03 01/17/23 12:27 Temperature 36.5 C Temperature Source Temporal Artery Scan Pulse Rate 79 79 Respiratory Rate 18 Respiratory Depth Normal Blood Pressure 105/43 L Blood Pressure Mean 63 Pulse Oximetry 94 Oxygen Delivery Method Room Air Room Air Sepsis Recent Fever Within 48 Hours No Sepsis New/Unexplained Change in Mental Status No Sepsis Action Taken by Nursing No Action Required Home Medications Current Medication List: was personally reviewed by me Laboratory Data Attestation: I reviewed the patient's lab results. 01/17/23 11:32 01/17/23 11:32 Lab Results 01/17/23 01/17/23 01/17/23 Range/Units 11:32 11:32 11:32 WBC 20.11 H (4.8-10.8) K/ul RBC 1.83 L (4.70-6.10) M/uL Hgb 5.1 L* (14.0-18.0) g/dl Hct 15.6 L* (42.0-52.0) % MCV 85.2 (80.0-100.0) fL MCH 27.9 (25.0-34.0) pg MCHC 32.7 (32.0-36.0) g/dL RDW Std Deviation 47.0 H (36.4-46.3) fL RDW Coeff of Echo 15.9 H (11.5-14.5) % Plt Count 289 (130-400) K/uL MPV 11.5 (9.4-12.4) fL Absolute Nucleated RBC 0.12 (0.00-0.12) K/uL Nucleated RBC % (auto) 0.6 % Neutrophils % (Manual) 72 % Lymphocytes % (Manual) 14 % Monocytes % (Manual) 6 % Basophils % (Manual) 1 % Metamyelocytes % (Man) 3 % Myelocytes % (Man) 4 % Neutrophils # (Manual) 14.48 H (1.40-6.50) K/uL Total Absolute Neuts 14.48 H (1.4-6.5) K/uL Lymphocytes # (Manual) 2.82 (1.2-3.4) K/uL Total Abs Lymphocytes 2.82 (1.2-3.4) K/uL Monocytes # (Manual) 1.21 H (0.11-0.59) K/uL Basophils # (Manual) 0.20 (0-0.2) K/uL Metamyelocytes # (Man) 0.60 H (0-0) K/uL Myelocytes # (Manual) 0.80 H (0-0) K/uL Polychromasia 1+ Ovalocytes 1+ Peripher Smr Path Cons PT 12.1 H (9.0-12.0) Seconds INR 1.1 (0.9-1.1) APTT 30 (21-31) Seconds PTT Ratio 1.1 Sodium 138 (136-145) mmol/L Potassium 4.7 (3.5-5.1) mmol/L Chloride 108 H (98-107) mmol/L Carbon Dioxide 22 (21-32) mmol/L Anion Gap 8 (3-11) BUN 42 H (6-23) mg/dl Creatinine 1.61 H (0.6-1.4) mg/dl Est Cr Clr Drug Dosing 35.4 ml/min Est GFR ( Amer) 44.8 ml/min Est GFR (Non-Af Amer) 38.7 ml/min BUN/Creatinine Ratio 26.1 H (10-20) Glucose 124 H (70-99(Fasting)) mg/dl Calcium 8.8 (8.6-10.3) mg/dl Iron 133 (35-175) mcg/dl Unsaturated IBC 63 L (155-355) mcg/dl Total Bilirubin 0.9 (0.2-1.0) mg/dl AST 45 H (13-39) U/L ALT 36 (7-52) U/L Alkaline Phosphatase 53 (34-104) U/L Troponin I High Sens 7.3 (0-20) pg/ml Total Protein 6.4 (6.0-8.3) gm/dl Albumin 3.9 (3.4-5.0) gm/dl Globulin 2.5 (2.5-4.0) gm/dl Albumin/Globulin Ratio 1.6 (0.9-2) Lipase 24 (11-82) U/L Vitamin B12 (180-914) pg/ml Folate (>5.38) ng/ml SARS-CoV-2 (PCR) (Negative) Influenza Type A (PCR) (Neg) Influenza Type B (PCR) (Neg) RSV (RT-PCR) (Neg) Blood Type A Negative Antibody Screen POSITIVE A Antibody Identification Anti-C Anti-D Anti-E Antibody ID Comment Crossmatch See Detail 01/17/23 01/17/23 Range/Units 11:34 11:39 WBC (4.8-10.8) K/ul RBC (4.70-6.10) M/uL Hgb (14.0-18.0) g/dl Hct (42.0-52.0) % MCV (80.0-100.0) fL MCH (25.0-34.0) pg MCHC (32.0-36.0) g/dL RDW Std Deviation (36.4-46.3) fL RDW Coeff of Echo (11.5-14.5) % Plt Count (130-400) K/uL MPV (9.4-12.4) fL Absolute Nucleated RBC (0.00-0.12) K/uL Nucleated RBC % (auto) % Neutrophils % (Manual) % Lymphocytes % (Manual) % Monocytes % (Manual) % Basophils % (Manual) % Metamyelocytes % (Man) % Myelocytes % (Man) % Neutrophils # (Manual) (1.40-6.50) K/uL Total Absolute Neuts (1.4-6.5) K/uL Lymphocytes # (Manual) (1.2-3.4) K/uL Total Abs Lymphocytes (1.2-3.4) K/uL Monocytes # (Manual) (0.11-0.59) K/uL Basophils # (Manual) (0-0.2) K/uL Metamyelocytes # (Man) (0-0) K/uL Myelocytes # (Manual) (0-0) K/uL Polychromasia Ovalocytes Peripher Smr Path Cons PT (9.0-12.0) Seconds INR (0.9-1.1) APTT (21-31) Seconds PTT Ratio Sodium (136-145) mmol/L Potassium (3.5-5.1) mmol/L Chloride (98-107) mmol/L Carbon Dioxide (21-32) mmol/L Anion Gap (3-11) BUN (6-23) mg/dl Creatinine (0.6-1.4) mg/dl Est Cr Clr Drug Dosing ml/min Est GFR ( Amer) ml/min Est GFR (Non-Af Amer) ml/min BUN/Creatinine Ratio (10-20) Glucose (70-99(Fasting)) mg/dl Calcium (8.6-10.3) mg/dl Iron (35-175) mcg/dl Unsaturated IBC (155-355) mcg/dl Total Bilirubin (0.2-1.0) mg/dl AST (13-39) U/L ALT (7-52) U/L Alkaline Phosphatase (34-104) U/L Troponin I High Sens (0-20) pg/ml Total Protein (6.0-8.3) gm/dl Albumin (3.4-5.0) gm/dl Globulin (2.5-4.0) gm/dl Albumin/Globulin Ratio (0.9-2) Lipase (11-82) U/L Vitamin B12 610 (180-914) pg/ml Folate > 22.30 (>5.38) ng/ml SARS-CoV-2 (PCR) NEGATIVE (Negative) Influenza Type A (PCR) Negative (Neg) Influenza Type B (PCR) Negative (Neg) RSV (RT-PCR) Negative (Neg) Blood Type Antibody Screen Antibody Identification Antibody ID Comment Crossmatch Administered Medications Doxycycline Hyclate (Doxycycline Hyclate 100 Mg Cap) 100 mg PO BID [facility] Stop: 01/24/23 13:24 Last Admin: 01/17/23 15:25 Dose: 100 mg Documented By: RAGHU Discontinued Medications Sodium Chloride (Nss) 500 mls @ 999 mls/hr IV .Q31M STA Stop: 01/17/23 11:33 Last Infusion: 01/17/23 12:32 Dose: Infused Documented By: Admin: 01/17/23 11:52 Dose: 999 mls/hr Documented By: HEATH Imaging Data Attestation: I personally reviewed and interpreted this imaging study as follows: My Impression: 1 view chest x-ray was obtained in the emergency department. My interpretation is no free air or definite infiltrate, final report blood Radiologist's Impression: Chest X-Ray 01/17/23 11:03 SINGLE VIEW CHEST CLINICAL HISTORY: Atypical chest pain. FINDINGS: An AP, portable, upright chest radiograph is compared to study dated 10/20/2022. A right internal jugular central venous infusion port is unchanged in position. The heart is enlarged and it noting atherosclerotic calcification of the thoracic aorta. The pulmonary vasculature is not congested. Chronic interstitial thickening similar to previous. Scarring/atelectasis is noted at the lung bases. No airspace consolidation or large pleural effusion is identified. No pneumothorax is seen. The skeletal structures are osteopenic. The bony thorax is grossly intact. IMPRESSION: Cardiomegaly with no acute cardiopulmonary abnormality identified. ACT 112: Negative or not required by law. Electronically signed by: Danyel Boss M.D. 01/17/2023 11:42 AM Discharge Plan Visit Data Chief Complaint: Referred by Doctor Stated Complaint: REF BY DR NEEDS BLOOD ED Provider: Rod Alvarez Discharge Problem: Symptomatic anemia, WILLIAM (dyspnea on exertion) Patient Disposition: Being Evaluated by Hospitalist
--- NOTE | 2023-01-17 11:43 | XRay Report ---
SINGLE VIEW CHEST CLINICAL HISTORY: Atypical chest pain. FINDINGS: An AP, portable, upright chest radiograph is compared to study dated 10/20/2022. A right inte rnal jugular central venous infusion port is unchanged in position. The heart is enlarged and it noti ng atherosclerotic calcification of the thoracic aorta. The pulmonary vasculature is not congested. C hronic interstitial thickening similar to previous. Scarring/atelectasis is noted at the lung bases. No airspace consolidation or large pleural effusion is identified. No pneumothorax is seen. The skele tia structures are osteopenic. The bony thorax is grossly intact. IMPRESSION: Cardiomegaly with no acute cardiopulmonary abnormality identified. ACT 112: Negative or not required by law. Electronically signed by: Danyel Boss M.D. 01/17/2023 11:42 AM
[2023-01-17 12:08] LABS: Albumin Globulin Ratio 1.6 (0.9-2); Albumin Level 3.9 gm/dl (3.4-5.0); BUN Creatinine Ratio 26.1 (10-20); Bilirubin,Total 0.9 mg/dl (0.2-1.0); Calcium 8.8 mg/dl (8.6-10.3); Creatinine Clr Calc Pharmacy 35.4 ml/min; Est GFR (African American) 44.8 ml/min; Est GFR (Non-African American) 38.7 ml/min; Globulin 2.5 gm/dl (2.5-4.0); Potassium 4.7 mmol/L (3.5-5.1); Total Protein 6.4 gm/dl (6.0-8.3)
[2023-01-17 12:14] LABS: Troponin I High Sensitivity 7.3 pg/ml (0-20)
[2023-01-17 12:26] LABS: Hematocrit (blood only) 15.6 % (42.0-52.0); Hemoglobin 5.1 g/dl (14.0-18.0); INR 1.1 (0.9-1.1); Mean Corpuscular Hemoglobin 27.9 pg (25.0-34.0); Mean Corpuscular Hgb Conc 32.7 g/dL (32.0-36.0); Mean Corpuscular Volume 85.2 fL (80.0-100.0); Mean Platelet Volume 11.5 fL (9.4-12.4); Nucleated RBC # (auto) 0.12 K/uL (0.00-0.12); Nucleated RBC % (auto) 0.6 %; Partial Thromboplastin Ratio 1.1; Partial Thromboplastin Time 30 Seconds (21-31); Platelet Count 289 K/uL (130-400); Prothrombin Time 12.1 Seconds (9.0-12.0); RDW Coefficient of Variation 15.9 % (11.5-14.5); Red Blood Count 1.83 M/uL (4.70-6.10); White Blood Count 20.11 K/ul (4.8-10.8)
[2023-01-17] MEDS ORDERED: SODIUM CHLORIDE 0.9% 250 ML IV PRN (12:26)
[2023-01-17 12:27] LABS: ALC (manual) 2.82 K/uL (1.2-3.4); ANC (manual) 14.48 K/uL (1.4-6.5); Basophils % (manual) 1 %; Lymphocytes # (manual) 2.82 K/uL (1.2-3.4); Lymphocytes % (manual) 14 %; Metamyelocytes % (manual) 3 %; Monocytes # (manual) 1.21 K/uL (0.11-0.59); Monocytes % (manual) 6 %; Myelocytes % (manual) 4 %; Neutrophils # (manual) 14.48 K/uL (1.40-6.50); Neutrophils % (manual) 72 %; Ovalocytes 1+; Polychromasia 1+
[2023-01-17 12:31] LABS: Influenza A virus by PCR Negative (Neg); Influenza B virus by PCR Negative (Neg); RSV by PCR Negative (Neg); SARS CoV2 RNA(COVID-19) Ceph NEGATIVE (Negative)
--- NOTE | 2023-01-17 12:50 | History & Physical Report ---
Date of Service January 17, 2023 Assessment & Plan (1) Anemia of chronic disease: (2) Myelofibrosis: (3) CKD (chronic kidney disease), stage III: (4) Hypertension: (5) Essential thrombocythemia: Plan This is an 82-year-old male with PMH of myelofibrosis on bone marrow bx 2019, essential thrombocythemia, anemia due to chronic kidney disease, CONNIE 2 mutation, CKD III, HTN and other medical problems listed below who presents to ED with abnormal lab work showing worsening anemia. Anemia of chronic disease Hgb 5.1, hct 15.6, Plt 289 Requires frequent blood transfusions with baseline hgb 6.5-8 per chart review, last one was 3 weeks ago Rectal exam per Dr. Alvarez revealed brown stool which was heme-negative Anemia labwork pending Peripheral smear with some dysplasia and nucleated red cells, discussed with Dr. Hickman and Dr. Sandoval. Unfortunately patient is considered transfusion dependent at this time and has failed other treatment options. Cont. transfusion support and keep follup appt with Dr. Sandoval later this month Consented in ED, ordered 2u prbcs Repeat H&H at 1800 Myelofibrosis Essential thrombocythemia Follows with Dr. Sandoval for myelofibrosis on bone marrow bx 2019, essential thrombocythemia, anemia due to chronic kidney disease, CONNIE 2 mutation Continue anagrelide, hydroxyurea Plt 289 today, monitor with daily CBC with diff Abnormal EKG EKG reviewed with inferior and low lateral ST depressions, noted on previous EKGs as well. Expect improvement after transfusion, asymptomatic. Repeat EKG this evening Complicated bronchitis Ongoing URI symptoms x 1 week, tested negative for Covid in office last week, now with persistent productive cough, WBC 20K Respiratory biofire pending Starting on Doxycycline 100mg BID CXR with cardiomegaly with no acute cardiopulmonary abnormality identified CKD III Cr 1.61 today (baseline mid-high 1s). Continue monitoring with daily CBC HTN Normotensive at 132/83. Continue home amlodipine DVT Ppx: SCDs Code status: FULL PCP: Amy Dispo: Admitted to PCU Patient seen in collaboration with Dr. Mejia. Please see addendum. History of Present Illness Chief Complaint: anemia Primary Care Provider: Ritesh Reyes MD This is an 82-year-old male with PMH of myelofibrosis on bone marrow bx 2019, essential thrombocythemia, anemia due to chronic kidney disease, CONNIE 2 mutation, CKD III, HTN and other medical problems listed below who presents to ED with abnormal lab work showing low hemoglobin. Requires frequent blood transfusions with baseline hgb 6.5-8 per chart review, last one was 3 weeks ago. Had bloodwork this AM in anticipation of appt with Dr. Sandoval later this week and was noted to have anemia with hgb of 5 and sent to ED for further evaluation. Seen in the clinic on 01/11 for URI symptoms and was covid negative. Debrox drops did not work. Continues to have cough with productive sputum. No F/C, CP, SOB, N/V, abdominal pain, dysuria, diarrhea or constipation. Reports almost black stool this morning. No acute bright red blood in sputum or bowel movement. No hematuria. In ED, found to have WBC 20K, hgb 5.1, hct 15.6, Plt 289. Rectal exam per Dr. Alvarez revealed brown stool which was heme-negative. Allergies Allergy/AdvReac Type Severity Reaction Status Date / Time naproxen Allergy Intermediate ITCHY ALL Verified 01/17/23 13:02 OVER piperacillin [From Zosyn] Allergy Mild Hives Verified 01/17/23 13:02 tazobactam [From Zosyn] Allergy Mild Hives Verified 01/17/23 13:02 Home Medications Medication Instructions Recorded Confirmed Type multivitamin 1 tab PO QDL 12/21/17 01/17/23 History anagrelide 1 mg capsule 1 mg PO QPM 11/16/18 01/17/23 History vit C,W-Rh-kzmvhr-lutein-zeaxan 60 1 cap PO BID 02/25/19 01/17/23 History mg-13.5 mg-15 mg-2 mg-6 mg capsule (Ocuvite Lutein and Zeaxanthin) carvedilol 12.5 mg tablet 12.5 mg PO BID 09/15/20 01/17/23 History hydroxyzine HCl 10 mg tablet 10 mg PO DAILY PRN Itching 09/15/20 01/17/23 History hydroxyurea 500 mg capsule 500 mg PO QDL 09/30/20 01/17/23 History amlodipine 5 mg tablet (Norvasc) 10 mg (2 x 5 mg) PO QAM #60 tabs 04/06/22 12/05/23 Rx tamsulosin 0.4 mg capsule 0.4 mg PO HS 01/12/22 01/17/23 History 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 Anemia of chronic disease Iron overload Recent- following with heme/onc- per 12/17/20 note- pt was on Jadenu- d/c'ed secondary to elevated LFTs CKD (chronic kidney disease), stage III Creatine baseline around 1.4 per records CONNIE-2 gene mutation F/U DR BOOKER HALLMAN On Hydroxyurea On anticoagulant therapy on anagrelide Anemia Hypertension Essential thrombocythemia Platelet count around 1.6 million at time of dx in 2010 Small bowel obstruction 2018 Treated conservatively Melanoma Surgical History S/P left inguinal hernia repair (10/20/22) Left Inguinal Hernia Repair, Excision of lipoma of cord(Left) - Dillon Sin MD, FACS H/O endoscopy (~11/2020) EUS History of adenoidectomy History of colonoscopy 2019 History of esophagogastroduodenoscopy (EGD) 2019 History of Mohs micrographic surgery for skin cancer x2 removed off face History of bilateral cataract extraction History of tonsillectomy Family History Other Family history unobtainable due to orphan status Social History Smoking Status: Never smoker Tobacco Type: Cigarettes Second Hand Exposure: No; Do You Dip or Chew Tobacco: No; Hx Alcohol Use: No Hx Substance Use: No Preferred Language: Mongolian Communication Ability: Effective Administrative Liaison Required: No Beliefs That Will Affect Care: None marital status: Current Living Situation: Spouse Current Living Situation Comment: in a home with current occupational status: retired Feels Safe at Home: Yes Assistive Devices: None Review of Systems Review of Systems: At least ten systems reviewed and negative except as noted in the HPI. Physical Exam Physical Exam: Please see Dr. Mejia's addendum for physical exam. Results & Data Results & Data Vital Signs (Past 12 Hours) Vital Signs Temp Pulse Resp BP Pulse Ox O2 Del Method 12/05/23 12:27 79 01/17/23 11:03 Room Air 01/17/23 10:46 36.5 C 79 18 105/43 L 94 Room Air Laboratory Results Short CBC 01/17/23 Range/Units 11:32 WBC 20.11 H (4.8-10.8) K/ul Hgb 5.1 L* (14.0-18.0) g/dl Hct 15.6 L* (42.0-52.0) % Plt Count 289 (130-400) K/uL BMP 01/17/23 11:32 Sodium 138 Potassium 4.7 Chloride 108 H Carbon Dioxide 22 BUN 42 H Creatinine 1.61 H Glucose 124 H Calcium 8.8 Liver Function 01/17/23 Range/Units 11:32 Total Bilirubin 0.9 (0.2-1.0) mg/dl AST 45 H (13-39) U/L ALT 36 (7-52) U/L Alkaline Phosphatase 53 (34-104) U/L Albumin 3.9 (3.4-5.0) gm/dl Diagnostic Findings Chest X-Ray 01/17/23 11:03 SINGLE VIEW CHEST CLINICAL HISTORY: Atypical chest pain. FINDINGS: An AP, portable, upright chest radiograph is compared to study dated 10/20/2022. A right internal jugular central venous infusion port is unchanged in position. The heart is enlarged and it noting atherosclerotic calcification of the thoracic aorta. The pulmonary vasculature is not congested. Chronic interstitial thickening similar to previous. Scarring/atelectasis is noted at the lung bases. No airspace consolidation or large pleural effusion is identified. No pneumothorax is seen. The skeletal structures are osteopenic. The bony thorax is grossly intact. IMPRESSION: Cardiomegaly with no acute cardiopulmonary abnormality identified. ACT 112: Negative or not required by law. Electronically signed by: Danyel Boss M.D. 01/17/2023 11:42 AM Supervising Physician Co-Signing Physician Notes Patient is a 82-year-old male with history of myelofibrosis, essential thrombocythemia, CKD stage III, documentation, melanoma, BPH, MPL mutation, hypertension and other medical problems presents with history of abnormal blood work, generalized weakness and tiredness. Currently patient is transfusion dependent and gets blood transfusions about 2 times per month. Last transfusion was 3 weeks ago. Patient states having URI symptoms (cough with yellowish expectoration) since about 10 days duration. He also states having significant generalized weakness/tiredness. He denies any chest pain, dyspnea, dizziness, nausea, vomiting, abdominal pain. He admits to noticing some dark-colored stools this morning. Otherwise no complaints. I personally reviewed blood work, imaging studies. Lab work showed leukocytosis 21.1, hemoglobin 5.1, hematocrit 15.6, platelets 289K, INR 1.1, creatinine 1.6, chloride 108, BUN 42, glucose 124, AST 45. Urinalysis pending. Respiratory panel pending. Chest x- ray showed cardiomegaly with no acute cardiopulmonary findings. EKG showed normal sinus rhythm, ST-T wave changes in the inferolateral leads. Troponin negative. Physical Exam: Vitals signs as noted above General Appearance:Moderately built and nourished, no apparent distress Head: normocephalic, Atraumatic Eyes: normal inspection, EOMI,+Pallor Neck: supple, Trachea midline Respiratory/Chest: Normal breath sounds, CTA, No accessory muscle use Cardiovascular: S1, S2, ? murmur Abdomen/GI:Soft, Non tender, mild distention, Bowel sounds present Extremities/Musculoskeletal:normal inspection, Trace pedal edema Neurologic/Psych:AAOX3, grossly no focal neurological deficits,+hearing Skin: normal color, warm Symptomatic anemia Transfusion dependent Likely due to myelofibrosis. Rule out other causes Essential thrombocythemia Follow-up anemia work-up Transfuse PRBCs Monitor H&H Monitor volume status EKG changes likely due to demand ischemia/significant anemia Needs follow-up with oncology upon discharge PT OT prior to discharge Leukocytosis Likely reactive Urinalysis pending Acute bronchitis Started on doxycycline Follow-up respiratory failure I personally reviewed the record. Patient is interviewed and examined at bedside. Patient's care is coordinated with Urvashi Gardner PA-C. Please refer to the documentation above for details of patient's presentation and for discussion of other issues.
[2023-01-17 15:12] LABS: Folate (Folic Acid),Ser orPlas > 22.30 ng/ml (>5.38)
[2023-01-17 15:13] LABS: Vitamin B12 610 pg/ml (180-914)
[2023-01-17] MEDS: DOXYCYCLINE HYCLATE 100 MG CAP PO SCH ×2 (15:25→21:50)
[2023-01-17 15:47] LABS: Appearance Urine Clear (Clear); Bacteria Urine Automated Negative (Negative); Bilirubin Urine Negative (Negative); Blood Urine Trace (Negative); Color Urine Yellow; Glucose Urine UA Negative (Negative); Ketones Urine Negative (Negative); Leukocyte Esterase Urine Negative (Negative); Nitrite Urine Negative (Negative); Protein Urine 1+ (Negative); Specific Gravity Urine 1.016 (1.000-1.030); Urobilinogen Urine Negative (Negative); pH Urine 5.5 (4.5-7.5)
[2023-01-17 16:01] LABS: RBC Urine Automated 0-4 /hpf (0-4)
[2023-01-17 16:19] LABS: Adenovirus PCR Not Detected (NotDetected); Bordetella parapertussis PCR Not Detected (NotDetected); Bordetella pertussis PCR Not Detected (NotDetected); Chlamydia pneumoniae PCR Not Detected (NotDetected); Coronavirus 229E PCR Not Detected (NotDetected); Coronavirus CoV-2 (COVID19)PCR Not Detected (NotDetected); Coronavirus HKU1 PCR Not Detected (NotDetected); Coronavirus NL63 PCR Not Detected (NotDetected); Coronavirus OC43PCR Not Detected (NotDetected); Human Metapneumovirus PCR Not Detected (NotDetected); Influenza A PCR Not Detected (NotDetected); Influenza B PCR Not Detected (NotDetected); Mycoplasma pneumoniae PCR Not Detected (NotDetected); Parainfluenza Virus 1 PCR Not Detected (NotDetected); Parainfluenza Virus 2 PCR Not Detected (NotDetected); Parainfluenza Virus 3 PCR Not Detected (NotDetected); Parainfluenza Virus 4 PCR Not Detected (NotDetected); Respiratory Syncytial VirusPCR Not Detected (NotDetected); Rhinovirus/Enterovirus PCR Not Detected (NotDetected)
[2023-01-17] MEDS ORDERED: ACETAMINOPHEN 325 MG TAB PO PRN (16:19)
[2023-01-17] MEDS ORDERED: ONDANSETRON INJ 2 MG/ML 2 ML VIAL IV PRN (16:19)
[2023-01-17] MEDS ORDERED: hydrOXYzine HCl 10 MG TAB PO PRN (16:19)
[2023-01-17] MEDS ORDERED: POLYETHYLENE (MIRALAX) 17 GM PACK PO PRN (16:19)
--- OUTSIDE RECORDS SUMMARY | 2023-01-17 17:06 | External Medical Summary | Summary of Care ---
Author Name Unknown Organization [facility] Address [address] [facility] [place] [address] Phone [phone] Care Team Providers Care Auto Wheel Alignment Specialist Name Role Phone Amy GAMBLE MD, Ritesh Chapman Primary Care Provider [phone] Reason for Visit * Reason Onset Date Comments Appointment 01/10/2023 Encounter Details Date Type Department Care Team (Late st Contact Info) Description 01/10/2023 Telephone Hematology/Oncology Treatment, [place] [address] [place] [address] Ritesh Reyes III, MD 200 [place] [address] Appointment Allergies Active Allergy Reactions Criticality Noted Date Comments Naproxen Itching Medium 12/08/2015 documented as of this encounter (statuses as of 01/10/2023) Medications Medication Sig Dispensed Refills Start Date End Date Status MULTI VITAMIN MENS PO TABS Take 1 Tab by mouth daily. 0 03/02/2007 Active ASPIRIN 81 MG PO TABS 1 tablet daily 0 Active Lutein 10 MG TABS Take by mouth. 0 Act aline Psyllium (METAMUCIL) WAFR Take 0.5 Wafers by mouth in the morning. 0 Active Anagrelide HCl 1 MG Oral CapsuleIndications:Esse ntial thrombocythemia (HCC) Take 1 Capsule by mouth in the morning. 30 Capsule 6 03/15/2022 Active amLODIPine Besylate 5 MG Oral Tablet (Norvasc) TAKE 2 TABLETS BY MOUTH IN THE MORNING 180 Tablet 3 08/13/2022 Active Carvedilol 12.5 MG Oral Tablet (Coreg) TAKE 1 TABLET BY MOUTH 2 TIMES A DAY. TAKE WITH FOOD 180 Tablet 3 08/13/2022 Active HYDROcodone-Acetaminoph en 5-325 MG Oral Tablet Take 1 Tablet by mouth every 4 hours as needed for Pain, Moderate. 0 10/21/2022 Active hydrOXYzine HCl 10 MG Oral Tablet (Atarax)Indications:Pru ritus Take 1 Tablet by mouth daily as needed for Itching. 10 Tablet 0 11/16/2022 Active Tamsulosin HCl 0.4 MG Oral Capsule (Flomax) TAKE 1 CAPSULE BY MOUTH EVERY EVENING 30 Capsule 5 12/06/2022 Active Hydroxyurea 500 MG Oral Capsule (Hydrea)Indications:Ess ential thrombocythemia (HCC) Take 1 capsule daily in the morning by mouth 90 Capsule 3 12/13/2022 Active documented as of this encounter (statuses as of 01/10/2023) Active Problems Problem Noted Date Diagnosed Date Anemia due to stage 4 chronic kidney disease 08/2021 Chronic kidney disease, stage 3b 07/28/2020 Overview: Per CKD protocol Benign hypertension with stage 3b chronic kidney disease 06/23/2020 Overview: Per CKD protocol Hx of nonmelanoma skin cancer 05/09/2018 Overview: 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 sideburn 01/2018, 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, SCC R cheek 2016, BCC R nose 2014 Hx of actinic keratosis 05/09/2018 History of melanoma in situ 08/27/2013 Essential thrombocythemia 08/27/2010 documented as of this encounter (statuses as of 01/10/2023) Resolved Problems Problem Noted Date Diagnosed Date Resolved Date Benign hypertension with CKD (chronic kidney disease) stage III 01/02/2019 06/25/2020 Overview: Per CKD protocol Kidney disease, chronic, sta ge III (GFR 30-59 ml/min) 01/22/2018 01/24/2019 Overview: Per CKD protocol #1 Travel advice encounter 04/05/201603/17 documented as of this encounter (statuses as of 01/10/2023) Immunizations Name Administration Dates Next Due COVID-19 mRNA, LNP-s, No Pre serve, 2-Dose Series (Moderna) 04/20/2020,03/18/2020 COVID-19 mRNA, LNP-s, No Pre serve, 2-Dose Series (Pfizer) 05/25/2021,12/10/2020 COVID-19, MRNA-LNP, 23-24, P F, 50 MCG/0.5 mL, 12 YRS AND ABOVE, IM (MODERNA-Spikevax) 11/18/2022 Covid-19, Mrna, Lnp-s, Pf, B ivalent, 50 Mcg, IM, 12 yrs and above (Moderna) 06/14/2022,11/03/2021 HepA Inact/HepB Recomb>=18yrs old 06/28/2010,,05/28/2010 Pneumococcal Conjugate Vacc, 13 Valent (Prevnar) 04/08/2014 Pneumococcal Polysaccharide PPV23 (Pneumovax) 03/02/2007 SEASONAL INFLUENZA, PF, 6 M & Above, IM , (FLULAVAL or FLUZONE) 11/01/2018,10/26/2017,11/08/2016 Season Influenza, Quad, PF, Adjuvanted, 65+ Yrs, IM (FLUAD) 11/05/2019 Seasonal Influenza, Quadriva lent Hd (Fluzone Hd) 10/31/2022,10/26/2021,10/27/2020 Seasonal Influenza, Quadriva lent, No Preserve, IM 12/16/2015 Seasonal Influenza, Split, I IV3, With Preserve, Inj 11/04/2014,10/31/2013,11/12/2012,10/15,10/01/2010,12/21/2009,10/25/19 09,01/13/2007 10/31/2014 TD - Tetanus/Diptheria (ADULT) 02/16/2000 TD, Preservative Free 06/11/2010 TDAP (age 10 and older)(Boostrix) 09/21/2015 Typhoid Parenteral 06/14/2010, 1,06/10/2010,05/15 Typhoid VICPs Parenteral, 2 years and above (Typhim ) 06/01/2018 Varicella Zoster Vaccine (Adult) 11/12/2008 Zoster Vaccine Recombinant (Shingrix) 08/01/2019 ,02/20/2019 documented as of this encounter Social History Tobacco Use Types Packs/Day Years Used Date Smoking Tobacco: Former Pipe Smokeless Tobacco: Never Alcohol Use Standard Drinks/Week Comments Not Currently 0 (1 standard drink = 0.6 oz pur e alcohol) PHQ-2 Answer Date Recorded PHQ Adult Total Score 0 08/21/2020 Sex and Gender Information Value Date Recorded Sex Assigned at Not on file Gender Identity Not on file Sexual Orientation Not on file Job Start Date Occupation Industry Not on file Not on file Not on file documented as of this encounter Miscellaneous Notes * Telephone Encounter - Talita Cho OSA - 01/10/2023 11:45 AM EST Pt is scheduled for an acute for tomorrow * Telephone Encounter - Kimberly Augustine RN - 01/10/2023 9:58 AM EST Patient presented for lab review- no transfusion needed. Patient states that his right ear hurts. Kept him up last night, no discharge. He is also very fatigued and weak. Denies fever, cough, SOB. He notes that his also has cold symptoms. Has not taken a home COVID test. Advised him to take a home COVID test but to also follow up with Dr Reyes's office regarding symptoms. He verbalized understanding. FP: please follow up with patient for acute appt- patient states that he would be ok with seeing alternate providers (not just Dr Reyes). Thanks! documented in this encounter Plan of Treatment Upcoming Encounters Date Type Department Care Team (Late st Contact Info) Description 01/11/2023 11:20 AM EST Office Visit General Internal Medicine Angelic Goel [address] [place] [address] Melba Sykes MD [address] [place], [place] [address] 01/17/2023 9:00 AM EST Laboratory Laboratory [facility] [address] [place], [place] [phone] [place], Lab [facility] [address] [place], [place] [address] 01/17/2023 9:30 AM EST Nurse Only Hematology/Oncology [facility] [address] [place], [place] [address] [place], Nurse Hem Onc [address] [place], [place] [address] 01/24/2023 10:45 AM EST Office Visit Hematology/Oncology [facility] [address] [place], [place] [address] Emiliano Sandoval MD [address] [place], [place] [address] 02/21/2023 1:00 PM EST Office Visit Family Practice [facility] [address] [place], [place] [address] Ritesh Reyes III, MD 200 [facility] [place] [address] 05/04/2023 3:30 PM EDT Office Visit Dermatology [facility] [address] [place] [address] Kylie Goldberg MD [address] [place] [address] Health Maintenance Due Date Last Done Comments Hepatitis B (2 of 3 - 19+ 3-dose series) 07/26/2010 06/28/2010, 06/07/2010, 05/28/2010 Depression Screening 08/21/2021 08/21/2020 Albumin/Creatinine Ratio 02/23/2022 02/23/2021, 02/13 GFR 06/27/2023 12/27/2022, 04/2022, 09/13/2022, Additional history exists DTaP,Tdap,and Td Vaccines (2 - Td or Tdap) 09/20/2025 09/21/2015, 06/11/2010, 02/16/2000 Pneumococcal Vaccine: 65+ Years Completed 04/08/2014, 03/02/2007 Zoster Vaccines Completed 08/01/2019, 09/2019, 11/12/2008 Influenza Vaccine (FLU shot) Completed , 10/31/2022, 10/26/2021, Additional history exists COVID-19 Vaccine Completed 11/18/2022, 03/2022, 11/03/2021, Additional history exists GARDASIL-HPV IMMUNIZATION SERIES Aged Out No longer eligible based on patient's age to complete this topic MENINGOCOCCAL (MENACTRA/MENVEO) Aged Out No longer eligible based on patient's age to complete this topic documented as of this encounter Medical Devices Not on filedocumented as of this encounter Care Teams Auto Wheel Alignment Specialist Relationship Specialty Start Date End Date Ritesh Reyes III, MD 200 [facility] [place] [address] PCP - General 02/02/00 documented as of this encounter
--- OUTSIDE RECORDS SUMMARY | 2023-01-17 17:06 | External Medical Summary | Summary of Care ---
Author Name Unknown Organization [facility] Address [address] [facility] [place] [address] Phone [phone] Care Team Providers Care Chief Operator Reformer Name Role Phone Amy GAMBLE MD, Ritesh Chapman Primary Care Provider [phone] Reason for Visit * Reason Onset Date Comments Appointment 01/10/2023 Encounter Details Date Type Department Care Team (Late st Contact Info) Description 01/10/2023 Telephone Hematology/Oncology Treatment, [place] [address] [place] [address] Ritesh Reyes III, MD 200 [place] [address] Appointment Allergies Active Allergy Reactions Criticality Noted [...] nonmelanoma skin cancer 05/09/2018 Overview: SCCIS L shinto and SCC L cheek near inferior sideburn [...] IV3, With Preserve, Inj 11/04/2014,10/31/2013,11/12/2012,10/15,10/01/2010,12/21/2009,10/25/19 09,01/13/2007 10/31/2014 TD, Preservative Free 06/11/2010 TDAP (age 10 [...] encounter Miscellaneous Notes * Telephone Encounter - Kimberly Augustine RN [...] AM EST Office Visit General Internal Medicine [place] [facility] [address] [place] [address] Melba Sykes MD [address] [place] [address] 01/17/2023 9:00 AM EST Laboratory Laboratory [facility] [address] [place] [address] [phone] Radha Goel [address] [place] [address] 01/17/2023 9:30 AM EST Nurse Only Hematology/Oncology [facility] [place] [address] [facility] [place] [address] [place], Nurse Hem Onc [facility] [address] [facility] [place] [address] 01/24/2023 10:45 AM EST Office Visit Hematology/Oncology [facility] [place] [address] [facility] [address] [place], [place] [address] Emiliano Sandoval MD [address] [facility] [address] [place] [address] 02/21/2023 1:00 PM EST Office Visit Family Practice [facility] [place] [address] [facility] [address] [place], [place] [address] Ritesh Reyes III, MD [address] [facility] [place], [place] [address] 05/04/2023 3:30 PM EDT Office Visit Dermatology [facility] [address] [facility] [address] [place], [place] [address] Kylie Goldberg MD [address] [facility] [place] [address] Health Maintenance Due Date Last Done Comments [...] filedocumented as of this encounter Care Teams Chief Operator Reformer Relationship Specialty Start Date End Date Ritesh Reyes III, MD [address] [place] [address] PCP - General 02/02/00 documented as of this encounter
--- OUTSIDE RECORDS SUMMARY | 2023-01-17 17:06 | External Medical Summary | Summary of Care ---
Author Name Unknown Organization [facility] Address [address] [facility] [place] [address] Phone [phone] Care Team Providers Care Certified Nurse Midwife Name Role Phone Amy GAMBLE MD, Ritesh Chapman Primary Care Provider [phone] Reason for Visit * Reason Comments Acute The pt stated he has had L ear pain with a sore throat for a few days. He stated that he took a home COVID test yesterday and it was negative. The pt stated that he feels that his symptoms are improving. The pt also complained of dizziness while standing Encounter Details Date Type Department Care Team (Late st Contact Info) Description 01/11/2023 11:20 AM EST Office Visit General Internal Medicine [facility] [address] [place] [address] Melba Sykes MD [address] [facility] [place] [address] Sensation of fullness in left ear*; Impacted cerumen of left ear; Excessive cerumen in ear canal, right; Benign hypertension with stage 3b chronic kidney disease (HCC); Blepharitis of right lower eyelid, unspecified type; Anemia due to stage 4 chronic kidney disease Allergies Active Allergy Reactions Criticality Noted Date Comments Naproxen Itching Medium 12/08/2015 documented as of this encounter (statuses as of 01/11/2023) Medications Medication Sig Dispensed Refills Start Date End Date Status MULTI VITAMIN MENS PO TABS Take 1 Tablet by mouth daily. Pt takes at lunchtime 0 8 Active Lutein 10 MG TABS Take by mouth. 0 Act aline Psyllium (METAMUCIL) WAFR Take 0.5 Wafers by mouth daily. PT takes at lunchtime 0 Active Anagrelide HCl 1 MG Oral CapsuleIndications: Essential thrombocythemia (HCC) Take 1 Capsule by mouth in the morning. 30 Capsule 6 3 Active Additional Information Patient taking differently:1 mg OralHS, Reported on 01/11/2023 amLODIPine Besylate 5 MG Oral Tablet (Norvasc) TAKE 2 TABLETS BY MOUTH IN THE MORNING 180 Tablet 3 3 Active Carvedilol 12.5 MG Oral Tablet (Coreg) TAKE 1 TABLET BY MOUTH 2 TIMES A DAY. TAKE WITH FOOD 180 Tablet 3 3 Active hydrOXYzine HCl 10 MG Oral Tablet (Atarax)Indications :Pruritus Take 1 Tablet by mouth daily as needed for Itching. 10 Tablet 0 3 Active Tamsulosin HCl 0.4 MG Oral Capsule (Flomax) TAKE 1 CAPSULE BY MOUTH EVERY EVENING 30 Capsule 5 3 Active Hydroxyurea 500 MG Oral Capsule (Hydrea)Indications :Essential thrombocythemia (HCC) Take 1 capsule daily in the morning by mouth 90 Capsule 3 3 Active Additional Information Patient taking differently: 500 mg Daily(Non-Specified), Take 1 capsule daily at noon by mouth, Reported on 01/11/2023 Debrox 6.5 % Otic Solution (Carbamide Peroxide)Indication s:Sensation of fullness in left ear,Impacted cerumen of left ear,Excessive cerumen in ear canal, right Instill 5 to 10 drops twice daily up to 4 days. To both ear canals 0 3 Active ASPIRIN 81 MG PO TABS 1 tablet daily 0 01/12/20 23 Discontinued HYDROcodone-Acetami nophen 5-325 MG Oral Tablet Take 1 Tablet by mouth every 4 hours as needed for Pain, Moderate. 0 3 01/12/20 23 Discontinued documented as of this encounter (statuses as of 01/11/2023) Active Problems Problem Noted Date Diagnosed Date Anemia due to stage 4 chronic kidney disease 08/2021 Chronic kidney disease, stage 3b 07/28/2020 Overview: Per CKD protocol Benign hypertension with stage 3b chronic kidney disease 06/23/2020 Overview: Per CKD protocol Hx of nonmelanoma skin cancer 05/09/2018 Overview: SCCIS L mandaeism and SCC L cheek near inferior sideburn 01/2018, 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, SCC R cheek 2016, BCC R nose 2014 Hx of actinic keratosis 05/09/2018 History of melanoma in situ 08/27/2013 Essential thrombocythemia 08/27/2010 documented as of this encounter (statuses as of 01/11/2023) Resolved Problems Problem Noted Date Diagnosed Date Resolved Date Benign hypertension with CKD (chronic kidney disease) stage III 01/02/2019 06/25/2020 Overview: Per CKD protocol Kidney disease, chronic, sta ge III (GFR 30-59 ml/min) 01/22/2018 01/24/2019 Overview: Per CKD protocol #1 Travel advice encounter 04/05/201603/17 documented as of this encounter (statuses as of 01/11/2023) Immunizations Name Administration Dates Next Due COVID-19 mRNA, LNP-s, No Pre serve, 2-Dose Series (Moderna) 04/20/2020,03/18/2020 COVID-19 mRNA, LNP-s, No Pre serve, 2-Dose Series (Soil IQ) 05/25/2021,12/10/2020 COVID-19, MRNA-LNP, 23-24, P F, 50 [...] (age 10 and older)(Boostrix) 09/21/2015 Typhoid Parenteral 06/14/2010,,06/10/2010,05/15 Typhoid VICPs Parenteral, 2 years and above [...] on file documented as of this encounter Last Filed Vital Signs Vital Sign Reading Time Taken Comments Blood Pressure 104/60 01/11/2023 11:09 AM EST Pulse 62 01/11/2023 11:09 AM EST Temperature 36.2 C (97.2 F) 01/11/2023 11:[address] Respiratory Rate - - Oxygen Saturation 98% 01/11/2023 11:09 AM EST Inhaled Oxygen Concentration - - Weight 73.5 kg (162 lb) 01/11/2023 11:09 AM EST Height - - Body Mass Index 25.37 10/31/2022 10:50 AM EDT documented in this encounter Patient Instructions * Patient Instructions* Melba Sykes MD - 01/11/2023 11:44 AM EST Debrox-Instill 5-10 drops twice daily to affected ear. Tilt head sideways and apply drops into ear. Solution will foam on contact with earwax; a cracklingsound may occur. Keep drops in ear for several minutes by keeping head tilted or placing cotton in ear. Remaining wax after treatment may be removed by gently flushing ear with warm water using a soft rubber bulb ear syringe. Do not allow applicator tip to enter ear canal. documented in this encounter Progress Notes * Mebla Sykes MD - 01/11/2023 11:27 AM EST SUBJECTIVE: Daniel Tinsley is a 82 year old male. Chief Complaint Patient presents with Acute The pt stated he has had L ear pain with a sore throat for a few days. He stated that he took a home COVID test yesterday and it was negative. The pt stated that he feels that his symptoms are improving. The pt also complained of dizziness while standing HPI: Patient presents today for acute appointment with symptoms of some fullness of his left ear for the last week, had a scant amount of yellowish discharge for 1 day, symptoms improved. Admits to mild runny nose, had a mild sore throat but he is feeling better, took a home COVID test yesterday which was negative, he has been vaccinated against COVID-19. No fever or chills or body aches. No cough or wheezing. Mild dizziness on standing. Blood pressure is stable, no nausea or vomiting. He is slightly hard of hearing, does not wearing hearing aid BP Readings from Last 4 Encounters: 01/11/23 104/60 11/11/22 147/60 10/31/22 108/52 10/25/22 112/63 Wt Readings from Last 4 Encounters: 01/11/23 73.5 kg (162 lb) 11/11/22 72.1 kg (159 lb) 10/31/22 72.4 kg (159 lb 9.6 oz) 10/25/22 73.5 kg (162 lb) Patient Active Problem List Diagnosis Code Essential thrombocythemia (HCC) D47.3 History of melanoma in situ Z86.006 Hx of nonmelanoma skin cancer Z85.828 Hx of actinic keratosis Z87.2 Benign hypertension with stage 3b chronic kidney disease (HCC) I12.9, N18.32 Chronic kidney disease, stage 3b (HCC) N18.32 Anemia due to stage 4 chronic kidney disease N18.4, D63.1 Current Outpatient Medications Medication Sig Dispense Refill MULTI VITAMIN MENS PO TABS Take 1 Tablet by mouth daily. Pt takes at lunchtime 0 Lutein 10 MG TABS Take by mouth. Psyllium (METAMUCIL) WAFR Take 0.5 Wafers by mouth daily. PT takes at lunchtime Anagrelide HCl 1 MG Oral Capsule Take 1 Capsule by mouth in the morning. (Patient taking differently: Take 1 Capsule by mouth at bedtime.) 30 Capsule 6 amLODIPine Besylate 5 MG Oral Tablet (Norvasc) TAKE 2 TABLETS BY MOUTH IN THE MORNING 180 Tablet 3 Carvedilol 12.5 MG Oral Tablet (Coreg) TAKE 1 TABLET BY MOUTH 2 TIMES A DAY. TAKE WITH FOOD 180 Tablet 3 hydrOXYzine HCl 10 MG Oral Tablet (Atarax) Take 1 Tablet by mouth daily as needed for Itching. 10 Tablet 0 Tamsulosin HCl 0.4 MG Oral Capsule (Flomax) TAKE 1 CAPSULE BY MOUTH EVERY EVENING 30 Capsule 5 Hydroxyurea 500 MG Oral Capsule (Hydrea) Take 1 capsule daily in the morning by mouth (Patient taking differently: 1 Capsule daily. Take 1 capsule daily at noon by mouth) 90 Capsule 3 No current facility-administered medications for this visit. Review of patient's allergies indicates: Allergen Reactions Naproxen Itching OBJECTIVE: BP 104/60 | Pulse 62 | Temp 36.2 C (97.2 F) | Wt 73.5 kg (162 lb) | SpO2 98% | BMI 25.37 kg/m| BSA 1.86 m PHYSICAL EXAM: General: alert, healthy, no distress, well nourished and well developed Eyes-pallor,no palpebral conjunctival erythema, scant amount of clear discharge right lower lid Ears: External ears normal, Canals obscured by cerumen on the left talk, TM not visualized, right ear canal is clear except for deep-seated black cerumen, TM not visualized Nose: no mucosal edema, no purulent discharge, no mucosal erythema, no sinus tenderness Oropharynx: no exudate, no erythema Neck: supple, no adenopathy Heart: regular Rhythm and rate,3/6 nitesh base Lungs: lungs clear to auscultation Hemoglobin Results: Lab Results Component Value Date/Time HGB 15.0 11/15/1995 08:10 AM [facility] - [facility] 7.7 (L) 01/10/2023 09:05 AM [facility] - [facility] 8.0 (L) 01/03/2023 08:48 AM [facility] - [facility] 6.7 (LL) 12/27/2022 08:58 AM [facility] - [facility] 7.5 (L) 03/11/2020 08:54 AM [facility] - [facility] 9.3 (L) 02/25/2020 08:58 AM [facility] - [facility] 6.5 (LL) 02/18/2020 09:06 AM ASSESSMENT/PLAN: Sensation of fullness in left ear (Primary) - Debrox 6.5 % Otic Solution (Carbamide Peroxide); Instill 5 to 10 drops twice daily up to 4 days. To both ear canals Impacted cerumen of left ear - Debrox 6.5 % Otic Solution (Carbamide Peroxide); Instill 5 to 10 drops twice daily up to 4 days. To both ear canals Excessive cerumen in ear canal, right - Debrox 6.5 % Otic Solution (Carbamide Peroxide); Instill 5 to 10 drops twice daily up to 4 days. To both ear canals See patient instructions Benign hypertension with stage 3b chronic kidney disease (HCC) Blepharitis of right lower eyelid, unspecified type Advised to apply warm moist compress to the affected areas for 15 minutes 2-3 x/dprn Anemia due to stage 4 chronic kidney disease F/m hematology Follow Up: Return if symptoms worsen or fail to improve. (This note was completed using the dictation program Fluency Direct. As such, there may be misspellings, word substitutions, or other variations that should not change the essence of the clinical content of this encounter note. If there is need for further clarification, please direct questions to the provider listed above.) Patient and / caregiver verbalize understanding of above instructions and agrees with plan of care. Melba Sykes MD 01/11/2023 documented in this encounter Nursing Notes * Reginaldo Rincon LPN - 01/11/2023 11:09 AM EST Chief Complaint Patient presents with Acute The pt stated he has had L ear pain with a sore throat for a few days. He stated that he took a home COVID test yesterday and it was negative. The pt stated that he feels that his symptoms are improving. documented in this encounter Plan of Treatment Upcoming Encounters Date Type Department Care Team (Late st Contact Info) Description 01/17/2023 9:00 AM EST Laboratory Laboratory [facility] [address] [facility] [place] [phone] [place], Lab [address] [place] [address] 01/17/2023 9:30 AM EST Nurse Only Hematology/Oncology [facility] [address] [facility] [place] [address] [place], Nurse Hem Onc [address] [place] [address] 01/24/2023 10:45 AM EST Office Visit Hematology/Oncology [facility] [address] [facility] [place] [address] Emiliano Sandoval MD [address] [facility] [place] [address] 02/21/2023 1:00 PM EST Office Visit Family Practice [facility] [address] [facility] [place] [address] Ritesh Reyes III, MD [address] [place] [address] [place] [address] 05/04/2023 3:30 PM EDT Office Visit Dermatology [facility] [address] [facility] [place] [address] Kylie Goldberg MD [address] [facility] [place] [address] Health Maintenance Due Date Last Done Comments [...] Not on filedocumented as of this encounter Visit Diagnoses Diagnosis Sensation of fullness in left ear- Primary Other disorders of ear Impacted cerumen of left ear Impacted cerumen Excessive cerumen in ear canal, right Benign hypertension with stage 3b chronic kidney disease (HCC) Blepharitis of right lower eyelid, unspecified type Anemia due to stage 4 chronic kidney disease documented in this encounter Care Teams Certified Nurse Midwife Relationship Specialty Start Date End Date Ritesh Reyes III, MD [address] [facility] [place] [address] PCP - General 02/02/00 documented as of this encounter"
--- OUTSIDE RECORDS SUMMARY | 2023-01-17 17:06 | External Medical Summary ---
Author Name Unknown Address Unknown Organization K09:[facility] [address] [place] [address] Laboratory Report Ordering Provider Test Date Status CLEMENTINA ROJAS 01/17/2023 09:04:17 Final Observation Date Value Abnormality Reference (Units ) Status SYNC LEUKOCYTES IN BLOOD BY AUTOMATED COUNT 01/17/2023 09:04:17 25.00 Above high normal 4.00-10.80 (K/uL) Final Neutrophils/100 leukocytes in Blood by Manual count 01/17/2023 09:04:17 65.0 40.0-75.0 (%) Final Lymphocytes/100 leukocytes in Blood by Manual count 01/17/2023 09:04:17 13.0 Below low normal 18.0-42.0 (%) Final Monocytes/100 leukocytes in Blood by Manual count 01/17/2023 09:04:17 10.0 1.0-11.0 (%) Final Eosinophils/100 leukocytes in Blood by Manual count 01/17/2023 09:04:17 2.0 0.0-6.0 (%) Final Metamyelocytes/100 leukocytes in Blood by Manual count 01/17/2023 09:04:17 8.0 Above high normal <=0.0 (%) Final Myelocytes/100 leukocytes in Blood by Manual count 01/17/2023 09:04:17 2.0 Above high normal <=0.0 (%) Final Neutrophils [#/volume] in Blood by Manual count 01/17/2023 09:04:17 16.25 Above high normal 1.80-7.70 (K/uL) Final Lymphocytes [#/volume] in Blood by Manual count 01/17/2023 09:04:17 3.25 1.00-4.80 (K/uL) Final Monocytes [#/volume] in Blood by Manual count 01/17/2023 09:04:17 2.50 Above high normal 0.00-1.10 (K/uL) Final Eosinophils [#/volume] in Blood by Manual count 01/17/2023 09:04:17 0.50 0.00-0.70 (K/uL) Final Metamyelocytes [#/volume] in Blood by Manual count 01/17/2023 09:04:17 2.00 Above high normal <=0.00 (K/uL) Final Myelocytes [#/volume] in Blood by Manual count 01/17/2023 09:04:17 0.50 Above high normal <=0.00 (K/uL) Final Nucleated erythrocytes/100 leukocytes [Ratio] in Blood by Automated count 01/17/2023 09:04:17 4 Above high normal <=0 (/100 WBCs) Final Schistocytes 01/17/2023 09:04:17 Few Abnormal None Seen Final Variant lymphocytes [Presence] in Blood by Light microscopy 01/17/2023 09:04:17 Present Abnormal None Seen Final Performing Location [facility] [address] [place] [address]
--- OUTSIDE RECORDS SUMMARY | 2023-01-17 17:06 | External Medical Summary | Summary of Care ---
Author Name Unknown Organization [facility] Address [address] [facility] [place] [address] Phone [phone] Care Team Providers Care Supervisor Machine Setter Name Role Phone Amy GAMBLE MD, Ritesh Chapman Primary Care Provider Reason for Visit * Reason Comments Outpatient Testing Encounter Details Date Type Department Care Team (Latest Contact Info) Description 01/17/2023 9:00 AM EST Laboratory Laboratory [facility] [place] [address] [place] [phone] [facility] Lab [address] [place] [address] Essential thrombocythemia (HCC) Allergies Active Allergy Reactions Criticality Noted Date Comments Naproxen Itching Medium 12/08/2015 documented as of this encounter (statuses as of 01/17/2023) Medications Medication Sig Dispensed Refills Start Date End Date Status MULTI VITAMIN MENS PO TABS Take 1 Tablet by mouth daily. Pt takes at lunchtime 0 03/02/2007 Active Lutein 10 MG TABS Take by mouth. 0 Act aline Psyllium (METAMUCIL) WAFR Take 0.5 Wafers by mouth daily. PT takes at lunchtime 0 Active Anagrelide HCl 1 MG Oral CapsuleIndications:Es sential thrombocythemia (HCC) Take 1 Capsule by mouth in the morning. 30 Capsule 6 03/15/2022 Active Additional Information Patient taking differently:1 mg OralHS, Reported on 01/11/2023 amLODIPine Besylate 5 MG Oral Tablet (Norvasc) TAKE 2 TABLETS BY MOUTH IN THE MORNING 180 Tablet 3 08/13/2022 Active Carvedilol 12.5 MG Oral Tablet (Coreg) TAKE 1 TABLET BY MOUTH 2 TIMES A DAY. TAKE WITH FOOD 180 Tablet 3 08/13/2022 Active hydrOXYzine HCl 10 MG Oral Tablet (Atarax)Indications:P ruritus Take 1 Tablet by mouth daily as needed for Itching. 10 Tablet 0 11/16/2022 Active Tamsulosin HCl 0.4 MG Oral Capsule (Flomax) TAKE 1 CAPSULE BY MOUTH EVERY EVENING 30 Capsule 5 12/06/2022 Active Hydroxyurea 500 MG Oral Capsule (Hydrea)Indications:E ssential thrombocythemia (HCC) Take 1 capsule daily in the morning by mouth 90 Capsule 3 12/13/2022 Active Additional Information Patient taking differently: 500 mg Daily(Non-Specified), Take 1 capsule daily at noon by mouth, Reported on 01/11/2023 Debrox 6.5 % Otic Solution (Carbamide Peroxide)Indications: Sensation of fullness in left ear,Impacted cerumen of left ear,Excessive cerumen in ear canal, right Instill 5 to 10 drops twice daily up to 4 days. 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, SCC R cheek 2016, BCC R nose 2015 Hx of actinic keratosis 05/09/2018 History of melanoma in situ 08/27/2013 Essential thrombocythemia 08/27/2010 documented as of this encounter (statuses as of 01/17/2023) Resolved Problems Problem Noted Date Diagnosed Date Resolved Date Benign hypertension with CKD (chronic kidney disease) stage III 01/02/2019 06/25/2020 Overview: Per CKD protocol Kidney disease, chronic, sta ge III (GFR 30-59 ml/min) 01/22/2018 01/24/2019 Overview: Per CKD protocol #1 Travel advice encounter 04/05/201603/17 documented as of this encounter (statuses as of 01/17/2023) Immunizations Name Administration Dates Next Due COVID-19 [...] on file documented as of this encounter Plan of Treatment Upcoming Encounters Date Type Department Care Team (Late st Contact Info) Description 01/17/2023 9:30 AM EST Nurse Only Hematology/Oncology [facility] [place] [address] [place] [address] [place], Nurse Hem Onc [address] [place] [address] Arrived 01/24/2023 10:45 AM EST Office Visit Hematology/Oncology [facility] [place] [address] [place] [address] Emiliano Sandoval MD [facility] [place] [facility] [place] [address] 02/21/2023 1:00 PM EST Office Visit Family Practice [facility] [place] [address] [place] [address] Ritesh Reyes III, MD [facility] [place] [address] 05/04/2023 3:30 PM EDT Office Visit Dermatology [place] [address] [place] [address] Kylie Goldberg MD 200 [facility] [place] [facility] [place] [address] Pending Results Name Type Priority Associated Diagnoses Date /Time CBC WITH WBC DIFFERENTIAL Lab STAT Essential thrombocythemia (HCC) 01/17/2023 9:04 AM EST CBC Lab STAT Essential thrombocythemia (HCC) 01/17/2023 9:04 AM EST DIFFERENTIAL, AUTOMATED Lab STAT Essential thrombocythemia (HCC) 01/17/2023 9:04 AM EST Health Maintenance Due Date Last Done Comments [...] as of this encounter Visit Diagnoses Diagnosis Essential thrombocythemia (HCC) Essential thrombocythemia documented in this encounter Care Teams Supervisor Machine Setter Relationship Specialty Start Date End Date Ritesh Reyes III, MD 200 [place] [address] PCP - General 02/02/00 documented as of this encounter
--- OUTSIDE RECORDS SUMMARY | 2023-01-17 17:06 | External Medical Summary | Summary of Care ---
Author Name Unknown Organization [facility] Address [address] [facility] [place] [address] Phone [phone] Care Team Providers Care Solvent Plant Treater Name Role Phone Amy GAMBLE MD, Ritesh Chapman Primary Care Provider [phone] Encounter Details Date Type Department Care Team (Late st Contact Info) Description 01/10/2023 9:30 AM EST Nurse Only Hematology/Oncology [place] [place] [address] [place] [address] [place], Nurse Hem Onc [place] [address] [place] [address] Arrived Allergies Active Allergy Reactions Criticality Noted Date [...] nonmelanoma skin cancer 05/09/2018 Overview: SCCIS L spiritism and SCC L cheek near inferior sideburn [...] on file documented as of this encounter Nursing Notes * Kimberly Augustine RN - 01/10/2023 12:50 PM EST Hgb 7.7. Per parameters, no transfusion needed. See TE for other complaints- patient scheduled for PCP appt tomorrow. documented in this encounter Plan of Treatment Upcoming Encounters Date Type Department Care Team (Late st Contact Info) Description 01/11/2023 11:20 AM EST Office Visit General Internal Medicine [facility] [place] [address] [place] [address] Melba Sykes MD 200 [facility] [place] [address] 01/17/2023 9:00 AM EST Laboratory Laboratory [facility] [place] [address] [place] [address] [phone] [place], Lab [facility] [address] [place] [address] 01/17/2023 9:30 AM EST Nurse Only Hematology/Oncology [facility] [place] [address] [place] [address] [place], Nurse Hem Onc [facility] [address] [place] [address] 01/24/2023 10:45 AM EST Office Visit Hematology/Oncology [facility] [address] [facility] [address] Emiliano Sandoval MD 200 [facility] [place], [place] [address] 02/21/2023 1:00 PM EST Office Visit Family Practice [facility] [address] [facility] [place], [place] [address] Ritesh Reyes III, MD 200 [facility] [place], [place] [address] 05/04/2023 3:30 PM EDT Office Visit Dermatology [facility] [address] [facility] [address] [place] [address] Kylie Goldberg MD [address] [place] [address] [place] [address] Health Maintenance Due Date Last Done Comments [...] filedocumented as of this encounter Care Teams Solvent Plant Treater Relationship Specialty Start Date End Date Ritesh Reyes III, MD [address] [place] [address] PCP - General 02/02/00 documented as of this encounter
--- OUTSIDE RECORDS SUMMARY | 2023-01-17 17:06 | External Medical Summary ---
Author Name Unknown Address Unknown Organization [facility]09:[facility] [place] [address] Laboratory Report Ordering Provider Test Date Status CLEMENTINA ROJAS 01/17/2023 09:04:17 Final Observation Date Value Abnormality Reference (Units ) Status WBC, Total 01/17/2023 09:04:17 25.00 Above high normal 4.00-10.80 (K/uL) Final RBC 01/17/2023 09:04:17 1.90 4.50-5.25 (M/uL) Final Hemoglobin 01/17/2023 09:04:17 5.3 Below lower panic limits 14.0-16.8 (g/dL) Final Results rechecked.
null HCT 01/17/2023 09:04:17 16.6 Below low normal 40. 0-48.4 (%) Final MCV 01/17/2023 09:04:17 87.4 82.0-99.5 (fL) Final MCH 01/17/2023 09:04:17 27.9 27.0-34.0 (pg) Final MCHC 01/17/2023 09:04:17 31.9 32.0-36.0 (g/dL) Final RDW 01/17/2023 09:04:17 16.1 11.5-15.5 (%) Final Platelets 01/17/2023 09:04:17 384 140-400 (K /uL) Final MPV 01/17/2023 09:04:17 10.7 6.6-11.1 ( fL) Final Performing Location [facility] [place] [address]
--- OUTSIDE RECORDS SUMMARY | 2023-01-17 17:07 | External Medical Summary | Summary of Care ---
Author Name Unknown Organization [facility] Address [address] [facility] [place] [address] Phone [phone] Care Team Providers Care Rug Frame Mounter Name Role Phone Amy GAMBLE MD, Ritesh Chapman Primary Care Provider [phone] Reason for Visit * Reason Comments Lesion Pt presents today fo r a lesion on R cheek. States it is a little painful at times and began growing a few months ago Encounter Details Date Type Department Care Team (Late st Contact Info) Description 01/03/2023 1:15 PM EST Office Visit [facility] [address] [place] [address] Kylie Goldberg MD [address] [place] [id number] Skin lesion* Allergies Active Allergy Reactions Criticality Noted Date Comments Naproxen Itching Medium 12/08/2015 documented as of this encounter (statuses as of 01/06/2023) Medications Medication Sig Dispensed Refills Start Date [...] as of this encounter (statuses as of 01/06/2023) Active Problems Problem Noted Date Diagnosed Date Anemia due to stage 4 chronic kidney disease 08/2021 Chronic kidney disease, stage 3b 07/28/2020 Overview: Per CKD protocol Benign hypertension with stage 3b chronic kidney disease 06/23/2020 Overview: Per CKD protocol Hx of nonmelanoma skin cancer 05/09/2018 Overview: SCCIS L gnosticist and SCC L cheek near inferior sideburn 01/2018, 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, SCC R cheek 2016, BCC R nose 2014 Hx of actinic keratosis 05/09/2018 History of melanoma in situ 08/27/2013 Essential thrombocythemia 08/27/2010 documented as of this encounter (statuses as of 01/06/2023) Resolved Problems Problem Noted Date Diagnosed Date Resolved Date Benign hypertension with CKD (chronic kidney disease) stage III 01/02/2019 06/25/2020 Overview: Per CKD protocol Kidney disease, chronic, sta ge III (GFR 30-59 ml/min) 01/22/2018 01/24/2019 Overview: Per CKD protocol #1 Travel advice encounter 04/05/201603/17 documented as of this encounter (statuses as of 01/06/2023) Immunizations Name Administration Dates Next Due COVID-19 [...] Influenza, Split, I IV3, With Preserve, Inj 11/04/2014,10/31/2013,11/12/2012,10/15,10/01/2010,12/21/2009,10/25/19,01/13/2007 10/31/2014 TD, Preservative Free 06/11/2010 TDAP (age [...] on file documented as of this encounter Progress Notes * Kylie Goldberg MD - 01/03/2023 1:12 PM EST Images from the original note were not included. SUBJECTIVE: History of Present Illness: Daniel Tinsley is a 82 year old male seen today for evaluation of a lesion of concern on his rightcheek. MEDICA TIONS: Current Outpatient Medications Medication Sig Dispense Refill MULTI VITAMIN MENS PO TABS Take 1 Tab by mouth daily. 0 ASPIRIN 81 MG PO TABS 1 tablet daily (Patient not taking: Reported on 10/31/2022) Lutein 10 MG TABS Take by mouth. Psyllium (METAMUCIL) WAFR Take 0.5 Wafers by mouth in the morning. Anagrelide HCl 1 MG Oral Capsule Take 1 Capsule by mouth in the morning. 30 Capsule 6 amLODIPine Besylate 5 MG Oral Tablet (Norvasc) TAKE 2 TABLETS BY MOUTH IN THE MORNING 180 Tablet 3 Carvedilol 12.5 MG Oral Tablet (Coreg) TAKE 1 TABLET BY MOUTH 2 TIMES A DAY. TAKE WITH FOOD 180 Tablet 3 HYDROcodone-Acetaminophen 5-325 MG Oral Tablet Take 1 Tablet by mouth every 4 hours as needed for Pain, Moderate. (Patient not taking: Reported on 10/31/2022) hydrOXYzine HCl 10 MG Oral Tablet (Atarax) Take 1 Tablet by mouth daily as needed for Itching. 10 Tablet 0 Tamsulosin HCl 0.4 MG Oral Capsule (Flomax) TAKE 1 CAPSULE BY MOUTH EVERY EVENING 30 Capsule 5 Hydroxyurea 500 MG Oral Capsule (Hydrea) Take 1 capsule daily in the morning by mouth 90 Capsule 3 No current facility-administered medications for this visit. ALLERG IES: Naproxen OBJECTIVE: GEN: Healthy, alert, no distress, appears oriented, pleasant, and cooperative. SKIN: A. Right cheek: ~ 6 mm pink to howard papule with a cutaneous horn ASSESS MENT/PLAN: 1. Lesion A, right cheek. R/o squamous cell carcinoma. DDx includes verruca vs hypertrophic actinickeratosis vs seborrheic keratosis. Shave of the lesion noted above to remove and confirm diagnosis. The procedure, risks, benefits, alternatives and expected outcomes were discussed with the patient and consent was obtained. Time out called. Patient identified, procedure verified, site identified and verified. Patient and staff present in agreement. Area prepped with alcohol and anesthetized using 0.5% lidocaine with epinephrine at 1:200,000 concentration. Shave of lesion performed. 20% AlCl and bandaging applied. Specimen sent to pathology. Patient instructed in routine post-op care. The lesion was curetted for cure. Size of lesion: 6 mm Size of wound after currettage: 9 mm Base treated with cryotherapy Follow-up: will adjust with lab/path results The patient was encouraged to contact me with any further questions or concerns. Kylie Goldberg MD 01/03/2023 documented in this encounter Nursing Notes * Cindy Wright LPN - 01/03/2023 1:11 PM EST Chief Complaint Patient presents with Lesion Pt presents today for a lesion on R cheek. States it is a little painful at times and began growinga few months ago documented in this encounter Plan of Treatment Upcoming Encounters Date Type Department Care Team (Late st Contact Info) Description 01/10/2023 9:00 AM EST Laboratory Laboratory [facility] [place] [address] [place] [phone] [place], Lab [address] [facility] [place] [address] 01/10/2023 9:30 AM EST Nurse Only Hematology/Oncology [facility] [place] [address] [place] [address] [place], Nurse Hem Onc [address] [place] [address] 01/17/2023 9:00 AM EST Laboratory Laboratory [facility] [place] [address] [place] [phone] [place], Lab Scenery [address] [facility] [place] [address] 01/17/2023 9:30 AM EST Nurse Only Hematology/Oncology [facility] [address] [facility] [place] [address] [place], Nurse Hem Onc [facility] [address] [facility] [place] [address] 01/24/2023 10:45 AM EST Office Visit Hematology/Oncology [facility] [place] [address] [facility] [address] [place], [place] [address] Emiliano Sandoval MD [address] [place] [address] [place], [place] [address] 02/21/2023 1:00 PM EST Office Visit Family Practice [facility] [place] [address] [facility] [address] [place], [place] [address] Ritesh Reyes III, MD [address] [place] [address] [place], [place] [address] 05/04/2023 3:30 PM EDT Office Visit Dermatology [facility] [address] [facility] [address] [place], [place] [address] Kylie Goldberg MD [address] [place] [address] [place], [place] [address] Pending Results Name Type Priority Associated Diagnoses Date /Time SURGICAL PATHOLOGY Pathology Routine Skin lesion 01/03/2023 1:19 PM EST Health Maintenance Due Date Last Done [...] as of this encounter Visit Diagnoses Diagnosis Skin lesion- Primary Unspecified disorder of skin and subcutaneous tissue documented in this encounter Care Teams Rug Frame Mounter Relationship Specialty Start Date End Date Ritesh Reyes III, MD [address] [place] [address] PCP - General 02/02/00 documented as of this encounter
--- OUTSIDE RECORDS SUMMARY | 2023-01-17 17:07 | External Medical Summary ---
Author Name Unknown Address Unknown Organization K01:[facility] [address] [place] [address] Laboratory Report Ordering Provider Test Date Status CLEMENTINA ROJAS 01/10/2023 09:05:49 Final Observation Date Value Abnormality Reference (Units ) Status Pathologist review of results 01/10/2023 09:05:49 Rare blasts at about 1%. Final Performing Location [facility] - [address] [place] [address]
--- OUTSIDE RECORDS SUMMARY | 2023-01-17 17:07 | External Medical Summary | Summary of Care ---
Author Name Unknown Organization [facility] Address [address] [facility] [place] [address] Phone [phone] Care Team Providers Care Vessel Slagman Name Role Phone Amy GAMBLE MD, Ritesh Chapman Primary Care Provider Reason for Visit * Reason Comments Outpatient Testing Encounter Details Date Type Department Care Team (Latest Contact Info) Description 01/10/2023 9:00 AM EST Laboratory Laboratory [facility] [place] [address] [place] [phone] [facility] Lab Scenery [address] [place] [address] Essential thrombocythemia (HCC) Allergies Active Allergy Reactions [...] nonmelanoma skin cancer 05/09/2018 Overview: SCCIS L congregation and SCC L cheek near inferior sideburn [...] 01/10/2023 9:30 AM EST Nurse Only Hematology/Oncology [facility] [place] [address] [place] [address] [place], Nurse Hem Onc [address] [place] [address] Arrived 01/17/2023 9:00 AM EST Laboratory Laboratory [facility] [place] [address] [place] [phone] [place], Lab Scenery [address] [facility] [place] [address] 01/17/2023 9:30 AM EST Nurse Only Hematology/Oncology [facility] [place] [address] [place] [address] [place], Nurse Hem Onc [place] [place] [address] 01/24/2023 10:45 AM EST Office Visit Hematology/Oncology [facility] [place] [address] [place] [address] Emiliano Sandoval MD [address] [place] [address] 02/21/2023 1:00 PM EST Office Visit Family Practice [facility] 200 [facility] [place] [address] Ritesh Reyes III, MD 200 [facility] [place] [address] 05/04/2023 3:30 PM EDT Office Visit Dermatology [facility] 200 [facility] [place] [address] Kylie Goldberg MD 200 [facility] [place] [address] Pending Results Name Type Priority Associated Diagnoses Date /Time CBC WITH WBC DIFFERENTIAL Lab STAT Essential thrombocythemia ([facility]) 01/10/2023 9:05 AM EST CBC Lab STAT Essential thrombocythemia ([facility]) 01/10/2023 9:05 AM EST DIFFERENTIAL, AUTOMATED Lab STAT Essential thrombocythemia ([facility]) 01/10/2023 9:05 AM EST DIFFERENTIAL, TECHNOLOGIST REVIEW Lab Routine Essential thrombocythemia ([facility]) 01/10/2023 9:05 AM EST Health Maintenance Due Date Last [...] thrombocythemia documented in this encounter Care Teams Vessel Slagman Relationship Specialty Start Date End Date Ritesh Reyes III, MD 200 [place] [address] PCP - General 02/02/00 documented as of this encounter
--- OUTSIDE RECORDS SUMMARY | 2023-01-17 17:07 | External Medical Summary ---
Author Name Unknown Address Unknown Organization [facility]09:[facility]- - [address] [place] [address] Laboratory Report Ordering Provider Test Date Status CLEMENTINA ROJAS 01/10/2023 09:05:49 Final Observation Date Value Abnormality Reference (Units ) Status SYNC LEUKOCYTES IN BLOOD BY AUTOMATED COUNT 01/10/2023 09:05:49 14.75 Above high normal 4.00-10.80 (K/uL) Final Neutrophils/100 leukocytes in Blood by Manual count 01/10/2023 09:05:49 64.0 40.0-75.0 (%) Final Lymphocytes/100 leukocytes in Blood by Manual count 01/10/2023 09:05:49 17.0 Below low normal 18.0-42.0 (%) Final Monocytes/100 leukocytes in Blood by Manual count 01/10/2023 09:05:49 16.0 Above high normal 1.0-11.0 (%) Final Eosinophils/100 leukocytes in Blood by Manual count 01/10/2023 09:05:49 2.0 0.0-6.0 (%) Final Blasts/100 leukocytes in Blood by Manual count 01/10/2023 09:05:49 1.0 Above high normal <=0.0 (%) Final Neutrophils [#/volume] in Blood by Manual count 01/10/2023 09:05:49 9.44 Above high normal 1.80-7.70 (K/uL) Final Lymphocytes [#/volume] in Blood by Manual count 01/10/2023 09:05:49 2.51 1.00-4.80 (K/uL) Final Monocytes [#/volume] in Blood by Manual count 01/10/2023 09:05:49 2.36 Above high normal 0.00-1.10 (K/uL) Final Eosinophils [#/volume] in Blood by Manual count 01/10/2023 09:05:49 0.30 0.00-0.70 (K/uL) Final Blasts [#/volume] in Blood by Manual count 01/10/2023 09:05:49 0.15 Above high normal <=0.00 (K/uL) Final Schistocytes 01/10/2023 09:05:49 Few Abnormal None Seen Final Performing Location [facility]- 02 - [address] [place] [address]
--- OUTSIDE RECORDS SUMMARY | 2023-01-17 17:07 | External Medical Summary | Summary of Care ---
Author Name Unknown Organization [facility] Address [address] [facility] [place] [address] Phone [phone] Care Team Providers Care Digital Strategist Senior Manager Name Role Phone Amy GAMBLE MD, Ritesh Chapman Primary Care Provider [phone] Encounter Details Date Type Department Care Team (Late st Contact Info) Description 01/03/2023 9:30 AM EST Nurse Only Hematology/Oncology [place] Goel [address] [place] [address] [place], Nurse Hem Onc Scenery [address] [place] [address] Arrived Allergies Active Allergy Reactions Criticality Noted Date Comments Naproxen Itching Medium 12/08/2015 documented as of this encounter (statuses as of 01/03/2023) Medications Medication Sig Dispensed Refills Start Date [...] as of this encounter (statuses as of 01/03/2023) Active Problems Problem Noted Date Diagnosed Date Anemia due to stage 4 chronic kidney disease 08/2021 Chronic kidney disease, stage 3b 07/28/2020 Overview: Per CKD protocol Benign hypertension with stage 3b chronic kidney disease 06/23/2020 Overview: Per CKD protocol Hx of nonmelanoma skin cancer 05/09/2018 Overview: 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 01/2018, 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, SCC R cheek 2016, BCC R nose 2014 Hx of actinic keratosis 05/09/2018 History of melanoma in situ 08/27/2013 Essential thrombocythemia 08/27/2010 documented as of this encounter (statuses as of 01/03/2023) Resolved Problems Problem Noted Date Diagnosed Date Resolved Date Benign hypertension with CKD (chronic kidney disease) stage III 01/02/2019 06/25/2020 Overview: Per CKD protocol Kidney disease, chronic, sta ge III (GFR 30-59 ml/min) 01/22/2018 01/24/2019 Overview: Per CKD protocol #1 Travel advice encounter 04/05/201603/17 documented as of this encounter (statuses as of 01/03/2023) Immunizations Name Administration Dates Next Due COVID-19 [...] Nursing Notes * Kimberly Augustine RN - 01/03/2023 1:11 PM EST Hgb 8.0. Per parameters, no transfusion needed. Patient to return in 1 week but advised to contact office sooner with any questions/ concerns. He verbalized understanding. Skin tag noted on cheek- see TE from todays date sent to derm. documented in this encounter Plan of Treatment Upcoming Encounters Date Type Department Care Team (Late st Contact Info) Description 01/10/2023 9:00 AM EST Laboratory Laboratory [facility] [place] [address] [place] [phone] [place] Lab Scenery [address] [place] [address] 01/10/2023 9:30 AM EST Nurse Only Hematology/Oncology [facility] [place] [address] [place] [address] [place], Nurse Hem Onc [place] [address] [place] [address] [address] 01/17/2023 9:00 AM EST Laboratory Laboratory [facility] [place] [address] [place] [phone] [place], Lab Scenery [address] [place] [address] [address] 01/17/2023 9:30 AM EST Nurse Only Hematology/Oncology [facility] [address] [facility] [address] [place], [place] [address] [place], Nurse Hem Onc [facility] [address] [facility] [place] [address] 01/24/2023 10:45 AM EST Office Visit Hematology/Oncology [facility] [place] [address] [facility] [address] [place], [place] [address] Emiliano Sandoval MD [address] [facility] [address] [place], [place] [address] 02/21/2023 1:00 PM EST Office Visit Family Practice [facility] [address] [facility] [address] [place], [place] [address] Ritesh Reyes III, MD [address] [facility] [address] [place] [address] 05/04/2023 3:30 PM EDT Office Visit Dermatology [facility] [address] [facility] [address] [place], [place] [address] Kylie Goldberg MD [address] [facility] [place] [address] Health Maintenance Due Date Last Done Comments [...] filedocumented as of this encounter Care Teams Digital Strategist Senior Manager Relationship Specialty Start Date End Date Amy Ritesh GAMBLE MD 200 [place] [address] PCP - General 02/02/00 documented as of this encounter
--- OUTSIDE RECORDS SUMMARY | 2023-01-17 17:07 | External Medical Summary ---
Author Name Unknown Address Unknown Organization K09[facility] [place] [address] Laboratory Report Ordering Provider Test Date Status CLEMENTINA ROJAS 01/10/2023 09:05:49 Final Observation Date Value Abnormality Reference (Units ) Status WBC, Total 01/10/2023 09:05:49 14.75 Above high normal 4 .00-10.80 (K/uL) Final RBC 01/10/2023 09:05:49 2.64 4.50-5.25 (M/uL) Final Hemoglobin 01/10/2023 09:05:49 7.7 Below low normal 14 .0-16.8 (g/dL) Final HCT 01/10/2023 09:05:49 24.4 Below low normal 40. 0-48.4 (%) Final MCV 01/10/2023 09:05:49 92.4 82.0-99.5 (fL) Final MCH 01/10/2023 09:05:49 29.2 27.0-34.0 (pg) Final MCHC 01/10/2023 09:05:49 31.6 32.0-36.0 (g/dL) Final RDW 01/10/2023 09:05:49 18.5 11.5-15.5 (%) Final Platelets 01/10/2023 09:05:49 408 Above high normal 14 0-400 (K/uL) Final MPV 01/10/2023 09:05:49 10.3 6.6-11.1 ( fL) Final Performing Location [facility] [place] [address]
--- OUTSIDE RECORDS SUMMARY | 2023-01-17 17:07 | External Medical Summary | Summary of Care ---
Author Name Unknown Organization [facility] Address [address] [facility] [place] [address] Phone [phone] Care Team Providers Care Digital Watch Assembler Name Role Phone Amy GAMBLE MD, Ritesh Chapman Primary Care Provider [phone] Reason for Visit * Reason Onset Date Comments Information 01/03/2023 Encounter Details Date Type Department Care Team (Late st Contact Info) Description 01/03/2023 Telephone Hematology/Oncology Treatment, [place] [address] [place] [address] Kylie Goldberg MD 200 [place] [address] Information Allergies Active Allergy Reactions Criticality Noted Date [...] nonmelanoma skin cancer 05/09/2018 Overview: SCCIS L druze and SCC L cheek near inferior sideburn [...] encounter Miscellaneous Notes * Telephone Encounter - Anju Ojeda OSA - 01/03/2023 11:26 AM EST Called patient and scheduled appointment for this afternoon at 1:15pm. * Telephone Encounter - Kimberly Augustine RN - 01/03/2023 9:29 AM EST Patient presented for labs/ nurse visit. Notes a skin tag on his right cheek that he said he just noticed about 1 week ago and has gotten larger. He states that this is near where he recently had a lesion removed. Reached out to Dr Goldberg, was able to send secure photo through [employer] text. Per Dr Goldberg, patient should have this removed/ biopsied, will have someone in her office reach out to patient to schedulean appointment. Patient aware and agreeable to scheduling an appt with dermatology. Derm: please follow up with patient for appt. Thanks! documented in this encounter Plan of Treatment Upcoming Encounters Date Type Department Care Team (Late st Contact Info) Description 01/03/2023 1:15 PM EST Office Visit [facility] [place] [address] Kylie Goldberg MD [address] [place] [address] 01/10/2023 9:00 AM EST Laboratory Laboratory [facility] [address] [place] [address] [place], Lab Scenery [address] [place] [address] 01/10/2023 9:30 AM EST Nurse Only Hematology/Oncology [facility] [address] [place] [address] [place], Nurse Hem Onc Scenery [address] [place] [address] 01/17/2023 9:00 AM EST Laboratory Laboratory [facility] [address] [place] [phone] [place], Lab Scenery [address] [place] [address] 01/17/2023 9:30 AM EST Nurse Only Hematology/Oncology [facility] [address] [place] [address] [place], Nurse Hem Onc Scenery [address] [place] [address] 01/24/2023 10:45 AM EST Office Visit Hematology/Oncology [facility] [address] [place] [address] Emiliano Sandoval MD [address] [place] [address] 02/21/2023 1:00 PM EST Office Visit Family Practice [facility] [address] [place] [address] Ritesh Reyes III, MD [address] [place] [address] 05/04/2023 3:30 PM EDT Office Visit Dermatology [place] [address] [place] [address] Kylie Goldberg MD [address] [place] [address] Health Maintenance Due Date Last Done Comments [...] as of this encounter Care Teams Digital Watch Assembler Relationship Specialty Start Date End Date Ritesh Reyes III, MD [address] [place] [address] PCP - General 02/02/00 documented as of this encounter
--- OUTSIDE RECORDS SUMMARY | 2023-01-17 17:08 | External Medical Summary | Summary of Care ---
Author Name Unknown Organization [facility] Address [address] [facility] [place] [address] Phone [phone] Care Team Providers Care Construction Crew Member Name Role Phone Amy GAMBLE MD, Ritesh Chapman Primary Care Provider [phone] Reason for Visit * Reason Comments Outpatient Testing Encounter Details Date Type Department Care Team (Late st Contact Info) Description 12/27/2022 11:40 AM EST Laboratory Laboratory [facility] [address] [place] [phone] Pod3, Specimen Drop Off [facility] [address] [place] [address] Dark urine Allergies Active Allergy Reactions Criticality Noted Date Comments Naproxen Itching Medium 12/08/2015 documented as of this encounter (statuses as of 12/27/2022) Medications Medication Sig Dispensed Refills Start Date [...] as of this encounter (statuses as of 12/27/2022) Active Problems Problem Noted Date Diagnosed Date [...] as of this encounter (statuses as of 12/27/2022) Resolved Problems Problem Noted Date Diagnosed Date Resolved Date Benign hypertension with CKD (chronic kidney disease) stage III 01/02/2019 06/25/2020 Overview: Per CKD protocol Kidney disease, chronic, sta ge III (GFR 30-59 ml/min) 01/22/2018 01/24/2019 Overview: Per CKD protocol #1 Travel advice encounter 04/05/201603/17 documented as of this encounter (statuses as of 12/27/2022) Immunizations Name Administration Dates Next Due COVID-19 [...] 10 and older)(Boostrix) 09/21/2015 Typhoid Parenteral 06/14/2010, 1,06/10/2010,2 07/2010 Typhoid VICPs Parenteral, 2 years and above [...] Team (Late st Contact Info) Description 01/03/2023 9:00 AM EST Laboratory Laboratory Scenery [facility] [address] [place], [place] [phone] [place], Lab Scenery [address] [facility] [place] [address] 01/03/2023 9:30 AM EST Nurse Only Hematology/Oncology [facility] [place] [address] [place], [place] [address] [place], Nurse Hem Onc Scenery [address] [place], [place] [address] 01/10/2023 9:00 AM EST Laboratory Laboratory Scenery [place] [address] [place] [phone] [place], Lab Scenery [address] [facility] [address] 01/10/2023 9:30 AM EST Nurse Only Hematology/Oncology [place]enery [place] [address] [place] [address] [place], Nurse Hem Onc Scenery [address] [place] [address] 01/17/2023 9:00 AM EST Laboratory Laboratory [facility] [address] [place], [place] [phone] [place], Lab [facility] [address] [place], [place] [address] 01/17/2023 9:30 AM EST Nurse Only Hematology/Oncology [facility] [place] [address] [place], [place] [address] [place], Nurse Hem Onc [facility] 200 [facility] [place], [place] [address] 01/24/2023 10:45 AM EST Office Visit Hematology/Oncology [facility] [place] [address] [place], [place] [address] Emiliano Sandoval MD 200 [facility] [place], [place] [address] 02/21/2023 1:00 PM EST Office Visit Family Practice [facility] [address] [place], [place] [address] Ritesh Reyes III, MD 200 [facility] [place], [place] [address] 05/04/2023 3:30 PM EDT Office Visit Dermatology [facility] 200 [facility] [place], [place] [address] Kylie Goldberg MD [address] [place] [address] [place], [place] [address] Pending Results Name Type Priority Associated Diagnoses Date /Time URINALYSIS WITH MICROSCOPIC EXAM Lab Routine Dark urine 12/27/2022 11:34 AM EST Health Maintenance Due Date Last [...] as of this encounter Visit Diagnoses Diagnosis Dark urine Other nonspecific finding on examination of urine documented in this encounter Care Teams Construction Crew Member Relationship Specialty Start Date End Date Ritesh Reyes III, MD 200 [place] [address] PCP - General 02/02/00 documented as of this encounter
--- OUTSIDE RECORDS SUMMARY | 2023-01-17 17:08 | External Medical Summary | Summary of Care ---
Author Name Unknown Organization [facility] Address [address] [facility] [place] [address] Phone [phone] Care Team Providers Care Weight Loss Sales Consultant Name Role Phone Amy GAMBLE MD, Ritesh Chapman Primary Care Provider Reason for Visit * Reason Comments Outpatient Testing Encounter Details Date Type Department Care Team (Latest Contact Info) Description 01/03/2023 9:00 AM EST Laboratory Laboratory [facility] [place] [address] [place] [phone] [facility] Lab [place] [address] [place] [address] Essential thrombocythemia (HCC) Allergies Active Allergy Reactions [...] nonmelanoma skin cancer 05/09/2018 Overview: SCCIS L nondenominational and SCC L cheek near inferior sideburn [...] 01/03/2023 9:30 AM EST Nurse Only Hematology/Oncology [facility] [place] [address] [place], [place] [address] [place], Nurse Hem Onc Scenery [address] [place], [place] [address] Arrived 01/10/2023 9:00 AM EST Laboratory Laboratory [facility] [place] [address] [place], [place] [phone] [place], Lab Scenery [address] [facility] [place] [address] 01/10/2023 9:30 AM EST Nurse Only Hematology/Oncology [facility] [place] [address] [place], [place] [address] [place], Nurse Hem Onc Scenery [address] [place] [address] 01/17/2023 9:00 AM EST Laboratory Laboratory Scenery [place] [address] [place] [address] [place], Lab Scenery [address] [address] 01/17/2023 9:30 AM EST Nurse Only Hematology/Oncology [facility] 200 [facility] [place] [address] [place], Nurse Hem Onc [address] [place] [address] 01/24/2023 10:45 AM EST Office Visit Hematology/Oncology [facility] [place] 200 [facility] [place], [place] [address] Emiliano Sandoval MD [address] [place] [address] [place], [place] [address] 02/21/2023 1:00 PM EST Office Visit Family Practice [facility] [place] [address] [facility] [address] [place], [place] [address] Ritesh Reyes III, MD [address] [place] [address] [place] [address] 05/04/2023 3:30 PM EDT Office Visit Dermatology [facility] [place] [address] [facility] [address] [place], [place] [address] Kylie Goldberg MD [address] [place] [address] [place] [address] Health Maintenance Due Date Last Done Comments [...] Not on filedocumented as of this encounter Procedures Procedure Name Priority Date/Time Associated Diagnosis Comments DIFFERENTIAL, AUTOMATED STAT 01/03/2023 8:48 AM EST Essential thrombocythemia (HCC) CBC STAT 01/03/2023 8:48 AM EST Essential thrombocythemia (HCC) CBC STAT 01/03/2023 8:48 AM EST Essential thrombocythemia (HCC) DIFFERENTIAL, TECHNOLOGIST REVIEW Routine 01/03/2023 8:48 AM EST Essential thrombocythemia (HCC) documented in this encounter Results * (ABNORMAL) DIFFERENTIAL, TECHNOLOGIST REVIEW (01/03/2023 8:48 AM EST) [facility] nRs 01/03/2023 9:06 AM EST [facility] 56-02 Schistocytes Few(A) None Seen 01/03/2023 9:06 AM EST [facility] 56-02 Reactive Lymphocytes Present(A ) None Seen 01/03/2023 9:06 AM EST [facility] 56-02 Blood Venous blood specimen / Unknown Venipuncture / Unknown 01/03/2023 8:48 AM EST 01/03/2023 8:48 AM EST Emiliano Sandoval MD LAB BLOOD ORDERABLES [facility] 56-[address] [place] [address] * (ABNORMAL) DIFFERENTIAL, AUTOMATED (01/03/2023 8:48 AM EST) [facility] WBC 9.73 4.00 - 10.80 K/uL 01/03/2023 9:06 AM [facility] 56- Neutrophils % 60.7 40.0 - 75.0 % 01/03/2023 9:06 AM [facility] 56- Lymphocytes % 18.3 18.0 - 42.0 % 01/03/2023 9:06 AM [facility] 56- Monocytes % 17.7(H) 1.0 - 11.0 % 01/03/2023 9:06 AM [facility] 56- Eosinophils % 1.8 0.0 - 6.0 % 01/03/2023 9:06 AM [facility] 56- Basophils % 1.5 0.0 - 2.0 % 01/03/2023 9:06 AM [facility] 56- Absolute Neutrophils 5.90 1.80 - 7.70 K/uL 01/03/2023 9:06 AM [facility] 56- Absolute Lymphocytes 1.78 1.00 - 4.80 K/ul 01/03/2023 9:06 AM [facility] 56- Absolute Monocytes 1.72(H) 0.00 - 1.10 K/uL 01/03/2023 9:06 AM [facility] 56- Absolute Eosinophils 0.18 0.00 - 0.70 K/uL 01/03/2023 9:06 AM [facility] 56- Absolute Basophils 0.15 0.00 - 0.20 K/uL 01/03/2023 9:06 AM [facility] 56- Blood Venous blood specimen / Unknown Venipuncture / Unknown 01/03/2023 8:48 AM EST 01/03/2023 8:48 AM EST Emiliano Sandoval MD LAB BLOOD ORDERABLES [facility] [address]- [address] [place] [address] * (ABNORMAL) CBC (01/03/2023 8:48 AM EST) WBC 9.73 4.00 - 10.80 K/uL 01/03/2023 9:06 AM [facility] 56 RBC 2.76 4.50 - 5.25 M/uL 01/03/2023 9:06 AM [facility] 56- HGB 8.0(L) 14.0 - 16.8 g/dL 01/03/2023 9:06 AM [facility] 56 HCT 25.7(L) 40.0 - 48.4 % 01/03/2023 9:06 AM [facility] 56 MCV 93.1 82.0 - 99.5 fL 01/03/2023 9:06 AM [facility] 56 MCH 29.0 27.0 - 34.0 pg 01/03/2023 9:06 AM [facility] 56 MCHC 31.1 32.0 - 36.0 g/dL 01/03/2023 9:06 AM [facility] 56 RDW 19.0 11.5 - 15.5 % 01/03/2023 9:06 AM [facility] 56 PLT 371 140 - 400 K/uL 01/03/2023 9:06 AM [facility] 56 MPV 10.1 6.6 - 11.1 fL 01/03/2023 9:06 AM [facility] 56 Blood Venous blood specimen / Unknown Venipuncture / Unknown 01/03/2023 8:48 AM EST 01/03/2023 8:48 AM EST Emiliano Sandoval MD LAB BLOOD ORDERABLES [facility] 56 [address] [facility] [place] [address] documented in this encounter Visit Diagnoses Diagnosis Essential thrombocythemia (HCC) Essential thrombocythemia documented in this encounter Care Teams Weight Loss Sales Consultant Relationship Specialty Start Date End Date Ritesh Reyes III, MD 200 [facility] [place] [address] PCP - General 02/02/00 documented as of this encounter
--- OUTSIDE RECORDS SUMMARY | 2023-01-17 17:08 | External Medical Summary ---
Author Name Unknown Address Unknown Organization [id number][facility] [place] [address] Laboratory Report Ordering Provider Test Date Status CLEMENTINA ROJAS 01/03/2023 08:48:23 Final Observation Date Value Abnormality Reference (Units ) Status SYNC LEUKOCYTES IN BLOOD BY AUTOMATED COUNT 01/03/2023 08:48:23 9.73 4.00-10.80 (K/uL) Final Segs 01/03/2023 08:48:23 60.7 40.0-75.0 (%) Final Lymphs % 01/03/2023 08:48:23 18.3 18.0-42.0 (%) Final Monos 01/03/2023 08:48:23 17.7 Above high normal 1.0-11.0 (%) Final Eosinophils 01/03/2023 08:48:23 1.8 0.0-6.0 (%) Final Basos 01/03/2023 08:48:23 1.5 0.0-2.0 (%) Final Absolute Segs 01/03/2023 08:48:23 5.90 1.80-7.70 (K/uL) Final Lymphs, absolute 01/03/2023 08:48:23 1.78 1.00-4.80 (K/ul) Final Monos, Abs 01/03/2023 08:48:23 1.72 Above high normal 0.00-1.10 (K/uL) Final Eos, Abs 01/03/2023 08:48:23 0.18 0.00-0.70 (K/uL) Final Basos, Abs 01/03/2023 08:48:23 0.15 0.00-0.20 (K/uL) Final Performing Location [facility] [place] [address]
--- OUTSIDE RECORDS SUMMARY | 2023-01-17 17:08 | External Medical Summary | Summary of Care ---
Author Name Unknown Organization [facility] Address [address] [facility] [place] [address] Phone [phone] Care Team Providers Care Casing Grader Name Role Phone Amy GAMBLE MD, Ritesh Chapman Primary Care Provider [phone] Reason for Visit * Reason Onset Date Comments Information 01/03/2023 Encounter Details Date Type Department Care Team (Late st Contact Info) Description 01/03/2023 Telephone Hematology/Oncology Treatment, [place] [address] [place] [address] Kylie Goldberg MD 200 [place] [address] Information Allergies Active Allergy Reactions Criticality Noted [...] nonmelanoma skin cancer 05/09/2018 Overview: SCCIS L moravian and SCC L cheek near inferior sideburn [...] was able to send secure photo through [employer] text. Per Dr Goldberg, patient should have [...] Description 01/10/2023 9:00 AM EST Laboratory Laboratory [place] [address] [place] [phone] [place] [address] [place] [address] 01/10/2023 9:30 AM EST Nurse Only Hematology/Oncology [place] [address] [place] [address] [place], Nurse Hem Onc Scenery [address] [place] [address] 01/17/2023 9:00 AM EST Laboratory Laboratory [facility] [place] [address] [place], [place] [phone] [place], Lab [facility] [address] [place] [address] 01/17/2023 9:30 AM EST Nurse Only Hematology/Oncology [facility] [place] [address] [place], [place] [address] [place], Nurse Hem Onc [facility] [address] [place], [place] [address] 01/24/2023 10:45 AM EST Office Visit Hematology/Oncology [facility] [place] [address] [place], [place] [address] Emiliano Sandoval MD 200 [facility] [place], [place] [address] 02/21/2023 1:00 PM EST Office Visit Family Practice [facility] [place] [address] [place] [address] Ritesh Reyes III, MD 200 [facility] [place], [place] [address] 05/04/2023 3:30 PM EDT Office Visit Dermatology [facility] [place] [address] [place], [place] [address] Kylie Goldberg MD 200 [place] [address] Health Maintenance Due Date Last Done Comments [...] filedocumented as of this encounter Care Teams Casing Grader Relationship Specialty Start Date End Date Ritesh Reyes III, MD 200 [place] [address] PCP - General 02/02/00 documented as of this encounter
--- OUTSIDE RECORDS SUMMARY | 2023-01-17 17:08 | External Medical Summary ---
Author Name Unknown Address Unknown Organization [id number]:[facility] [place] [address] Laboratory Report Ordering Provider Test Date Status CLEMENTINA ROJAS 01/03/2023 08:48:23 Final Observation Date Value Abnormality Reference (Units ) Status Nucleated erythrocytes/100 leukocytes [Ratio] in Blood by Automated count 01/03/2023 08:48:23 Final Schistocytes 01/03/2023 08:48:23 Few Abnormal None Seen Final Variant lymphocytes [Presence] in Blood by Light microscopy 01/03/2023 08:48:23 Present Abnormal None Seen Final Performing Location [facility] [place] [address]
--- OUTSIDE RECORDS SUMMARY | 2023-01-17 17:08 | External Medical Summary | Summary of Care ---
Author Name Unknown Organization [facility] Address [address] 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 Called [facility] blood bank (Anabella). They can get PRBC, patient is a more difficult cross match due to antibodies. Called [facility] ([facility]). Patient scheduled for tomorrow at 11am. Patient verbalized understanding of appt time. Will go to [facility] today for T&S. Faxed order to [facility]/ blood bank. Patient states that he fell over the weekend. Did not hit his head/hurt himself, had tripped over arug, no dizziness. He also notes dark urine. Has spoken to his PCP about this, CMP and UA pending. documented in this encounter Plan of Treatment Upcoming Encounters Date Type Department Care Team (Late st Contact Info) Description 01/03/2023 9:00 AM EST Laboratory Laboratory [place] Dorcas Hernandez [address] [phone] [place] [address] 01/03/2023 9:30 AM EST Nurse Only Hematology/Oncology [place] Hernandez [address] [place] [address] [address] [place], Nurse Hem Onc Scenery [address] [place] [address] 01/10/2023 9:00 AM EST Laboratory Laboratory Scenery [facility] [address] [place] [phone] [place], Lab Scenery [address] [place] [address] 01/10/2023 9:30 AM EST Nurse Only Hematology/Oncology Scenery [facility] [address] [place] [address] Park, Nurse Hem Onc Scenery [address] [place] [address] 01/17/2023 9:00 AM EST Laboratory Laboratory [facility] [address] [place] [phone] [place], Lab Scenery [address] [place] [address] 01/17/2023 9:30 AM EST Nurse Only Hematology/Oncology [facility] [place] [address] [place] [address] Park, Nurse Hem Onc Scenery [address] [place] [address] 01/24/2023 10:45 AM EST Office Visit Hematology/Oncology [facility] [address] [place] [address] Emiliano Sandoval MD [address] [place] [address] 02/21/2023 1:00 PM EST Office Visit Family Practice [facility] [address] [place] [address] Ritesh Reyes III, MD [address] [place] [address] 05/04/2023 3:30 PM EDT Office Visit Dermatology [place] [address] [place] [address] Kylie Goldberg MD [address] [place] [address] Scheduled Orders Name Type Priority Associated Diagnoses Orde r Schedule TYPE AND SCREEN Lab Routine Anemia due to stage 4 chronic kidney disease Expected: 12/27/2022, Expires: 01/27/2024 Health Maintenance Due Date Last Done Comments Hepatitis B (2 of 3 - 19+ 3-dose series) 07/26/2010 06/28/2010, 06/07/2010, 05/28/2010 Depression Screening 08/21/2021 08/21/2020 Albumin/Creatinine Ratio 02/23/2022 02/23/2021, 02/13 GFR 05/17/2023 11/15/2022, 02/2022, 07/12/2022, Additional history exists DTaP,Tdap,and Td Vaccines (2 [...] as of this encounter Visit Diagnoses Diagnosis Anemia due to stage 4 chronic kidney disease- Primary documented in this encounter Care Teams Management Lead Relationship Specialty Start Date End Date Ritesh Reyes III, MD [address] [place] [address] PCP - General 02/02/00 documented as of this encounter
--- OUTSIDE RECORDS SUMMARY | 2023-01-17 17:08 | External Medical Summary | Summary of Care ---
Author Name Unknown Organization [facility] Address [address] [facility] [place] [address] Phone [phone] Care Team Providers Care Boomboat Operator Name Role Phone Amy GAMBLE MD, Ritesh Chapman Primary Care Provider [phone] Reason for Visit * Reason Comments Outpatient Testing Encounter Details Date Type Department Care Team (Late st Contact Info) Description 12/27/2022 11:40 AM EST Laboratory Laboratory [facility] [address] [place] [phone] Pod3, Specimen Drop Off [facility] [address] [place] [address] Dark urine Allergies Active Allergy Reactions Criticality [...] 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 [place] [address] [place], [place] [address] Park, Nurse Hem Onc Scenery [address] [place], [place] [address] 01/10/2023 9:00 AM EST Laboratory Laboratory Scenery [place] [address] [place] [phone] [place], Lab Scenery [address] [facility] [place] [address] 01/10/2023 9:30 AM EST Nurse Only Hematology/Oncology Scenery [place] [address] [place] [address] [place], Nurse Hem Onc Scenery [address] [place] [address] 01/17/2023 9:00 AM EST Laboratory Laboratory [facility] [address] [place], [place] [phone] [place], Lab [facility] [address] [facility] [place] [address] 01/17/2023 9:30 AM EST Nurse Only Hematology/Oncology [facility] [address] [place], [place] [address] [place], Nurse Hem Onc [facility] [address] [facility] [place], [place] [address] 01/24/2023 10:45 AM EST Office Visit Hematology/Oncology [facility] [address] [facility] [place], [place] [address] Emiliano Sandoval MD [address] [facility] [place], [place] [address] 02/21/2023 1:00 PM EST Office Visit Family Practice [facility] [address] [facility] [place], [place] [address] Ritesh Reyes III, MD [address] [place] [address] [place], [place] [address] 05/04/2023 3:30 PM EDT Office Visit Dermatology [facility] [address] [facility] [place], [place] [address] Kylie Goldberg MD [address] [place] [address] [place] [address] Health Maintenance Due Date Last Done Comments Hepatitis B (2 of 3 - 19+ 3-dose series) 07/26/2010 06/28/2010, 06/07/2010, 05/28/2010 Depression Screening 08/21/2021 08/21/2020 Albumin/Creatinine Ratio 02/23/2022 02/23/2021, 02/13 GFR 06/27/2023 12/27/2022, 10/0 04/2022, 09/13/2022, Additional history exists DTaP,Tdap,and Td [...] Procedure Name Priority Date/Time Associated Diagnosis Comments URINALYSIS WITH MICROSCOPIC EXAM Routine 12/27/2022 11:34 AM EST Dark urine documented in this encounter Results * (ABNORMAL) URINALYSIS WITH MICROSCOPIC EXAM (12/27/2022 11:34 AM EST) Color, Urine Yellow Light Yellow, Yellow, Dark Yellow 12/27/2022 11:49 AM EST [facility] Clarity, Urine Clear Clear 12/27/2022 11:49 AM EST [facility] Glucose, Urine Negative Negative mg/dL 12/27/2022 11:49 AM EST [facility] Bilirubin, Urine Negative Negative 12/27/2022 11:49 AM EST [facility] Ketone, Urine Trace(A) Negative mg/dL 12/27/2022 11:49 AM EST [facility] Specific [place], Urine 1.015 1.003 - 1.030 12/27/2022 11:49 AM EST [facility] Blood, Urine Small(A) Negative 12/27/2022 11:49 AM EST [facility] pH, Urine 5.0 5.0 - 7.5 Units 12/27/2022 11:49 AM EST [facility] Protein, Urine Trace(A) Negative mg/dL 12/27/2022 11:49 AM STATE [facility] 56 Urobilinogen, Urine 0.2 0.2, 1.0 mg/dL 12/27/2022 11:49 AM STATE [facility] 56 Nitrite, Urine Negative Negative 12/27/2022 11:49 AM [facility] 56 Esterase, Urine Negative Negative 12/27/2022 11:49 AM [facility] 56 RBC, Urine 3-5(A) 0 - 2 /HPF 12/27/2022 11:49 AM [facility] 56 WBC, Urine 0-2 0 - 2 /HPF 12/27/2022 11:49 AM [facility] 56 Bacteria, Urine 0-25 0 - 25 /HPF 12/27/2022 11:49 AM [facility] 56 Granular Cast, Urine 1-4(A) None /LPF 12/27/2022 11:49 AM [facility] 56 Urine Non-blood Collection / Unknown 12/27/2022 11:34 AM EST 12/27/2022 11:34 AM EST Ritesh Reyes III, MD LAB URINE ORDERABLE S Performing Organization Address City/State/[facility] Co de Phone Number [facility] [address] [facility] [address] documented in this encounter Visit Diagnoses Diagnosis Dark urine Other nonspecific finding on examination of urine documented in this encounter Care Teams Boomboat Operator Relationship Specialty Start Date End Date Ritesh [facility]yes III, MD [facility] [address] P[facility] - General 02/02/00 documented as of this encounter
--- OUTSIDE RECORDS SUMMARY | 2023-01-17 17:08 | External Medical Summary ---
Author Name Unknown Address Unknown Organization K[facility] [address] Laboratory Report Ordering Provider Test Date Status CLEMENTINA ROJAS 01/03/2023 08:48:23 Final Observation Date Value Abnormality Reference (Units ) Status WBC, Total 01/03/2023 08:48:23 9.73 4.00-10.8 0 (K/uL) Final RBC 01/03/2023 08:48:23 2.76 4.50-5.25 (M/uL) Final Hemoglobin 01/03/2023 08:48:23 8.0 Below low normal 14 .0-16.8 (g/dL) Final HCT 01/03/2023 08:48:23 25.7 Below low normal 40. 0-48.4 (%) Final MCV 01/03/2023 08:48:23 93.1 82.0-99.5 (fL) Final MCH 01/03/2023 08:48:23 29.0 27.0-34.0 (pg) Final MCHC 01/03/2023 08:48:23 31.1 32.0-36.0 (g/dL) Final RDW 01/03/2023 08:48:23 19.0 11.5-15.5 (%) Final Platelets 01/03/2023 08:48:23 371 140-400 (K /uL) Final MPV 01/03/2023 08:48:23 10.1 6.6-11.1 ( fL) Final Performing Location [facility] [place] [address]
--- OUTSIDE RECORDS SUMMARY | 2023-01-17 17:08 | External Medical Summary | Summary of Care ---
Author Name Unknown Organization [facility] Address [address] [facility] [place] [address] Phone [phone] Care Team Providers Care Stock Raiser Name Role Phone Amy GAMBLE MD, Ritesh Chapman Primary Care Provider [phone] Reason for Visit * Reason Onset Date Comments Information 01/03/2023 Encounter Details Date Type Department Care Team (Late st Contact Info) Description 01/03/2023 Telephone Hematology/Oncology Treatment, [place] [address] [place] [address] Kylie Goldberg MD [address] [place] [address] Information Allergies Active Allergy Reactions Criticality Noted [...] 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 Per Dr Goldberg, patient should have [...] State Dorcas Hernandez [address] [place] [phone] Radha Goel [address] [place] [address] 01/10/2023 9:30 AM EST Nurse Only Hematology/Oncology [place] [address] [place] [address] [place], Nurse Hem Onc Scenery [address] [place], [place] [address] 01/17/2023 9:00 AM EST Laboratory Laboratory [facility] [place] [address] [place], [place] [phone] [place], Lab [facility] [address] [place], [place] [address] 01/17/2023 9:30 AM EST Nurse Only Hematology/Oncology [facility] [place] [address] [place], [place] [address] [place], Nurse Hem Onc [facility] [address] [place], [place] [address] 01/24/2023 10:45 AM EST Office Visit Hematology/Oncology [facility] [place] [address] [place], [place] [address] Emiliano Sandoval MD 200 [facility] [place], [place] [address] 02/21/2023 1:00 PM EST Office Visit Family Practice [facility] [place] [address] [place], [place] [address] Ritesh Reyes III, MD [address] [facility] [place], [place] [address] 05/04/2023 3:30 PM EDT Office Visit Dermatology [facility] [place] [address] [place], [place] [address] Kylei Goldberg MD [address] [facility] [place] [address] Health Maintenance Due Date Last Done Comments [...] filedocumented as of this encounter Care Teams Stock Raiser Relationship Specialty Start Date End Date Ritesh Reyes III, MD 200 [facility] [place] [address] PCP - General 02/02/00 documented as of this encounter
--- OUTSIDE RECORDS SUMMARY | 2023-01-17 17:08 | External Medical Summary ---
Author Name Unknown Address Unknown Organization K[facility] 56-[address] [place] [address] Laboratory Report Ordering Provider Test Date Status PERLA LEACH III 12/27/2022 11:34:54 Final Observation Date Value Abnormality Reference (Units ) Status Color of Urine by Auto 12/27/2022 11:34:54 Yellow Light Yellow, Yellow, Dark Yellow Final Clarity, Urine 12/27/2022 11:34:54 Clear Clear Final Glucose [Mass/volume] in Urine by Automated test strip 12/27/2022 11:34:54 Negative Negative (mg/dL) Final Bilirubin.total [Presence] in Urine by Automated test strip 12/27/2022 11:34:54 Negative Negative Final Ketones [Mass/volume] in Urine by Automated test strip 12/27/2022 11:34:54 Trace Abnormal Negative (mg/dL) Final Specific gravity, Urine 12/27/2022 11:34:54 1.015 1.003-1.030 Final Hemoglobin [Presence] in Urine by Automated test strip 12/27/2022 11:34:54 Small Abnormal Negative Final pH, Urine 12/27/2022 11:34:54 5.0 5.0-7.5 (Units) Final Protein [Mass/volume] in Urine by Automated test strip 12/27/2022 11:34:54 Trace Abnormal Negative (mg/dL) Final Urobilinogen [Mass/volume] in Urine by Automated test strip 12/27/2022 11:34:54 0.2 0.2, 1.0 (mg/dL) Final Nitrite [Presence] in Urine by Automated test strip 12/27/2022 11:34:54 Negative Negative Final Leukocyte esterase [Presence] in Urine by Automated test strip 12/27/2022 11:34:54 Negative Negative Final RBC, Urine 12/27/2022 11:34:54 3-5 Abnormal 0-2 (/HPF) Final WBC, Urine 12/27/2022 11:34:54 0-2 0-2 (/HPF) Final Bacteria [#/area] in Urine sediment by Microscopy high power field 12/27/2022 11:34:54 0-25 0-25 (/HPF) Final Granular casts [#/area] in Urine sediment by Microscopy low power field 12/27/2022 11:34:54 1-4 Abnormal None (/LPF) Final Performing Location [facility] [address] [place] [address]
[2023-01-17 18:37] LABS: Hematocrit (blood only) 18.2 % (42.0-52.0); Hemoglobin 6.1 g/dl (14.0-18.0)
[2023-01-17] MEDS: TAMSULOSIN HCL 0.4 MG CAP PO SCH (21:51)
[2023-01-17] MEDS: carvediloL 12.5 MG TAB PO SCH (21:52)
[2023-01-17] MEDS ORDERED: PNEUMOCOCCAL VACCINE (PCV20) 20-VAL CONJ-DIP CRM/PF 0.5 ML SYR IM ONE (22:00)
[2023-01-17 23:06] LABS: Hematocrit (blood only) 22.8 % (42.0-52.0); Hemoglobin 7.8 g/dl (14.0-18.0)
[2023-01-18 05:43] LABS: Hematocrit (blood only) 21.6 % (42.0-52.0); Hemoglobin 7.6 g/dl (14.0-18.0); Mean Corpuscular Hemoglobin 28.9 pg (25.0-34.0); Mean Corpuscular Hgb Conc 35.2 g/dL (32.0-36.0); Mean Corpuscular Volume 82.1 fL (80.0-100.0); Mean Platelet Volume 11.4 fL (9.4-12.4); Nucleated RBC # (auto) 0.16 K/uL (0.00-0.12); Nucleated RBC % (auto) 0.8 %; Platelet Count 267 K/uL (130-400); RDW Coefficient of Variation 15.5 % (11.5-14.5); RDW Standard Deviation 45.1 fL (36.4-46.3); Red Blood Count 2.63 M/uL (4.70-6.10); White Blood Count 19.06 K/ul (4.8-10.8)
[2023-01-18 05:59] LABS: BUN Creatinine Ratio 26.2 (10-20); Calcium 8.4 mg/dl (8.6-10.3); Creatinine Clr Calc Pharmacy 45.2 ml/min; Est GFR (African American) 60.3 ml/min; Magnesium 1.9 mg/dl (1.7-2.4); Potassium 4.2 mmol/L (3.5-5.1)
--- NOTE | 2023-01-18 08:28 | XRay Report ---
XR chest 1V portable CLINICAL HISTORY: Hypoxia TECHNIQUE: Single frontal radiograph of the chest was obtained. Comparison: Comparison is made to chest radiograph 01/17/2023 FINDINGS: A port catheter is seen. Cardiomegaly is noted. The aortic arch is calcified. The lungs are clear. No evidence of pleural effusion or pneumothorax. IMPRESSION: No acute chest disease. Cardiomegaly is noted. ACT 112: Negative or not required by law. Electronically signed by: Miguel Cartwright M.D. 01/18/2023 8:27 AM
[2023-01-18] MEDS: amLODIPine BESYLATE 5 MG TAB PO SCH (08:34)
[2023-01-18] MEDS: carvediloL 12.5 MG TAB PO SCH ×2 (08:34→21:17)
[2023-01-18] MEDS: DOXYCYCLINE HYCLATE 100 MG CAP PO SCH ×2 (08:34→21:17)
[2023-01-18] MEDS: CEROVITE ADV FORMULA TAB PO SCH (08:35)
[2023-01-18] MEDS ORDERED: NON-FORMULARY MEDICATION (Multivitamin Tablet) PO SCH (11:30)
[2023-01-18] MEDS: CEFDINIR 300 MG CAP PO SCH ×2 (12:03→21:17)
[2023-01-18] MEDS: HYDROXYUREA 500 MG CAP PO SCH (12:04)
--- NOTE | 2023-01-18 15:14 | Hospitalist Progress Note ---
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 Symptomatic anemia Anemia of chronic disease Transfusion dependent:Requires frequent blood transfusions with baseline hgb 6.5-8 per chart review, last one was 3 weeks ago Secondary to Myelofibrosis Essential thrombocythemia --Rectal exam per Dr. Alvarez revealed brown stool which was heme-negative -- Anemia work-up reviewed --Peripheral smear with some dysplasia and nucleated red cells, discussed with Dr. Hickman and Dr. Sandoval. Unfortunately patient is considered transfusion dependent at this time and has failed other treatment options. Cont. transfusion support and keep followup appt with Dr. Sandoval later this month --S/P 2 units PRBCs Monitor H&H, volume status Continue anagrelide, hydroxyurea Needs follow-up with oncology upon discharge PT OT prior to discharge Discussed with Dr. Sandoval on 01/18/2023: Expected leukocytosis. Reviewed peripheral smear findings. Advised to continue current care Complicated Bronchitis Negative COVID screen last week as outpatient --CXR:No acute chest disease. Cardiomegaly is noted. Bio fire negative as well Continue doxycycline Saturating well on room air Abnormal EKG EKG reviewed with inferior and low lateral ST depressions, noted on previous EKGs as well. Likely demand ischemia secondary to significant anemia --ECHO: Left ventricle is normal in size. Mild concentric LVH. Left ventricle wall motion is normal. EF 55 to 60%. Grade 2 diastolic dysfunction. Aortic valve sclerosis moderate, without significant aortic valvular stenosis. Mild aortic root dilatation. Denies any chest pain, dyspnea on exertion CKD III Cr 1.61 today (baseline mid-high 1s) Cr at baseline Monitor HTN Continue home amlodipine DVT Px: SCDs Re: Code status: FULL CODE Admission and Anticipated Discharge Date Admission Date: January 17, 2023 Subjective Patient is seen and examined at bedside States feeling tired Reports chronic cough Eager to get discharged Denies any chest pain, dyspnea, dizziness, nausea, vomiting, abdominal pain Discussed with oncology Dr. Sandoval over the phone Review of Systems Review of Systems: All systems reviewed & are unremarkable except as noted in Subjective Physical Exam Physical Exam: Physical Exam: Vitals signs as noted above General Appearance:Moderately built and nourished, no apparent distress Head: normocephalic, Atraumatic Eyes: normal inspection, EOMI,+Pallor Neck: supple, Trachea midline Respiratory/Chest: Normal breath sounds, CTA, No accessory muscle use Cardiovascular: S1, S2, no murmur Abdomen/GI:Soft, Non tender, mild distention, Bowel sounds present Extremities/Musculoskeletal:normal inspection, Trace pedal edema Neurologic/Psych:AAOX3, grossly no focal neurological deficits,+hearing Skin: normal color, warm Results & Data Results & Data Vital Signs (Past 12 Hours) Vital Signs Temp Pulse Pulse Resp BP BP Pulse Ox 01/18/23 11:24 36.7 C 72 18 136/63 94 01/18/23 08:28 89 01/18/23 07:55 36.9 C 76 20 148/70 H 94 01/18/23 05:24 37.2 C 80 20 141/87 H 94 O2 Del Method O2 Flow Rate 01/18/23 11:24 Room Air 01/18/23 08:28 01/18/23 07:55 Nasal Cannula 2 01/18/23 05:24 Nasal Cannula 2 Laboratory Results Short CBC 01/17/23 01/17/23 01/18/23 Range/Units 17:49 22:48 05:26 WBC 19.06 H (4.8-10.8) K/ul Hgb 6.1 L* 7.8 L 7.6 L (14.0-18.0) g/dl Hct 18.2 L* 22.8 L 21.6 L (42.0-52.0) % Plt Count 267 (130-400) K/uL BMP 01/18/23 05:26 Sodium 140 Potassium 4.2 Chloride 111 H Carbon Dioxide 22 BUN 33 H Creatinine 1.26 D Glucose 101 H Calcium 8.4 L Urine 01/17/23 Range/Units 15:25 Urine Color Yellow Urine Appearance Clear (Clear) Urine pH 5.5 (4.5-7.5) Ur Specific [place] 1.016 (1.000-1.030) Urine Protein 1+ H (Negative) Urine Glucose (UA) Negative (Negative)
--- NOTE | 2023-01-18 15:26 | Electrocardiogram Report ---
Test Reason : Blood Pressure : / mmHG Vent. Rate : 076 BPM Atrial Rate : 076 BPM P-R Int : 182 ms QRS Dur : 112 ms QT Int : 412 ms P-R-T Axes : 046 -01 012 degrees QTc Int : 463 ms Normal sinus rhythm Minimal voltage criteria for LVH, may be normal variant ( ) Poor R wave progression, consider anterior [place] vs. lead placement vs. LVH Abnormal ECG When compared with ECG of 17-JAN-2023 11:19, (unconfirmed) No significant change was found Confirmed by Rod Omer ([id number]) on 01/18/2023 3:26:27 PM Referred By: REFERRED SELF Confirmed By:Rod Omer
--- NOTE | 2023-01-18 15:26 | Electrocardiogram Report ---
Test Reason : Blood Pressure : / mmHG Vent. Rate : 074 BPM Atrial Rate : 074 BPM P-R Int : 182 ms QRS Dur : 114 ms QT Int : 412 ms P-R-T Axes : 060 -03 -02 degrees QTc Int : 457 ms Poor data quality, interpretation may be adversely affected Normal sinus rhythm Minimal voltage criteria for LVH, may be normal variant ( ) Poor R wave progression, consider anterior [place] vs. lead placement vs. LVH Abnormal ECG When compared with ECG of 20-OCT-2022 18:43, QRS axis Shifted right ST now depressed in Inferior leads T wave inversion now evident in Inferior leads Confirmed by Rod Omer ([id number]) on 01/18/2023 3:25:59 PM Referred By: REFERRED SELF Confirmed By:Rod Omer
[2023-01-18] MEDS: TAMSULOSIN HCL 0.4 MG CAP PO SCH (21:17)
[2023-01-19] MEDS: CEFDINIR 300 MG CAP PO SCH (07:53)
[2023-01-19] MEDS: CEROVITE ADV FORMULA TAB PO SCH (07:53)
[2023-01-19] MEDS: amLODIPine BESYLATE 5 MG TAB PO SCH (07:53)
[2023-01-19] MEDS: carvediloL 12.5 MG TAB PO SCH (07:53)
[2023-01-19 08:00] LABS: Hemoglobin 7.4 g/dl (14.0-18.0); Mean Corpuscular Hemoglobin 28.2 pg (25.0-34.0); Mean Corpuscular Hgb Conc 33.6 g/dL (32.0-36.0); Mean Platelet Volume 11.2 fL (9.4-12.4); Nucleated RBC # (auto) 0.09 K/uL (0.00-0.12); Nucleated RBC % (auto) 0.5 %; Platelet Count 266 K/uL (130-400); RDW Standard Deviation 48.3 fL (36.4-46.3); Red Blood Count 2.62 M/uL (4.70-6.10); White Blood Count 19.55 K/ul (4.8-10.8)
[2023-01-19 08:20] LABS: BUN Creatinine Ratio 24.2 (10-20); Calcium 8.4 mg/dl (8.6-10.3); Creatinine Clr Calc Pharmacy 42.8 ml/min; Est GFR (Non-African American) 55.2 ml/min; Potassium 4.2 mmol/L (3.5-5.1)
[2023-01-19] MEDS ORDERED: SODIUM CHLORIDE 0.9% 250 ML IV PRN (10:00)
[2023-01-19] MEDS: DOXYCYCLINE HYCLATE 100 MG CAP PO SCH (11:12)
[2023-01-19] MEDS: HYDROXYUREA 500 MG CAP PO SCH (11:12)
--- NOTE | 2023-01-19 13:35 | Hospitalist Progress Note ---
Date of Service January 19, 2023 Assessment & Plan (1) Anemia of chronic disease: (2) Myelofibrosis: (3) CKD (chronic kidney disease), stage III: (4) Hypertension: (5) Essential thrombocythemia: Plan Patient is an 82 yr male with H/O Myelofibrosis on bone marrow bx 2019, ess ential thrombocythemia, anemia due to chronic kidney disease, CONNIE 2 mutation, CKD III, HTN and other medical problems listed below who presents to ED with abnormal lab work showing worsening anemia. Symptomatic anemia Anemia of chronic disease Transfusion dependent:Requires frequent blood transfusions with baseline hgb 6.5-8 per chart review, last one was 3 weeks ago Secondary to Myelofibrosis Essential thrombocythemia Presented with Hb 5.1>6.1>7.4 --Rectal exam per Dr. Alvarez revealed brown stool which was heme-negative -- Anemia work-up reviewed --Peripheral smear with some dysplasia and nucleated red cells, discussed with Dr. Hickman and Dr. Sandoval. Unfortunately patient is considered transfusion dependent at this time and has failed other treatment options. Cont. transfusion support and keep followup appt with Dr. Sandoval later this month --S/P 2 units PRBCs Monitor H&H, volume status Given persistent symptoms, will transfuse 1 more unit of PRBCs today. Continue anagrelide, hydroxyurea Needs follow-up with oncology upon discharge Discussed with Dr. Sandoval on 01/18/2023: Expected leukocytosis. Reviewed peripheral smear findings. Advised to continue current care PT/OT eval done Plan to discharge home today Complicated Bronchitis Negative COVID screen last week as outpatient --CXR:No acute chest disease. Cardiomegaly is noted. Bio fire negative as well Continue doxycycline Saturating well on room air Clinically improved Abnormal EKG EKG reviewed with inferior and low lateral ST depressions, noted on previous EKGs as well. Likely demand ischemia secondary to significant anemia --ECHO: Left ventricle is normal in size. Mild concentric LVH. Left ventricle wall motion is normal. EF 55 to 60%. Grade 2 diastolic dysfunction. Aortic valve sclerosis moderate, without significant aortic valvular stenosis. Mild aortic root dilatation. Denies any chest pain, dyspnea on exertion CKD III Cr baseline mid-high 1s Cr at baseline Monitor HTN Continue home amlodipine DVT Px: SCDs Re: Anemia Code status: FULL CODE Admission and Anticipated Discharge Date Admission Date: January 17, 2023 Subjective Patient is seen and examined at bedside No new complaints Still feels tired and has some WILLIAM Cough much improved Denies any chest pain, dyspnea, dizziness, nausea, vomiting, abdominal pain Plan to discharge home today Review of Systems Review of Systems: All systems reviewed & are unremarkable except as noted in Subjective Physical Exam Physical Exam: Physical Exam: Vitals signs as noted above General Appearance:Moderately built and nourished, no apparent distress Head: normocephalic, Atraumatic Eyes: normal inspection, EOMI,+Pallor Neck: supple, Trachea midline Respiratory/Chest: Normal breath sounds, CTA, No accessory muscle use Cardiovascular: S1, S2, no murmur Abdomen/GI:Soft, Non tender, mild distention, Bowel sounds present Extremities/Musculoskeletal:normal inspection, Trace pedal edema Neurologic/Psych:AAOX3, grossly no focal neurological deficits,+hearing Skin: normal color, warm Results & Data Results & Data Vital Signs (Past 12 Hours) Vital Signs Temp Pulse Pulse Resp BP BP Pulse Ox 01/19/23 13:10 36.9 C 75 20 148/64 H 93 01/19/23 08:00 74 01/19/23 08:00 01/19/23 07:37 36.6 C 61 18 156/63 H 92 01/19/23 02:56 36.6 C 77 17 138/67 91 O2 Del Method O2 Flow Rate 01/19/23 13:10 0 01/19/23 08:00 01/19/23 08:00 Room Air 01/19/23 07:37 Room Air 01/19/23 02:56 Room Air Laboratory Results Short CBC 01/19/23 Range/Units 06:48 WBC 19.55 H (4.8-10.8) K/ul Hgb 7.4 L (14.0-18.0) g/dl Hct 22.0 L (42.0-52.0) % Plt Count 266 (130-400) K/uL BMP 01/19/23 06:48 Sodium 140 Potassium 4.2 Chloride 111 H Carbon Dioxide 22 BUN 29 H Creatinine 1.20 Glucose 93 Calcium 8.4 L
--- NOTE | 2023-01-19 13:47 | Discharge Summary ---
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 Requires frequent blood transfusions with baseline hgb 6.5-8 per chart review, last one was 3 weeks ago. Had bloodwork this AM in anticipation of appt with Dr. Sandoval later this week and was noted to have anemia with hgb of 5 and sent to ED for further evaluation. Seen in the clinic on 01/11 for URI symptoms and was covid negative. Debrox drops did not work. Continues to have cough with productive sputum. No F/C, CP, SOB, N/V, abdominal pain, dysuria, diarrhea or constipation. Reports almost black stool this morning. No acute bright red blood in sputum or bowel movement. No hematuria. In ED, found to have WBC 20K, hgb 5.1, hct 15.6, Plt 289. Rectal exam per Dr. Alvarez revealed brown stool which was heme-negative. Admission Exam Per Admitting Provider Physical Exam: Vitals signs as noted above General Appearance:Moderately built and nourished, no apparent distress Head: normocephalic, Atraumatic Eyes: normal inspection, EOMI,+Pallor Neck: supple, Trachea midline Respiratory/Chest: Normal breath sounds, CTA, No accessory muscle use Cardiovascular: S1, S2, ? murmur Abdomen/GI:Soft, Non tender, mild distention, Bowel sounds present Extremities/Musculoskeletal:normal inspection, Trace pedal edema Neurologic/Psych:AAOX3, grossly no focal neurological deficits,+hearing Skin: normal color, warm Principal Diagnosis Symptomatic anemia Anemia of chronic disease Complicated Bronchitis Discharge Data Allergies Allergy/AdvReac Type Severity Reaction Status Date / Time naproxen Allergy Intermediate ITCHY ALL Verified 01/17/23 13:02 OVER piperacillin [From Zosyn] Allergy Mild Hives Verified 01/17/23 13:02 tazobactam [From Zosyn] Allergy Mild Hives Verified 01/17/23 13:02 Consultations 01/17/23 12:33 ED Decision to Admit Stat Procedures Performed Laboratory Results WBC 19.55 K/ul (4.8-10.8) H 01/19/23 06:48 RBC 2.62 M/uL (4.70-6.10) L 01/19/23 06:48 Hgb 7.4 g/dl (14.0-18.0) L 01/19/23 06:48 Hct 22.0 % (42.0-52.0) L 01/19/23 06:48 MCV 84.0 fL (80.0-100.0) 01/19/23 06:48 MCH 28.2 pg (25.0-34.0) 01/19/23 06:48 MCHC 33.6 g/dL (32.0-36.0) 01/19/23 06:48 RDW Std Deviation 48.3 fL (36.4-46.3) H 01/19/23 06:48 RDW Coeff of Echo 16.0 % (11.5-14.5) H 01/19/23 06:48 Plt Count 266 K/uL (130-400) 01/19/23 06:48 MPV 11.2 fL (9.4-12.4) 01/19/23 06:48 Absolute Nucleated RBC 0.09 K/uL (0.00-0.12) 01/19/23 06:48 Nucleated RBC % (auto) 0.5 % 01/19/23 06:48 Neutrophils % (Manual) 72 % 01/17/23 11:32 Lymphocytes % (Manual) 14 % 01/17/23 11:32 Monocytes % (Manual) 6 % 01/17/23 11:32 Basophils % (Manual) 1 % 01/17/23 11:32 Metamyelocytes % (Man) 3 % 01/17/23 11:32 Myelocytes % (Man) 4 % 01/17/23 11:32 Neutrophils # (Manual) 14.48 K/uL (1.40-6.50) H 01/17/23 11:32 Total Absolute Neuts 14.48 K/uL (1.4-6.5) H 01/17/23 11:32 Lymphocytes # (Manual) 2.82 K/uL (1.2-3.4) 01/17/23 11:32 Total Abs Lymphocytes 2.82 K/uL (1.2-3.4) 01/17/23 11:32 Monocytes # (Manual) 1.21 K/uL (0.11-0.59) H 01/17/23 11:32 Basophils # (Manual) 0.20 K/uL (0-0.2) 01/17/23 11:32 Metamyelocytes # (Man) 0.60 K/uL (0-0) H 01/17/23 11:32 Myelocytes # (Manual) 0.80 K/uL (0-0) H 01/17/23 11:32 Polychromasia 1+ 01/17/23 11:32 Ovalocytes 1+ 01/17/23 11:32 Peripher Smr Path Cons 01/17/23 11:32 PT 12.1 Seconds (9.0-12.0) H 01/17/23 11:32 INR 1.1 (0.9-1.1) 01/17/23 11:32 APTT 30 Seconds (21-31) 01/17/23 11:32 PTT Ratio 1.1 01/17/23 11:32 Sodium 140 mmol/L (136-145) 01/19/23 06:48 Potassium 4.2 mmol/L (3.5-5.1) 01/19/23 06:48 Chloride 111 mmol/L (98-107) H 01/19/23 06:48 Carbon Dioxide 22 mmol/L (21-32) 01/19/23 06:48 Anion Gap 7 (3-11) 01/19/23 06:48 BUN 29 mg/dl (6-23) H 01/19/23 06:48 Creatinine 1.20 mg/dl (0.6-1.4) 01/19/23 06:48 Est Cr Clr Drug Dosing 42.8 ml/min 01/19/23 06:48 Est GFR ( Amer) 64.0 ml/min 01/19/23 06:48 Est GFR (Non-Af Amer) 55.2 ml/min 01/19/23 06:48 BUN/Creatinine Ratio 24.2 (10-20) H 01/19/23 06:48 Glucose 93 mg/dl (70-99(Fasting)) 01/19/23 06:48 Calcium 8.4 mg/dl (8.6-10.3) L 01/19/23 06:48 Magnesium 1.9 mg/dl (1.7-2.4) 01/18/23 05:26 Iron 133 mcg/dl (35-175) 01/17/23 11:32 Unsaturated IBC 63 mcg/dl (155-355) L 01/17/23 11:32 Ferritin 5222.0 ng/ml (8-388) H 01/17/23 11:32 Total Bilirubin 0.9 mg/dl (0.2-1.0) 01/17/23 11:32 AST 45 U/L (13-39) H 01/17/23 11:32 ALT 36 U/L (7-52) 01/17/23 11:32 Alkaline Phosphatase 53 U/L (34-104) 01/17/23 11:32 Troponin I High Sens 7.3 pg/ml (0-20) 01/17/23 11:32 Total Protein 6.4 gm/dl (6.0-8.3) 01/17/23 11:32 Albumin 3.9 gm/dl (3.4-5.0) 01/17/23 11:32 Globulin 2.5 gm/dl (2.5-4.0) 01/17/23 11:32 Albumin/Globulin Ratio 1.6 (0.9-2) 01/17/23 11:32 Lipase 24 U/L (11-82) 01/17/23 11:32 Vitamin B12 610 pg/ml (180-914) 01/17/23 11:34 Folate > 22.30 ng/ml (>5.38) 01/17/23 11:34 Urine Color Yellow 01/17/23 15:25 Urine Appearance Clear (Clear) 01/17/23 15:25 Urine pH 5.5 (4.5-7.5) 01/17/23 15:25 Ur Specific [place] 1.016 (1.000-1.030) 01/17/23 15:25 Urine Protein 1+ (Negative) H 01/17/23 15:25 Urine Glucose (UA) Negative (Negative) 01/17/23 15:25 Urine Ketones Negative (Negative) 01/17/23 15:25 Urine Blood Trace (Negative) H 01/17/23 15:25 Urine Nitrite Negative (Negative) 01/17/23 15:25 Urine Bilirubin Negative (Negative) 01/17/23 15:25 Urine Urobilinogen Negative (Negative) 01/17/23 15:25 Ur Leukocyte Esterase Negative (Negative) 01/17/23 15:25 Urine WBC (Auto) 1-5 /hpf (0-5) 01/17/23 15:25 Urine RBC (Auto) 0-4 /hpf (0-4) 01/17/23 15:25 U Hyaline Cast (Auto) 1-5 /lpf (0-5) 01/17/23 15:25 U Epithel Cells (Auto) 5-10 /lpf (0-5) H 01/17/23 15:25 Urine Bacteria (Auto) Negative (Negative) 01/17/23 15:25 Urine Yeast Not Reportable 01/17/23 15:25 Adenovirus (PCR) Not Detected (NotDetected) 01/17/23 11:39 B. pertussis DNA (PCR) Not Detected (NotDetected) 01/17/23 11:39 B.parapertussis DNA PCR Not Detected (NotDetected) 01/17/23 11:39 C. pneumoniae DNA (PCR) Not Detected (NotDetected) 01/17/23 11:39 Coronavirus OC43 (PCR) Not Detected (NotDetected) 01/17/23 11:39 Coronavirus HKU1 (PCR) Not Detected (NotDetected) 01/17/23 11:39 Coronavirus 229E (PCR) Not Detected (NotDetected) 01/17/23 11:39 SARS-CoV-2 (PCR) NEGATIVE (Negative) 01/17/23 11:39 SARS-CoV-2 (PCR) Not Detected (NotDetected) 01/17/23 11:39 Coronavirus NL63 (PCR) Not Detected (NotDetected) 01/17/23 11:39 Human Metapneumovir PCR Not Detected (NotDetected) 01/17/23 11:39 Influenza Type A (PCR) Negative (Neg) 01/17/23 11:39 Influenza Type A (PCR) Not Detected (NotDetected) 01/17/23 11:39 Influenza Type B (PCR) Negative (Neg) 01/17/23 11:39 Influenza Type B (PCR) Not Detected (NotDetected) 01/17/23 11:39 M. pneumoniae (PCR) Not Detected (NotDetected) 01/17/23 11:39 Parainfluenza 1 (PCR) Not Detected (NotDetected) 01/17/23 11:39 Parainfluenza 2 (PCR) Not Detected (NotDetected) 01/17/23 11:39 Parainfluenza 3 (PCR) Not Detected (NotDetected) 01/17/23 11:39 Parainfluenza 4 (PCR) Not Detected (NotDetected) 01/17/23 11:39 RSV (RT-PCR) Negative (Neg) 01/17/23 11:39 RSV (PCR) Not Detected (NotDetected) 01/17/23 11:39 Entero/Rhino (PCR) Not Detected (NotDetected) 01/17/23 11:39 Blood Type A Negative 01/17/23 11:32 Antibody Screen POSITIVE A 01/17/23 11:32 Antibody Identification Anti-C Anti-D Anti-E 01/17/23 11:32 Antibody Identification Anti-C Anti-D Anti-E 01/17/23 11:32 Antibody Identification Anti-C Anti-D Anti-E 01/17/23 11:32 Antibody ID Comment 01/17/23 11:32 Crossmatch See Detail 01/17/23 11:32 Impressions Chest X-Ray 01/18/23 07:54 XR chest 1V portable CLINICAL HISTORY: Hypoxia TECHNIQUE: Single frontal radiograph of the chest was obtained. Comparison: Comparison is made to chest radiograph 01/17/2023 FINDINGS: A port catheter is seen. Cardiomegaly is noted. The aortic arch is calcified. The lungs are clear. No evidence of pleural effusion or pneumothorax. IMPRESSION: No acute chest disease. Cardiomegaly is noted. ACT 112: Negative or not required by law. Electronically signed by: Miguel Cartwright M.D. 01/18/2023 8:27 AM Hospital Course (1) Anemia of chronic disease: (2) Myelofibrosis: (3) CKD (chronic kidney disease), stage III: (4) Hypertension: (5) Essential thrombocythemia: Plan Patient is an 82 yr male with H/O Myelofibrosis on bone marrow bx 2019, essential thrombocythemia, anemia due to chronic kidney disease, CONNIE 2 mutation, CKD III, HTN and other medical problems listed below who presents to ED with abnormal lab work showing worsening anemia. Symptomatic anemia Anemia of chronic disease Transfusion dependent:Requires frequent blood transfusions with baseline hgb 6.5-8 per chart review, last one was 3 weeks ago Secondary to Myelofibrosis Essential thrombocythemia Presented with Hb 5.1>6.1>7.4 --Rectal exam per Dr. Alvarez revealed brown stool which was heme-negative -- Anemia work-up reviewed --Peripheral smear with some dysplasia and nucleated red cells, discussed with Dr. Hickman and Dr. Sandoval. Unfortunately patient is considered transfusion dependent at this time and has failed other treatment options. Cont. transfusion support and keep followup appt with Dr. Sandoval later this month --S/P 3 units PRBCs Monitor H&H, volume status Continue anagrelide, hydroxyurea Needs follow-up with oncology upon discharge Discussed with Dr. Sandoval on 01/18/2023: Expected leukocytosis. Reviewed peripheral smear findings. Advised to continue current care PT/OT eval done Plan to discharge home today Complicated Bronchitis Negative COVID screen last week as outpatient --CXR:No acute chest disease. Cardiomegaly is noted. Bio fire negative as well Continue doxycycline Saturating well on room air Clinically improved Abnormal EKG EKG reviewed with inferior and low lateral ST depressions, noted on previous EKGs as well. Likely demand ischemia secondary to significant anemia --ECHO: Left ventricle is normal in size. Mild concentric LVH. Left ventricle wall motion is normal. EF 55 to 60%. Grade 2 diastolic dysfunction. Aortic valve sclerosis moderate, without significant aortic valvular stenosis. Mild aortic root dilatation. Denies any chest pain, dyspnea on exertion CKD III Cr baseline mid-high 1s Cr at baseline Monitor HTN Continue home amlodipine DVT Px: SCDs Re: Anemia Code status: FULL CODE Total Time Total Time Spent Total Time Spent (In Minutes): 65 minutes Discharge Plan Discharge Items Patient Disposition: Home - Self-Care Reason For Visit: ANEMIA Discharge Diagnosis: Symptomatic anemia Anemia of chronic disease Complicated Bronchitis Activity: Per Instructions section Exercise/Sports: Wait until after follow-up appointment Non-emergency contact: Primary Care Provider and Oncologist Call non-emergency contact if: you have any medication questions, your symptoms worsen, your pain is concerning for you and you have a fever Follow-up/Referrals: Emiliano Sandoval MD [Surgeon] - (Date & Time 01/24/2023 10:10 AM Provider Radha Goel Scenery Department Laboratory Scenery [facility] Date & Time 01/24/2023 10:45 AM Provider Emiliano Sandoval MD Department Hematology/Oncology [facility] ) Ritesh Reyes MD [Primary Care Provider] - (Date & Time 01/26/2023 2:20 PM Provider Yesenia Matthews MD Department Family Practice [facility] ) Diet: Heart Healthy Diet Texture: Easy to Chew Addtl Attending Provider Instructions: Follow-up with your primary care physician Dr. Reyes on 01/26/2023 2:20 PM Follow-up with your oncologist Dr. Sandoval on 01/24/2023 10:10 AM -- Complete antibiotic with doxycycline as prescribed. Seek immediate medical attention if your symptoms reoccur or worsen Please take all medications as instructed on discharge list below. Please call if you have any questions or problems. You can reach a [facility] hospitalist on duty at [facility] 24 hours a day by calling [phone] Pending Studies at Discharge: No Stand-Alone Forms: My [facility], Smoking Cessation Medications and DC Order Prescriptions: New doxycycline hyclate 100 mg Capsule 100 mg PO BID Qty: 8 0RF Continued multivitamin Tablet 1 tab PO QDL anagrelide 1 mg Capsule 1 mg PO QPM Rx Instructions: 1 CAPSULE DAILY AT SUPPER + 1 CAPSULE DAILY MON/WED/FRI WITH BREAKFAST Ocuvite Lutein and Zeaxanthin 60 mg-13.5 mg- 15 mg-2 mg-6 mg Capsule 1 cap PO BID carvedilol 12.5 mg tablet 12.5 mg PO BID hydroxyzine HCl 10 mg tablet 10 mg PO DAILY PRN (Reason: Itching) tamsulosin 0.4 mg Capsule 0.4 mg PO HS hydroxyurea 500 mg Capsule 500 mg PO QDL amlodipine [Norvasc] 5 mg Tablet 10 mg PO QAM Qty: 60 0RF Admission Data Admit Date/Time: 01/17/23 13:08 Attending Provider: Abebe Mejia Admit Provider: Abebe Mejia Primary Care Provider: Ritesh Reyes Other Providers: Abebe Mejia Other Interventions: Discharge Summary Assessment (RN) Last Done: 01/19/23 15:50
--- NOTE | 2023-01-25 07:31 | Coding Query ---
CODING QUERY To promote full compliance with coding requirements relating to patient care, provider participation is requested in all cases of scaler uncertainty. Please assist us with the question(s) below: Coding Question(s): There is documentation in the record and on Discharge Summary of, "Symptomatic anemia Anemia of chronic disease Transfusion dependent:Requires frequent blood transfusions with baseline hgb 6.5-8 per chart review, last one was 3 weeks ago Secondary to Myelofibrosis Essential thrombocythemia". Please specify below, in your clinical opinion, regarding Myelofibrosis: (x ) Myelofibrosis is idiopathic (chronic), of unknown cause ( ) Myelofibrosis is likely Primary Myelofibrosis ( ) Myelofibrosis is Acute Myelofibrosis ( ) Myelofibrosis is likely secondary in myeloproliferative disease or with myeloid metaplasia ( ) Myelofibrosis is likely secondary. Please specify the underlying disorder: ( ) Myelofibrosis is likely Other: Please Specify Physician's Response(s): Thank you Sanjuana Frazier Principal Diagnosis: "that condition established after study, to be chiefly responsible for occasioning the admission of the patient to the hospital for care." Co-Existing Principal Diagnosis: "when two or more diagnoses equally meet the criteria for principal diagnosis as determined by the circumstances of admission, diagnostic work up, and/or therapy provided, and the Alphabetic Index, Tabular List, or another coding guideline does not provide sequencing direction, any one of the diagnoses may be sequenced first." "When the physician has documented what appears to be a current diagnosis in the body of the record, but has not included the diagnosis in the final diagnostic statement, the physician should be asked whether the diagnosis should be added." (Source Coding Clinic 2 QTR90. p3-4) TATYANA
== END 2023-01-19 16:53 | disposition home or self-care (01) | DRG 841 ==
LOC: ED 10:36 → EDINP 13:08 → 2S 16:19